=== PATIENT | male | born 1995 | race Caucasian/White ===

== ENCOUNTER 2020-09-20 16:57 | Emergency (ER) | payer OTHER, SELFPAY ==
--- NOTE | ~2020-09-20 | CT_ITS ---
EXAMINATION: CT ABDOMEN AND PELVIS WITH CONTRAST CLINICAL INFORMATION: 25-year-old male with right lower quadrant pain. COMPARISON: Renal ultrasound 03/15/[address] abdomen pelvis 07/07/2018 TECHNIQUE: Multidetector volumetric images were obtained from the superior aspect of the liver through the pubic symphysis following administration 85 mL of Omnipaque 350 intravenous contrast. Sagittal and coronal reformatted images were obtained on the technologist's workstation. This CT examination was performed using dose optimization techniques as appropriate, variously including the following: *Automated exposure control *Adjustment of mA and/or kV according to patient size (this includes techniques or standardized protocols for targeted exams where dose is matched to indication/reason for exam; i.e. extremities or head) *Use of iterative reconstruction technique DLP: 594 mGy-cm FINDINGS: Visualized lung bases are well aerated The liver demonstrates normal size, contour and attenuation. The gallbladder is normal in appearance. The pancreas, spleen and adrenal glands are unremarkable. Symmetrically enhancing kidneys. No hydronephrosis bilaterally. Normal caliber loops of small and large bowel. Normal appendix. The bladder is relatively decompressed but unremarkable. Prostate gland is normal in size. No inguinal lymphadenopathy. No acute osseous abnormality. CT/CT abdomen pelvis w con IMPRESSION: Unremarkable CT imaging of the abdomen and pelvis. Specifically, the appendix is normal in appearance.
[2020-09-20 19:19] VITALS: BP 128/76; PULSE 91; RESP 16; TEMP 36.9; O2SAT 96; BMI 30.4
--- NOTE | 2020-09-20 20:09 | ED.ABDPAIN ---
HPI - Abdominal Pain General Chief Complaint: Abdominal Pain Stated Complaint: RLQ abd pain Time Seen by Provider: 09/20/20 19:58 Source: patient Mode of arrival: ambulatory Limitations: no limitations History of Present Illness HPI narrative: 25-year-old male with a past medical history of diabetes, autism, anxiety, OCD, hypertension, intermittent explosive disorder, seizures, ADHD, depression, bipolar disease here with complaints of abdominal pain since yesterday. The patient tells me that he has pain in the right side of his abdomen which occasionally radiates to the right back. He denies any radiation to the testicles. No urinary symptoms. He does have some nausea with no vomiting. No diarrhea. MD elicited complaint: abdominal pain Related Data Allergies Allergy/AdvReac Type Severity Reaction Status Date / Time amlodipine [AMLODIPINE] Allergy Intermediate SEIZURE Verified 09/20/20 19:18 escitalopram [From LEXAPRO] Allergy Intermediate SEIZURE Unverified 04/13/20 16:35 fluoxetine [Prozac] Allergy Unknown Hives Verified 09/20/20 19:18 olanzapine [From ZYPREXA] Allergy Unknown AGITATION Verified 09/20/20 19:18 sertraline [Zoloft] Allergy Unknown Hives Verified 09/20/20 19:18 Review of Systems Review of Systems Yes all other systems are reviewed and are negative Constitutional: Reports no additional constitutional complaints, Denies body ache(s), Denies chills, Denies fever(s), Denies headache(s) and Denies weakness Eyes: Reports no additional eye complaints and Denies change in vision Reports system reviewed and no additional complaints, except as documented, Denies dizziness, Denies headache(s), Denies nasal congestion, Denies nasal discharge and Denies neck pain Cardiovascular: Reports no additional cardiovascular complaints, Denies chest pain, Denies leg edema and Denies dyspnea Respiratory: Reports no additional respiratory complaints, Denies cough and Denies dyspnea Gastrointestinal: Reports no additional gastrointestinal complaints, Reports abdominal pain, Denies diarrhea, Denies nausea and Denies vomiting Genitourinary: Denies urinary incontinence Musculoskeletal: Reports no additional musculoskeletal complaints, Denies back pain, Denies arthralgias, Denies joint swelling, Denies neck pain, Denies numbness and Denies tingling Skin/Breast: Reports system reviewed and no additional complaints, except as docu and Denies rash Reports system reviewed and no additional complaints, except as documented, Denies Abnormal speech present, Denies dizziness, Denies headache(s), Denies numbness, Denies tingling and Denies weakness Physical Exam Vital Signs: Vital Signs: Last Vital Signs Temp 98.5 F 09/20/20 19:19 Pulse 91 09/20/20 19:19 Resp 16 09/20/20 19:19 BP 128/76 09/20/20 19:19 Pulse Ox 96 09/20/20 19:19 Body Mass Index 30.4 Const: General: cooperative, healthy appearing, comfortable and no acute distress Orientation/consciousness: patient oriented x3 Limitations: no limitations HENMT: Head: Yes normal to inspection Ears: hearing grossly normal bilaterally General nose exam: Normal external nose present Face and sinus: Yes normal facial exam Mouth: Normal oral and palatal mucosa present Throat: Yes posterior oropharynx normal Eyes: General: appearance normal, both eyes and all related structures Pupils: Equal, round and reactive pupils present Neck: Neck: Yes normal visual inspection Chest: Chest palpation & inspection: normal inspection of the chest Resp: Effort & Inspection: normal respiratory effort Auscultation: clear to auscultation bilaterally Cardio: Rate: regular rate Rhythm: regular rhythm Peripheral pulses: Peripheral pulses 2+ throughout GI: Inspection: Yes normal to inspection Palpation (GI): Soft to palpation and Tenderness to palpation present (GI) (mild RUQ/RLQ no rebound or guarding ) Auscultation: normal bowel sounds : General: Yes no CVA tenderness Back/Spine/Pelvis: Back: no CVA tenderness Thoracic/Lumbar Spine: thoracic and lumbar spine normal to inspection Skin: General skin exam: no rashes or lesions noted Neuro: General: patient oriented x3, no focal motor deficits and normal sensation to monofilament Cranial nerves: Yes Equal, round and reactive pupils present Cognition (Neuro): normal cognition Speech: No Abnormal speech present Gait exam (Neuro): Normal gait present Motor exam (neuro): 5/5 motor strength present throughout Extrem: General: Yes normal to inspection Course Course Course Narrative: 25 yo male here with right-sided abdominal pain times 24-48 hours. No other associated symptoms. Exam he has some mild tenderness in the right upper and right lower quadrant with no rebound or guarding. Vital signs are stable. Benign exam. 2200-labs are unremarkable. UA is negative for blood or infection. Imaging unremarkable. Patient's pain is improved on discharge. Reviewed worrisome signs and symptoms and when to return to the emergency department. Comfortable discharge home. MDM - Abdominal Pain MDM Narrative Medical decision making narrative: renal colic, pyelo, uti, acute appy Medical Records Attestation: I reviewed the patient's medical records. Lab Data Attestation: I reviewed the patient's lab results. Result diagrams: 09/20/20 20:22 09/20/20 20: Labs: Lab Results 09/20/20 09/20/20 09/20/20 Range/Units 20:22 20:22 20:22 WBC 11.4 H (4.8-10.8) X10*3/uL RBC 4.06 L (4.60-5.80) X10*6/uL Hgb 12.4 L (14.0-18.0) g/dl Hct 35.1 L (42-52) % MCV 86.5 (80-98) fL MCH 30.5 (27.0-33.0) pg MCHC 35.3 (31.0-36.0) g/dl RDW 12.6 (11.0-16.0) % Plt Count 244 (160-400) X10*3/uL MPV 10.5 (9.4-12.4) fL Immature Gran % (Auto) 0.4 (0.0-0.4) % Neut % (Auto) 59.4 (45-73) % Lymph % (Auto) 31.3 (20-40) % [place] % (Auto) 7.3 (2-11) % Eos % (Auto) 1.2 (0-4) % Baso % (Auto) 0.4 (0-2) % Lymph # (Auto) 3.6 (1.2-4.9) X10*3/uL [place] # (Auto) 0.8 (0.1-1.2) X10*3/uL Eos # (Auto) 0.1 (0.0-0.4) X10*3/uL Baso # (Auto) 0.1 (0.0-0.2) X10*3/uL Abs Immat Gran (auto) 0.04 H (0.00-0.03) X10*3/uL Absolute Neuts (auto) 6.7 (2.0-8.3) X10*3/uL Absolute Nucleated RBC 0.000 (0.0-0.012) X10*3/uL Nucleated RBC % (auto) 0.0 (0.0-0.2) /100WBC Sodium 135 (135-145) mmol/L Potassium 3.5 (3.3-5.1) mmol/L Chloride 103 (96-108) mmol/L Carbon Dioxide 21 L (22-29) mmol/L Anion Gap 15 (12-20) BUN 21 H (9-16) mg/dL Creatinine 0.82 (0.5-1.4) mg/dL Estim Creat Clear Calc 138.9 Estimated GFR > 60 Random Glucose 100 (60-115) mg/dL Calcium 9.0 (8.4-10.2) mg/dL Total Bilirubin 0.4 (0.0-1.0) mg/dL Direct Bilirubin < 0.2 (0.0-0.5) mg/dL AST 15 (5-37) U/L ALT 13 (0-40) U/L Alkaline Phosphatase 57 (39-117) U/L Total Protein 7.3 (6.5-8.0) g/dL Albumin 4.5 (3.5-5.0) g/dL Urine Color YELLOW Urine Appearance CLEAR Urine pH 7.0 (5.0-8.0) Ur Specific [place] 1.010 (1.005-1.025) Urine Protein NEG (NEG-TRACE) MG/DL Urine Glucose (UA) NEG (NEG) MG/DL Urine Ketones NEG (NEG) MG/DL Urine Blood NEG (NEG) Urine Nitrite NEG (NEG) Ur Leukocyte Esterase TRACE H (NEG) Urine RBC 0 (0) /HPF Urine WBC 0 (0-4) /HPF Ur Squamous Epith Cells 1+ /LPF Urine Bacteria TRACE /LPF Imaging Data CT scan - abdomen: Attestation: I personally reviewed and interpreted this imaging study as follows: Radiologist's impression: EXAMINATION: CT ABDOMEN AND PELVIS WITH CONTRAST CLINICAL INFORMATION: 25-year-old male with right lower quadrant pain. COMPARISON: Renal ultrasound 03/15/[address] abdomen pelvis 07/07/2018 TECHNIQUE: Multidetector volumetric images were obtained from the superior aspect of the liver through the pubic symphysis following administration 85 mL of Omnipaque 350 intravenous contrast. Sagittal and coronal reformatted images were obtained on the technologist's workstation. This CT examination was performed using dose optimization techniques as appropriate, variously including the following: *Automated exposure control *Adjustment of mA and/or kV according to patient size (this includes techniques or standardized protocols for targeted exams where dose is matched to indication/reason for exam; i.e. extremities or head) *Use of iterative reconstruction technique DLP: 594 mGy-cm FINDINGS: Visualized lung bases are well aerated The liver demonstrates normal size, contour and attenuation. The gallbladder is normal in appearance. The pancreas, spleen and adrenal glands are unremarkable. Symmetrically enhancing kidneys. No hydronephrosis bilaterally. Normal caliber loops of small and large bowel. Normal appendix. The bladder is relatively decompressed but unremarkable. Prostate gland is normal in size. No inguinal lymphadenopathy. No acute osseous abnormality. CT/CT abdomen pelvis w con IMPRESSION: Unremarkable CT imaging of the abdomen and pelvis. Specifically, the appendix is normal in appearance. Discharge Plan Discharge Clinical Impression: Abdominal pain Qualifiers: Abdominal location: generalized Qualified Code(s): R10.84 - Generalized abdominal pain Patient Disposition: Home, Self-Care Instructions: Abdominal Pain (ED) Additional Instructions: Your labs, urine testing and scans of your abdomen all look unremarkable Follow-up with your PCP in a few days for persistent symptoms. Referrals: Gigi Acuña MD [Primary Care Provider] - 2 days Interventions: ED Discharge Assessment Last Done: 09/20/20 22:18 Discharge Date/Time: 09/20/20 22:18 [facility] Past Medical History Attestation statement: The following information was validated with the patient. Source: old records reviewed and nursing notes reviewed Medical History (Updated 09/20/20 @ 22:00 by Mariella Lang NP) ADHD Anxiety Autism Bipolar 1 disorder Depression Diabetes mellitus OCD (obsessive compulsive disorder) Seizure Social History Social History Smoked in Last 30 Days: No Use of substances other than those prescribed or required for medical reasons: No Advance Directives: No Advance Directives Information Provided: Yes
[2020-09-20 20:28] LABS: MANUAL DIFF FLAG NO
[2020-09-20 20:31] LABS: Appearance Urine CLEAR; Basophils Absolute Auto 0.1 X10*3/uL (0.0-0.2); Basophils Percent Auto 0.4 % (0-2); Color Urine YELLOW; Eosinophils Absolute Auto 0.1 X10*3/uL (0.0-0.4); Eosinophils Percent Auto 1.2 % (0-4); Glucose Urine UA NEG (NEG); Hematocrit 35.1 % (42-52); Hemoglobin 12.4 g/dl (14.0-18.0); Imm Gran Abs Auto 0.04 X10*3/uL (0.00-0.03); Imm Gran Pct Auto 0.4 % (0.0-0.4); Leukocyte Esterase Urine TRACE (NEG); Lymphocytes Absolute Auto 3.6 X10*3/uL (1.2-4.9); Lymphocytes Percent Auto 31.3 % (20-40); Mean Corpuscular HGB Conc 35.3 g/dl (31.0-36.0); Mean Corpuscular Hemoglobin 30.5 pg (27.0-33.0); Mean Corpuscular Volume 86.5 fL (80-98); Mean Platelet Volume 10.5 fL (9.4-12.4); Monocytes Absolute Auto 0.8 X10*3/uL (0.1-1.2); Monocytes Percent Auto 7.3 % (2-11); Neutrophils Absolute Auto 6.7 X10*3/uL (2.0-8.3); Neutrophils Percent Auto 59.4 % (45-73); Nitrite Urine NEG (NEG); Platelet Count 244 X10*3/uL (160-400); Red Blood Count 4.06 X10*6/uL (4.60-5.80); Red Cell Distribution Width 12.6 % (11.0-16.0); UACC Culture Trigger YES; Urine Blood NEG (NEG); Urine Ketones NEG (NEG); Urine Protein NEG (NEG-TRACE); White Blood Count 11.4 X10*3/uL (4.8-10.8)
[2020-09-20 20:42] LABS: Bacteria Urine TRACE /LPF; RBC Urine 0 /HPF (0); Squamous Epithelial Cell Urine 1+ /LPF; WBC Urine 0 /HPF (0-4)
[2020-09-20 21:12] LABS: Alanine Aminotransferase 13 U/L (0-40); Albumin Level 4.5 g/dL (3.5-5.0); Alkaline Phosphatase 57 U/L (39-117); Anion Gap 15 (12-20); Aspartate Amino Transferase 15 U/L (5-37); Bilirubin Direct < 0.2 mg/dL (0.0-0.5); Bilirubin Total 0.4 mg/dL (0.0-1.0); Blood Urea Nitrogen 21 mg/dL (9-16); Carbon Dioxide 21 mmol/L (22-29); Chloride 103 mmol/L (96-108); Creatinine Clr Calc Pharmacy 138.9; Estimated Glomerular Filt Rate > 60; Glucose Random 100 mg/dL (60-115); Potassium 3.5 mmol/L (3.3-5.1); Sodium 135 mmol/L (135-145); Total Protein 7.3 g/dL (6.5-8.0)
[2020-09-20] MEDS: iohexoL 350 MG/ML 100 ML INFUS..BTL IV (21:41)
== END 2020-09-20 22:18 | disposition home or self-care (01) ==
PROVIDERS: Nurse Practitioner Family; Emergency Provider Emergency Medicine; PCP Pediatrics
DX: R10.31 Right lower quadrant pain (principal); F84.0 Autistic disorder; F41.1 Generalized anxiety disorder; F43.0 Acute stress reaction; F63.81 Intermittent explosive disorder; F33.1 Major depressive disorder, recurrent, moderate; Z79.899 Other long term (current) drug therapy
CPT/HCPCS: 36415; 74177; 80048; 80076; 81001; 81003; 85025; 87086; 99284; Q9967

== ENCOUNTER → 2020-10-19 09:05 | Outpatient (REF) | payer OTHER, SELFPAY ==
--- NOTE | 2020-10-19 09:30 | CA_ITS ---
Transthoracic Echocardiogram Patient (Last, First, Middle): Andry Liang E Gender: Male Date of : 1995 Age: 25 Procedure Date: 10/19/2020 Procedure Type: Transthoracic Echocardiogram Location: OP Height: 165.1 cm Weight: 84.37 kg BSA: 1.92 m2 Heart Rate: bpm BP: 103 / 50 mmHg Survey Questionnaire Designer: GIOVANNA Referring MD: Jono Painter MD Symptoms: I34.0 NON RHEUMATIC MITRAL REGURG, HTN Study Quality: Good ECG Rhythm: Sinus Conclusions: - The left ventricular systolic function is low normal. The visually estimated ejection fraction is between 50-55%. - No obvious valvular pathology seen on this study. Findings Left Ventricle Normal left ventricular cavity size. There is normal left ventricular wall thickness. The left ventricular systolic function is low normal. The visually estimated ejection fraction is between 50-55%. There is no evidence of regional wall motion abnormalities. Diastolic function is normal for age. Right Ventricle Normal right ventricular cavity size and systolic function. Atria Both atria are normal in size. Aortic Valve There is a normal trileaflet aortic valve. There is no aortic valve stenosis. There is no aortic valve regurgitation. Mitral Valve The mitral valve appears normal. There is trace mitral valve regurgitation. There is no mitral valve stenosis. Pulmonic Valve The pulmonic valve was not well visualized. Tricuspid Valve Normal tricuspid valve structure. There is trace tricuspid valve regurgitation. The pulmonary artery systolic pressure is normal. Great Vessels The aortic annulus, sinuses of valsalva, and asc aorta are normal in size. Venous The inferior vena cava is normal in size and collapses greater than 50% with inspiration. Pericardium/Pleural There is no evidence of pericardial effusion. Prior Study Comparison No significant change compared to prior study dated: 02/10/2018. Recommendations, Care & Conclusions No obvious valvular pathology seen on this study. Measurements 2D Linear Measurements IVSd: 0.83 0.6-0.9/0.6-1.0 cm LVIDd: 4.29 3.9-5.3/4.2-5.9 cm LVIDd Index: 2.23 2.4-3.2/2.2-3.1 cm/m2 LVIDs: 2.94 2.0-3.6 cm LVPWd: 0.94 0.7-1.1 cm Ao Root: 2.90 2.1-3.5 cm LA Diam: 3.50 2.7-3.8/3.0-4.0 cm LAIDs Index: 1.82 1.5-2.3 cm/m2 LV Mass: 150.02 67-162/88-224 g LV Mass Index: 78.14 43-95/49-115 g/m2 LVOT Diam: 2.20 3.0+(-)1.3 cm 2D Systolic Function EF 4C: 53.80 >55% EF 2C: 64.40 >55% EF BiP: 58.30 >55% Mitral Valve MV Pk E: 0.85 MV PK A: 0.46 MV Decel Time: 278.00 E/A: 1.80 E'Lateral: 16.20 E'Medial: 13.30 E/E' Med: 6.40 E/E' Lat: 5.20 PHT: 81.00 MVA PHT: 2.72 Decel [place]ike: 3.04 Aortic Valve AoV Pk Andrea: 1.31 AoV Mn Andrea: 0.84 AoV VTI: 0.25 AoV Pk Grad: 7.00 Aov Mn Grad: 3.00 LAURA Cont.VTI: 2.40 LVOT LVOT Pk Andrea: 0.82 LVOT Mn Andrea: 0.53 LVOT VTI: 0.16 LVOT Pk Grad: 3.00 LVOT Mn Grad: 1.00 LVOT Diam: 2.20 LVOT Area: 3.80 Diastolic Function MV Pk E: 0.85 MV Pk A: 0.46 E/A: 1.80 E'Medial: 13.30 E/E' Med: 6.40 E' Laterial: 16.20 E/E' Lat: 5.20 Tricuspid Valve TR Pk Andrea: 2.04 TR Pk Grad: 17.00 RA Press: 3.00 RVSP: 20.00 Great Vessels Aorta Ao Root-2D: 2.90 2.0-3.7 cm Ao Asc: 2.70 2.1-3.4 cm Ao Arch: 1.80 Updated in Other Vendor System with Status of Final Jono Painter MD electronically signed on 10/20/2020 2:46:13 PM with status of Final
== END ==
LOC: HO.CARD 09:05
PROVIDERS: PCP Pediatrics; Visit Provider Internal Medicine
DX: I34.0 Nonrheumatic mitral (valve) insufficiency (principal); I10 Essential (primary) hypertension
CPT/HCPCS: 93306

== ENCOUNTER → 2020-10-24 10:58 | Outpatient (BNVA) | payer OTHER, SELFPAY | PROVIDERS: PCP Pediatrics; Visit Provider Internal Medicine | DX: I34.0 Nonrheumatic mitral (valve) insufficiency (principal); I10 Essential (primary) hypertension | CPT/HCPCS: 93005; 99212 ==

== ENCOUNTER 2021-02-01 12:51 | Outpatient (REF) | payer OTHER, SELFPAY ==
[2021-02-01 13:02] LABS: Glucose Urine UA NEG (NEG); Leukocyte Esterase Urine NEG (NEG); Nitrite Urine NEG (NEG); Urine Blood NEG (NEG); Urine Ketones NEG (NEG); Urine Protein NEG (NEG-TRACE)
[2021-02-01 13:09] LABS: Appearance Urine CLEAR; Color Urine YELLOW
[2021-02-01 13:14] LABS: RBC Urine 0 /HPF (0); Squamous Epithelial Cell Urine TRACE /LPF; WBC Urine 0 /HPF (0-4)
== END 2021-02-01 12:52 | disposition home or self-care (01) ==
LOC: HO.LNP 12:51
PROVIDERS: Visit Provider Pediatrics
DX: N39.44 Nocturnal enuresis (principal); N39.0 Urinary tract infection, site not specified
CPT/HCPCS: 81001; 87086

== ENCOUNTER 2021-06-30 17:53 | Emergency (ER) | payer OTHER, SELFPAY ==
--- NOTE | ~2021-06-30 | US_ITS ---
EXAMINATION: US SCROTUM US DOPPLER SCROTUM CLINICAL INFORMATION: Right-sided testicular pain.. COMPARISON: None available. TECHNIQUE: A sonogram of the scrotum was performed assessing alcantara-scale appearance and color Doppler flow. Spectral Doppler analysis of the arterial and venous flow were performed in the testes bilaterally. FINDINGS: RIGHT: Right testicle measures 5.6 x 2.6 x 4.2 cm, volume 31.4 mL. No focal testicular parenchymal lesions are visualized. Spectral Doppler analysis of the arterial and venous flow is normal in the right testis. Right epididymal head is normal in size. No right hydrocele or varicocele is demonstrated. Right epididymal Doppler flow is normal. LEFT: Left testicle measures 4.5 x 2.2 x 3.4 cm, volume 17.4 mL. No focal testicular parenchymal lesions are visualized. Spectral Doppler analysis of the arterial and venous flow is normal in the left testis. Left epididymal head is normal in size. There is an anechoic epididymal cysts, measuring 1.4 x 1 x 0.8 cm. No left hydrocele or varicocele is demonstrated. Left epididymal Doppler flow is normal. US/US scrotum IMPRESSION: 1. Normal ultrasound appearance of the testicles. No hydrocele/varicocele. 2. There is a 1.4 cm left-sided epididymal cyst without evidence of complication.
--- NOTE | ~2021-06-30 | US_ITS ---
EXAMINATION: US SCROTUM US DOPPLER SCROTUM CLINICAL INFORMATION: Right-sided testicular pain.. COMPARISON: None available. TECHNIQUE: A sonogram of the scrotum was performed assessing alcantara-scale appearance and color Doppler flow. Spectral Doppler analysis of the arterial and venous flow were performed in the testes bilaterally. FINDINGS: RIGHT: Right testicle measures 5.6 x 2.6 x 4.2 cm, volume 31.4 mL. No focal testicular parenchymal lesions are visualized. Spectral Doppler analysis of the arterial and venous flow is normal in the right testis. Right epididymal head is normal in size. No right hydrocele or varicocele is demonstrated. Right epididymal Doppler flow is normal. LEFT: Left testicle measures 4.5 x 2.2 x 3.4 cm, volume 17.4 mL. No focal testicular parenchymal lesions are visualized. Spectral Doppler analysis of the arterial and venous flow is normal in the left testis. Left epididymal head is normal in size. There is an anechoic epididymal cysts, measuring 1.4 x 1 x 0.8 cm. No left hydrocele or varicocele is demonstrated. Left epididymal Doppler flow is normal. US/US scrotum doppler IMPRESSION: 1. Normal ultrasound appearance of the testicles. No hydrocele/varicocele. 2. There is a 1.4 cm left-sided epididymal cyst without evidence of complication.
--- NOTE | ~2021-06-30 | CT_ITS ---
EXAMINATION: CT ABDOMEN AND PELVIS WITH CONTRAST CLINICAL INFORMATION: Right lower quadrant abdominal pain. COMPARISON: CT abdomen and pelvis from 09/20/2020. Scrotal ultrasound from 07/20/2021. TECHNIQUE: Multidetector volumetric imaging was performed through the abdomen and pelvis after the administration of 85 mL of Omnipaque 350 intravenous contrast. Sagittal and coronal reformatted images were obtained on the technologist's workstation. This CT examination was performed using dose optimization techniques as appropriate, variously including the following: *Automated exposure control. *Adjustment of mA and/or kV according to patient size (this includes techniques or standardized protocols for targeted exams where dose is matched to indication/reason for exam; i.e. extremities or head). *Use of iterative reconstruction technique. DLP: 692 mGy-cm. FINDINGS: Lower Chest: Number of diffuse or focal parenchymal abnormalities in the visualized lung bases. No demonstrated abnormalities of the visualized cardiac structures. Liver, Biliary Ducts, and Gallbladder: The liver is normal in size and attenuation without focal hepatic lesions or biliary ductal dilatation. The gallbladder is physiologically distended without radiopaque gallstones, pericholecystic fluid, or significant gallbladder wall thickening. Pancreas: The pancreas is normal in appearance. Adrenal Glands: The adrenal glands are normal in appearance. Spleen: The spleen is normal in appearance. Kidneys, Ureters, and Urinary Bladder: The kidneys demonstrate symmetric nephrograms without evidence of nephrolithiasis or overt hydronephrosis. There is a 0.3 cm stone at the right ureterovesicular junction. No additional ureterolithiasis or hydroureter. The urinary bladder is partially distended without focal wall thickening. Gastrointestinal System: The stomach is decompressed and therefore not well evaluated on this exam. The small bowel is of normal caliber without regions of abnormal wall enhancement. The colon is normal in appearance without focal wall thickening or pericolonic inflammatory change. Normal appendix. Genitourinary: No overt abnormalities of the prostate gland or seminal vesicles. Intra-abdominal and Retroperitoneal Spaces: No intra-abdominal free fluid collections or gas. No mesenteric, retroperitoneal, or inguinal lymphadenopathy. Vasculature: The abdominal aorta is of normal contour and caliber. The left gastric artery Musculoskeletal: Small fat-containing left-sided inguinal hernia. Mild multilevel degenerative changes of the spine. Mild degenerative retrolisthesis of L5 on S1. No lytic or sclerotic osseous lesions demonstrated. No soft tissue masses demonstrated. CT/CT abdomen pelvis w con IMPRESSION: 1. There is a 0.3 cm stone at the right ureterovesicular junction. No overt hydronephrosis/hydroureter. 2. No additional acute abnormalities of the abdomen/pelvis.
[2021-06-30 18:55] VITALS: BP 129/76; PULSE 80; RESP 16; TEMP 36.2; O2SAT 97; BMI 30.9
[2021-06-30 19:45] LABS: MANUAL DIFF FLAG NO
[2021-06-30 19:54] LABS: Basophils Absolute Auto 0.1 X10*3/uL (0.0-0.2); Basophils Percent Auto 0.5 % (0-2); Eosinophils Absolute Auto 0.2 X10*3/uL (0.0-0.4); Eosinophils Percent Auto 1.5 % (0-4); Hematocrit 40.6 % (42.0-52.0); Hemoglobin 14.3 g/dl (14.0-18.0); Imm Gran Abs Auto 0.06 X10*3/uL (0.00-0.03); Imm Gran Pct Auto 0.5 % (0.0-0.4); Lymphocytes Absolute Auto 3.4 X10*3/uL (1.2-4.9); Lymphocytes Percent Auto 31.2 % (20-40); Mean Corpuscular HGB Conc 35.2 g/dl (31.0-36.0); Mean Corpuscular Hemoglobin 30.5 pg (27.0-33.0); Mean Corpuscular Volume 86.6 fL (80.0-98.0); Mean Platelet Volume 10.8 fL (9.4-12.4); Monocytes Absolute Auto 0.9 X10*3/uL (0.1-1.2); Monocytes Percent Auto 8.4 % (2-11); Neutrophils Absolute Auto 6.4 x10*3/uL (2.0-8.3); Neutrophils Percent Auto 57.9 % (45-73); Platelet Count 231 X10*3/uL (160-400); Red Blood Count 4.69 X10*6/uL (4.60-5.80); Red Cell Distribution Width 13.2 % (11.0-16.0)
[2021-06-30 20:07] LABS: Alanine Aminotransferase 27 U/L (0-40); Albumin Level 4.4 g/dL (3.5-5.0); Alkaline Phosphatase 48 U/L (39-117); Anion Gap 14 (12-20); Aspartate Amino Transferase 23 U/L (5-37); Bilirubin Total 0.4 mg/dL (0.0-1.0); Blood Urea Nitrogen 16 mg/dL (9-16); Calcium 9.5 mg/dL (8.4-10.2); Carbon Dioxide 20 mmol/L (22-29); Chloride 111 mmol/L (96-108); Creatinine Clr Calc Pharmacy 141.8; Estimated Glomerular Filt Rate > 60; Glucose Random 105 mg/dL (60-115); Potassium 3.8 mmol/L (3.3-5.1); Sodium 141 mmol/L (135-145); Total Protein 7.4 g/dL (6.5-8.0)
--- NOTE | 2021-06-30 20:07 | ED_ITS ---
HPI - Male Genitourinary General Chief complaint: Urogenital-Male Stated complaint: Abdominal pain/Testicle pain Time Seen by Provider: 06/30/21 19:40 Source: patient Mode of arrival: ambulatory Limitations: no limitations History of Present Illness HPI Narrative: This is a 25-year-old male past medical history significant for hypertension, anxiety,depression, bipolar d/o, OCD, diabetes presents to the emergency department with complaints of right lower quadrant abdominal pain, difficulties urinating and right-sided testicular pain. Patient tells me that this all started this morning, and it has been constant pain/discomfort ever since then. He says he feels like the abdominal pain radiated to his testicle. He took Motrin prior to his arrival but he tells me did not help. He reports associated nausea but no vomiting. He tells me that the testicular pain came on suddenly and was a sharp pain, it has decreased in severity since it started, however it is still present. He tells me he also feels like he has had a decreased urinary stream, and burning with urination. Patient has no history of kidney stones, patient is not concerned for an STD or STI. He denies fevers, chills, nausea, vomiting, chest pain, shortness of breath, abdominal pain. MD Complaint: testicle pain and dysuria Onset (ago): day(s) (1) Duration: constant Location: abdomen (RLQ ) Radiation: right testicle Severity: moderate Quality: dull Relieving factors: none Exacerbating factors: none Associated symptoms: Reports dysuria Related Data Home Medications Medication Instructions Recorded Confirmed cholecalciferol (vitamin D3) 50 50 mcg PO QAM 10/24/20 10/24/20 mcg (2,000 unit) tablet clonidine HCl 0.2 mg tablet 0.2 mg PO DAILY PRN 10/24/20 10/24/20 lisinopril 20 1 tab PO QAM 10/24/20 10/24/20 mg-hydrochlorothiazide 25 mg tablet melatonin 5 mg tablet 5 mg PO BEDTIME 10/24/20 10/24/20 metformin 500 mg tablet 500 mg PO BID 10/24/20 10/24/20 quetiapine 200 mg tablet 200 mg PO BEDTIME 10/24/20 10/24/20 quetiapine 50 mg tablet 50 mg PO TID 10/24/20 10/24/20 sertraline 100 mg tablet 100 mg PO QAM 10/24/20 10/24/20 simvastatin 10 mg tablet 10 mg PO QAM 10/24/20 10/24/20 topiramate 100 mg tablet 200 mg PO BID 10/24/20 10/24/20 Previous Rx's Medication Instructions Recorded ondansetron 4 mg disintegrating 4 mg PO ONCE PRN #10 tab 06/30/21 tablet Allergies Allergy/AdvReac Type Severity Reaction Status Date / Time amlodipine [AMLODIPINE] Allergy Intermediate SEIZURE Verified 10/24/20 11:10 escitalopram [From LEXAPRO] Allergy Intermediate SEIZURE Verified 10/24/20 11:10 fluoxetine [Prozac] Allergy Unknown Hives Verified 10/24/20 11:10 olanzapine [From ZYPREXA] Allergy Unknown AGITATION Verified 10/24/20 11:10 sertraline [Zoloft] Allergy Unknown Hives Verified 10/24/20 11:10 Review of Systems Review of Systems: Constitutional : No Weight loss, No Fever, No Chills, No Fatigue, No Malaise ENT/Mouth : No sore throat, No Rhinorrhea Eyes: No Eye Pain, No Swelling, No Redness Cardiovascular : No Chest Pain, No SOB, No Dyspnea on Exertion, No Orthopnea, No Edema, No Palpitations Respiratory : No Cough, No Sputum, No Wheezing Gastrointestinal : + Nausea, No Vomiting, No Diarrhea, No Constipation, + abdominal Pain, No Hematochezia, No Melena Genitourinary : + Dysuria, + Urinary Frequency, No Hematuria,+ testicular pain Musculoskeletal : No joint pain, No Myalgias, No Joint Swelling Skin : No Skin Lesions, No rash Neuro : No Weakness, No Numbness, No Dizziness, No Headache All other systems reviewed and are negative Yes all other systems are reviewed and are negative [facility] Past Medical History Attestation statement: The following information was validated with the patient. Source: old records reviewed and nursing notes reviewed Medical History (Updated 06/30/21 @ 21:08 by NINFA Rosas) ADHD Anxiety Autism Bipolar 1 disorder Depression Diabetes mellitus Essential hypertension Non-rheumatic mitral regurgitation OCD (obsessive compulsive disorder) Seizure Surgical History (Updated 10/24/20 @ 11:11 by JOSUÉ Pandya) No pertinent past surgical history Family History Family History (Updated 10/24/20 @ 11:11 by JOSUÉ Pandya) Father Diabetes HTN (hypertension) Mother Diabetes HTN (hypertension) Social History Social History (Updated 10/24/20 @ 11:12 by JOSUÉ Pandya) Advance Directives: No Advance Directives Information Provided: Yes Physical Exam Vital Signs: Vital Signs: Last Vital Signs Temp 97.2 F 06/30/21 18:55 Pulse 80 06/30/21 18:55 Resp 16 06/30/21 18:55 BP 129/76 06/30/21 18:55 Pulse Ox 97 06/30/21 18:55 BMI result Body Mass Index 30.9 VSS Appearance: Alert.? Oriented X3.? No acute distress.? Head: Normocephalic, atraumatic, no step-offs or deformities Eyes: Pupils equal, round and reactive to light.? ENT: Pharynx normal.? Neck: Normal inspection.? Neck supple.? CVS: Normal heart rate and rhythm.? Pulses normal.? Respiratory: No respiratory distress.? Breath sounds normal.? Abdomen: Soft and + tenderness to RLQ.? Sensative exam: Patient reports tenderness to palpation to the right testicle, no overlying skin changes, no pain to palpation of left testicle. No abnormal lumps or masses noted upon palpation. Normal uncircumcised male penis. No genital lesions, or sores noted. (chaperoned by Mayo MAK) Skin: Skin warm and dry.? Normal skin color.? Normal skin turgor.? Extremities: No lower extremity edema.? No calf ttp. 5/5 strength to bilateral upper and lower extremities Back: No midline tenderness, no C-spine tenderness, full range of motion, no CVA tenderness bilaterally Neuro: Oriented X 3.? No motor deficit.? No sensory deficit. Course Reevaluation(s) Reevaluation #1: Labs show slight leukocytosis, no electrolyte abnormalities. Urine is clean with blood. CT of the abdomen and pelvis pending ultrasound of the scrotum pending. Sign out will be given to Time: 21:06 MDM - Male Genitourinary MDM Narrative Medical decision making narrative: 1997 This is a 25 yo M pmhx HTN, anxiety,depression, bipolar d/o, OCD, DM presents to the Ed with complaints of right lower quadrant pain, radiating to his right testicle, dysuria, decreased urinary stream. No previous abdominal surgeries. Upon physical examination patient appears well. Vital signs are stable. He has tenderness to palpation to the right lower quadrant. S1-S2 appreciated free of murmurs. Lungs are clear. No focal neuro deficits. Will perform a sensitive exam when I have a printed circuit board panels plater. Plan at this time is to obtain basic labs, urine, chlamydia, gonorrhea by urine, ultrasound of the scrotum to rule out torsion. A CT of the abdomen pelvis to rule out appendicitis/kidney stones. Medical Records Attestation: I reviewed the patient's medical records. Lab Data Attestation: I reviewed the patient's lab results. Result diagrams: 06/30/21 19:41 06/30/21 19:41 Labs: Lab Results 06/30/21 06/30/21 06/30/21 Range/Units 19:41 19:41 19:59 WBC 11.0 H (4.8-10.8) X10*3/uL RBC 4.69 (4.60-5.80) X10*6/uL Hgb 14.3 (14.0-18.0) g/dl Hct 40.6 L (42.0-52.0) % MCV 86.6 (80.0-98.0) fL MCH 30.5 (27.0-33.0) pg MCHC 35.2 (31.0-36.0) g/dl RDW 13.2 (11.0-16.0) % Plt Count 231 (160-400) X10*3/uL MPV 10.8 (9.4-12.4) fL Immature Gran % (Auto) 0.5 H (0.0-0.4) % Neut % (Auto) 57.9 (45-73) % Lymph % (Auto) 31.2 (20-40) % Gilchrist % (Auto) 8.4 (2-11) % Eos % (Auto) 1.5 (0-4) % Baso % (Auto) 0.5 (0-2) % Lymph # (Auto) 3.4 (1.2-4.9) X10*3/uL Gilchrist # (Auto) 0.9 (0.1-1.2) X10*3/uL Eos # (Auto) 0.2 (0.0-0.4) X10*3/uL Baso # (Auto) 0.1 (0.0-0.2) X10*3/uL Abs Immat Gran (auto) 0.06 H (0.00-0.03) X10*3/uL Absolute Neuts (auto) 6.4 (2.0-8.3) x10*3/uL Absolute Nucleated RBC 0.000 (0.0-0.012) X10*3/uL Nucleated RBC % (auto) 0.0 (0.0-0.2) /100WBC Sodium 141 (135-145) mmol/L Potassium 3.8 (3.3-5.1) mmol/L Chloride 111 H (96-108) mmol/L Carbon Dioxide 20 L (22-29) mmol/L Anion Gap 14 (12-20) BUN 16 (9-16) mg/dL Creatinine 0.81 (0.5-1.4) mg/dL Estim Creat Clear Calc 141.8 Estimated GFR > 60 Random Glucose 105 (60-115) mg/dL Calcium 9.5 (8.4-10.2) mg/dL Total Bilirubin 0.4 (0.0-1.0) mg/dL AST 23 D (5-37) U/L ALT 27 (0-40) U/L Alkaline Phosphatase 48 (39-117) U/L Total Protein 7.4 (6.5-8.0) g/dL Albumin 4.4 (3.5-5.0) g/dL Urine Color YELLOW Urine Appearance CLOUDY Urine pH 7.0 (5.0-8.0) Ur Specific [place] 1.020 (1.005-1.025) Urine Protein NEG (NEG-TRACE) MG/DL Urine Glucose (UA) NEG (NEG) MG/DL Urine Ketones NEG (NEG) MG/DL Urine Blood 1+ H (NEG) Urine Nitrite NEG (NEG) Ur Leukocyte Esterase NEG (NEG) Urine RBC 1-4 (0) /HPF Urine WBC 0-2 (0-4) /HPF Ur Squamous Epith Cells TRACE /LPF Amorphous Sediment 2+ /LPF Urine Bacteria NONE /LPF Critical Care Time Critical Care Time Critical Care Time: No Discharge Plan Discharge Clinical Impression: Abdominal pain, Dysuria, Nausea Patient Disposition: Home, Self-Care Instructions: Dysuria (ED), Abdominal Pain (ED) Additional Instructions: Take your medications as prescribed. If you were prescribed antibiotics today, it is important that you take your medication to their entirety, do not skip any doses, do not finish them early. Follow-up with your primary care provider this week. Return to the emergency department with new or worsening symptoms. In case of emergency call 911 Prescriptions: New ondansetron 4 mg tablet,disintegrating 4 mg PO ONCE PRN (Reason: nausea and vomiting) Qty: 10 RF: 0 No Action cholecalciferol (vitamin D3) 50 mcg (2,000 unit) tablet 50 mcg PO QAM RF: 0 topiramate 100 mg tablet 200 mg PO BID RF: 0 lisinopril-hydrochlorothiazide 20-25 mg tablet 1 tab PO QAM RF: 0 melatonin 5 mg tablet 5 mg PO BEDTIME RF: 0 quetiapine 50 mg tablet 50 mg PO TID RF: 0 quetiapine 200 mg tablet 200 mg PO BEDTIME RF: 0 simvastatin 10 mg tablet 10 mg PO QAM RF: 0 sertraline 100 mg tablet 100 mg PO QAM RF: 0 metformin 500 mg tablet 500 mg PO BID RF: 0 clonidine HCl 0.2 mg tablet 0.2 mg PO DAILY PRN (Reason: anxiety) RF: 0 Referrals: Gigi Acuña MD [Primary Care Provider] - 2 days
[2021-06-30 20:47] LABS: Appearance Urine CLOUDY; Color Urine YELLOW; Glucose Urine UA NEG (NEG); Leukocyte Esterase Urine NEG (NEG); Nitrite Urine NEG (NEG); UACC Culture Trigger NO; Urine Blood 1+ (NEG); Urine Ketones NEG (NEG); Urine Protein NEG (NEG-TRACE)
[2021-06-30 20:57] LABS: Squamous Epithelial Cell Urine TRACE /LPF; WBC Urine 0-2 /HPF (0-4)
[2021-06-30 20:58] LABS: Amorphous Sediment Urine 2+ /LPF
[2021-06-30] MEDS: iohexoL 350 MG/ML 100 ML INFUS..BTL 85 ML IV (21:19)
[2021-06-30 21:41] VITALS: BP 137/81; PULSE 84; RESP 16; TEMP 36.9; O2SAT 98
[2021-06-30] MEDS: Ketorolac Tromethamine 30 MG/ML VIAL IVPUSH (22:28)
[2021-06-30] MEDS: oxyCODONE HCl Immed Release 5 MG TABLET PO (23:53)
[2021-06-30] MEDS: Tamsulosin HCL 0.4 MG CAPSULE PO (23:54)
[2021-07-01 00:07] VITALS: BP 133/81; PULSE 78; RESP 16; TEMP 36.9; O2SAT 98
[2021-07-02 05:10] LABS: CT PCR NOT DETECTED (Not Detect.); NG PCR NOT DETECTED (Not Detect.)
== END 2021-07-01 00:09 | disposition home or self-care (01) ==
PROVIDERS: Emergency Medicine Emergency Medical Services; Emergency Provider Internal Medicine; PCP Pediatrics
DX: R30.0 Dysuria (principal); R10.31 Right lower quadrant pain; R11.0 Nausea; N50.811 Right testicular pain
CPT/HCPCS: 36415; 74177; 76870; 80053; 81001; 85025; 87491; 87591; 93975; 96374; 99284; J1885; Q9967

== ENCOUNTER 2021-07-06 16:53 | Emergency (ER) | payer OTHER, SELFPAY ==
[2021-07-06 20:25] LABS: Influenza A PCR NEGATIVE (Negative); Influenza B PCR NEGATIVE (Negative); Resp Syncy Virus RNA Qual PCR NEGATIVE (Negative); SARS COV2 PCR INHOUSE NEGATIVE (Negative)
[2021-07-06 20:56] VITALS: BP 143/89; PULSE 85; RESP 18; TEMP 37.1; O2SAT 98; BMI 30.9
[2021-07-06 21:25] LABS: IDNOW Serial# 55D5AD1C; Strep A Nucleic Acid Negative (Negative)
[2021-07-06] MEDS: Acetaminophen 325 MG TABLET 650 MG PO (22:17)
[2021-07-06] MEDS: Ondansetron ODT 4 MG TAB.RAPDIS TRANSLINGU (22:18)
--- NOTE | 2021-07-06 22:40 | ED.URI ---
HPI - URI/Sore Throat General Chief Complaint: Upper Respiratory Symptoms Stated Complaint: Flu like symptoms Time Seen by Provider: 07/06/21 22:37 Source: patient Mode of arrival: ambulatory Limitations: no limitations History of Present Illness HPI Narrative: Patient complaining of sore throat nasal congestion cough low-grade fever for last 3 days not getting better, patient already been vaccinated against COVID Related Data Home Medications Medication Instructions Recorded Confirmed cholecalciferol (vitamin D3) 50 50 mcg PO QAM 10/24/20 10/24/20 mcg (2,000 unit) tablet clonidine HCl 0.2 mg tablet 0.2 mg PO DAILY PRN 10/24/20 10/24/20 lisinopril 20 1 tab PO QAM 10/24/20 10/24/20 mg-hydrochlorothiazide 25 mg tablet melatonin 5 mg tablet 5 mg PO BEDTIME 10/24/20 10/24/20 metformin 500 mg tablet 500 mg PO BID 10/24/20 10/24/20 quetiapine 200 mg tablet 200 mg PO BEDTIME 10/24/20 10/24/20 quetiapine 50 mg tablet 50 mg PO TID 10/24/20 10/24/20 sertraline 100 mg tablet 100 mg PO QAM 10/24/20 10/24/20 simvastatin 10 mg tablet 10 mg PO QAM 10/24/20 10/24/20 topiramate 100 mg tablet 200 mg PO BID 10/24/20 10/24/20 Previous Rx's Medication Instructions Recorded ondansetron 4 mg disintegrating 4 mg PO ONCE PRN #10 tab 06/30/21 tablet oxycodone-acetaminophen 5 mg-325 1 tab PO Q6H PRN #20 tab 06/30/21 mg tablet (Percocet) tamsulosin 0.4 mg capsule (Flomax) 0.4 mg PO BEDTIME #14 cap 06/30/21 prednisone 20 mg tablet 20 mg PO DAILY 5 Days #5 tab 07/02/21 amoxicillin 875 mg-potassium 1 tab PO BID #20 tab 07/06/21 clavulanate 125 mg tablet (Augmentin) Allergies Allergy/AdvReac Type Severity Reaction Status Date / Time amlodipine [AMLODIPINE] Allergy Intermediate SEIZURE Verified 10/24/20 11:10 escitalopram [From LEXAPRO] Allergy Intermediate SEIZURE Verified 10/24/20 11:10 fluoxetine [Prozac] Allergy Unknown Hives Verified 10/24/20 11:10 olanzapine [From ZYPREXA] Allergy Unknown AGITATION Verified 10/24/20 11:10 sertraline [Zoloft] Allergy Unknown Hives Verified 10/24/20 11:10 Review of Systems Review of Systems: Yes all other systems are reviewed and are negative [facility] Past Medical History Medical History ADHD Anxiety Autism Bipolar 1 disorder Depression Diabetes mellitus Essential hypertension Non-rheumatic mitral regurgitation OCD (obsessive compulsive disorder) Seizure Surgical History No pertinent past surgical history Family History Family History Father Diabetes HTN (hypertension) Mother Diabetes HTN (hypertension) Social History Social History Advance Directives: No Advance Directives Information Provided: No Physical Exam Vital Signs: Vital Signs: Last Vital Signs Temp 98.7 F 07/06/21 20:56 Pulse 85 07/06/21 20:56 Resp 18 07/06/21 20:56 BP 143/89 H 07/06/21 20:56 Pulse Ox 98 07/06/21 20:56 BMI result Body Mass Index 30.9 Appearance: Alert. Oriented X3. No acute distress. Eyes: PERRLA, No Nystagmus HEENT: Posterior pharynx erythematous no exudate, nasal turbinates inflamed with purulent discharge. Oral Mucosa moist Neck: Normal inspection. Neck supple. CVS: Normal heart rate and rhythm. Pulses normal. Respiratory: No respiratory distress. Equal air entry bilateral, no wheezing/rales/rhonchi Abdomen: Soft and nontender. Skin: Skin warm and dry. Normal skin color. Normal skin turgor. Extremities: No lower extremity edema. No calf tenderness Neuro: Oriented X 3. MDM - URI/Sore Throat Lab Data Attestation: I reviewed the patient's lab results. Labs: Lab Results 07/06/21 07/06/21 Range/Units 19:37 20:59 Influenza Type A (PCR) NEGATIVE (Negative) Influenza Type B (PCR) NEGATIVE (Negative) RSV RNA Qual (PCR) NEGATIVE (Negative) SARS-CoV-2 RNA (RT-PCR) NEGATIVE (Negative) S. pyogenes GrpA ANURAG Negative (Negative) Discharge Plan Discharge Clinical Impression: Upper respiratory infection Patient Disposition: Home, Self-Care Instructions: Pharyngitis (ED) Additional Instructions: Drink plenty of fluids Tylenol/Motrin for fever or pain Take antibiotics as prescribed Follow-up with PCP if not better Prescriptions: New amoxicillin-pot clavulanate [Augmentin] 875-125 mg tablet 1 tab PO BID Qty: 20 RF: 0 No Action prednisone 20 mg tablet 20 mg PO DAILY 5 Days Qty: 5 RF: 0 ondansetron 4 mg tablet,disintegrating 4 mg PO ONCE PRN (Reason: nausea and vomiting) Qty: 10 RF: 0 oxycodone-acetaminophen [Percocet] 5-325 mg tablet 1 tab PO Q6H PRN (Reason: pain) Qty: 20 RF: 0 tamsulosin [Flomax] 0.4 mg capsule 0.4 mg PO BEDTIME Qty: 14 RF: 0 cholecalciferol (vitamin D3) 50 mcg (2,000 unit) tablet 50 mcg PO QAM RF: 0 topiramate 100 mg tablet 200 mg PO BID RF: 0 lisinopril-hydrochlorothiazide 20-25 mg tablet 1 tab PO QAM RF: 0 melatonin 5 mg tablet 5 mg PO BEDTIME RF: 0 quetiapine 50 mg tablet 50 mg PO TID RF: 0 quetiapine 200 mg tablet 200 mg PO BEDTIME RF: 0 simvastatin 10 mg tablet 10 mg PO QAM RF: 0 sertraline 100 mg tablet 100 mg PO QAM RF: 0 metformin 500 mg tablet 500 mg PO BID RF: 0 clonidine HCl 0.2 mg tablet 0.2 mg PO DAILY PRN (Reason: anxiety) RF: 0 Interventions: ED Discharge Assessment Last Done: 07/06/21 22:59 Discharge Date/Time: 07/06/21 23:00
[2021-07-06] MEDS: Amoxicillin/Potassium Clav 875 MG TABLET PO (22:55)
== END 2021-07-06 23:00 | disposition home or self-care (01) ==
PROVIDERS: Emergency Provider Internal Medicine; PCP Pediatrics
DX: J06.9 Acute upper respiratory infection, unspecified (principal); R05.9 Cough, unspecified; R50.9 Fever, unspecified; Z79.899 Other long term (current) drug therapy; Z20.822 Contact with and (suspected) exposure to COVID-19
CPT/HCPCS: 0241U; 36415; 87651; 99283; 99284

== ENCOUNTER → 2021-07-19 14:15 | Outpatient (BNVA) | payer OTHER, SELFPAY | PROVIDERS: PCP Pediatrics | DX: N48.1 Balanitis (principal); N20.0 Calculus of kidney | CPT/HCPCS: 99202 ==

== ENCOUNTER → 2021-08-09 13:22 | Outpatient (BNVA) | payer OTHER, SELFPAY | PROVIDERS: PCP Pediatrics; Visit Provider Nurse Practitioner Family ==

== ENCOUNTER → 2021-10-09 11:17 | Outpatient (BNVA) | payer MEDICAID, SELFPAY | PROVIDERS: PCP Internal Medicine; Visit Provider Nurse Practitioner Family | DX: G47.9 Sleep disorder, unspecified (principal); G47.19 Other hypersomnia; G40.909 Epilepsy, unspecified, not intractable, without status epilepticus; R06.83 Snoring; F84.0 Autistic disorder; Z86.69 Personal history of other diseases of the nervous system and sense organs | CPT/HCPCS: 99212 ==

== ENCOUNTER → 2021-12-17 13:27 | Outpatient (REF) | payer MEDICAID, SELFPAY | LOC: HO.SL 13:27 | PROVIDERS: PCP Internal Medicine; Visit Provider Nurse Practitioner Family | DX: G47.19 Other hypersomnia (principal); G47.9 Sleep disorder, unspecified; R06.83 Snoring | CPT/HCPCS: 95806 ==

== ENCOUNTER → 2022-01-15 12:45 | Outpatient (BNVA) | payer MEDICAID, SELFPAY | PROVIDERS: PCP Internal Medicine; Visit Provider Nurse Practitioner Family | DX: R33.9 Retention of urine, unspecified (principal); G47.9 Sleep disorder, unspecified; G47.19 Other hypersomnia; R06.83 Snoring; I10 Essential (primary) hypertension; G40.909 Epilepsy, unspecified, not intractable, without status epilepticus | CPT/HCPCS: 99212 ==

== ENCOUNTER → 2022-02-24 20:40 | Outpatient (REF) | payer MEDICAID, SELFPAY | LOC: HO.SL 20:40 | PROVIDERS: PCP Internal Medicine; Visit Provider Nurse Practitioner Family | DX: R06.83 Snoring (principal) | CPT/HCPCS: 95810 ==

== ENCOUNTER 2022-04-29 10:35 | Outpatient (REF) | payer MEDICAID, SELFPAY ==
[2022-04-29 12:06] LABS: Creatinine, mg/dL 67.03; Phosphorus mg/dL 39.6 mg/dL
[2022-04-29 12:10] LABS: Creatinine, mg/dL 67.32; Uric Acid, mg/dL 28.6 mg/dL
[2022-04-29 12:52] LABS: Creatinine, 24Hr Urine 1.9 G/Day (1.0-2.0); Phosphorus, 24 Hr Urine 1.1 G/Day (0.4-1.3); Sodium 24 Hr Urine 257.1 mmol/Day (40-220); Total Volume 24 Hour Urine 2825 mL
[2022-04-29 12:53] LABS: Creatinine, 24Hr Urine 1.9 G/Day (1.0-2.0); Total Volume 24 Hour Urine 2825 mL
[2022-05-02 14:42] LABS: 24hr Urine Total Volume 2825 mL; Citric Acid, 24hr Urine 59 mg/24 h (100-1300); Citric Acid/Creat Ratio 24U 32 mg/g creat (60-660); Creatinine, 24U 1.88 g/24 h (0.50-2.15)
[2022-05-05 14:32] LABS: Cystine 24Hr Urine - Total Vol 2825 mL
[2022-05-05 15:46] LABS: Oxalic Acid 24 Urine 45.2 mg/24 h (3.6-38.0)
== END 2022-04-29 10:36 | disposition home or self-care (01) ==
LOC: HO.LNP 10:35
PROVIDERS: Visit Provider Internal Medicine Nephrology
DX: I12.9 Hypertensive chronic kidney disease with stage 1 through stage 4 chronic kidney disease, or unspecified chronic kidney disease (principal); E11.22 Type 2 diabetes mellitus with diabetic chronic kidney disease; N20.0 Calculus of kidney; N18.9 Chronic kidney disease, unspecified
CPT/HCPCS: 82131; 82507; 83945; 84105; 84300; 84560

== ENCOUNTER → 2022-05-07 11:02 | Outpatient (BNVA) | payer MEDICAID, SELFPAY | PROVIDERS: PCP Internal Medicine; Visit Provider Nurse Practitioner Family | DX: G40.909 Epilepsy, unspecified, not intractable, without status epilepticus (principal); N20.0 Calculus of kidney; G47.9 Sleep disorder, unspecified | CPT/HCPCS: 99212 ==

== ENCOUNTER 2022-05-08 14:06 | Outpatient (REF) | payer MEDICAID, SELFPAY ==
--- NOTE | ~2022-05-08 | US_ITS ---
EXAMINATION: US PELVIS LIMITED (BLADDER) CLINICAL INFORMATION: Poor urinary stream. COMPARISON: Renal ultrasound 12/31/2021. CT abdomen and pelvis with contrast 06/30/2021. Ultrasound abdomen complete 06/26/2017. TECHNIQUE: Real-time imaging of the bladder. FINDINGS: BLADDER: Well distended and normal. Bilateral ureteral jets are demonstrated. Prevoid bladder volume is 273 mL. Postvoid bladder volume is 31.9 mL. The prostate volume is 27.8 US/US bladder IMPRESSION: Small postvoid residual bladder volume.
== END 2022-05-08 14:07 | disposition home or self-care (01) ==
LOC: HO.US 14:06
PROVIDERS: Visit Provider Urology
DX: R39.12 Poor urinary stream (principal); R33.9 Retention of urine, unspecified
CPT/HCPCS: 76857

== ENCOUNTER 2022-07-28 14:52 | Emergency (ER) | payer MEDICAID, SELFPAY ==
--- NOTE | ~2022-07-28 | CT_ITS ---
EXAMINATION: CT abdomen pelvis wo IV con CLINICAL INFORMATION: Reason for Exam kidney stone, left flank pain COMPARISON: No prior CT available for comparison. TECHNIQUE: Multidetector volumetric imaging was performed from the superior aspect of the liver through the pubic symphysis noncontrasted study. Sagittal and coronal reformatted images were obtained on the technologist's workstation. This CT examination was performed using dose optimization techniques as appropriate, variously including the following: *Automated exposure control *Adjustment of mA and/or kV according to patient size (this includes techniques or standardized protocols for targeted exams where dose is matched to indication/reason for exam; i.e. extremities or head) *Use of iterative reconstruction technique DLP: 698 mGy-cm FINDINGS: LOWER THORAX: Included lung bases are clear. HEPATOBILIARY: No focal hepatic lesions. No biliary ductal dilatation. GALLBLADDER: Gallbladder unremarkable. SPLEEN: Spleen is normal in size. PANCREAS: No focal mass or ductal dilatation. STOMACH AND GASTROINTESTINAL TRACT: Stomach is grossly unremarkable. There is no bowel distention or thickening. No CT evidence of appendicitis. ADRENALS: No adrenal nodules. KIDNEYS/URETERS: Left renal hydronephrosis and hydroureter due to a 2 mm stone at the distal left ureter ureterovesicular junction. Right kidney is normal. URINARY BLADDER: Partially decompressed. PELVIC VISCERA: Unremarkable PERITONEUM: No free air or fluid. LYMPH NODES: No lymphadenopathy. VASCULAR:Abdominal aorta normal in size, no aneurysm found. BONES, ABDOMINAL WALL AND SOFT TISSUES: Age-appropriate changes of the spine and skeletal system, no destructive osteolytic or osteosclerotic bone lesion found CT/CT abdomen pelvis wo IV con IMPRESSION: Left renal hydronephrosis and hydroureter due to a 2 mm stone at the distal left ureter ureterovesicular junction.
[2022-07-28 15:25] VITALS: BP 123/68; PULSE 91; RESP 16; TEMP 36.3; O2SAT 97; BMI 31.4
--- NOTE | 2022-07-28 15:26 | ED_ITS ---
HPI - General Adult General Chief complaint: Abdominal Pain Stated complaint: left sided pain Time Seen by Provider: 07/28/22 18:21 Source: patient Mode of arrival: ambulatory Limitations: no limitations History of Present Illness HPI narrative: Patient is a 27 year old assigned male at with a history of kidney stones presenting to the emergency department today with left flank pain. Patient sta minnie that he began having left sided flank pain yesterday and had some blood in his urine. Patient denies any dizziness, lightheadedness, nausea, vomiting, fever, chills, blurry vision, double vision, loss of vision, chest pain, difficulty breathing, shortness of breath, back pain, night sweats, pain with urination, increased urinary frequency, increased urinary urgency, blood in his stool, syncope or a near syncopal episode, recent trauma or falls, bowel incontinence, bladder incontinence, bowel retention, bladder retention, or any other complaints at this time. Onset (ago): day(s) (1) Location: left (flank) Radiation: non-radiation Severity: mild Severity scale (1-10): 3 Quality: aching and dull Pain Consistency: constant Relieving factors: none Exacerbating factors: none Associated symptoms: denies other symptoms Treatments prior to arrival: none Related Data Home Medications Medication Instructions Recorded Confirmed cholecalciferol (vitamin D3) 50 50 mcg PO QAM 10/24/20 06/05/22 mcg (2,000 unit) tablet clonidine HCl 0.2 mg tablet 0.2 mg PO DAILY PRN anxiety 10/24/20 06/05/22 lisinopril 20 1 tab PO QAM 10/24/20 06/05/22 mg-hydrochlorothiazide 25 mg tablet melatonin 5 mg tablet 5 mg PO BEDTIME 10/24/20 06/05/22 quetiapine 200 mg tablet 200 mg PO BEDTIME 10/24/20 06/05/22 quetiapine 50 mg tablet 50 mg PO TID 10/24/20 06/05/22 sertraline 100 mg tablet 100 mg PO QAM 10/24/20 06/05/22 simvastatin 10 mg tablet 10 mg PO QAM 10/24/20 06/05/22 omeprazole 20 mg capsule,delayed 20 mg PO DAILY 07/19/21 06/05/22 release metformin 500 mg tablet,extended 500 mg PO DAILY 01/15/22 06/05/22 release 24 hr oxybutynin chloride 5 mg 5 mg PO DAILY 05/07/22 06/05/22 tablet,extended release 24 hr polyethylene glycol 3350 17 17 g PO BID PRN constipation 05/07/22 06/05/22 gram/dose oral powder Previous Rx's Medication Instructions Recorded ondansetron 4 mg disintegrating 4 mg PO ONCE PRN nausea and 06/30/21 tablet vomiting #10 tabs clotrimazole-betamethasone 1 1 appl topical BID #15 grams 07/19/21 %-0.05 % topical cream topiramate 100 mg tablet 200 mg PO BID 30 days #120 tabs 08/09/21 tamsulosin 0.4 mg capsule 0.4 mg PO BEDTIME 30 days #30 caps 01/15/22 pyridoxine (vitamin B6) 100 mg 100 mg PO BID 30 days #60 tabs 04/29/22 tablet naproxen 500 mg tablet 500 mg PO BID 7 days #14 tabs 07/28/22 prednisone 20 mg tablet 20 mg PO DAILY 7 days #7 tabs 07/28/22 tamsulosin 0.4 mg capsule 0.4 mg PO DAILY #14 caps 07/28/22 Allergies Allergy/AdvReac Type Severity Reaction Status Date / Time amlodipine [AMLODIPINE] Allergy Intermediate SEIZURE Verified 06/05/22 13:32 escitalopram [From LEXAPRO] Allergy Intermediate SEIZURE Verified 06/05/22 13:32 fluoxetine [Prozac] Allergy Unknown Hives Verified 06/05/22 13:32 olanzapine [From ZYPREXA] Allergy Unknown AGITATION Verified 06/05/22 13:32 Review of Systems Constitutional: Constitutional: Reports no additional constitutional complaints, Denies chills, Denies fever(s) and Denies night sweats Eyes: Eyes: Reports no additional eye complaints, Denies blurry vision, Denies change in vision, Denies diplopia, Denies eye discharge, Denies loss of vision and Denies eye pain ENT: Denies dizziness Cardiovascular: Cardiovascular: Reports no additional cardiovascular complaints, Denies chest pain, Denies lightheadedness, Denies Loss of Consciousness and Denies dyspnea Respiratory: Respiratory: Reports no additional respiratory complaints and Denies dyspnea Gastrointestinal: Gastrointestinal: Reports no additional gastrointestinal complaints, Denies abdominal pain, Denies melena, Denies hematochezia, Denies change in bowel habits and Denies change in stool character Genitourinary: Genitourinary: Reports no additional male genitourinary complaints, Reports hematuria, Denies oliguria, Denies difficulty urinating, Denies dysuria, Reports flank pain (left), Denies urinary frequency, Denies urinary hesitancy, Denies urinary incontinence and Denies urinary urgency Musculoskeletal: Musculoskeletal: Reports no additional musculoskeletal complaints, Denies numbness and Denies tingling Neurologic: Denies dizziness, Denies loss of vision, Denies numbness and Denies tingling Psychiatric: Psychiatric: Reports no additional psychiatric complaints Endocrine: Endocrine: Reports no additional endocrine complaints Hematologic/Lymphatic: Hematologic/Lymphatic: Reports no additional hematologic/lymphatic complaints Allergic/Immunologic: Allergic/Immunologic: Reports no additional allergic/immunologic complaints PMFSH Past Medical History Attestation statement: The following information was validated with the patient. Source: old records reviewed and nursing notes reviewed Medical History ADHD Anxiety Autism Balanitis Bipolar 1 disorder Depression Diabetes mellitus Essential hypertension Non-rheumatic mitral regurgitation OCD (obsessive compulsive disorder) Renal calculi Seizure Surgical History No pertinent past surgical history Family History Family History Father Diabetes HTN (hypertension) Mother Diabetes HTN (hypertension) Social History Social History Household Members: Family Alcohol intake: never Patient Tobacco Use Status: Never used Tobacco Advance Directives: No Advance Directives Information Provided: No Current occupational status: disabled Physical Exam ED Vital Signs: Vital Signs - 24 hr 07/28/22 15:25 Temperature 97.3 F Pulse Rate 91 Respiratory Rate 16 Blood Pressure 123/68 Pulse Oximetry 97 Oxygen Delivery Method Room Air BMI result Body Mass Index 31.4 Const General: cooperative, no acute distress, alert and awake Nutritional Appearance: well nourished Orientation/consciousness: patient oriented x3 Limitations: no limitations HENMT Head: Yes normal to inspection and Yes atraumatic Ears: hearing grossly normal bilaterally and external ears normal General nose exam: Normal external nose present, no nasal discharge noted and no epistaxis Face and sinus: Yes normal facial exam, No abrasion and No laceration Mouth: Normal oral and palatal mucosa present, no drooling and no muffled voice Eyes General: appearance normal, both eyes and all related structures Periorbital: periorbital findings normal Eyelids: Yes eyelids normal Conjunctivae: conjunctivae normal Pupils: Equal, round and reactive pupils present EOM: EOMs intact bilaterally Neck Neck: Yes normal visual inspection, Yes full ROM and Yes no lymphadenopathy Chest Chest palpation & inspection: normal inspection of the chest Resp Effort & Inspection: normal respiratory effort and able to speak in complete sentences Auscultation: clear to auscultation bilaterally Cardio Rate: regular rate Rhythm: regular rhythm GI Inspection: Yes normal to inspection Palpation (GI): Soft to palpation, not firm, nontender, no guarding and not rigid Neuro General: patient oriented x3 and moves all extremities Cranial nerves: Yes Equal, round and reactive pupils present Cognition (Neuro): normal cognition Motor exam (neuro): 5/5 motor strength present throughout Sensory Exam: Normal double simultaneous stimulation for sensation Coordination: [id number] test normal Extrem General: Yes normal to inspection, Yes full ROM and Yes capillary refill normal Psych Appearance: grossly normal Mental Status: mental status grossly normal Affect: normal affect Attitude: cooperative Thought process: Normal thought process present Thought content: Normal thought content present Insight: Good insight present (Psych) Course Course Course Narrative: RME performed by Sharon Castillo PA-C. Patient is a 27 year old male presenting to the emergency department with left sided flank pain. Patient states that he has a history of stones and this feels similar. Labs and imaging ordered. Patient placed in waiting room pending results and room availability. Medical Decision Making Medical Decision Making MDM Narrative: Patient is a 27 year old assigned male at with a history of kidney stones presenting to the emergency department today with left sided flank pain. Patient's physical exam was unremarkable. Patient's blood work showed a mildly elevated WBC count of 12.3 with a slightly decreased sodium of 134. Patient's urine showed blood but was otherwise unremarkable. Patient's abdominal CT showed left hydronephrosis and hydroureter due to a 2mm stone at the distal left ureter ureterovesicular junction. I explained my physical exam findings as well as all test results to the patient. I answered all questions asked by the patient. I stressed the importance of the patient taking his medication as prescribed. I stressed the importance of the patient following up with his primary care provider and a urologist. I stressed the importance of the patient returning to the emergency department immediately if his symptoms were to worsen or if he w ere to develop any dizziness, shortness of breath, difficulty breathing, chest pain, blurry vision, loss of vision, nausea, vomiting, abdominal pain, fever, chills, back pain, or any other complaints. Patient verbalized agreement and understanding with this treatment plan and discharge. Differential Diagnosis Differential Diagnoses: The differential diagnosis associated with the presentation includes renal calculi, abdominal pain Lab Data MDM Lab Attestation statement: I reviewed the patient's lab results. Result Diagrams: 07/28/22 15:59 07/28/22 15:59 Labs: Lab Results 07/28/22 07/28/22 07/28/22 Range/Units 15:59 15:59 16:02 WBC 12.3 H (4.8-10.8) X10*3/uL RBC 4.98 (4.60-5.80) X10*6/uL Hgb 15.0 (14.0-18.0) g/dl Hct 42.2 (42.0-52.0) % MCV 84.7 (80.0-98.0) fL MCH 30.1 (27.0-33.0) pg MCHC 35.5 (31.0-36.0) g/dl RDW 12.6 (11.0-16.0) % Plt Count 212 (160-400) X10*3/uL MPV 10.3 (9.4-12.4) fL Immature Gran % (Auto) 0.5 H (0.0-0.4) % Neut % (Auto) 65.1 (45-73) % Lymph % (Auto) 23.1 (20-40) % [place] % (Auto) 10.2 (2-11) % Eos % (Auto) 0.7 (0-4) % Baso % (Auto) 0.4 (0-2) % Lymph # (Auto) 2.8 (1.2-4.9) X10*3/uL [place] # (Auto) 1.3 H (0.1-1.2) X10*3/uL Eos # (Auto) 0.1 (0.0-0.4) X10*3/uL Baso # (Auto) 0.1 (0.0-0.2) X10*3/uL Abs Immat Gran (auto) 0.06 H (0.00-0.03) X10*3/uL Absolute Neuts (auto) 8.0 (2.0-8.3) x10*3/uL Absolute Nucleated RBC 0.000 (0.0-0.012) X10*3/uL Nucleated RBC % (auto) 0.0 (0.0-0.2) /100WBC Sodium 134 L (135-145) mmol/L Potassium 3.8 (3.3-5.1) mmol/L Chloride 102 (96-108) mmol/L Carbon Dioxide 24 (22-29) mmol/L Anion Gap 12 (12-20) BUN 21 H (9-16) mg/dL Creatinine 1.32 (0.5-1.4) mg/dL Estim Creat Clear Calc 86.1 Estimated GFR > 60 Random Glucose 104 (60-115) mg/dL Calcium 10.1 D (8.4-10.2) mg/dL Total Bilirubin 0.6 (0.0-1.0) mg/dL AST 20 (5-37) U/L ALT 27 (0-40) U/L Alkaline Phosphatase 52 (39-117) U/L Total Protein 7.3 (6.5-8.0) g/dL Albumin 4.7 (3.5-5.0) g/dL Urine Color Yellow Urine Appearance Cloudy Urine pH 6.0 (5.0-9.0) Ur Specific [place] 1.015 (1.005-1.025) Urine Protein Trace (Neg-Trace) mg/dL Urine Glucose (UA) Negative (Negative) mg/dL Urine Ketones Negative (Negative) mg/dL Urine Blood Large (3+) H (Negative) Urine Nitrite Negative (Negative) Ur Leukocyte Esterase Trace H (Negative) Urine RBC 6-10 H (0-2) /HPF Urine WBC 0-5 (0-5) /HPF Ur Squamous Epith Cells 3-5 (0-2) /HPF Calcium Oxalate Crystal Present Urine Bacteria 1+ (None Seen) Hyaline Casts 0-2 (0-2) /LPF Radiology Impression Discussion of test interpretation with radiology: I have reviewed the radiologist's reading. Radiologist Impression: My interpretation is in agreement with the radiologist's impression of this imaging study. --- EXAMINATION: CT abdomen pelvis wo IV con CLINICAL INFORMATION: Reason for Exam kidney stone, left flank pain COMPARISON: No prior CT available for comparison. TECHNIQUE: Multidetector volumetric imaging was performed from the superior aspect of the liver through the pubic symphysis noncontrasted study.? Sagittal and coronal reformatted images were obtained on the technologist's workstation. ? This CT examination was performed using dose optimization techniques as appropriate, variously including the following: *Automated exposure control *Adjustment of mA and/or kV according to patient size (this includes techniques or standardized protocols for targeted exams where dose is matched to indication/reason for exam; i.e. extremities or head) *Use of iterative reconstruction technique DLP: 698 mGy-cm FINDINGS: LOWER THORAX: Included lung bases are clear. HEPATOBILIARY: No focal hepatic lesions. No biliary ductal dilatation. GALLBLADDER: Gallbladder unremarkable. SPLEEN: Spleen is normal in size. PANCREAS: No focal mass or ductal dilatation. STOMACH AND GASTROINTESTINAL TRACT: Stomach is grossly unremarkable. There is no bowel distention or thickening. No CT evidence of appendicitis. ADRENALS: No adrenal nodules. KIDNEYS/URETERS: Left renal hydronephrosis and hydroureter due to a 2 mm stone at the distal left ureter ureterovesicular junction. Right kidney is normal. URINARY BLADDER: Partially decompressed. PELVIC VISCERA: Unremarkable PERITONEUM: No free air or fluid. LYMPH NODES: No lymphadenopathy. VASCULAR:Abdominal aorta normal in size, no aneurysm found. BONES, ABDOMINAL WALL AND SOFT TISSUES: Age-appropriate changes of the spine and skeletal system, no destructive osteolytic or osteosclerotic bone lesion found CT/CT abdomen pelvis wo IV con IMPRESSION: ? Left renal hydronephrosis and hydroureter due to a 2 mm stone at the distal left ureter ureterovesicular junction. Dictated By: Shant Ahuja MD Signed By: Electronically signed by Shant Ahuja MD 07/28/22 1169 Discharge Plan Discharge Clinical Impression: Kidney stone Patient Disposition: Home, Self-Care Instructions: Kidney Stones (ED) Additional Instructions: Follow up with your primary care provider and a urologist. Return to the emergency department immediately if your symptoms worsen or if you develop any dizziness, shortness of breath, difficulty breathing, chest pain, blurry vision, loss of vision, nausea, vomiting, abdominal pain, fever, chills, back pain, or any other complaints. Prescriptions: New prednisone 20 mg tablet 20 mg PO DAILY 7 Days Qty: 7 0RF naproxen 500 mg tablet 500 mg PO BID 7 Days Qty: 14 0RF tamsulosin 0.4 mg capsule 0.4 mg PO DAILY Qty: 14 0RF No Action pyridoxine (vitamin B6) 100 mg tablet 100 mg PO BID 30 Days Qty: 60 3RF ondansetron 4 mg tablet,disintegrating 4 mg PO ONCE PRN (Reason: nausea and vomiting) Qty: 10 0RF cholecalciferol (vitamin D3) 50 mcg (2,000 unit) tablet 50 mcg PO QAM lisinopril-hydrochlorothiazide 20-25 mg tablet 1 tab PO QAM melatonin 5 mg tablet 5 mg PO BEDTIME quetiapine 50 mg tablet 50 mg PO TID quetiapine 200 mg tablet 200 mg PO BEDTIME simvastatin 10 mg tablet 10 mg PO QAM sertraline 100 mg tablet 100 mg PO QAM clonidine HCl 0.2 mg tablet 0.2 mg PO DAILY PRN (Reason: anxiety) topiramate 100 mg tablet 200 mg PO BID 30 Days Qty: 120 6RF metformin 500 mg tablet extended release 24 hr 500 mg PO DAILY tamsulosin 0.4 mg capsule 0.4 mg PO BEDTIME 30 Days Qty: 30 1RF omeprazole 20 mg capsule,delayed release(DR/EC) 20 mg PO DAILY clotrimazole-betamethasone 1-0.05 % cream 1 appl topical BID Qty: 15 0RF Rx Instructions: apply BID top irritated area oxybutynin chloride 5 mg tablet extended release 24hr 5 mg PO DAILY polyethylene glycol 3350 17 gram/dose powder 17 g PO BID PRN (Reason: constipation) Referrals: [facility] [place] [facility] [Provider Group] Jens Grigsby MD [Primary Care Provider] - Stand Alone Forms: Work/School Release Interventions: ED Discharge Assessment Last Done: 07/28/22 18:26 Discharge Date/Time: 07/28/22 18:29 Print Language: Romanian
[2022-07-28 16:08] LABS: MANUAL DIFF FLAG NO
[2022-07-28 16:11] LABS: Appearance Urine Cloudy; Color Urine Yellow; Glucose Urine UA Negative (Negative); Leukocyte Esterase Urine Trace (Negative); Nitrite Urine Negative (Negative); Specific Gravity - Urine 1.015 (1.005-1.025); UMIC TRIGGER UACC YES; Urine Blood Large (3+) (Negative); Urine Ketones Negative (Negative); Urine Protein Trace mg/dL (Neg-Trace)
[2022-07-28 16:13] LABS: Basophils Absolute Auto 0.1 X10*3/uL (0.0-0.2); Basophils Percent Auto 0.4 % (0-2); Eosinophils Absolute Auto 0.1 X10*3/uL (0.0-0.4); Eosinophils Percent Auto 0.7 % (0-4); Hematocrit 42.2 % (42.0-52.0); Imm Gran Abs Auto 0.06 X10*3/uL (0.00-0.03); Imm Gran Pct Auto 0.5 % (0.0-0.4); Lymphocytes Absolute Auto 2.8 X10*3/uL (1.2-4.9); Lymphocytes Percent Auto 23.1 % (20-40); Mean Corpuscular HGB Conc 35.5 g/dl (31.0-36.0); Mean Corpuscular Hemoglobin 30.1 pg (27.0-33.0); Mean Corpuscular Volume 84.7 fL (80.0-98.0); Mean Platelet Volume 10.3 fL (9.4-12.4); Monocytes Absolute Auto 1.3 X10*3/uL (0.1-1.2); Monocytes Percent Auto 10.2 % (2-11); Neutrophils Percent Auto 65.1 % (45-73); Platelet Count 212 X10*3/uL (160-400); Red Blood Count 4.98 X10*6/uL (4.60-5.80); Red Cell Distribution Width 12.6 % (11.0-16.0); White Blood Count 12.3 X10*3/uL (4.8-10.8)
[2022-07-28 16:24] LABS: Alanine Aminotransferase 27 U/L (0-40); Albumin Level 4.7 g/dL (3.5-5.0); Alkaline Phosphatase 52 U/L (39-117); Anion Gap 12 (12-20); Aspartate Amino Transferase 20 U/L (5-37); Bilirubin Total 0.6 mg/dL (0.0-1.0); Blood Urea Nitrogen 21 mg/dL (9-16); Calcium 10.1 mg/dL (8.4-10.2); Carbon Dioxide 24 mmol/L (22-29); Chloride 102 mmol/L (96-108); Creatinine Clr Calc Pharmacy 86.1; Estimated Glomerular Filt Rate > 60; Glucose Random 104 mg/dL (60-115); Potassium 3.8 mmol/L (3.3-5.1); Sodium 134 mmol/L (135-145); Total Protein 7.3 g/dL (6.5-8.0)
[2022-07-28 16:32] LABS: Bacteria Urine 1+ (None Seen); Calcium Oxalate Crystals Urine Present; Hyaline Casts Urine 0-2 /LPF (0-2); WBC Urine 0-5 /HPF (0-5)
== END 2022-07-28 18:29 | disposition home or self-care (01) ==
LOC: HO.ED 18:28
PROVIDERS: Physician Assistant Medical; Emergency Provider Internal Medicine; PCP Internal Medicine
DX: N20.0 Calculus of kidney (principal); Z79.899 Other long term (current) drug therapy
CPT/HCPCS: 36415; 74176; 80053; 81001; 85025; 99282; 99284

== ENCOUNTER 2022-08-03 21:00 | Inpatient (IN) | payer OTHER, MEDICAID, SELFPAY ==
--- NOTE | ~2022-08-03 | XR_ITS ---
EXAMINATION: XR FOOT, RIGHT XR FOOT, LEFT CLINICAL INFORMATION: Pain. Rule out glass. COMPARISON: None TECHNIQUE: AP, lateral, and oblique views of each foot. FINDINGS: RIGHT FOOT: The bones and soft tissues are normal. No fracture. Alignment is anatomic. Joint spaces are maintained. No radiodense foreign bodies are identified. No appreciable subcutaneous gas. LEFT FOOT: The bones and soft tissues are normal. No fracture. Alignment is anatomic. Joint spaces are maintained. No radiodense foreign bodies are identified. No appreciable subcutaneous gas. XR/XR foot RT 2V IMPRESSION: No radiodense foreign bodies or acute soft tissue findings are identified. Importantly, glass can be radiolucent and not detectable radiographically. No acute osseous findings.
--- NOTE | ~2022-08-03 | XR_ITS ---
EXAMINATION: XR FOOT, RIGHT XR FOOT, LEFT CLINICAL INFORMATION: Pain. Rule out glass. COMPARISON: None TECHNIQUE: AP, lateral, and oblique views of each foot. FINDINGS: RIGHT FOOT: The bones and soft tissues are normal. No fracture. Alignment is anatomic. Joint spaces are maintained. No radiodense foreign bodies are identified. No appreciable subcutaneous gas. LEFT FOOT: The bones and soft tissues are normal. No fracture. Alignment is anatomic. Joint spaces are maintained. No radiodense foreign bodies are identified. No appreciable subcutaneous gas. XR/XR foot LT 2V IMPRESSION: No radiodense foreign bodies or acute soft tissue findings are identified. Importantly, glass can be radiolucent and not detectable radiographically. No acute osseous findings.
[2022-08-03 21:10] VITALS: BMI 25.8
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
[2022-08-03 21:44] VITALS: BP 131/78; PULSE 100; RESP 18; TEMP 36.6; O2SAT 96
[2022-08-03 21:45] LABS: Glucose, Whole Blood 92 mg/dL (60-115)
[2022-08-03 22:04] LABS: Fentanyl, urine Not Detected (Not Detect)
[2022-08-03 22:07] LABS: COVID-19 Test Negative (Negative); IDNOW Serial# 6674DD1D
[2022-08-03 22:08] LABS: Amphetamine Screen Urine Not Detected (Not Detect); Barbiturates, Urine Not Detected (Not Detect); Benzodiazepines Screen Urine Not Detected (Not Detect); Cannabinoid Screen Urine Not Detected (Not Detect); Opiate Screen Urine Not Detected (Not Detect); Phencyclidine Screen Urine Not Detected (Not Detect)
[2022-08-03] MEDS: Diphth,Pertus(ACell),Tet Adult 0.5 ML SYRINGE IM (22:09)
[2022-08-03 22:25] LABS: MANUAL DIFF FLAG NO
[2022-08-03 22:26] LABS: Basophils Absolute Auto 0.1 X10*3/uL (0.0-0.2); Basophils Percent Auto 0.6 % (0-2); Eosinophils Absolute Auto 0.1 X10*3/uL (0.0-0.4); Hemoglobin 15.4 g/dl (14.0-18.0); Imm Gran Abs Auto 0.06 X10*3/uL (0.00-0.03); Imm Gran Pct Auto 0.6 % (0.0-0.4); Lymphocytes Absolute Auto 2.8 X10*3/uL (1.2-4.9); Lymphocytes Percent Auto 26.1 % (20-40); Mean Corpuscular Hemoglobin 30.4 pg (27.0-33.0); Mean Platelet Volume 10.4 fL (9.4-12.4); Monocytes Absolute Auto 0.8 X10*3/uL (0.1-1.2); Monocytes Percent Auto 7.1 % (2-11); Neutrophils Percent Auto 64.6 % (45-73); Platelet Count 254 X10*3/uL (160-400); Red Blood Count 5.06 X10*6/uL (4.60-5.80); Red Cell Distribution Width 12.7 % (11.0-16.0); White Blood Count 10.9 X10*3/uL (4.8-10.8)
[2022-08-03 22:38] LABS: Ethanol < 10 mg/dL
[2022-08-03 22:44] LABS: Cocaine Screen Urine Not Detected (Not Detect)
[2022-08-03 22:46] LABS: Alanine Aminotransferase 27 U/L (0-40); Albumin Level 4.8 g/dL (3.5-5.0); Alkaline Phosphatase 48 U/L (39-117); Anion Gap 13 (12-20); Aspartate Amino Transferase 24 U/L (5-37); Bilirubin Total 0.3 mg/dL (0.0-1.0); Blood Urea Nitrogen 18 mg/dL (9-16); Calcium 9.7 mg/dL (8.4-10.2); Carbon Dioxide 23 mmol/L (22-29); Chloride 106 mmol/L (96-108); Creatinine Clr Calc Pharmacy 127.2; Estimated Glomerular Filt Rate > 60; Glucose Random 103 mg/dL (60-115); Potassium 3.4 mmol/L (3.3-5.1); Salicylate < 5.0 mg/dL (15-30); Sodium 139 mmol/L (135-145)
[2022-08-03 23:06] LABS: Acetaminophen LAB < 17 mcg/mL (<30)
[2022-08-04] MEDS: QUEtiapine Fumarate 50 MG TABLET PO ×4 (00:02→20:55)
[2022-08-04] MEDS: Cholecalciferol (Vitamin D3) 25 MCG TABLET 50 MCG PO ×2 (00:02→08:39)
[2022-08-04] MEDS: QUEtiapine Fumarate 200 MG TABLET PO ×2 (00:02→20:55)
[2022-08-04] MEDS: Topiramate 100 MG TABLET 200 MG PO ×3 (00:07→20:55)
[2022-08-04] MEDS: cloNIDine HCL 0.2 MG TABLET PO ×2 (00:08→15:03)
[2022-08-04 00:13] VITALS: BP 116/64; PULSE 86; RESP 18; O2SAT 98
--- NOTE | 2022-08-04 05:41 | PC.NURSE ---
Patient slept through the night, no distress observed/reported, behavior non concerning, medication compliant, Tdap administered/patient compliant, VSS, patient is awaiting care team evaluation, will continue to monitor.
[2022-08-04] MEDS: metFORMIN HCl ER 500 MG TAB.ER.24H PO (08:39)
[2022-08-04] MEDS: hydroCHLOROthiazide 25 MG TABLET PO (08:39)
[2022-08-04] MEDS: Omeprazole 20 MG CAPSULE.DR PO (08:39)
[2022-08-04] MEDS: lisinopriL 20 MG TABLET PO (08:40)
[2022-08-04] MEDS: Atorvastatin Calcium 10 MG TABLET PO (08:40)
[2022-08-04] MEDS: Sertraline HCL 100 MG TABLET PO (08:40)
[2022-08-04 08:46] VITALS: BP 119/81; PULSE 81; RESP 16; TEMP 36.4; O2SAT 99
--- NOTE | 2022-08-04 10:20 | PC.NURSE ---
CARE team at bedside for crisis eval. Pt calm and cooperative at thsi time, pleasant with staff.
[2022-08-04] MEDS: Acetaminophen 325 MG TABLET 975 MG PO (11:52)
--- NOTE | 2022-08-04 13:01 | MHC.CARE ---
Patient was evaluated by CARE Team, patient and mother are both advocating for inpatient psychiatric care. Patient will remain in the ED until appropriate placement is secured or other arrangements can be made for a lower level of care. Provider aware of plan of care.
--- NOTE | 2022-08-04 13:21 | PC.NURSE ---
pt appears to be sleeping at this time, resp reg and even, NAD
[2022-08-04] MEDS: Tamsulosin HCL 0.4 MG CAPSULE PO (14:48)
[2022-08-04 15:02] VITALS: BP 133/74; PULSE 78; RESP 16
--- NOTE | 2022-08-04 15:09 | PC.NURSE ---
Pt noted to be self harming, scratching at his arms with a fork. When asked about it, pt reports I feel bad pt disclosed he felt bad about the events from last night, accepting of prn clonidine, no self harm behavior currently.
[2022-08-04] MEDS: Melatonin 3 MG TABLET 4.5 MG PO (20:56)
[2022-08-04] MEDS: HaloperidoL 1 MG TABLET 2 MG PO (20:59)
[2022-08-04] MEDS: Pyridoxine HCl (Vitamin B6) 50 MG TABLET 100 MG PO (21:54)
[2022-08-05 03:21] VITALS: BP 117/62; PULSE 89; RESP 17; TEMP 36.6; O2SAT 98
--- NOTE | 2022-08-05 06:36 | PC.NURSE ---
Patient slept through the night, no distress observed/reported except when patient reported hearing voices, non commanding in nature, provider notified/ordered Haldol 2 mg PO/administered as ordered with + effect, medication compliant, behavior non concerning however patient engages in self harm behavior to cope with voices, most part behavior is non concerning, VSS, appetite good, patient will be reevaluated by care team in the morning, will continue to monitor.
[2022-08-05] MEDS: metFORMIN HCl ER 500 MG TAB.ER.24H PO (10:11)
[2022-08-05] MEDS: Sertraline HCL 100 MG TABLET PO (10:11)
[2022-08-05] MEDS: hydroCHLOROthiazide 25 MG TABLET PO (10:11)
[2022-08-05] MEDS: Omeprazole 20 MG CAPSULE.DR PO (10:11)
[2022-08-05] MEDS: QUEtiapine Fumarate 50 MG TABLET PO ×3 (10:11→21:34)
[2022-08-05] MEDS: Topiramate 100 MG TABLET 200 MG PO ×2 (10:11→21:33)
[2022-08-05] MEDS: Atorvastatin Calcium 10 MG TABLET PO (10:12)
[2022-08-05] MEDS: Cholecalciferol (Vitamin D3) 25 MCG TABLET 50 MCG PO (10:12)
[2022-08-05] MEDS: lisinopriL 20 MG TABLET PO (10:13)
[2022-08-05 11:27] VITALS: BP 116/58; PULSE 73; RESP 16; TEMP 36.4; O2SAT 97
--- NOTE | 2022-08-05 13:26 | PC.NURSE ---
Nurse to Nurse given to Jonathan RN on M3
[2022-08-05] MEDS: Tamsulosin HCL 0.4 MG CAPSULE PO (14:21)
[2022-08-05] MEDS: Ibuprofen 200 MG TABLET PO (14:21)
[2022-08-05 19:07] VITALS: BP 117/56; PULSE 81; RESP 16; TEMP 36.6; O2SAT 99
[2022-08-05] MEDS: QUEtiapine Fumarate 200 MG TABLET PO (21:32)
[2022-08-05] MEDS: Melatonin 3 MG TABLET 4.5 MG PO (21:32)
[2022-08-05] MEDS: Pyridoxine HCl (Vitamin B6) 50 MG TABLET 100 MG PO (21:33)
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
[2022-08-06 06:00] VITALS: BP 136/67; PULSE 94; RESP 18; TEMP 36.8; O2SAT 95
[2022-08-06] MEDS: Atorvastatin Calcium 10 MG TABLET PO (09:32)
[2022-08-06] MEDS: Pyridoxine HCl (Vitamin B6) 50 MG TABLET 100 MG PO ×2 (09:32→22:13)
[2022-08-06] MEDS: metFORMIN HCl ER 500 MG TAB.ER.24H PO (09:32)
[2022-08-06] MEDS: Topiramate 100 MG TABLET 200 MG PO ×2 (09:32→22:13)
[2022-08-06] MEDS: Sertraline HCL 100 MG TABLET PO (09:32)
[2022-08-06] MEDS: Omeprazole 20 MG CAPSULE.DR PO (09:32)
[2022-08-06] MEDS: lisinopriL 20 MG TABLET PO (09:32)
[2022-08-06] MEDS: hydroCHLOROthiazide 25 MG TABLET PO (09:32)
[2022-08-06] MEDS: QUEtiapine Fumarate 50 MG TABLET PO ×3 (09:32→22:13)
[2022-08-06] MEDS: Cholecalciferol (Vitamin D3) 25 MCG TABLET 50 MCG PO (09:32)
[2022-08-06 09:34] LABS: Estimated Average Glucose 105 mg/dL; Hemoglobin A1c % 5.3 %
[2022-08-06 10:00] LABS: Alanine Aminotransferase 24 U/L (0-40); Albumin Level 4.7 g/dL (3.5-5.0); Alkaline Phosphatase 51 U/L (39-117); Anion Gap 14 (12-20); Aspartate Amino Transferase 22 U/L (5-37); Bilirubin Direct 0.3 mg/dL (0.0-0.5); Bilirubin Total 0.8 mg/dL (0.0-1.0); Blood Urea Nitrogen 19 mg/dL (9-16); Calcium 9.8 mg/dL (8.4-10.2); Carbon Dioxide 22 mmol/L (22-29); Chloride 106 mmol/L (96-108); Cholesterol 153 mg/dL; Creatinine Clr Calc Pharmacy 114.7; Estimated Glomerular Filt Rate > 60; Glucose Fasting 95 mg/dL (60-99); HDL Cholesterol 38 mg/dL; LDL Cholesterol Calculated 90 mg/dl; Potassium 3.7 mmol/L (3.3-5.1); Sodium 138 mmol/L (135-145); Total Protein 7.6 g/dL (6.5-8.0); Triglycerides 128 mg/dL
[2022-08-06 10:24] LABS: Thyroid Stimulating Hormone 0.69 uIU/mL (0.32-4.0)
[2022-08-06 10:56] LABS: Vitamin B12 617 pg/mL (200-900)
[2022-08-06] MEDS: cloNIDine HCL 0.2 MG TABLET PO (12:23)
[2022-08-06 14:22] LABS: Folate 5.3 ng/mL (> or = 4.0)
[2022-08-06] MEDS: Tamsulosin HCL 0.4 MG CAPSULE PO (15:03)
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
[2022-08-06 19:45] VITALS: BP 133/66; PULSE 88; RESP 16; TEMP 36.6; O2SAT 987
[2022-08-06] MEDS: Melatonin 3 MG TABLET 4.5 MG PO (22:14)
[2022-08-06] MEDS: QUEtiapine Fumarate 200 MG TABLET PO (22:14)
[2022-08-07 08:49] VITALS: BP 134/76; PULSE 91; RESP 20; TEMP 36.2; O2SAT 99
[2022-08-07] MEDS: Pyridoxine HCl (Vitamin B6) 50 MG TABLET 100 MG PO ×2 (08:50→20:32)
[2022-08-07] MEDS: metFORMIN HCl ER 500 MG TAB.ER.24H PO (08:50)
[2022-08-07] MEDS: Cholecalciferol (Vitamin D3) 25 MCG TABLET 50 MCG PO (08:50)
[2022-08-07] MEDS: Omeprazole 20 MG CAPSULE.DR PO (08:50)
[2022-08-07] MEDS: Sertraline HCL 100 MG TABLET PO (08:50)
[2022-08-07] MEDS: hydroCHLOROthiazide 25 MG TABLET PO (08:51)
[2022-08-07] MEDS: Atorvastatin Calcium 10 MG TABLET PO (08:51)
[2022-08-07] MEDS: lisinopriL 20 MG TABLET PO (08:51)
[2022-08-07] MEDS: Topiramate 100 MG TABLET 200 MG PO ×2 (08:51→20:30)
[2022-08-07] MEDS: QUEtiapine Fumarate 50 MG TABLET PO ×3 (08:51→20:32)
[2022-08-07] MEDS: hydrOXYzine HCL 25 MG TABLET PO (13:02)
[2022-08-07] MEDS: Tamsulosin HCL 0.4 MG CAPSULE PO (14:44)
--- NOTE | 2022-08-07 16:30 | HO.PSYCHPN ---
Subjective Subjective Date of Service: 08/07/22 Reason For Visit: Aggression Interim History: calm, cooperative. making farting noises and laughing uproariously. otherwise cooperative. states he has had a couple bouts of anxiety since admission but is feeling good today. has not spoken with his mother regarding her opinion on whether or not his behavioral has deteriorated so much that a medication change is indicated. per staff, poor sleep, tinnitus. friendly, isolative. peeling paint from the wall. anx 8. no AVH. safe. up at 0400. c/o hemorrhoids. Mental Status Exam Mental Status Exam Narrative: adequately dressed and groomed. cooperative. no PMA/PMR. speech nml rate, amount, loudness, tone. incr latency. thoughts linear and logical. affect full range, normo-intense, somewhat giddy. mood good today. no SI/HI/AVH expressed. Diagnostics Vital Signs (24Hr): Vital Signs - 24 hr 08/06/22 19:45 08/07/22 08:49 Temperature 97.9 F 97.2 F Pulse Rate 88 91 Respiratory Rate 16 20 Blood Pressure 133/66 134/76 Pulse Oximetry 987 H 99 Oxygen Delivery Method Room Air BMI result Body Mass Index 25.8 Labs 08/03/22 22:21 08/06/22 08:40 Labs: Laboratory Results - last 48 hr 08/06/22 08/06/22 08/06/22 08:40 08:40 08:40 Sodium 138 Potassium 3.7 Chloride 106 Carbon Dioxide 22 Anion Gap 14 BUN 19 H Creatinine 0.92 Estim Creat Clear Calc 114.7 Estimated GFR > 60 Fasting Glucose 95 Estimat Average Glucose 105 Hemoglobin A1c % 5.3 Calcium 9.8 Total Bilirubin 0.8 Direct Bilirubin 0.3 AST 22 ALT 24 Alkaline Phosphatase 51 Total Protein 7.6 Albumin 4.7 Triglycerides 128 Cholesterol 153 LDL Cholesterol, Calc 90 HDL Cholesterol 38 Vitamin B12 617 Folate 5.3 TSH 0.69 Imaging Radiology Impressions: ITS Impressions Foot X-Ray 08/03/22 22:01 IMPRESSION: No radiodense foreign bodies or acute soft tissue findings are identified. Importantly, glass can be radiolucent and not detectable radiographically. No acute osseous findings. Foot X-Ray 08/03/22 22:01 IMPRESSION: No radiodense foreign bodies or acute soft tissue findings are identified. Importantly, glass can be radiolucent and not detectable radiographically. No acute osseous findings. Medications Medications Current Medications Acetaminophen (Acetaminophen 325 Mg Tablet) 650 mg PO Q6H PRN PRN Reason: Headache/Pain Mild Scale (1-3) Al Hydroxide/Mg Hydroxide (Magnesium Hydrox/Alum Hydrox 30 Ml Oral.Susp) 30 ml PO Q6H PRN PRN Reason: Heartburn/Nausea Atorvastatin Calcium (Atorvastatin Calcium 10 Mg Tablet) 10 mg PO DAILY [facility] Last Admin: 08/07/22 08:51 Dose: 10 mg Clonidine HCl (Clonidine Hcl 0.2 Mg Tablet) 0.2 mg PO DAILY PRN; Protocol PRN Reason: anxiety Last Admin: 08/06/22 12:23 Dose: 0.2 mg Docusate Sodium (Docusate Sodium 100 Mg Capsule) 100 mg PO BID PRN PRN Reason: constipation Hydrochlorothiazide (Hydrochlorothiazide 25 Mg Tablet) 25 mg PO DAILY [facility] Last Admin: 08/07/22 08:51 Dose: 25 mg Hydroxyzine HCl (Hydroxyzine Hcl 25 Mg Tablet) 25 mg PO Q6H PRN PRN Reason: Anxiety Last Admin: 08/07/22 13:02 Dose: 25 mg Lisinopril (Lisinopril 20 Mg Tablet) 20 mg PO DAILY [facility] Last Admin: 08/07/22 08:51 Dose: 20 mg Magnesium Hydroxide (Milk Of Magnesia 30 Ml Oral.Susp) 30 ml PO DAILY PRN PRN Reason: Constipation Melatonin (Melatonin 3 Mg Tablet) 4.5 mg PO BEDTIME [facility] Last Admin: 08/06/22 22:14 Dose: 4.5 mg Metformin HCl (Metformin Hcl Er 500 Mg Tab.Er.24h) 500 mg PO DAILY [facility] Last Admin: 08/07/22 08:50 Dose: 500 mg Nicotine Polacrilex (Nicotine Polacrilex 2 Mg Gum) 2 mg BUCCAL Q2H PRN PRN Reason: Nicotine Cravings Omeprazole (Omeprazole 20 Mg Capsule.Dr) 20 mg PO DAILY [facility] Last Admin: 08/07/22 08:50 Dose: 20 mg Polyethylene Glycol (Polyethylene Glycol 3350 17 Gm Powd.Pack) 17 gm PO BID PRN PRN Reason: constipation Potassium Chloride (Potassium Chloride Er 10 Meq Capsule.Er) 10 meq PO QID [facility] Last Admin: 08/07/22 13:01 Dose: 10 meq Pyridoxine HCl (Pyridoxine Hcl (Vitamin B6) 50 Mg Tablet) 100 mg PO BID [facility] Last Admin: 08/07/22 08:50 Dose: 100 mg Quetiapine Fumarate (Quetiapine Fumarate 50 Mg Tablet) 50 mg PO TID [facility] Last Admin: 08/07/22 14:43 Dose: 50 mg Quetiapine Fumarate (Quetiapine Fumarate 200 Mg Tablet) 200 mg PO BEDTIME [facility] Last Admin: 08/06/22 22:14 Dose: 200 mg Sertraline HCl (Sertraline Hcl 100 Mg Tablet) 100 mg PO DAILY [facility] Last Admin: 08/07/22 08:50 Dose: 100 mg Tamsulosin HCl (Tamsulosin Hcl 0.4 Mg Capsule) 0.4 mg PO DAILY@1500 [facility] Last Admin: 08/07/22 14:44 Dose: 0.4 mg Topiramate (Topiramate 100 Mg Tablet) 200 mg PO BID [facility] Last Admin: 08/07/22 08:51 Dose: 200 mg Trazodone HCl (Trazodone Hcl 50 Mg Tablet) 50 mg PO BEDTIME PRN PRN Reason: Insomnia Vitamin D (Cholecalciferol (Vitamin D3) 25 Mcg Tablet) 50 mcg PO DAILY [facility] Last Admin: 08/07/22 08:50 Dose: 50 mcg Allergies Allergies Allergy/AdvReac Type Severity Reaction Status Date / Time amlodipine [AMLODIPINE] Allergy Intermediate SEIZURE Verified 06/05/22 13:32 escitalopram [From LEXAPRO] Allergy Intermediate SEIZURE Verified 06/05/22 13:32 fluoxetine [Prozac] Allergy Unknown Hives Verified 06/05/22 13:32 olanzapine [From ZYPREXA] Allergy Unknown AGITATION Verified 06/05/22 13:32 Assessment & Plan Assessment & Plan (1) Bipolar disorder: Status: Acute Code(s): F31.9 - Bipolar disorder, unspecified (2) Autistic disorder of childhood onset: Status: Acute Code(s): F84.0 - Autistic disorder (3) Epilepsy: Status: Acute Code(s): G40.909 - Epilepsy, unspecified, not intractable, without status epilepticus Plan 08/06: continue home meds for now. consider with mother need for change in meds. T/C addition of tegretol for mood stabilization; discuss with neurology STONE OPERATOR Nidia Xiong. 08/07: tiger text sent to [facility] re tegretol, awaiting response. stable, no concerning behaviors today. pt did attempt to elope and got past first set of [place] doors yesterday. he reported that was due to severe anxiety. Reason for contiued inpatient stay Substantial Risk for: harm to self, harm to others, inability to function and rapid decompensation Time Spent With Patient Time: Total time managing care of this patient today _20___ minutes.
[2022-08-07] MEDS: cloNIDine HCL 0.2 MG TABLET PO (16:55)
--- NOTE | 2022-08-07 17:10 | PC.NURSE ---
Patient observed in common area laughing loudly, making farting noises, rocking in chair. Patient got into [place] as visitor was leaving. Responded to staff redirection by using strategies discussed yesterday. Offered to call it audit manager, spoke in calm voice, offered tactile sensory. Patient returned to unit, proceeded to gently dump trash over in common area, followed by tipping table on it's side. Redirected by staff, walking unit with staff person, using headphones. Accepted PRN medication, later apologized to staff. Brother visiting currently.
[2022-08-07 20:29] VITALS: BP 99/54; PULSE 103; RESP 18; TEMP 36.4; O2SAT 96
[2022-08-07] MEDS: QUEtiapine Fumarate 200 MG TABLET PO (20:30)
[2022-08-07] MEDS: Melatonin 3 MG TABLET 4.5 MG PO (20:31)
[2022-08-08] MEDS: Topiramate 100 MG TABLET 200 MG PO ×2 (08:53→22:17)
[2022-08-08] MEDS: Pyridoxine HCl (Vitamin B6) 50 MG TABLET 100 MG PO ×2 (08:53→22:17)
[2022-08-08] MEDS: metFORMIN HCl ER 500 MG TAB.ER.24H PO (08:53)
[2022-08-08] MEDS: Omeprazole 20 MG CAPSULE.DR PO (08:54)
[2022-08-08] MEDS: Cholecalciferol (Vitamin D3) 25 MCG TABLET 50 MCG PO (08:54)
[2022-08-08] MEDS: lisinopriL 20 MG TABLET PO (08:54)
[2022-08-08] MEDS: Atorvastatin Calcium 10 MG TABLET PO (08:54)
[2022-08-08] MEDS: QUEtiapine Fumarate 50 MG TABLET PO (08:54)
[2022-08-08] MEDS: Sertraline HCL 100 MG TABLET PO (08:55)
[2022-08-08] MEDS: hydroCHLOROthiazide 25 MG TABLET PO (08:55)
[2022-08-08 09:38] VITALS: BP 126/64; PULSE 84; RESP 16; TEMP 36.6; O2SAT 98
[2022-08-08 10:47] VITALS: BMI 28.5
--- NOTE | 2022-08-08 15:36 | P.PNPSI_ITS ---
Subjective Subjective Date of Service: 08/08/22 Reason For Visit: Aggression Interim History: visible in the milieu, calm, cooperative. per staff, got into the [place] 4 times yesterday. appears overstimulated in the milieu, rocking in his chair and laughing a lot. slept about 6-7 hours. per collateral from brother stefany, pt has appeared more tired and labile recently, as well as has been having more frequent episodes of agitation. Mental Status Exam Mental Status Exam Narrative: adequately dressed and groomed. cooperative. no PMA/PMR. speech nml rate, amount, loudness, tone. incr latency. thoughts linear and logical. affect full range, normo-intense, somewhat giddy. no SI/HI/AVH expressed. Diagnostics Vital Signs (24Hr): Vital Signs - 24 hr 08/07/22 20:29 08/08/22 09:38 Temperature 97.5 F 97.8 F Pulse Rate 103 H 84 Respiratory Rate 18 16 Blood Pressure 99/54 L 126/64 Pulse Oximetry 96 98 Oxygen Delivery Method Room Air Room Air BMI result Body Mass Index 28.5 Labs 08/03/22 22:21 08/06/22 08:40 Imaging Radiology Impressions: ITS Impressions Foot X-Ray 08/03/22 22:01 IMPRESSION: No radiodense foreign bodies or acute soft tissue findings are identified. Importantly, glass can be radiolucent and not detectable radiographically. No acute osseous findings. Foot X-Ray 08/03/22 22:01 IMPRESSION: No radiodense foreign bodies or acute soft tissue findings are identified. Importantly, glass can be radiolucent and not detectable radiographically. No acute osseous findings. Medications Medications Current Medications Acetaminophen (Acetaminophen 325 Mg Tablet) 650 mg PO Q6H PRN PRN Reason: Headache/Pain Mild Scale (1-3) Al Hydroxide/Mg Hydroxide (Magnesium Hydrox/Alum Hydrox 30 Ml Oral.Susp) 30 ml PO Q6H PRN PRN Reason: Heartburn/Nausea Atorvastatin Calcium (Atorvastatin Calcium 10 Mg Tablet) 10 mg PO DAILY [facility] Last Admin: 08/08/22 08:54 Dose: 10 mg Clonidine HCl (Clonidine Hcl 0.2 Mg Tablet) 0.2 mg PO DAILY PRN; Protocol PRN Reason: anxiety Last Admin: 08/07/22 16:55 Dose: 0.2 mg Docusate Sodium (Docusate Sodium 100 Mg Capsule) 100 mg PO BID PRN PRN Reason: constipation Hydrochlorothiazide (Hydrochlorothiazide 25 Mg Tablet) [address] [facility] Last Admin: 08/08/22 08:55 Dose: 25 mg Hydroxyzine HCl (Hydroxyzine Hcl 25 Mg Tablet) 25 mg PO Q6H PRN PRN Reason: Anxiety Last Admin: 08/07/22 13:02 Dose: 25 mg Lisinopril (Lisinopril 20 Mg Tablet) [address] [facility] Last Admin: 08/08/22 08:54 Dose: 20 mg Magnesium Hydroxide (Milk Of Magnesia 30 Ml Oral.Susp) 30 ml PO DAILY PRN PRN Reason: Constipation Melatonin (Melatonin 3 Mg Tablet) 4.[address] [facility] Last Admin: 08/07/22 20:31 Dose: 4.5 mg Metformin HCl (Metformin Hcl Er 500 Mg Tab.Er.24h) [address] [facility] Last Admin: 08/08/22 08:53 Dose: 500 mg Nicotine Polacrilex (Nicotine Polacrilex 2 Mg Gum) 2 mg BUCCAL Q2H PRN PRN Reason: Nicotine Cravings Omeprazole (Omeprazole 20 Mg Capsule.Dr) [address] [facility] Last Admin: 08/08/22 08:54 Dose: 20 mg Polyethylene Glycol (Polyethylene Glycol 3350 17 Gm Powd.Pack) 17 gm PO BID PRN PRN Reason: constipation Potassium Chloride (Potassium Chloride Er 10 Meq Capsule.Er) [address] [facility] Last Admin: 08/08/22 13:08 Dose: 10 meq Pyridoxine HCl (Pyridoxine Hcl (Vitamin B6) 50 Mg Tablet) [address] [facility] Last Admin: 08/08/22 08:53 Dose: 100 mg Quetiapine Fumarate (Quetiapine Fumarate 50 Mg Tablet) [address] [facility] Last Admin: 08/08/22 08:54 Dose: 50 mg Quetiapine Fumarate (Quetiapine Fumarate 200 Mg Tablet) [address] [facility] Last Admin: 08/07/22 20:30 Dose: 200 mg Sertraline HCl (Sertraline Hcl 100 Mg Tablet) [address] [facility] Last Admin: 08/08/22 08:55 Dose: 100 mg Tamsulosin HCl (Tamsulosin Hcl 0.4 Mg Capsule) 0.4 mg PO DAILY@1500 [facility] Last Admin: 08/07/22 14:44 Dose: 0.4 mg Topiramate (Topiramate 100 Mg Tablet) [address] [facility] Last Admin: 08/08/22 08:53 Dose: 200 mg Trazodone HCl (Trazodone Hcl 50 Mg Tablet) 50 mg PO BEDTIME PRN PRN Reason: Insomnia Vitamin D (Cholecalciferol (Vitamin D3) 25 Mcg Tablet) [address] [facility] Last Admin: 08/08/22 08:54 Dose: 50 mcg Allergies Allergies Allergy/AdvReac Type Severity Reaction Status Date / Time amlodipine [AMLODIPINE] Allergy Intermediate SEIZURE Verified 06/05/22 13:32 escitalopram [From LEXAPRO] Allergy Intermediate SEIZURE Verified 06/05/22 13:32 fluoxetine [Prozac] Allergy Unknown Hives Verified 06/05/22 13:32 olanzapine [From ZYPREXA] Allergy Unknown AGITATION Verified 06/05/22 13:32 Assessment & Plan Assessment & Plan (1) Bipolar disorder: Status: Acute Code(s): F31.9 - Bipolar disorder, unspecified (2) Autistic disorder of childhood onset: Status: Acute Code(s): F84.0 - Autistic disorder (3) Epilepsy: Status: Acute Code(s): G40.909 - Epilepsy, unspecified, not intractable, without status epilepticus Plan 08/06: continue home meds for now. consider with mother need for change in meds. T/C addition of tegretol for mood stabilization; discuss with neurology COURSEWARE DEVELOPER Nidia Xiong. 08/07: tiger text sent to [facility] re tegretol, awaiting response. stable, no concerning behaviors today. pt did attempt to elope and got past first set of [place] doors yesterday. he reported that was due to severe anxiety. 08/08: [facility] of neuro prefers trileptal to tegretol as mood stabilizer due to less drug-drug effect. per collateral from brother, pt has appeared more tired and labile recently, with more frequent tantrums. will increase seroquel throughout the day in attempt to make such outbursts less likely. Reason for contiued inpatient stay Substantial Risk for: harm to self, harm to others, inability to function and rapid decompensation Time Spent With Patient Time: Total time managing care of this patient today __35__ minutes.
[2022-08-08] MEDS: Tamsulosin HCL 0.4 MG CAPSULE PO (16:21)
[2022-08-08] MEDS: Loperamide HCl 2 MG CAPSULE 4 MG PO (17:49)
[2022-08-08 22:17] VITALS: BP 138/74; PULSE 92; RESP 18; TEMP 36.2; O2SAT 98
[2022-08-08] MEDS: QUEtiapine Fumarate 200 MG TABLET PO (22:17)
[2022-08-08] MEDS: Melatonin 3 MG TABLET 4.5 MG PO (22:18)
[2022-08-08] MEDS: QUEtiapine Fumarate 25 MG TABLET 75 MG PO (22:19)
[2022-08-09] MEDS: lisinopriL 20 MG TABLET PO (08:28)
[2022-08-09] MEDS: Topiramate 100 MG TABLET 200 MG PO ×2 (08:28→22:11)
[2022-08-09] MEDS: Pyridoxine HCl (Vitamin B6) 50 MG TABLET 100 MG PO ×2 (08:28→22:10)
[2022-08-09] MEDS: Omeprazole 20 MG CAPSULE.DR PO (08:28)
[2022-08-09] MEDS: hydroCHLOROthiazide 25 MG TABLET PO (08:28)
[2022-08-09] MEDS: Atorvastatin Calcium 10 MG TABLET PO (08:28)
[2022-08-09] MEDS: Cholecalciferol (Vitamin D3) 25 MCG TABLET 50 MCG PO (08:28)
[2022-08-09] MEDS: metFORMIN HCl ER 500 MG TAB.ER.24H PO (08:28)
[2022-08-09] MEDS: QUEtiapine Fumarate 25 MG TABLET 75 MG PO ×3 (08:28→22:10)
[2022-08-09] MEDS: Sertraline HCL 100 MG TABLET PO (08:28)
[2022-08-09 09:00] VITALS: BP 124/76; PULSE 92; RESP 16; TEMP 36.6; O2SAT 97
--- NOTE | 2022-08-09 14:01 | HO.PSYCHPN ---
Subjective Subjective Date of Service: 08/09/22 Reason For Visit: Aggression Interim History: calm, cooperative. states he has been feeling anxious this morning and tried to elope from the unit. he was encouraged to use other coping skills to manage with anxiety, examples and suggestions were provided. states he does not feel ready yet to see his mother. he agreed to a visit from her this weekend to test the miller. informed of medication change of slight increase in seroquel dosing. per staff, anxious, pre-occupied, tinnitus. whispering, giggling. sleeping, eating well. no SI/HI. no AVH. safe, slept well/ planning for friday discharge. Mental Status Exam Mental Status Exam Narrative: adequately dressed and groomed. cooperative. no PMA/PMR. speech nml rate, amount, loudness, tone. incr latency. thoughts linear and logical. affect full range, normo-intense, somewhat giddy. no SI/HI/AVH expressed. Diagnostics Vital Signs (24Hr): Vital Signs - 24 hr 08/08/22 22:17 08/09/22 09:00 Temperature 97.2 F 97.9 F Pulse Rate 92 92 Respiratory Rate 18 16 Blood Pressure 138/74 124/76 Pulse Oximetry 98 97 Oxygen Delivery Method Room Air Room Air BMI result Body Mass Index 28.5 Labs 08/03/22 22:21 08/06/22 08:40 Imaging Radiology Impressions: ITS Impressions Foot X-Ray 08/03/22 22:01 IMPRESSION: No radiodense foreign bodies or acute soft tissue findings are identified. Importantly, glass can be radiolucent and not detectable radiographically. No acute osseous findings. Foot X-Ray 08/03/22 22:01 IMPRESSION: No radiodense foreign bodies or acute soft tissue findings are identified. Importantly, glass can be radiolucent and not detectable radiographically. No acute osseous findings. Medications Medications Current Medications Acetaminophen (Acetaminophen 325 Mg Tablet) 650 mg PO Q6H PRN PRN Reason: Headache/Pain Mild Scale (1-3) Al Hydroxide/Mg Hydroxide (Magnesium Hydrox/Alum Hydrox 30 Ml Oral.Susp) 30 ml PO Q6H PRN PRN Reason: Heartburn/Nausea Atorvastatin Calcium (Atorvastatin Calcium 10 Mg Tablet) 10 mg PO DAILY [facility] Last Admin: 08/09/22 08:28 Dose: 10 mg Clonidine HCl (Clonidine Hcl 0.2 Mg Tablet) 0.2 mg PO DAILY PRN; Protocol PRN Reason: anxiety Last Admin: 08/07/22 16:55 Dose: 0.2 mg Docusate Sodium (Docusate Sodium 100 Mg Capsule) 100 mg PO BID PRN PRN Reason: constipation Hydrochlorothiazide (Hydrochlorothiazide 25 Mg Tablet) 25 mg PO DAILY [facility] Last Admin: 08/09/22 08:28 Dose: 25 mg Hydroxyzine HCl (Hydroxyzine Hcl 25 Mg Tablet) 25 mg PO Q6H PRN PRN Reason: Anxiety Last Admin: 08/07/22 13:02 Dose: 25 mg Lisinopril (Lisinopril 20 Mg Tablet) 20 mg PO DAILY [facility] Last Admin: 08/09/22 08:28 Dose: 20 mg Loperamide HCl (Loperamide Hcl 2 Mg Capsule) 4 mg PO Q6H PRN PRN Reason: Diarrhea Last Admin: 08/08/22 17:49 Dose: 4 mg Magnesium Hydroxide (Milk Of Magnesia 30 Ml Oral.Susp) 30 ml PO DAILY PRN PRN Reason: Constipation Melatonin (Melatonin 3 Mg Tablet) 4.5 mg PO BEDTIME [facility] Last Admin: 08/08/22 22:18 Dose: 4.5 mg Metformin HCl (Metformin Hcl Er 500 Mg Tab.Er.24h) 500 mg PO DAILY [facility] Last Admin: 08/09/22 08:28 Dose: 500 mg Nicotine Polacrilex (Nicotine Polacrilex 2 Mg Gum) 2 mg BUCCAL Q2H PRN PRN Reason: Nicotine Cravings Omeprazole (Omeprazole 20 Mg Capsule.Dr) 20 mg PO DAILY [facility] Last Admin: 08/09/22 08:28 Dose: 20 mg Polyethylene Glycol (Polyethylene Glycol 3350 17 Gm Powd.Pack) 17 gm PO BID PRN PRN Reason: constipation Potassium Chloride (Potassium Chloride Er 10 Meq Capsule.Er) 10 meq PO QID [facility] Last Admin: 08/09/22 08:28 Dose: 10 meq Pyridoxine HCl (Pyridoxine Hcl (Vitamin B6) 50 Mg Tablet) 100 mg PO BID [facility] Last Admin: 08/09/22 08:28 Dose: 100 mg Quetiapine Fumarate (Quetiapine Fumarate 200 Mg Tablet) 200 mg PO BEDTIME [facility] Last Admin: 08/08/22 22:17 Dose: 200 mg Quetiapine Fumarate (Quetiapine Fumarate 25 Mg Tablet) 75 mg PO TID [facility] Last Admin: 08/09/22 08:28 Dose: 75 mg Sertraline HCl (Sertraline Hcl 100 Mg Tablet) 100 mg PO DAILY [facility] Last Admin: 08/09/22 08:28 Dose: 100 mg Tamsulosin HCl (Tamsulosin Hcl 0.4 Mg Capsule) 0.4 mg PO DAILY@1500 [facility] Last Admin: 08/08/22 16:21 Dose: 0.4 mg Topiramate (Topiramate 100 Mg Tablet) 200 mg PO BID [facility] Last Admin: 08/09/22 08:28 Dose: 200 mg Trazodone HCl (Trazodone Hcl 50 Mg Tablet) 50 mg PO BEDTIME PRN PRN Reason: Insomnia Vitamin D (Cholecalciferol (Vitamin D3) 25 Mcg Tablet) 50 mcg PO DAILY [facility] Last Admin: 08/09/22 08:28 Dose: 50 mcg Allergies Allergies Allergy/AdvReac Type Severity Reaction Status Date / Time amlodipine [AMLODIPINE] Allergy Intermediate SEIZURE Verified 06/05/22 13:32 escitalopram [From LEXAPRO] Allergy Intermediate SEIZURE Verified 06/05/22 13:32 fluoxetine [Prozac] Allergy Unknown Hives Verified 06/05/22 13:32 olanzapine [From ZYPREXA] Allergy Unknown AGITATION Verified 06/05/22 13:32 Assessment & Plan Assessment & Plan (1) Bipolar disorder: Status: Acute Code(s): F31.9 - Bipolar disorder, unspecified (2) Autistic disorder of childhood onset: Status: Acute Code(s): F84.0 - Autistic disorder (3) Epilepsy: Status: Acute Code(s): G40.909 - Epilepsy, unspecified, not intractable, without status epilepticus Plan 08/06: continue home meds for now. consider with mother need for change in meds. T/C addition of tegretol for mood stabilization; discuss with neurology WEB SITE SPECIALIST Nidia Xiong. 08/07: tiger text sent to [facility] re tegretol, awaiting response. stable, no concerning behaviors today. pt did attempt to elope and got past first set of [place] doors yesterday. he reported that was due to severe anxiety. 08/08: [facility] prefers trileptal to tegretol as mood stabilizer due to less drug-drug effect. per collateral from brother, pt has appeared more tired and labile recently, with more frequent tantrums. will increase seroquel throughout the day in attempt to make such outbursts less likely. 08/09: no apparent change in behaviors. still periodically attempting elopement. no aggression, however. planning for friday discharge. mother visited pt today. continue current mgmt. Patient educated on: medication risk/benefits and therapeutic strategies Reason for contiued inpatient stay Substantial Risk for: harm to self, harm to others, inability to function and rapid decompensation Time Spent With Patient Time: Total time managing care of this patient today _25___ minutes.
[2022-08-09] MEDS: Tamsulosin HCL 0.4 MG CAPSULE PO (15:57)
[2022-08-09 21:04] VITALS: BP 130/72; PULSE 103; RESP 16; TEMP 36.1; O2SAT 98
[2022-08-09] MEDS: cloNIDine HCL 0.2 MG TABLET PO (22:09)
[2022-08-09] MEDS: Melatonin 3 MG TABLET 4.5 MG PO (22:09)
[2022-08-09] MEDS: QUEtiapine Fumarate 200 MG TABLET PO (22:10)
[2022-08-10 08:36] VITALS: BP 107/55; PULSE 81; RESP 18; TEMP 36.7; O2SAT 95
[2022-08-10] MEDS: Atorvastatin Calcium 10 MG TABLET PO (08:39)
[2022-08-10] MEDS: Topiramate 100 MG TABLET 200 MG PO ×2 (08:39→22:02)
[2022-08-10] MEDS: lisinopriL 20 MG TABLET PO (08:39)
[2022-08-10] MEDS: QUEtiapine Fumarate 25 MG TABLET 75 MG PO ×3 (08:39→22:01)
[2022-08-10] MEDS: Omeprazole 20 MG CAPSULE.DR PO (08:39)
[2022-08-10] MEDS: Pyridoxine HCl (Vitamin B6) 50 MG TABLET 100 MG PO ×2 (08:39→22:01)
[2022-08-10] MEDS: Cholecalciferol (Vitamin D3) 25 MCG TABLET 50 MCG PO (08:39)
[2022-08-10] MEDS: metFORMIN HCl ER 500 MG TAB.ER.24H PO (08:39)
[2022-08-10] MEDS: hydroCHLOROthiazide 25 MG TABLET PO (08:40)
[2022-08-10] MEDS: Sertraline HCL 100 MG TABLET PO (08:40)
[2022-08-10] MEDS: Tamsulosin HCL 0.4 MG CAPSULE PO (15:38)
--- NOTE | 2022-08-10 17:31 | PC.NURSE ---
Patient visited by mother and brother today. Patient reports visit went well.
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
[2022-08-10 20:30] VITALS: BP 115/64; PULSE 77; RESP 16; TEMP 36.6
[2022-08-10] MEDS: Cocoa Butter/Zinc Oxide SUPP.RECT 1 SUPP PR (20:40)
[2022-08-10] MEDS: Melatonin 3 MG TABLET 4.5 MG PO (22:01)
[2022-08-10] MEDS: QUEtiapine Fumarate 200 MG TABLET PO (22:02)
[2022-08-11 06:00] VITALS: BP 123/58; PULSE 97; RESP 18; TEMP 36.8; O2SAT 100
[2022-08-11] MEDS: Atorvastatin Calcium 10 MG TABLET PO (09:54)
[2022-08-11] MEDS: metFORMIN HCl ER 500 MG TAB.ER.24H PO (09:54)
[2022-08-11] MEDS: Topiramate 100 MG TABLET 200 MG PO ×2 (09:54→22:59)
[2022-08-11] MEDS: QUEtiapine Fumarate 25 MG TABLET 75 MG PO ×3 (09:54→22:59)
[2022-08-11] MEDS: Pyridoxine HCl (Vitamin B6) 50 MG TABLET 100 MG PO ×2 (09:55→22:59)
[2022-08-11] MEDS: hydroCHLOROthiazide 25 MG TABLET PO (09:55)
[2022-08-11] MEDS: Cholecalciferol (Vitamin D3) 25 MCG TABLET 50 MCG PO (09:55)
[2022-08-11] MEDS: Sertraline HCL 100 MG TABLET PO (09:55)
[2022-08-11] MEDS: Omeprazole 20 MG CAPSULE.DR PO (09:57)
[2022-08-11] MEDS: lisinopriL 20 MG TABLET PO (10:00)
--- NOTE | 2022-08-11 12:16 | HO.PSYCHPN ---
Subjective Subjective Date of Service: 08/11/22 Reason For Visit: Aggression Interim History: Met with patient. Chart reviewed. Discussed with Nursing. Still pushing on the doors at times but does not appear to be a clear elopement effort verses ritualistic in nature in the context of autism. Internally preoccupied. Is attending groups. Patient is concrete during interaction- showed automobile and property underwriter picture chat to help communicate needs. Still hears noises at times that are upsetting. Headphones remain helpful. Reports feeling well cared for. No medication concerns. Sleep okay. Medication Compliance: Yes Side effects from medications: No Attending Groups: Yes Review of Systems Acute medical concerns: No Review of Systems Review of Systems Unremarkable Mental Status Exam Mental Status Exam Narrative: Hospital clothing. Headphones. Fair hygiene. [place] with some loosening of association at times. Euthymic. No SI. No HI. Does endorse hearing noises at times. No delusions. No paranoia. Insight and judgment okay Diagnostics Vital Signs (24Hr): Vital Signs - 24 hr 08/10/22 20:30 08/11/22 06:00 Temperature 97.8 F 98.2 F Pulse Rate 77 97 Respiratory Rate 16 18 Blood Pressure 115/64 123/58 L Pulse Oximetry 100 Oxygen Delivery Method Room Air Room Air BMI result Body Mass Index 28.5 Labs 08/03/22 22:21 08/06/22 08:40 Imaging Radiology Impressions: ITS Impressions Foot X-Ray 08/03/22 22:01 IMPRESSION: No radiodense foreign bodies or acute soft tissue findings are identified. Importantly, glass can be radiolucent and not detectable radiographically. No acute osseous findings. Foot X-Ray 08/03/22 22:01 IMPRESSION: No radiodense foreign bodies or acute soft tissue findings are identified. Importantly, glass can be radiolucent and not detectable radiographically. No acute osseous findings. Medications Medications Current Medications Acetaminophen (Acetaminophen 325 Mg Tablet) 650 mg PO Q6H PRN PRN Reason: Headache/Pain Mild Scale (1-3) Al Hydroxide/Mg Hydroxide (Magnesium Hydrox/Alum Hydrox 30 Ml Oral.Susp) 30 ml PO Q6H PRN PRN Reason: Heartburn/Nausea Atorvastatin Calcium (Atorvastatin Calcium 10 Mg Tablet) 10 mg PO DAILY [facility] Last Admin: 08/11/22 09:54 Dose: 10 mg Clonidine HCl (Clonidine Hcl 0.2 Mg Tablet) 0.2 mg PO DAILY PRN; Protocol PRN Reason: anxiety Last Admin: 08/09/22 22:09 Dose: 0.2 mg [place] Butter/Zinc Oxide ([place] Butter/Zinc Oxide Supp.Rect) 1 supp [place] DAILY PRN PRN Reason: Hemorrhoids Last Admin: 08/10/22 20:40 Dose: 1 supp Docusate Sodium (Docusate Sodium 100 Mg Capsule) 100 mg PO BID PRN PRN Reason: constipation Hydrochlorothiazide (Hydrochlorothiazide 25 Mg Tablet) 25 mg PO DAILY [facility] Last Admin: 08/11/22 09:55 Dose: 25 mg Hydroxyzine HCl (Hydroxyzine Hcl 25 Mg Tablet) 25 mg PO Q6H PRN PRN Reason: Anxiety Last Admin: 08/07/22 13:02 Dose: 25 mg Lisinopril (Lisinopril 20 Mg Tablet) 20 mg PO DAILY [facility] Last Admin: 08/11/22 10:00 Dose: 20 mg Loperamide HCl (Loperamide Hcl 2 Mg Capsule) 4 mg PO Q6H PRN PRN Reason: Diarrhea Last Admin: 08/08/22 17:49 Dose: 4 mg Magnesium Hydroxide (Milk Of Magnesia 30 Ml Oral.Susp) 30 ml PO DAILY PRN PRN Reason: Constipation Melatonin (Melatonin 3 Mg Tablet) 4.5 mg PO BEDTIME [facility] Last Admin: 08/10/22 22:01 Dose: 4.5 mg Metformin HCl (Metformin Hcl Er 500 Mg Tab.Er.24h) 500 mg PO DAILY [facility] Last Admin: 08/11/22 09:54 Dose: 500 mg Nicotine Polacrilex (Nicotine Polacrilex 2 Mg Gum) 2 mg BUCCAL Q2H PRN PRN Reason: Nicotine Cravings Omeprazole (Omeprazole 20 Mg Capsule.Dr) 20 mg PO DAILY [facility] Last Admin: 08/11/22 09:57 Dose: 20 mg Polyethylene Glycol (Polyethylene Glycol 3350 17 Gm Powd.Pack) 17 gm PO BID PRN PRN Reason: constipation Potassium Chloride (Potassium Chloride Er 10 Meq Capsule.Er) 10 meq PO QID [facility] Last Admin: 08/11/22 09:55 Dose: 10 meq Pyridoxine HCl (Pyridoxine Hcl (Vitamin B6) 50 Mg Tablet) 100 mg PO BID [facility] Last Admin: 08/11/22 09:55 Dose: 100 mg Quetiapine Fumarate (Quetiapine Fumarate 200 Mg Tablet) 200 mg PO BEDTIME [facility] Last Admin: 08/10/22 22:02 Dose: 200 mg Quetiapine Fumarate (Quetiapine Fumarate 25 Mg Tablet) 75 mg PO TID [facility] Last Admin: 08/11/22 09:54 Dose: 75 mg Sertraline HCl (Sertraline Hcl 100 Mg Tablet) 100 mg PO DAILY [facility] Last Admin: 08/11/22 09:55 Dose: 100 mg Tamsulosin HCl (Tamsulosin Hcl 0.4 Mg Capsule) 0.4 mg PO DAILY@1500 [facility] Last Admin: 08/10/22 15:38 Dose: 0.4 mg Topiramate (Topiramate 100 Mg Tablet) 200 mg PO BID [facility] Last Admin: 08/11/22 09:54 Dose: 200 mg Trazodone HCl (Trazodone Hcl 50 Mg Tablet) 50 mg PO BEDTIME PRN PRN Reason: Insomnia Vitamin D (Cholecalciferol (Vitamin D3) 25 Mcg Tablet) 50 mcg PO DAILY [facility] Last Admin: 08/11/22 09:55 Dose: 50 mcg Allergies Allergies Allergy/AdvReac Type Severity Reaction Status Date / Time amlodipine [AMLODIPINE] Allergy Intermediate SEIZURE Verified 06/05/22 13:32 escitalopram [From LEXAPRO] Allergy Intermediate SEIZURE Verified 06/05/22 13:32 fluoxetine [Prozac] Allergy Unknown Hives Verified 06/05/22 13:32 olanzapine [From ZYPREXA] Allergy Unknown AGITATION Verified 06/05/22 13:32 Assessment & Plan Assessment & Plan (1) Bipolar disorder: Status: Acute Code(s): F31.9 - Bipolar disorder, unspecified (2) Autistic disorder of childhood onset: Status: Acute Code(s): F84.0 - Autistic disorder (3) Epilepsy: Status: Acute Code(s): G40.909 - Epilepsy, unspecified, not intractable, without status epilepticus Plan 08/06: continue home meds for now. consider with mother need for change in meds. T/C addition of tegretol for mood stabilization; discuss with neurology RADIO FREQUENCY DESIGN ENGINEER Nidia Xiong. 08/07: tiger text sent to [facility] re tegretol, awaiting response. stable, no concerning behaviors today. pt did attempt to elope and got past first set of [place] doors yesterday. he reported that was due to severe anxiety. 08/08: [facility] prefers trileptal to tegretol as mood stabilizer due to less drug-drug effect. per collateral from brother, pt has appeared more tired and labile recently, with more frequent tantrums. will increase seroquel throughout the day in attempt to make such outbursts less likely. 08/09: no apparent change in behaviors. still periodically attempting elopement. no aggression, however. planning for friday discharge. mother visited pt today. continue current mgmt. 08/11/2022: No changes to current treatment plan Reason for contiued inpatient stay Substantial Risk for: inability to function Time Spent With Patient Time: Total time managing care of this patient today ____ minutes.
[2022-08-11] MEDS: Tamsulosin HCL 0.4 MG CAPSULE PO (16:08)
--- NOTE | 2022-08-11 19:22 | PC.NURSE ---
Patient reports good visit with mother and general partner this afternoon. Brief period of feeling overwhelmed, triggered by male peer. Entered sensory room, slammed door however able to identify feelings anger, frustration, overwhelmed with communication card. Able to calm self with deep breathing and music. No further episodes.
[2022-08-11 22:50] VITALS: BP 124/70; PULSE 87; RESP 18; TEMP 36.4; O2SAT 96
[2022-08-11] MEDS: Melatonin 3 MG TABLET 4.5 MG PO (22:59)
[2022-08-11] MEDS: QUEtiapine Fumarate 200 MG TABLET PO (22:59)
[2022-08-11] MEDS: Cocoa Butter/Zinc Oxide SUPP.RECT 1 SUPP PR (23:12)
[2022-08-12 08:50] VITALS: BP 135/80; PULSE 78; RESP 18; TEMP 36.5; O2SAT 98
[2022-08-12] MEDS: Pyridoxine HCl (Vitamin B6) 50 MG TABLET 100 MG PO (08:55)
[2022-08-12] MEDS: Topiramate 100 MG TABLET 200 MG PO (08:55)
[2022-08-12] MEDS: Cholecalciferol (Vitamin D3) 25 MCG TABLET 50 MCG PO (08:55)
[2022-08-12] MEDS: hydroCHLOROthiazide 25 MG TABLET PO (08:56)
[2022-08-12] MEDS: metFORMIN HCl ER 500 MG TAB.ER.24H PO (08:56)
[2022-08-12] MEDS: Atorvastatin Calcium 10 MG TABLET PO (08:57)
[2022-08-12] MEDS: QUEtiapine Fumarate 25 MG TABLET 75 MG PO ×2 (08:58→13:50)
[2022-08-12] MEDS: lisinopriL 20 MG TABLET PO (08:58)
[2022-08-12] MEDS: Omeprazole 20 MG CAPSULE.DR PO (08:59)
[2022-08-12] MEDS: Sertraline HCL 100 MG TABLET PO (08:59)
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
--- NOTE | 2022-08-12 12:14 | PC.NURSE ---
Patient visible in the milieu, attending groups, compliant with medications. Affect bright, patient reports he is ready and happy to go home, denies SI, denies HI, denies any concerns at this time. Patient's brother will pick patient up.
[2022-08-12] MEDS: Tamsulosin HCL 0.4 MG CAPSULE PO (13:50)
--- NOTE | 2022-08-12 13:53 | PC.NURSE ---
Family in early- notified Dr. Elkins, may give 1500 medications now.
== END 2022-08-12 13:55 | disposition home or self-care (01) | DRG 753 ==
LOC: HO.ED 08-04 06:19 → HO.PADLT16 08-05 16:20
PROVIDERS: Nurse Practitioner Family; Admitting Provider Psychiatry & Neurology Psychiatry; Emergency Provider Emergency Medicine Emergency Medical Services; PCP Internal Medicine; Visit Provider Psychiatry & Neurology Psychiatry
DX: F31.9 Bipolar disorder, unspecified (principal); E11.9 Type 2 diabetes mellitus without complications; F84.0 Autistic disorder; G40.909 Epilepsy, unspecified, not intractable, without status epilepticus; Z20.822 Contact with and (suspected) exposure to COVID-19; Z79.84 Long term (current) use of oral hypoglycemic drugs; Z88.8 Allergy status to other drugs, medicaments and biological substances; Z79.899 Other long term (current) drug therapy
CPT/HCPCS: 36415; 73620; 80053; 80061; 80076; 80143; 80179; 80307; 82077; 82607; 82746; 82947; 83036; 84443; 85025; 87635; 90471; 90715; 99285; S9485

== ENCOUNTER → 2022-08-16 11:39 | Outpatient (BNVA) | payer MEDICAID, SELFPAY | PROVIDERS: PCP Internal Medicine; Visit Provider Nurse Practitioner Family | DX: N20.0 Calculus of kidney (principal) | CPT/HCPCS: 99212 ==

== ENCOUNTER 2022-09-26 10:14 | Outpatient (REF) | payer MEDICAID, SELFPAY ==
--- NOTE | ~2022-09-26 | US_ITS ---
EXAMINATION: US RETROPERITONEAL LIMITED (RENAL ONLY) CLINICAL INFORMATION: Calculus of kidney. COMPARISON: CT abdomen and pelvis 07/28/2022. Renal ultrasound 12/31/2021 and 03/15/2019. TECHNIQUE: Real-time imaging of the kidneys. FINDINGS: RIGHT KIDNEY: 10.7 x 5.3 x 5.9 cm (SAG x AP x TRV). The kidney is normal in size, contour, and echogenicity. Renal cortical thickness is normal. No calculi or focal parenchymal lesions. No hydronephrosis. LEFT KIDNEY: 11.7 x 7.4 x 5.0 cm (SAG x AP x TRV). The kidney is normal in size, contour, and echogenicity. Renal cortical thickness is normal. No calculi or focal parenchymal lesions. No hydronephrosis. US/US renal BI IMPRESSION: Normal-appearing kidneys
== END 2022-09-26 10:15 | disposition home or self-care (01) ==
LOC: HO.US 10:14
PROVIDERS: PCP Internal Medicine; Visit Provider Nurse Practitioner Family
DX: N20.0 Calculus of kidney (principal)
CPT/HCPCS: 76775

== ENCOUNTER → 2022-10-04 13:33 | Outpatient (REF) | payer MEDICAID, SELFPAY ==
--- NOTE | 2022-10-04 13:35 | CA_ITS ---
Transthoracic Echocardiogram Patient (Last, First, Middle): Andry Liang E Gender: Male Date of : 1995 Age: 27 Procedure Date: 10/04/2022 Procedure Type: Transthoracic Echocardiogram Location: OP Height: 165.1 cm Weight: 81.65 kg BSA: 1.89 m2 Heart Rate: 70 bpm BP: 110 / 70 mmHg Automation And Controls Manager: FLORINDA Referring MD: Jono Painter MD Symptoms: I34.0 - Nonrheumatic mitral (valve) insufficiency Study Quality: Fair ECG Rhythm: Sinus Conclusions: - The left ventricular systolic function is low normal. The calculated ejection fraction is 53% by biplane method. - No obvious valvular pathology seen on this study. Findings Left Ventricle Normal left ventricular cavity size. There is normal left ventricular wall thickness. The left ventricular systolic function is low normal. The calculated ejection fraction is 53% by biplane method. There is no evidence of regional wall motion abnormalities. Diastolic function is normal for age. Right Ventricle Normal right ventricular cavity size and systolic function. Atria Both atria are normal in size. Aortic Valve There is a normal trileaflet aortic valve. There is no aortic valve stenosis. There is no aortic valve regurgitation. Mitral Valve The mitral valve appears normal. There is trace mitral valve regurgitation. There is no mitral valve stenosis. Pulmonic Valve The pulmonic valve is likely normal. Tricuspid Valve Normal tricuspid valve structure. There is trace tricuspid valve regurgitation. There is no evidence of pulmonary hypertension. Great Vessels The asc aorta is normal in size. Venous The inferior vena cava is normal in size and collapses greater than 50% with inspiration. Pericardium/Pleural There is no evidence of pericardial effusion. Prior Study Comparison No significant change compared to prior study dated: 10/19/2020. Recommendations, Care & Conclusions No obvious valvular pathology seen on this study. Measurements 2D Linear Measurements IVSd: 0.93 0.6-0.9/0.6-1.0 cm LVIDd: 4.35 3.9-5.3/4.2-5.9 cm LVIDd Index: 2.30 2.4-3.2/2.2-3.1 cm/m2 LVIDs: 2.92 2.0-3.6 cm LVPWd: 0.95 0.7-1.1 cm LA Diam: 3.40 2.7-3.8/3.0-4.0 cm LAIDs Index: 1.80 1.5-2.3 cm/m2 LV Mass: 164.78 67-162/88-224 g LV Mass Index: 87.19 43-95/49-115 g/m2 LVOT Diam: 2.30 3.0+(-)1.3 cm 2D Systolic Function EF 4C: 50.40 >55% EF 2C: 56.50 >55% EF BiP: 52.60 >55% Mitral Valve MV Pk E: 0.81 MV PK A: 0.62 MV Decel Time: 107.00 E/A: 1.30 E'Lateral: 12.70 E'Medial: 10.80 E/E' Med: 7.50 E/E' Lat: 6.40 PHT: 31.00 MVA PHT: 7.10 Decel Falls: 7.60 Aortic Valve AoV Pk Andrea: 1.16 AoV Mn Andrea: 0.82 AoV VTI: 0.22 AoV Pk Grad: 5.00 Aov Mn Grad: 3.00 LAURA Cont.VTI: 3.71 LVOT LVOT Pk Andrea: 1.03 LVOT Mn Andrea: 0.66 LVOT VTI: 0.19 LVOT Pk Grad: 4.00 LVOT Mn Grad: 2.00 LVOT Diam: 2.30 LVOT Area: 4.15 Diastolic Function MV Pk E: 0.81 MV Pk A: 0.62 E/A: 1.30 E'Medial: 10.80 E/E' Med: 7.50 E' Laterial: 12.70 E/E' Lat: 6.40 Right Ventricle TAPSE (mm): 17.10 TVS' Andrea: 10.40 Tricuspid Valve TR Pk Andrea: 1.71 TR Pk Grad: 12.00 RA Press: 3.00 RVSP: 15.00 Great Vessels Aorta Sinus of Valsalva: 3.10 2.0-3.5 cm Ao Asc: 2.80 2.1-3.4 cm Pulmonary Valve PV Pk Andrea: 0.79 Peak PV Grad: 2.00 Updated in Other Vendor System with Status of Final Jono Painter MD electronically signed on 10/05/2022 1:39:58 PM with status of Final
== END ==
LOC: HO.CARD 13:33
PROVIDERS: PCP Internal Medicine; Visit Provider Internal Medicine
DX: I34.0 Nonrheumatic mitral (valve) insufficiency (principal)
CPT/HCPCS: 93306

== ENCOUNTER 2022-10-07 08:50 | Outpatient (REF) | payer MEDICAID, SELFPAY ==
[2022-10-07 10:03] LABS: Appearance Urine Clear; Color Urine Yellow; Glucose Urine UA Negative (Negative); Leukocyte Esterase Urine Negative (Negative); Nitrite Urine Negative (Negative); PH 6.5 (5.0-9.0); Specific Gravity - Urine 1.015 (1.005-1.025); Urine Blood Negative (Negative); Urine Ketones Negative (Negative); Urine Protein Negative (Neg-Trace)
[2022-10-07 10:07] LABS: Bacteria Urine None Seen (None Seen); Hyaline Casts Urine 0-2 /LPF (0-2); RBC Urine 0-2 /HPF (0-2); Squamous Epithelial Cell Urine 0-2 /HPF (0-2); WBC Urine 0-5 /HPF (0-5)
[2022-10-07 10:37] LABS: Creatinine Urine 93.18 mg/dL; Microalbumin Urine < 5.0 mg/L; Total Protein Urine Random < 7 mg/dL (<12)
[2022-10-07 11:26] LABS: Anion Gap 10 (12-20); Blood Urea Nitrogen 18 mg/dL (9-16); Calcium 9.4 mg/dL (8.4-10.2); Carbon Dioxide 25 mmol/L (22-29); Chloride 105 mmol/L (96-108); Estimated Glomerular Filt Rate > 60; Potassium 3.4 mmol/L (3.3-5.1); Sodium 137 mmol/L (135-145)
== END 2022-10-07 08:51 | disposition home or self-care (01) ==
LOC: HO.LAB 08:50
PROVIDERS: PCP Internal Medicine; Visit Provider Internal Medicine Nephrology
DX: N20.0 Calculus of kidney (principal)
CPT/HCPCS: 36415; 80051; 81001; 82043; 82310; 82565; 84156; 84520; 93005; 99212

== ENCOUNTER → 2022-10-14 11:24 | Outpatient (BNVA) | payer MEDICAID, SELFPAY | PROVIDERS: PCP Internal Medicine; Visit Provider Nurse Practitioner Family | DX: N20.0 Calculus of kidney (principal) | CPT/HCPCS: 99212 ==

== ENCOUNTER → 2023-01-17 14:55 | Outpatient (BNVA) | payer OTHER, MEDICAID, SELFPAY | PROVIDERS: PCP Internal Medicine; Visit Provider Nurse Practitioner Family ==

== ENCOUNTER 2023-09-17 19:00 | Emergency (ER) | payer OTHER, SELFPAY ==
[2023-09-17 19:05] VITALS: BP 123/74; PULSE 83; RESP 16; TEMP 36.4; O2SAT 99; BMI 31.4
--- NOTE | 2023-09-17 19:08 | ED_ITS ---
HPI - Male Genitourinary General Chief complaint: Urogenital-Male Stated complaint: diarrhea and urinary symptoms, referred by PCP Time Seen by Provider: 09/17/23 23:29 Source: patient and family Mode of arrival: ambulatory Limitations: no limitations History of Present Illness HPI Narrative: Patient comes to the emergency room accompanied by his mother. Patient complaining of dysuria for 1 day it patient denies flank pain, mild suprapubic discomfort, denies hematuria. Also, patient complaining of chronic diarrhea for several months, patient states he takes Imodium almost every day without any relief. Patient denies vomiting or abdominal pain, no fever or chills. No recent traveling. Related Data Home Medications Medication Instructions Recorded Confirmed cholecalciferol (vitamin D3) 50 50 mcg PO QAM 10/24/20 01/17/23 mcg (2,000 unit) tablet clonidine HCl 0.2 mg tablet 0.2 mg PO DAILY PRN anxiety 10/24/20 01/17/23 lisinopril 20 1 tab PO QAM 10/24/20 01/17/23 mg-hydrochlorothiazide 25 mg tablet melatonin 5 mg tablet 5 mg PO BEDTIME 10/24/20 01/17/23 quetiapine 200 mg tablet 200 mg PO BEDTIME 10/24/20 01/17/23 simvastatin 10 mg tablet 10 mg PO QAM 10/24/20 01/17/23 omeprazole 20 mg capsule,delayed 20 mg PO DAILY 07/19/21 01/17/23 release metformin 500 mg tablet,extended 500 mg PO DAILY 01/15/22 01/17/23 release 24 hr polyethylene glycol 3350 17 17 g PO BID PRN constipation 05/07/22 01/17/23 gram/dose oral powder potassium citrate 10 mEq (1,080 1 tab PO QID 08/03/22 01/17/23 mg) tablet,extended release chlorhexidine gluconate 0.12 % 20 ml PO BID 10/07/22 01/17/23 mouthwash quetiapine 50 mg tablet 50 mg PO TID 10/07/22 01/17/23 Previous Rx's Medication Instructions Recorded quetiapine 25 mg tablet 75 mg (3 x 25 mg) PO TID 30 days 08/12/22 #270 tabs clonazepam 2 mg disintegrating 2 mg PO ONCE PRN seizure lasting > 01/17/23 tablet 2 minutes #5 tabs topiramate 100 mg tablet 200 mg (2 x 100 mg) PO BID 30 days 01/17/23 #120 tabs pyridoxine (vitamin B6) 100 mg 50 mg (1/2 x 100 mg) PO BID 30 04/10/23 tablet days #30 tabs phenazopyridine 100 mg tablet 100 mg PO TID #6 tabs 09/17/23 Allergies Allergy/AdvReac Type Severity Reaction Status Date / Time amlodipine [AMLODIPINE] Allergy Intermediate SEIZURE Verified 09/17/23 19:05 escitalopram [From LEXAPRO] Allergy Intermediate SEIZURE Verified 09/17/23 19:05 fluoxetine [Prozac] Allergy Unknown Hives Verified 09/17/23 19:05 olanzapine [From ZYPREXA] Allergy Unknown AGITATION Verified 09/17/23 19:05 Review of Systems 2 Review of Systems: Constitutional : No Weight loss, No Fever, No Chills, No Night Sweats, No Fatigue, No Malaise ENT/Mouth : No Hearing loss, No Ear Pain, No Nasal Congestion, No Sinus Pain, No Hoarseness, No sore throat, No Rhinorrhea, No Swallowing Difficulty Eyes: No Eye Pain, No Swelling, No Redness, No Foreign Body, No Discharge, No Vision Changes Cardiovascular : No Chest Pain, No SOB, No Dyspnea on Exertion, No Orthopnea, No Edema, No Palpitations Respiratory : No Cough, No Sputum, No Wheezing, No Smoke Exposure, No Dyspnea Gastrointestinal : No Nausea, No Vomiting, complaining of chronic Diarrhea, No Constipation, No abdominal Pain, No Hematochezia, No Melena Genitourinary : Complaining of Dysuria, No Urinary Frequency, No Hematuria, No Urinary Incontinence, No Urgency, No Flank Pain, No Urinary Flow Changes, No Hesitancy Musculoskeletal : No joint pain, No Myalgias, No Joint Swelling Skin : No Skin Lesions, No rash Neuro : No Weakness, No Numbness, No Paresthesias, No Loss of Consciousness, No Dizziness, No Headache Psych : No Anxiety/Panic, No Depression, No SI/HI/AH/VH, No Social Issues, Heme/Lymph: No Bruising, No Bleeding,No Lymphadenopathy Endocrine : No Polyuria, No Polydipsia, No Temperature Intolerance PMFSH Past Medical History Medical History Renal calculi Balanitis Essential hypertension Non-rheumatic mitral regurgitation Bipolar 1 disorder ADHD Seizure OCD (obsessive compulsive disorder) Anxiety Depression Autism Diabetes mellitus Surgical History No pertinent past surgical history Family History Family History Father Diabetes HTN (hypertension) Mother Diabetes HTN (hypertension) Social History Social History (System 05/29/23 @ 13:03 by Yeni Junior) Household Members: Family Housing: House Do you presently have visiting nurse or other home services: No Alcohol intake: never Patient Tobacco Use Status: Never used Tobacco Smoked in Last 30 Days: No Second Hand Smoke Exposure: No Use of substances other than those prescribed or required for medical reasons: No Advance Directives: No Advance Directives Information Provided: No service: No Current occupational status: disabled Sexual orientation: Don't Know Physical Exam 2 Vital Signs: Vital Signs: Last Vital Signs Temp 97.8 F 09/17/23 21:38 Pulse 70 09/17/23 21:38 Resp 17 09/17/23 21:38 BP 132/81 09/17/23 21:38 Pulse Ox 98 09/17/23 21:38 O2 Del Method Room Air 09/17/23 21:38 BMI result Body Mass Index 31.4 Const: Other: Appearance: Alert. Oriented X3. No acute distress. Eyes: Pupils equal, round and reactive to light. ENT: Pharynx normal. Neck: Normal inspection. Neck supple. No lymph nodes noted. No crepitus CVS: Normal heart rate and rhythm. Pulses normal. Normal S1 and S2 Respiratory: No respiratory distress. Breath sounds normal. No Wheezing. No rales Abdomen: Soft and nontender. No rigidity. No distention. No flank pain Skin: Skin warm and dry. Normal skin color. Normal skin turgor. Extremities: No lower extremity edema. No Lacerations. No Rash Neuro: Oriented X 3. No motor deficit. No sensory deficit. Moving all extremities. No slurred speech. CN 2 through 12 grossly intact Psych: calm, cooperative, normal affect Course Course Course Narrative: RME: 28 year-old M w/ PMHx HTN, OLIMPIA, Bipolar, renal stones presenting to the ED c/o dysuria, decreased urination, suprapubic pain since yesterday. Admits symptoms are similar to prior kidney stones. Also reports diarrhea x months Labs, UA ordered Full HPI, ROS and PE to be performed by primary ED provider. Medical Decision Making Medical Decision Making [facility] Narrative: My interpretation of labs: Normal hematology, normal white blood cell count. Normal chemistry, no electrolyte abnormality, normal LFTs, normal lipase. Urinalysis negative for UTI or blood -patient well-appearing, physical exam unremarkable, unlikely that patient is passing a kidney stone. Urinalysis negative for microscopic hematuria. -for the diarrhea, patient has no electrolyte abnormalities despite having diarrhea for several months. Patient will follow-up with Gastroenterology. Differential Diagnosis Differential Diagnoses: The differential diagnosis associated with the presentation includes (Kidney stone, UTI, cystitis.) Lab Data [facility] Lab Attestation statement: I reviewed the patient's lab results. 09/17/23 20:43 09/17/23 20:43 Labs: Lab Results 09/17/23 Range/Units 20:43 WBC 8.1 (4.8-10.8) X10*3/uL RBC 5.12 (4.60-5.80) X10*6/uL Hgb 15.1 (14.0-18.0) g/dl Hct 42.6 (42.0-52.0) % MCV 83.2 (80.0-98.0) fL MCH 29.5 (27.0-33.0) pg MCHC 35.4 (31.0-36.0) g/dl RDW 13.1 (11.0-16.0) % Plt Count 238 (160-400) X10*3/uL MPV 10.2 (9.4-12.4) fL Immature Gran % (Auto) 0.5 H (0.0-0.4) % Neut % (Auto) 54.7 (45-73) % Lymph % (Auto) 36.8 (20-40) % [place] % (Auto) 6.1 (2-11) % Eos % (Auto) 1.5 (0-4) % Baso % (Auto) 0.4 (0-2) % Lymph # (Auto) 3.0 (1.2-4.9) X10*3/uL [place] # (Auto) 0.5 (0.1-1.2) X10*3/uL Eos # (Auto) 0.1 (0.0-0.4) X10*3/uL Baso # (Auto) 0.0 (0.0-0.2) X10*3/uL Abs Immat Gran (auto) 0.04 H (0.00-0.03) X10*3/uL Absolute Neuts (auto) 4.4 (2.0-8.3) x10*3/uL Absolute Nucleated RBC 0.000 (0.0-0.012) X10*3/uL Nucleated RBC % (auto) 0.0 (0.0-0.2) /100WBC Sodium 137 (135-145) mmol/L Potassium 3.5 (3.3-5.1) mmol/L Chloride 104 (96-108) mmol/L Carbon Dioxide 23 (22-29) mmol/L Anion Gap 14 (12-20) BUN 15 (9-16) mg/dL Creatinine 0.86 (0.5-1.4) mg/dL Estim Creat Clear Calc 131.0 Estimated GFR > 60 Random Glucose 129 H (60-115) mg/dL Calcium 10.0 D (8.4-10.2) mg/dL Magnesium 2.0 (1.6-2.6) mg/dL Total Bilirubin 0.5 (0.0-1.0) mg/dL Direct Bilirubin 0.2 (0.0-0.5) mg/dL AST 17 (5-37) U/L ALT 23 (0-40) U/L Alkaline Phosphatase 50 (39-117) U/L Total Protein 7.9 (6.5-8.0) g/dL Albumin 4.8 (3.5-5.0) g/dL Lipase 32 (8-78) U/L Urine Color Yellow Urine Appearance Turbid Urine pH 7.5 (5.0-9.0) Ur Specific [place] 1.020 (1.005-1.025) Urine Protein Negative (Neg-Trace) mg/dL Urine Glucose (UA) Negative (Negative) mg/dL Urine Ketones Negative (Negative) mg/dL Urine Blood Negative (Negative) Urine Nitrite Negative (Negative) Ur Leukocyte Esterase Negative (Negative) Independent Historian Clinical information obtained from an independent historian. History obtained from or confirmed by: Parent Discharge Plan Discharge Clinical Impression: Dysuria, Chronic diarrhea Patient Disposition: Home, Self-Care Instructions: Chronic Diarrhea (ED), Dysuria (ED) Additional Instructions: Please follow-up with your primary care physician tomorrow. If you have any worsening or new symptoms, please return to the emergency room or call 911 Prescriptions: New phenazopyridine 100 mg tablet 100 mg PO TID Qty: 6 0RF No Action pyridoxine (vitamin B6) 100 mg tablet 50 mg PO BID 30 Days Qty: 30 6RF potassium citrate 10 mEq (1,080 mg) tablet extended release 1 tab PO QID quetiapine 25 mg Tablet 75 mg PO TID 30 Days Qty: 270 0RF cholecalciferol (vitamin D3) 50 mcg (2,000 unit) tablet 50 mcg PO QAM lisinopril-hydrochlorothiazide 20-25 mg tablet 1 tab PO QAM melatonin 5 mg tablet 5 mg PO BEDTIME quetiapine 200 mg tablet 200 mg PO BEDTIME simvastatin 10 mg tablet 10 mg PO QAM clonidine HCl 0.2 mg tablet 0.2 mg PO DAILY PRN (Reason: anxiety) metformin 500 mg tablet extended release 24 hr 500 mg PO DAILY omeprazole 20 mg capsule,delayed release(DR/EC) 20 mg PO DAILY polyethylene glycol 3350 17 gram/dose powder 17 g PO BID PRN (Reason: constipation) quetiapine 50 mg tablet 50 mg PO TID chlorhexidine gluconate 0.12 % mouthwash 20 ml PO BID topiramate 100 mg tablet 200 mg PO BID 30 Days Qty: 120 6RF clonazepam 2 mg tablet,disintegrating 2 mg PO ONCE PRN (Reason: seizure lasting > 2 minutes) Qty: 5 2RF Referrals: Matias Resendiz MD [Physician] - 09/22/23 (Chronic diarrhea)
--- NOTE | 2023-09-17 20:45 | MHC.EDTECH ---
PATIENT BLOOD DRAWN AND URINE SAMPLE COLLECTED AND SENT TO LAB .
[2023-09-17 20:50] LABS: MANUAL DIFF FLAG NO
[2023-09-17 20:51] LABS: Basophils Percent Auto 0.4 % (0-2); Eosinophils Absolute Auto 0.1 X10*3/uL (0.0-0.4); Eosinophils Percent Auto 1.5 % (0-4); Hematocrit 42.6 % (42.0-52.0); Hemoglobin 15.1 g/dl (14.0-18.0); Imm Gran Abs Auto 0.04 X10*3/uL (0.00-0.03); Imm Gran Pct Auto 0.5 % (0.0-0.4); Lymphocytes Percent Auto 36.8 % (20-40); Mean Corpuscular HGB Conc 35.4 g/dl (31.0-36.0); Mean Corpuscular Hemoglobin 29.5 pg (27.0-33.0); Mean Corpuscular Volume 83.2 fL (80.0-98.0); Mean Platelet Volume 10.2 fL (9.4-12.4); Monocytes Absolute Auto 0.5 X10*3/uL (0.1-1.2); Monocytes Percent Auto 6.1 % (2-11); Neutrophils Absolute Auto 4.4 x10*3/uL (2.0-8.3); Neutrophils Percent Auto 54.7 % (45-73); Platelet Count 238 X10*3/uL (160-400); Red Blood Count 5.12 X10*6/uL (4.60-5.80); Red Cell Distribution Width 13.1 % (11.0-16.0); White Blood Count 8.1 X10*3/uL (4.8-10.8)
[2023-09-17 20:52] LABS: Appearance Urine Turbid; Color Urine Yellow; Glucose Urine UA Negative (Negative); Leukocyte Esterase Urine Negative (Negative); Nitrite Urine Negative (Negative); PH 7.5 (5.0-9.0); Urine Blood Negative (Negative); Urine Ketones Negative (Negative); Urine Protein Negative (Neg-Trace)
[2023-09-17 21:07] LABS: Alanine Aminotransferase 23 U/L (0-40); Albumin Level 4.8 g/dL (3.5-5.0); Alkaline Phosphatase 50 U/L (39-117); Anion Gap 14 (12-20); Aspartate Amino Transferase 17 U/L (5-37); Bilirubin Direct 0.2 mg/dL (0.0-0.5); Bilirubin Total 0.5 mg/dL (0.0-1.0); Blood Urea Nitrogen 15 mg/dL (9-16); Carbon Dioxide 23 mmol/L (22-29); Chloride 104 mmol/L (96-108); Estimated Glomerular Filt Rate > 60; Glucose Random 129 mg/dL (60-115); Lipase 32 U/L (8-78); Potassium 3.5 mmol/L (3.3-5.1); Sodium 137 mmol/L (135-145); Total Protein 7.9 g/dL (6.5-8.0)
[2023-09-17 21:38] VITALS: BP 132/81; PULSE 70; RESP 17; TEMP 36.6; O2SAT 98
--- NOTE | 2023-09-17 23:08 | PC.NURSE ---
pt from home reporting onset of 3 days of urinary burning and lower abdominal pain. pt reporting one episode of diarrhea one day ago. pt denies blood in urine at this time. pt denies diarrhea at this time.
[2023-09-17 23:52] VITALS: BP 141/82; PULSE 72; RESP 18; TEMP 36.8; O2SAT 100
== END 2023-09-17 23:53 | disposition home or self-care (01) ==
PROVIDERS: Physician Assistant; Emergency Provider Emergency Medicine; PCP Internal Medicine
DX: R30.0 Dysuria (principal); R19.7 Diarrhea, unspecified; I10 Essential (primary) hypertension
CPT/HCPCS: 36415; 80048; 80076; 81003; 83690; 83735; 85025; 99283; 99284

== ENCOUNTER 2023-10-12 15:44 | Emergency (ER) | payer OTHER, SELFPAY ==
--- NOTE | ~2023-10-12 | CT_ITS ---
EXAMINATION: CT ABDOMEN AND PELVIS WITHOUT CONTRAST CLINICAL INFORMATION: Left flank pain with history of stones COMPARISON: 07/28/2022 TECHNIQUE: Multidetector volumetric imaging was performed from the superior aspect of the liver through the pubic symphysis. Sagittal and coronal reformatted images were obtained on the technologist's workstation. This CT examination was performed using dose optimization techniques as appropriate, variously including the following: *Automated exposure control *Adjustment of mA and/or kV according to patient size (this includes techniques or standardized protocols for targeted exams where dose is matched to indication/reason for exam; i.e. extremities or head) *Use of iterative reconstruction technique DLP: 604 mGy-cm FINDINGS: LUNG BASES: The visualized lung bases are unremarkable. LIVER, GALLBLADDER, AND BILIARY TREE: The liver is normal in size, shape, and attenuation. No focal hepatic lesion or biliary ductal dilatation is identified on this noncontrast exam. Gallbladder appears partially contracted, otherwise unremarkable. PANCREAS: Unremarkable. SPLEEN: Unremarkable. ADRENAL GLANDS: Unremarkable. KIDNEYS AND URETERS: There is a 5 mm calculus at the left ureterovesicular junction with mild hydroureteronephrosis and slight perinephric stranding. No right hydronephrosis or obstructing calculus. BLADDER: Mild diffuse mural prominence, which may be due to underdistention. GASTROINTESTINAL TRACT: No evidence of bowel obstruction or significant wall thickening. The appendix is unremarkable. No free fluid or free air is seen. ABDOMINAL WALL: No significant hernia is appreciated. LYMPH NODES: Scattered mesenteric and retroperitoneal subcentimeter lymph nodes are present, without significant enlargement by size criteria. VASCULAR: Unremarkable. PELVIC VISCERA: Unremarkable. OSSEOUS STRUCTURES: Unremarkable. CT/CT abdomen pelvis wo IV con IMPRESSION: Left ureterovesicular junction calculus measuring 5 mm with mild hydroureteronephrosis.
[2023-10-12 16:00] VITALS: BP 142/98; PULSE 84; O2SAT 98
[2023-10-12 16:24] VITALS: BP 128/77; PULSE 85; RESP 16; TEMP 37.2; O2SAT 97; BMI 30.8
--- NOTE | 2023-10-12 16:25 | ED_ITS ---
HPI - General Adult General Chief complaint: Abdominal Pain Stated complaint: hx of kidney stones, lower back pain, abd pain Time Seen by Provider: 10/12/23 19:34 Source: patient Mode of arrival: ambulatory Limitations: no limitations History of Present Illness HPI narrative: Patient with history of kidney stone noticed sharp pain started earlier radiating to the flank with slight nausea no vomiting no blood in the urine no fever no chills Related Data Home Medications Medication Instructions Recorded Confirmed cholecalciferol (vitamin D3) 50 50 mcg PO QAM 10/24/20 01/17/23 mcg (2,000 unit) tablet clonidine HCl 0.2 mg tablet 0.2 mg PO DAILY PRN anxiety 10/24/20 01/17/23 lisinopril 20 1 tab PO QAM 10/24/20 01/17/23 mg-hydrochlorothiazide 25 mg tablet melatonin 5 mg tablet 5 mg PO BEDTIME 10/24/20 01/17/23 quetiapine 200 mg tablet 200 mg PO BEDTIME 10/24/20 01/17/23 simvastatin 10 mg tablet 10 mg PO QAM 10/24/20 01/17/23 omeprazole 20 mg capsule,delayed 20 mg PO DAILY 07/19/21 01/17/23 release metformin 500 mg tablet,extended 500 mg PO DAILY 01/15/22 01/17/23 release 24 hr polyethylene glycol 3350 17 17 g PO BID PRN constipation 05/07/22 01/17/23 gram/dose oral powder potassium citrate 10 mEq (1,080 1 tab PO QID 08/03/22 01/17/23 mg) tablet,extended release chlorhexidine gluconate 0.12 % 20 ml PO BID 10/07/22 01/17/23 mouthwash quetiapine 50 mg tablet 50 mg PO TID 10/07/22 01/17/23 Previous Rx's Medication Instructions Recorded quetiapine 25 mg tablet 75 mg (3 x 25 mg) PO TID 30 days 08/12/22 #270 tabs clonazepam 2 mg disintegrating 2 mg PO ONCE PRN seizure lasting > 01/17/23 tablet 2 minutes #5 tabs topiramate 100 mg tablet 200 mg (2 x 100 mg) PO BID 30 days 01/17/23 #120 tabs pyridoxine (vitamin B6) 100 mg 50 mg (1/2 x 100 mg) PO BID 30 04/10/23 tablet days #30 tabs phenazopyridine 100 mg tablet 100 mg PO TID #6 tabs 09/17/23 oxycodone-acetaminophen 5 mg-325 1 tab PO Q6H PRN pain #20 tabs 10/12/23 mg tablet (Percocet) tamsulosin 0.4 mg capsule (Flomax) 0.4 mg PO BEDTIME #10 caps 10/12/23 Allergies Allergy/AdvReac Type Severity Reaction Status Date / Time amlodipine [AMLODIPINE] Allergy Intermediate SEIZURE Verified 09/17/23 19:05 escitalopram [From LEXAPRO] Allergy Intermediate SEIZURE Verified 09/17/23 19:05 fluoxetine [Prozac] Allergy Unknown Hives Verified 09/17/23 19:05 olanzapine [From ZYPREXA] Allergy Unknown AGITATION Verified 09/17/23 19:05 Review of Systems 2 Review of Systems: Yes all other systems are reviewed and are negative PMFSH Past Medical History Medical History Renal calculi Balanitis Essential hypertension Non-rheumatic mitral regurgitation Bipolar 1 disorder ADHD Seizure OCD (obsessive compulsive disorder) Anxiety Depression Autism Diabetes mellitus Surgical History No pertinent past surgical history Family History Family History Father Diabetes HTN (hypertension) Mother Diabetes HTN (hypertension) Social History Social History Household Members: Family Housing: House Do you presently have visiting nurse or other home services: No Alcohol intake: never Patient Tobacco Use Status: Never used Tobacco Smoked in Last 30 Days: No Second Hand Smoke Exposure: No Use of substances other than those prescribed or required for medical reasons: No Advance Directives: No Advance Directives Information Provided: No service: No Current occupational status: disabled Sexual orientation: Don't Know Physical Exam ED Vital Signs: Vital Signs - 24 hr 10/12/23 16:24 10/12/23 19:35 Temperature 98.9 F 98.6 F Pulse Rate 85 83 Respiratory Rate 16 18 Blood Pressure 128/77 121/68 Pulse Oximetry 97 96 Oxygen Delivery Method Room Air Room Air BMI result Body Mass Index 30.8 Appearance: Alert. Oriented X3. No acute distress. Neck: Normal inspection. Neck supple. CVS: Normal heart rate and rhythm. Pulses normal. Respiratory: No respiratory distress. Equal air entry bilateral, Abdomen: Soft and nontender. Bowel sounds are present, no mass palpable, mild left CVA tenderness Skin: Skin warm and dry. Normal skin color. Normal skin turgor. Course Course Course Narrative: This is a rapid medical exam: Additional HPI, ROS, PE not included below will be deferred to primary provider. Patient is a 28-year-old male with history of autism, Bipolar, HTN, urinary retention, renal calculi, sleep apnea, epilepsy, mitral regurgitation presenting to the emergency department with periumbiliucal abdominal pain since this morning. He denies n/v/d. Also complains of feeling anxiety from being around large groups of people, he marched in parade today. Plan: UA, labs Medications Administered Discontinued Medications Generic Name Dose Route Start Last Admin Trade Name Freq PRN Reason Stop Dose Admin Acetaminophen 650 mg 10/12/23 16:28 10/12/23 16:33 Acetaminophen 325 Mg Tablet PO 10/12/23 16:29 650 mg ONCE ONE Administration Sodium Chloride 1,000 mls @ 999 mls/hr 10/12/23 20:40 10/12/23 20:58 Ns IV 10/12/23 21:40 999 mls/hr .Q1H1M ONE Administration Ketorolac Tromethamine 30 mg 10/12/23 20:40 10/12/23 20:58 Ketorolac Tromethamine 30 Mg/Ml Vial IVPUSH 10/12/23 20:41 30 mg ONCE ONE Administration Morphine Sulfate 4 mg 10/12/23 20:42 10/12/23 20:59 Morphine Sulfate 4 Mg/Ml Cartridge IVPUSH 10/12/23 20:43 4 mg ONCE ONE Administration Protocol Ondansetron HCl 4 mg 10/12/23 20:42 10/12/23 20:58 Ondansetron Hcl 4 Mg/2 Ml Vial IVPUSH 10/12/23 20:43 4 mg ONCE ONE Administration Tamsulosin HCl 0.4 mg 10/12/23 20:40 10/12/23 20:58 Tamsulosin Hcl 0.4 Mg Capsule PO 10/12/23 20:41 0.4 mg ONCE ONE Administration Medical Decision Making Medical Decision Making [facility] Narrative: Patient with wrapped renal colic with 5 mm UVJ stone with mild hydronephrosis patient feeling much better after pain medication hydration will discharge patient home on pain medication Flomax advised follow urology Differential Diagnosis Differential Diagnoses: The differential diagnosis associated with the presentation includes Kidney stone/UTI Lab Data [facility] Lab Attestation statement: I reviewed the patient's lab results. 10/12/23 16:45 10/12/23 16:45 Labs: Lab Results 10/12/23 10/12/23 Range/Units 16:45 18:18 WBC 12.0 H (4.8-10.8) X10*3/uL RBC 4.85 (4.60-5.80) X10*6/uL Hgb 14.5 (14.0-18.0) g/dl Hct 41.5 L (42.0-52.0) % MCV 85.6 (80.0-98.0) fL MCH 29.9 (27.0-33.0) pg MCHC 34.9 (31.0-36.0) g/dl RDW 13.5 (11.0-16.0) % Plt Count 220 (160-400) X10*3/uL MPV 10.4 (9.4-12.4) fL Immature Gran % (Auto) 0.3 (0.0-0.4) % Neut % (Auto) 70.6 (45-73) % Lymph % (Auto) 20.9 (20-40) % Payne % (Auto) 7.1 (2-11) % Eos % (Auto) 0.8 (0-4) % Baso % (Auto) 0.3 (0-2) % Lymph # (Auto) 2.5 (1.2-4.9) X10*3/uL Payne # (Auto) 0.9 (0.1-1.2) X10*3/uL Eos # (Auto) 0.1 (0.0-0.4) X10*3/uL Baso # (Auto) 0.0 (0.0-0.2) X10*3/uL Abs Immat Gran (auto) 0.04 H (0.00-0.03) X10*3/uL Absolute Neuts (auto) 8.5 H (2.0-8.3) x10*3/uL Absolute Nucleated RBC 0.000 (0.0-0.012) X10*3/uL Nucleated RBC % (auto) 0.0 (0.0-0.2) /100WBC Sodium 141 (135-145) mmol/L Potassium 3.4 (3.3-5.1) mmol/L Chloride 105 (96-108) mmol/L Carbon Dioxide 24 (22-29) mmol/L Anion Gap 15 (12-20) BUN 16 (9-16) mg/dL Creatinine 1.12 (0.5-1.4) mg/dL Estim Creat Clear Calc 99.6 Estimated GFR > 60 Random Glucose 111 (60-115) mg/dL Calcium 9.7 (8.4-10.2) mg/dL Total Bilirubin 0.5 (0.0-1.0) mg/dL AST 21 (5-37) U/L ALT 29 (0-40) U/L Alkaline Phosphatase 54 (39-117) U/L Total Protein 7.8 (6.5-8.0) g/dL Albumin 4.7 (3.5-5.0) g/dL Urine Color Yellow Urine Appearance Cloudy Urine pH 6.5 (5.0-9.0) Ur Specific Edmond 1.025 (1.005-1.025) Urine Protein 30 (1+) H (Neg-Trace) mg/dL Urine Glucose (UA) Negative (Negative) mg/dL Urine Ketones Negative (Negative) mg/dL Urine Blood Large (3+) H (Negative) Urine Nitrite Negative (Negative) Ur Leukocyte Esterase Negative (Negative) Urine RBC >20 H (0-2) /HPF Urine WBC 0-5 (0-5) /HPF Ur Squamous Epith Cells 3-5 (0-2) /HPF Urine Bacteria None Seen (None Seen) Hyaline Casts 0-2 (0-2) /LPF Influenza Type A (PCR) NEGATIVE (Negative) Influenza Type B (PCR) NEGATIVE (Negative) RSV RNA Qual (PCR) NEGATIVE (Negative) SARS-CoV-2 RNA (RT-PCR) NEGATIVE (Negative) Independent Interpretation I performed an independent interpretation of an: CT Scan Radiology Impression Discussion of test interpretation with radiology: I have reviewed the radiologist's reading. Discharge Plan Discharge Clinical Impression: Calculus of distal left ureter Patient Disposition: Home, Self-Care Instructions: Ureteral Stones (ED) Additional Instructions: Drink plenty of fluid Pain medication and Flomax as prescribed Follow-up with urologist Report to the ER if pain gets worse Prescriptions: New tamsulosin [Flomax] 0.4 mg capsule 0.4 mg PO BEDTIME Qty: 10 0RF oxycodone-acetaminophen [Percocet] 5-325 mg tablet 1 tab PO Q6H PRN (Reason: pain) Qty: 20 0RF Rx Instructions: Partial Fill upon patient request. No Action pyridoxine (vitamin B6) 100 mg tablet 50 mg PO BID 30 Days Qty: 30 6RF potassium citrate 10 mEq (1,080 mg) tablet extended release 1 tab PO QID quetiapine 25 mg Tablet 75 mg PO TID 30 Days Qty: 270 0RF phenazopyridine 100 mg tablet 100 mg PO TID Qty: 6 0RF cholecalciferol (vitamin D3) 50 mcg (2,000 unit) tablet 50 mcg PO QAM lisinopril-hydrochlorothiazide 20-25 mg tablet 1 tab PO QAM melatonin 5 mg tablet 5 mg PO BEDTIME quetiapine 200 mg tablet 200 mg PO BEDTIME simvastatin 10 mg tablet 10 mg PO QAM clonidine HCl 0.2 mg tablet 0.2 mg PO DAILY PRN (Reason: anxiety) metformin 500 mg tablet extended release 24 hr 500 mg PO DAILY omeprazole 20 mg capsule,delayed release(DR/EC) 20 mg PO DAILY polyethylene glycol 3350 17 gram/dose powder 17 g PO BID PRN (Reason: constipation) quetiapine 50 mg tablet 50 mg PO TID chlorhexidine gluconate 0.12 % mouthwash 20 ml PO BID topiramate 100 mg tablet 200 mg PO BID 30 Days Qty: 120 6RF clonazepam 2 mg tablet,disintegrating 2 mg PO ONCE PRN (Reason: seizure lasting > 2 minutes) Qty: 5 2RF Referrals: Ruben Gandhi MD [Physician] - 3 days Interventions: ED Discharge Assessment Last Done: 10/12/23 22:30 Discharge Date/Time: 10/12/23 22:31
[2023-10-12] MEDS: Acetaminophen 325 MG TABLET 650 MG PO (16:33)
[2023-10-12 16:51] LABS: MANUAL DIFF FLAG NO
[2023-10-12 16:55] LABS: Basophils Percent Auto 0.3 % (0-2); Eosinophils Absolute Auto 0.1 X10*3/uL (0.0-0.4); Eosinophils Percent Auto 0.8 % (0-4); Hematocrit 41.5 % (42.0-52.0); Hemoglobin 14.5 g/dl (14.0-18.0); Imm Gran Abs Auto 0.04 X10*3/uL (0.00-0.03); Imm Gran Pct Auto 0.3 % (0.0-0.4); Lymphocytes Absolute Auto 2.5 X10*3/uL (1.2-4.9); Lymphocytes Percent Auto 20.9 % (20-40); Mean Corpuscular HGB Conc 34.9 g/dl (31.0-36.0); Mean Corpuscular Hemoglobin 29.9 pg (27.0-33.0); Mean Corpuscular Volume 85.6 fL (80.0-98.0); Mean Platelet Volume 10.4 fL (9.4-12.4); Monocytes Absolute Auto 0.9 X10*3/uL (0.1-1.2); Monocytes Percent Auto 7.1 % (2-11); Neutrophils Absolute Auto 8.5 x10*3/uL (2.0-8.3); Neutrophils Percent Auto 70.6 % (45-73); Platelet Count 220 X10*3/uL (160-400); Red Blood Count 4.85 X10*6/uL (4.60-5.80); Red Cell Distribution Width 13.5 % (11.0-16.0)
[2023-10-12 17:05] LABS: Alanine Aminotransferase 29 U/L (0-40); Albumin Level 4.7 g/dL (3.5-5.0); Alkaline Phosphatase 54 U/L (39-117); Anion Gap 15 (12-20); Aspartate Amino Transferase 21 U/L (5-37); Bilirubin Total 0.5 mg/dL (0.0-1.0); Blood Urea Nitrogen 16 mg/dL (9-16); Calcium 9.7 mg/dL (8.4-10.2); Carbon Dioxide 24 mmol/L (22-29); Chloride 105 mmol/L (96-108); Creatinine Clr Calc Pharmacy 99.6; Estimated Glomerular Filt Rate > 60; Glucose Random 111 mg/dL (60-115); Potassium 3.4 mmol/L (3.3-5.1); Sodium 141 mmol/L (135-145); Total Protein 7.8 g/dL (6.5-8.0)
[2023-10-12 17:27] LABS: Influenza A PCR NEGATIVE (Negative); Influenza B PCR NEGATIVE (Negative); Resp Syncy Virus RNA Qual PCR NEGATIVE (Negative); SARS COV2 PCR INHOUSE NEGATIVE (Negative)
[2023-10-12 18:28] LABS: Appearance Urine Cloudy; Color Urine Yellow; Glucose Urine UA Negative (Negative); Leukocyte Esterase Urine Negative (Negative); Nitrite Urine Negative (Negative); PH 6.5 (5.0-9.0); Specific Gravity - Urine 1.025 (1.005-1.025); UMIC TRIGGER UACC YES; Urine Blood Large (3+) (Negative); Urine Ketones Negative (Negative); Urine Protein 30 (1+) mg/dL (Neg-Trace)
[2023-10-12 18:34] LABS: Bacteria Urine None Seen (None Seen); Hyaline Casts Urine 0-2 /LPF (0-2); RBC Urine >20 /HPF (0-2); WBC Urine 0-5 /HPF (0-5)
[2023-10-12 19:35] VITALS: BP 121/68; PULSE 83; RESP 18; TEMP 37; O2SAT 96
--- NOTE | 2023-10-12 20:29 | PC.NURSE ---
pt reports to this rn 03/06 pain. this rn made dr rodrigues aware. no new orders at this time
[2023-10-12] MEDS: Ketorolac Tromethamine 30 MG/ML VIAL IVPUSH (20:58)
[2023-10-12] MEDS: 0.9 % Sodium Chloride 1,000 ML 999 ML IV (20:58)
[2023-10-12] MEDS: ondansetron HCL 4 MG/2 ML VIAL IVPUSH (20:58)
[2023-10-12] MEDS: Tamsulosin HCL 0.4 MG CAPSULE PO (20:58)
[2023-10-12] MEDS: Morphine Sulfate 4 MG/ML CARTRIDGE IVPUSH (20:59)
[2023-10-12 22:21] VITALS: BP 120/77; PULSE 84; RESP 14; TEMP 37.1; O2SAT 96
[2023-10-12 22:30] VITALS: BP 120/77; PULSE 84; RESP 14; TEMP 37.1; O2SAT 96
== END 2023-10-12 22:31 | disposition home or self-care (01) ==
PROVIDERS: Registered Nurse Emergency; Emergency Provider Internal Medicine
DX: N20.1 Calculus of ureter (principal); I10 Essential (primary) hypertension; E11.9 Type 2 diabetes mellitus without complications; Z87.442 Personal history of urinary calculi; Z11.52 Encounter for screening for COVID-19; Z20.828 Contact with and (suspected) exposure to other viral communicable diseases
CPT/HCPCS: 0241U; 74176; 80053; 81001; 85025; 96374; 96375; 99284; J1885; J2270; J2405

== ENCOUNTER 2023-11-04 11:13 | Outpatient (REF) | payer OTHER, SELFPAY ==
[2023-11-16 23:35] LABS: Stone Source KIDNEY STONE
== END 2023-11-04 11:14 | disposition home or self-care (01) ==
LOC: HO.LAB 11:13
PROVIDERS: Visit Provider Urology
DX: N20.0 Calculus of kidney (principal); R39.15 Urgency of urination; N48.1 Balanitis; R33.9 Retention of urine, unspecified; Z79.899 Other long term (current) drug therapy
CPT/HCPCS: 51798; 82365; 88300; 99212

== ENCOUNTER 2023-11-04 11:13 | Outpatient (AMB) | payer OTHER, SELFPAY ==
--- NOTE | 2023-11-04 11:34 | A.OFFVIS_ITS ---
Intake Intake Visit Reasons: 1Y PVR ureteral stone(vm to confirm) Intake Note: Patient is Present for Follow Up Urology Medication: Vitamin b6,Tamsulosin Antibiotic Allergies:None Blood Thinners:None PVR: 13 Allergies amlodipine [AMLODIPINE] Allergy (Intermediate, Verified 09/17/23 19:05) SEIZURE escitalopram [From LEXAPRO] Allergy (Intermediate, Verified 09/17/23 19:05) SEIZURE fluoxetine [Prozac] Allergy (Unknown, Verified 09/17/23 19:05) Hives olanzapine [From ZYPREXA] Allergy (Unknown, Verified 09/17/23 19:05) AGITATION Medication List - Last Reconciled 11/04/23 by Ruben Gandhi MD allopurinol 100 mg PO DAILY 90 days chlorhexidine gluconate 0.12% 20 mL PO BID cholecalciferol (vitamin D3) 50 mcg PO QAM clonazepam 2 mg PO ONCE PRN clonidine HCl 0.2 mg PO DAILY PRN lisinopril-hydrochlorothiazide 20-25 mg 1 tab PO QAM melatonin 5 mg PO BEDTIME metformin ER 500 mg PO DAILY omeprazole 20 mg PO DAILY oxycodone-acetaminophen 5-325 mg (Percocet) 1 tab PO Q6H PRN phenazopyridine 100 mg PO TID polyethylene glycol 3350 17 grams PO BID PRN potassium citrate ER 1 tab PO QID pyridoxine (vitamin B6) 50 mg PO ONCE 90 days quetiapine 75 mg (3 x 25 mg) PO TID 30 days quetiapine 200 mg PO BEDTIME quetiapine 50 mg PO TID simvastatin 10 mg PO QAM tamsulosin (Flomax) 0.4 mg PO BEDTIME topiramate 200 mg (2 x 100 mg) PO BID 30 days HPI HPI Comments History of Present Illness Details Andry is a pleasant male. Background autism. Accompanied by mother. He is a patient of Dr. Grigsby. He is seen for the following urologic conditions - nephrolithiasis - balanitis - background of diabetes on metformin Stone follow-up CT 10/12/23 There is a 5 mm calculus at the left ureterovesicular junction with mild hydroureteronephrosis and slight perinephric stranding. No right hydronephrosis or obstructing calculus Brought 5 mm stone with him Has recurrent stones whilst on topiramate for seizure control. Would add allopurinol Nephrolithiasis Longstanding Most recent stone passage 2021 Imaging - 08/18 CT scan with distal right ureteri c stone - 01/16 renal ultrasound with no evidence of stones On topiramate for seizure control Continue with vitamin B6 Continue with fluid intake Balanitis Prior responsiveness topical therapy Lower urinary tract symptoms Feelings of incomplete emptying and question of accidents Has been on longstanding mood stabilizers Current medications trial oxybutynin Prior medications tamsulosin PFSH Medical History Renal calculi Balanitis Essential hypertension Non-rheumatic mitral regurgitation Bipolar 1 disorder ADHD Seizure OCD (obsessive compulsive disorder) Anxiety Depression Autism Diabetes mellitus Surgical History No pertinent past surgical history Family History Father Diabetes HTN (hypertension) Mother Diabetes HTN (hypertension) Social History Household Members: Family Housing: House Do you presently have visiting nurse or other home services: No Alcohol intake: never Patient Tobacco Use Status: Never used Tobacco Second Hand Smoke Exposure: No service: No Current occupational status: disabled Sexual orientation: Don't Know Review of Systems Const Denies chills and Denies fever(s) Card Reports no additional complaints and Denies syncope Resp Denies cough GI Denies abdominal pain and Denies heartburn Reports as per HPI and Denies change in libido Neuro Denies syncope Psych Denies change in libido Endo Denies change in libido Physical Exam Const General: cooperative, healthy appearing, comfortable and no acute distress Orientation/consciousness: patient oriented x3 HEENT Face and sinus: Yes normal facial exam Mouth: moist mucous membranes Neck Neck: Yes normal visual inspection, Yes full ROM and Yes trachea midline Chest Chest palpation & inspection: normal inspection of the chest Resp Effort & Inspection: normal respiratory effort, able to speak in complete sentences and no respiratory distress GI Inspection: Yes normal to inspection Back/Spine/Pelvis Cervical Spine: normal cervical lordosis Thoracic/Lumbar Spine: thoracic and lumbar spine normal to inspection Skin General skin exam: no rashes or lesions noted Neuro General: patient oriented x3, gait normal, tone normal and moves all extremities Extrem General: Yes normal to inspection and Yes capillary refill normal Office Procedures Post Void Residual Post Residual Void Post Void Residual (PVR): 13 [id number] Void Residual by ultrasound Assessment & Plan Assessment & Plan (1) Urinary urgency: Code(s): R39.15 - Urgency of urination (2) Renal calculi: Code(s): N20.0 - Calculus of kidney Plan Six-month follow-up imaging Orders: Orders AMB Post Void Residual by ultrasound Today R33.9 - Retention of urine, unspecified Surgical Today N20.0 - Calculus of kidney US renal BI 6 Months N20.0 - Calculus of kidney Medications: New allopurinol 100 mg PO DAILY 90 days 90 tabs 1RF N20.0 - Calculus of kidney Patient Instructions: Imaging studies, laboratory and physical exam results were discussed and reviewed in detail. No major barriers to patient understanding were identified. An opportunity to ask questions regarding the treatment plan was provided. All questions were answered. The patient expressed understanding and agreement with the above treatment plan. The patient is aware they should contact our office by phone for worsening of their current condition or the appearance of new urologic symptoms. Compliance is encouraged with any medications and followup testing that is ordered. It is a privilege to participate in the urologic care of your patient. If you have any questions or concerns regarding treatment for the above conditions, or other urologic issues, please do not hesitate to contact me. The office telephone contact is [phone]. This note is constructed using voice recognition software. While every effort has been made to ensure accuracy prosthodontist errors may have been included. Yours sincerely, Dr Ruben Gandhi MD, [facility] - Urology Providers of Expert, Compassionate Care for the Genitourinary System Coding Level of Care Code Est Pt Level 4 (56162) Diagnoses Urinary urgency R39.15 Renal calculi N20.0 CPT Codes Post Residual Void - PVR CPT Code: 90776-Jazq Void Residual by ultrasound ([id number])
== END 2023-11-04 12:05 | disposition home or self-care (01) ==
LOC: HO.HUSH 11:14
PROVIDERS: Visit Provider Urology
DX: R39.15 Urgency of urination (principal); N20.0 Calculus of kidney
CPT/HCPCS: 99214

== ENCOUNTER 2023-12-25 09:01 | Outpatient (REF) | payer OTHER, SELFPAY ==
[2023-12-25 11:00] LABS: Appearance Urine Clear; Color Urine Yellow; Glucose Urine UA Negative (Negative); Leukocyte Esterase Urine Trace (Negative); Nitrite Urine Negative (Negative); UMIC TRIGGER UA YES; Urine Blood Negative (Negative); Urine Ketones Negative (Negative); Urine Protein Negative (Neg-Trace)
[2023-12-25 11:10] LABS: Bacteria Urine None Seen (None Seen); Hyaline Casts Urine 0-2 /LPF (0-2); RBC Urine 0-2 /HPF (0-2); Squamous Epithelial Cell Urine 0-2 /HPF (0-2); WBC Urine 0-5 /HPF (0-5)
== END 2023-12-25 09:02 | disposition home or self-care (01) ==
LOC: HO.LAB 09:01
PROVIDERS: Visit Provider Urology
DX: R39.15 Urgency of urination (principal); R33.9 Retention of urine, unspecified; N20.0 Calculus of kidney
CPT/HCPCS: 81001; 87086

== ENCOUNTER 2024-03-20 14:18 | Emergency (ER) | payer OTHER, SELFPAY ==
[2024-03-20 14:48] VITALS: BP 105/64; PULSE 93; RESP 18; TEMP 37; O2SAT 97; BMI 30.9
--- NOTE | 2024-03-20 14:50 | ED.MALEGU ---
HPI - Male Genitourinary General Chief complaint: Urogenital-Male Stated complaint: blood in urine Time Seen by Provider: 03/20/24 15:52 Source: patient Mode of arrival: ambulatory Limitations: no limitations History of Present Illness ED Provider: Hillary Gibbs PA-C HPI Narrative: 28-year-old male with history of autism, OLIMPIA, HTN, balanitis, bipolar disorder, history of kidney stones, history of urinary retention who follows with Dr. Gandhi, presenting to the ER for evaluation of painless hematuria for the last 4 days. He states every time he urinates there is dark red blood. It 1st started he had 1 episode of pain with urination but that has since resolved. He denies any associated abdominal pain, back pain, nausea, vomiting, diarrhea, urethral discharge, scrotal pain or swelling. He follows with Dr. Gandhi. Complaint: other (Hematuria) Onset (ago): day(s) (4) Exacerbating factors: urination Associated symptoms: Reports denies other symptoms Related Data Home Medications ?Medication ?Instructions ?Recorded ?Confirmed cholecalciferol (vitamin D3) 50 50 mcg PO QAM 10/24/20 11/04/23 mcg (2,000 unit) tablet clonidine HCl 0.2 mg tablet 0.2 mg PO DAILY PRN anxiety 10/24/20 11/04/23 lisinopril 20 1 tab PO QAM 10/24/20 11/04/23 mg-hydrochlorothiazide 25 mg tablet melatonin 5 mg tablet 5 mg PO BEDTIME 10/24/20 11/04/23 quetiapine 200 mg tablet 200 mg PO BEDTIME 10/24/20 11/04/23 simvastatin 10 mg tablet 10 mg PO QAM 10/24/20 11/04/23 omeprazole 20 mg capsule,delayed 20 mg PO DAILY 07/19/21 11/04/23 release metformin 500 mg tablet,extended 500 mg PO DAILY 01/15/22 11/04/23 release 24 hr polyethylene glycol 3350 17 17 g PO BID PRN constipation 05/07/22 11/04/23 gram/dose oral powder potassium citrate 10 mEq (1,080 1 tab PO QID 08/03/22 11/04/23 mg) tablet,extended release chlorhexidine gluconate 0.12 % 20 ml PO BID 10/07/22 11/04/23 mouthwash quetiapine 50 mg tablet 50 mg PO TID 10/07/22 11/04/23 Previous Rx's ?Medication ?Instructions ?Recorded quetiapine 25 mg tablet 75 mg (3 x 25 mg) PO TID 30 days 08/12/22 #270 tabs clonazepam 2 mg disintegrating 2 mg PO ONCE PRN seizure lasting > 01/17/23 tablet 2 minutes #5 tabs phenazopyridine 100 mg tablet 100 mg PO TID #6 tabs 09/17/23 oxycodone-acetaminophen 5 mg-325 1 tab PO Q6H PRN pain #20 tabs 10/12/23 mg tablet (Percocet) tamsulosin 0.4 mg capsule (Flomax) 0.4 mg PO BEDTIME #10 caps 10/12/23 topiramate 100 mg tablet 200 mg (2 x 100 mg) PO BID 30 days 10/29/23 #120 tabs allopurinol 100 mg tablet 100 mg PO DAILY 90 days #90 tabs 11/04/23 pyridoxine (vitamin B6) 50 mg 50 mg PO ONCE 90 days #90 tabs 11/04/23 tablet naproxen 375 mg tablet 375 mg PO BID pain 15 days #30 tabs 12/26/23 prednisone 20 mg tablet 20 mg PO DAILY 3 days #3 tabs 12/26/23 tamsulosin 0.4 mg capsule 0.4 mg PO BEDTIME 14 days #14 caps 12/26/23 Allergies Allergy/AdvReac Type Severity Reaction Status Date / Time amlodipine [AMLODIPINE] Allergy Intermediate SEIZURE Verified 03/20/24 14:52 escitalopram [From LEXAPRO] Allergy Intermediate SEIZURE Verified 03/20/24 14:52 fluoxetine [Prozac] Allergy Unknown Hives Verified 03/20/24 14:52 olanzapine [From ZYPREXA] Allergy Unknown AGITATION Verified 03/20/24 14:52 Review of Systems Review of Systems: Yes all other systems are reviewed and are negative [facility] Past Medical History Medical History Renal calculi Balanitis Essential hypertension Non-rheumatic mitral regurgitation Bipolar 1 disorder ADHD Seizure OCD (obsessive compulsive disorder) Anxiety Depression Autism Diabetes mellitus Surgical History No pertinent past surgical history Family History Family History Father Diabetes HTN (hypertension) Mother Diabetes HTN (hypertension) Social History Social History Household Members: Family Housing: House Do you presently have visiting nurse or other home services: No Alcohol intake: never Patient Tobacco Use Status: Never used Tobacco Second Hand Smoke Exposure: No Advance Directives: No Advance Directives Information Provided: No Do you have a plan to hurt others: No Plan service: No Current occupational status: disabled Sexual orientation: Don't Know Physical Exam Vital Signs: Vital Signs: Last Vital Signs Temp 98.6 F 03/20/24 17:32 Pulse 93 03/20/24 17:32 Resp 18 03/20/24 17:32 BP 105/64 03/20/24 17:32 Pulse Ox 97 03/20/24 17:32 O2 Del Method Room Air 03/20/24 17:32 BMI result Body Mass Index 30.9 Appearance: Alert. Oriented X3. No acute distress. Head: normocephalic, atraumatic. Eyes: Pupils equal, round and reactive to light. ENT: Pharynx normal. Neck: Normal inspection. CVS: Normal heart rate and rhythm. Pulses normal. Respiratory: No respiratory distress. Breath sounds normal. Abdomen: Soft and nontender. +BS x4 no CVA tenderness bilaterally Skin: Skin warm and dry. Normal skin color. Normal skin turgor. No rashes. Extremities: No lower extremity edema. No joint swelling. Neuro/psych: Oriented X 3. Grossly normal, nonfocal Course Course Course Narrative: This is a rapid medical exam. Deferred additional HPI, ROS, PE to primary provider. 28 yo male with history of renal colic, MVR, autisim, bipolar disorder, OCD, HTN here with hematuria, dysuria since Friday. No flank pain, abdominal pain, fever, vomiting, testicle pain. No concern for STI. Has never been sexually active. will obtain labs, [facility] ROBELS -Hillary Cordova APRN Medical Decision Making Medical Decision Making MDM Narrative: 28-year-old male presents to the ER for evaluation of painless hematuria that started 4 days ago. He had 1 episode of dysuria that has since resolved. Not sexually active. Lab workup shows no leukocytosis, normal renal function. Urinalysis done today is normal without hematuria, gross or microscopic. There is no evidence of infection. He has no pain. At this time is stable for discharge home with plan to follow up with his urologist as needed. He was given return precaution is stable for discharge. Differential Diagnosis Differential Diagnoses: The differential diagnosis associated with the presentation includes Kidney stone, UTI, pyelonephritis, bladder cancer Lab Data MDM Lab Attestation statement: I reviewed the patient's lab results. No leukocytosis, no anemia, normal renal function 03/20/24 15:04 03/20/24 15:04 Labs: Lab Results 03/20/24 03/20/24 Range/Units 15:04 16:58 WBC 9.2 (4.8-10.8) X10*3/uL RBC 5.03 (4.60-5.80) X10*6/uL Hgb 15.0 (14.0-18.0) g/dl Hct 43.0 (42.0-52.0) % MCV 85.5 (80.0-98.0) fL MCH 29.8 (27.0-33.0) pg MCHC 34.9 (31.0-36.0) g/dl RDW 13.2 (11.0-16.0) % Plt Count 213 (160-400) X10*3/uL MPV 10.9 (9.4-12.4) fL Immature Gran % (Auto) 0.3 (0.0-0.4) % Neut % (Auto) 65.8 (45-73) % Lymph % (Auto) 21.3 (20-40) % Baldwin % (Auto) 11.2 H (2-11) % Eos % (Auto) 0.9 (0-4) % Baso % (Auto) 0.5 (0-2) % Lymph # (Auto) 2.0 (1.2-4.9) X10*3/uL Baldwin # (Auto) 1.0 (0.1-1.2) X10*3/uL Eos # (Auto) 0.1 (0.0-0.4) X10*3/uL Baso # (Auto) 0.1 (0.0-0.2) X10*3/uL Abs Immat Gran (auto) 0.03 (0.00-0.03) X10*3/uL Absolute Neuts (auto) 6.1 (2.0-8.3) x10*3/uL Absolute Nucleated RBC 0.000 (0.0-0.012) X10*3/uL Nucleated RBC % (auto) 0.0 (0.0-0.2) /100WBC Sodium 141 (135-145) mmol/L Potassium 3.5 (3.3-5.1) mmol/L Chloride 111 H (96-108) mmol/L Carbon Dioxide 22 (22-29) mmol/L Anion Gap 12 (12-20) BUN 17 H (9-16) mg/dL Creatinine 0.87 (0.5-1.4) mg/dL Estim Creat Clear Calc 128.5 Estimated GFR > 60 Random Glucose 112 (60-115) mg/dL Calcium 9.5 (8.4-10.2) mg/dL Urine Color Yellow Urine Appearance Clear Urine pH 6.5 (5.0-9.0) Ur Specific Mellott 1.015 (1.005-1.025) Urine Protein Negative (Neg-Trace) mg/dL Urine Glucose (UA) Negative (Negative) mg/dL Urine Ketones Negative (Negative) mg/dL Urine Blood Negative (Negative) Urine Nitrite Negative (Negative) Ur Leukocyte Esterase Negative (Negative) External Record Review External record reviewed: Outpatient record, Prior outpatient labs and Prior outpatient radiology Tests considered The following testing was considered but not selected: CT scan of the abdomen or renal ultrasound was considered however no pain. Prescription Management I considered prescription management with: Antibiotic Chronic Conditions Patient?s care impacted by: Other (Kidney stones) Critical Care Time Critical Care Time Critical Care Time: No Discharge Plan Discharge Clinical Impression: Painless hematuria Patient Disposition: Home, Self-Care Instructions: Hematuria (ED) Additional Instructions: Your urine test today showed no blood and no evidence of infection. Your lab work was normal. Recommend following back up with Dr. Gandhi. If you develop new or worsening symptoms call 911 or come back to the ER for further evaluation. Prescriptions: No Action topiramate 100 mg tablet 200 mg PO BID 30 Days Qty: 120 6RF pyridoxine (vitamin B6) 50 mg tablet 50 mg PO ONCE 90 Days Qty: 90 1RF tamsulosin 0.4 mg capsule 0.4 mg PO BEDTIME 14 Days Qty: 14 0RF prednisone 20 mg tablet 20 mg PO DAILY 3 Days Qty: 3 0RF naproxen 375 mg tablet 375 mg PO BID 15 Days Qty: 30 0RF potassium citrate 10 mEq (1,080 mg) tablet extended release 1 tab PO QID quetiapine 25 mg Tablet 75 mg PO TID 30 Days Qty: 270 0RF phenazopyridine 100 mg tablet 100 mg PO TID Qty: 6 0RF tamsulosin [Flomax] 0.4 mg capsule 0.4 mg PO BEDTIME Qty: 10 0RF oxycodone-acetaminophen [Percocet] 5-325 mg tablet 1 tab PO Q6H PRN (Reason: pain) Qty: 20 0RF Rx Instructions: Partial Fill upon patient request. cholecalciferol (vitamin D3) 50 mcg (2,000 unit) tablet 50 mcg PO QAM lisinopril-hydrochlorothiazide 20-25 mg tablet 1 tab PO QAM melatonin 5 mg tablet 5 mg PO BEDTIME quetiapine 200 mg tablet 200 mg PO BEDTIME simvastatin 10 mg tablet 10 mg PO QAM clonidine HCl 0.2 mg tablet 0.2 mg PO DAILY PRN (Reason: anxiety) metformin 500 mg tablet extended release 24 hr 500 mg PO DAILY omeprazole 20 mg capsule,delayed release(DR/EC) 20 mg PO DAILY polyethylene glycol 3350 17 gram/dose powder 17 g PO BID PRN (Reason: constipation) allopurinol 100 mg tablet 100 mg PO DAILY 90 Days Qty: 90 1RF quetiapine 50 mg tablet 50 mg PO TID chlorhexidine gluconate 0.12 % mouthwash 20 ml PO BID clonazepam 2 mg tablet,disintegrating 2 mg PO ONCE PRN (Reason: seizure lasting > 2 minutes) Qty: 5 2RF Interventions: ED Discharge Assessment Last Done: 03/20/24 17:32 Discharge Date/Time: 03/20/24 17:32 Print Language: Luxembourgish
[2024-03-20 15:08] LABS: MANUAL DIFF FLAG NO
[2024-03-20 15:13] LABS: Basophils Absolute Auto 0.1 X10*3/uL (0.0-0.2); Basophils Percent Auto 0.5 % (0-2); Eosinophils Absolute Auto 0.1 X10*3/uL (0.0-0.4); Eosinophils Percent Auto 0.9 % (0-4); Imm Gran Abs Auto 0.03 X10*3/uL (0.00-0.03); Imm Gran Pct Auto 0.3 % (0.0-0.4); Lymphocytes Percent Auto 21.3 % (20-40); Mean Corpuscular HGB Conc 34.9 g/dl (31.0-36.0); Mean Corpuscular Hemoglobin 29.8 pg (27.0-33.0); Mean Corpuscular Volume 85.5 fL (80.0-98.0); Mean Platelet Volume 10.9 fL (9.4-12.4); Monocytes Percent Auto 11.2 % (2-11); Neutrophils Absolute Auto 6.1 x10*3/uL (2.0-8.3); Neutrophils Percent Auto 65.8 % (45-73); Platelet Count 213 X10*3/uL (160-400); Red Blood Count 5.03 X10*6/uL (4.60-5.80); Red Cell Distribution Width 13.2 % (11.0-16.0); White Blood Count 9.2 X10*3/uL (4.8-10.8)
[2024-03-20 15:31] LABS: Anion Gap 12 (12-20); Blood Urea Nitrogen 17 mg/dL (9-16); Calcium 9.5 mg/dL (8.4-10.2); Carbon Dioxide 22 mmol/L (22-29); Chloride 111 mmol/L (96-108); Creatinine Clr Calc Pharmacy 128.5; Estimated Glomerular Filt Rate > 60; Glucose Random 112 mg/dL (60-115); Potassium 3.5 mmol/L (3.3-5.1); Sodium 141 mmol/L (135-145)
[2024-03-20 17:13] LABS: Appearance Urine Clear; Color Urine Yellow; Glucose Urine UA Negative (Negative); Leukocyte Esterase Urine Negative (Negative); Nitrite Urine Negative (Negative); PH 6.5 (5.0-9.0); Specific Gravity - Urine 1.015 (1.005-1.025); Urine Blood Negative (Negative); Urine Ketones Negative (Negative); Urine Protein Negative (Neg-Trace)
[2024-03-20 17:32] VITALS: BP 105/64; PULSE 93; RESP 18; TEMP 37; O2SAT 97
== END 2024-03-20 17:32 | disposition home or self-care (01) ==
PROVIDERS: Nurse Practitioner Family; Emergency Provider Emergency Medicine; PCP Internal Medicine
DX: R31.9 Hematuria, unspecified (principal); R33.9 Retention of urine, unspecified; I10 Essential (primary) hypertension; Z87.442 Personal history of urinary calculi
CPT/HCPCS: 36415; 51798; 80048; 81003; 85025; 99283; 99284

== ENCOUNTER 2024-04-02 15:59 | Emergency (ER) | payer OTHER, SELFPAY ==
--- NOTE | ~2024-04-02 | CT_ITS ---
EXAMINATION: CT ABDOMEN AND PELVIS WITHOUT CONTRAST CLINICAL INFORMATION: Flank pain. COMPARISON: CT abdomen pelvis dated October 12, 2023. TECHNIQUE: Multidetector volumetric imaging was performed from the superior aspect of the liver through the pubic symphysis. Sagittal and coronal reformatted images were obtained on the technologist's workstation. This CT examination was performed using dose optimization techniques as appropriate, variously including the following: *Automated exposure control *Adjustment of mA and/or kV according to patient size (this includes techniques or standardized protocols for targeted exams where dose is matched to indication/reason for exam; i.e. extremities or head) *Use of iterative reconstruction technique DLP: 599 mGy-cm FINDINGS: LUNG BASES: The visualized lung bases are unremarkable. LIVER, GALLBLADDER, AND BILIARY TREE: The liver is normal in size, shape, and attenuation. No focal hepatic lesion or biliary ductal dilatation is present. The gallbladder is unremarkable with no evidence of radiopaque gallstones, gallbladder wall thickening, or obvious pericholecystic inflammatory changes. PANCREAS: Unremarkable. SPLEEN: Unremarkable. ADRENAL GLANDS: Unremarkable. KIDNEYS AND URETERS: Right side: The right kidney is normal in size, shape, and attenuation. No hydronephrosis, hydroureter, or calculi seen. No perinephric stranding. Left side: There is a 4 mm calculus within the proximal left ureter resulting in mild left-sided hydroureter and left-sided caliectasis. The calculus is at the level of the mid aspect of the L4 vertebral body. There is a 7 mm calculus or conglomeration of small calculi within the lower pole of the left kidney. No appreciable perinephric stranding. BLADDER: The urinary bladder is partially distended with urine. It demonstrates significant mural thickening. Correlation with urinalysis is recommended. GASTROINTESTINAL TRACT: The small and large bowel are unremarkable. The appendix is unremarkable. ABDOMINAL WALL: No significant hernia is appreciated. LYMPH NODES: There are multiple subcentimeter retroperitoneal lymph nodes, particularly on the left. VASCULAR: No abdominal aortic aneurysm. PELVIC VISCERA: Unremarkable. OSSEOUS STRUCTURES: Unremarkable. CT/CT abdomen pelvis wo IV con IMPRESSION: There is a 4 mm calculus within the proximal left ureter resulting in mild left-sided hydroureter and left-sided caliectasis. The calculus is at the level of the mid aspect of the L4 vertebral body. There is a 7 mm calculus or conglomeration of small calculi within the lower pole of the left kidney. No appreciable perinephric stranding. The urinary bladder is partially distended. It demonstrates significant mural thickening. Correlation with urinalysis is recommended. Fleischner guidelines were followed. Electronically signed by: Willie Adan DO 04/02/2024 05:03 PM EDT RP
[2024-04-02 16:05] VITALS: BP 116/63; BP 116/68; PULSE 70; PULSE 72; RESP 18; TEMP 36.6; O2SAT 98; O2SAT 99; BMI 31.8
--- NOTE | 2024-04-02 16:07 | ED_ITS ---
HPI - General Adult General Chief complaint: Abdominal Pain Stated complaint: flank pain, hx kidney stones Time Seen by Provider: 04/02/24 17:04 Source: patient Mode of arrival: ambulatory Limitations: no limitations History of Present Illness ED Provider: lilia DAVIS narrative: Patient is 28-year-old with history of kidney stone complaining of pain in the left flank area for last 4 days getting worse with nausea no vomiting no hematuria no abdominal pain no testicle pain no fever or chills no urinary complaints Related Data Home Medications ?Medication ?Instructions ?Recorded ?Confirmed cholecalciferol (vitamin D3) 50 50 mcg PO QAM 10/24/20 11/04/23 mcg (2,000 unit) tablet clonidine HCl 0.2 mg tablet 0.2 mg PO DAILY PRN anxiety 10/24/20 11/04/23 lisinopril 20 1 tab PO QAM 10/24/20 11/04/23 mg-hydrochlorothiazide 25 mg tablet melatonin 5 mg tablet 5 mg PO BEDTIME 10/24/20 11/04/23 quetiapine 200 mg tablet 200 mg PO BEDTIME 10/24/20 11/04/23 simvastatin 10 mg tablet 10 mg PO QAM 10/24/20 11/04/23 omeprazole 20 mg capsule,delayed 20 mg PO DAILY 07/19/21 11/04/23 release metformin 500 mg tablet,extended 500 mg PO DAILY 01/15/22 11/04/23 release 24 hr polyethylene glycol 3350 17 17 g PO BID PRN constipation 05/07/22 11/04/23 gram/dose oral powder potassium citrate 10 mEq (1,080 1 tab PO QID 08/03/22 11/04/23 mg) tablet,extended release chlorhexidine gluconate 0.12 % 20 ml PO BID 10/07/22 11/04/23 mouthwash quetiapine 50 mg tablet 50 mg PO TID 10/07/22 11/04/23 Previous Rx's ?Medication ?Instructions ?Recorded quetiapine 25 mg tablet 75 mg (3 x 25 mg) PO TID 30 days 08/12/22 #270 tabs clonazepam 2 mg disintegrating 2 mg PO ONCE PRN seizure lasting > 01/17/23 tablet 2 minutes #5 tabs phenazopyridine 100 mg tablet 100 mg PO TID #6 tabs 09/17/23 oxycodone-acetaminophen 5 mg-325 1 tab PO Q6H PRN pain #20 tabs 10/12/23 mg tablet (Percocet) tamsulosin 0.4 mg capsule (Flomax) 0.4 mg PO BEDTIME #10 caps 10/12/23 topiramate 100 mg tablet 200 mg (2 x 100 mg) PO BID 30 days 10/29/23 #120 tabs allopurinol 100 mg tablet 100 mg PO DAILY 90 days #90 tabs 11/04/23 pyridoxine (vitamin B6) 50 mg 50 mg PO ONCE 90 days #90 tabs 11/04/23 tablet naproxen 375 mg tablet 375 mg PO BID pain 15 days #30 tabs 12/26/23 prednisone 20 mg tablet 20 mg PO DAILY 3 days #3 tabs 12/26/23 tamsulosin 0.4 mg capsule 0.4 mg PO BEDTIME 14 days #14 caps 12/26/23 ondansetron 4 mg disintegrating 4 mg PO Q6-8H PRN nausea and 04/02/24 tablet vomiting #7 tabs oxycodone 5 mg tablet 5 mg PO Q6H PRN pain #20 tabs 04/02/24 tamsulosin 0.4 mg capsule (Flomax) 0.4 mg PO BEDTIME #7 caps 04/02/24 Allergies Allergy/AdvReac Type Severity Reaction Status Date / Time amlodipine [AMLODIPINE] Allergy Intermediate SEIZURE Verified 04/02/24 16:09 escitalopram [From LEXAPRO] Allergy Intermediate SEIZURE Verified 04/02/24 16:09 fluoxetine [Prozac] Allergy Unknown Hives Verified 04/02/24 16:09 olanzapine [From ZYPREXA] Allergy Unknown AGITATION Verified 04/02/24 16:09 Review of Systems 2 Review of Systems: Yes all other systems are reviewed and are negative [facility] Past Medical History Medical History Renal calculi Balanitis Essential hypertension Non-rheumatic mitral regurgitation Bipolar 1 disorder ADHD Seizure OCD (obsessive compulsive disorder) Anxiety Depression Autism Diabetes mellitus Surgical History No pertinent past surgical history Family History Family History Father Diabetes HTN (hypertension) Mother Diabetes HTN (hypertension) Social History Social History Household Members: Family Housing: House Do you presently have visiting nurse or other home services: No Alcohol intake: never Patient Tobacco Use Status: Never used Tobacco Smoked in Last 30 Days: No Second Hand Smoke Exposure: No Use of substances other than those prescribed or required for medical reasons: No Advance Directives: No Advance Directives Information Provided: No Do you have a plan to hurt others: No Plan service: No Current occupational status: disabled Sexual orientation: Don't Know Physical Exam ED Vital Signs: Vital Signs - 24 hr 04/02/24 16:05 04/02/24 17:15 04/02/24 19:44 Temperature 97.8 F 97.8 F 99.4 F Pulse Rate 70 69 66 Respiratory Rate 18 20 17 Blood Pressure 116/63 113/65 105/59 L Pulse Oximetry 98 99 99 Oxygen Delivery Method Room Air Room Air Room Air 04/02/24 20:10 Temperature 99.4 F Pulse Rate 66 Respiratory Rate 17 Blood Pressure 105/59 L Pulse Oximetry 99 Oxygen Delivery Method Room Air BMI result Body Mass Index 31.8 Appearance: Alert. Oriented X3. In moderate distress Eyes: PERRLA, No Nystagmus ENT: Pharynx normal. Oral Mucosa moist Neck: Normal inspection. Neck supple. CVS: Normal heart rate and rhythm. Pulses normal. Respiratory: No respiratory distress. Equal air entry bilateral, no wheezing/rales/rhonchi Abdomen: Soft and nontender. Bowel sounds are present, no mass palpable, L CVA tenderness + Skin: Skin warm and dry. Normal skin color. Normal skin turgor. Extremities: No lower extremity edema. No calf tenderness Neuro: Oriented X 3. No motor deficit. Course Course Course Narrative: RME performed by Sharon Castillo PA-C. Patient is a 28 year old assigned male at presenting to the emergency department with bilateral flank pain. Patient states over the last few days he has had bilateral low back pain and decreased urine. Patient states that he has a history of kidney stones. Detailed physical exam and review of systems are deferred to the shuttle preparation supervisor. Labs, imaging, and swabs ordered. Patient placed back in the waiting room pending room availability and results. Medications Administered Discontinued Medications Generic Name Dose Route Start Last Admin Trade Name Freq PRN Reason Stop Dose Admin Sodium Chloride 1,000 mls @ 999 mls/hr 04/02/24 17:13 04/02/24 19:17 Ns IV 04/02/24 18:13 Infused .Q1H1M ONE Infusion Ketorolac Tromethamine 30 mg 04/02/24 17:14 04/02/24 17:38 Ketorolac Tromethamine 30 Mg/Ml Vial IVPUSH 04/02/24 17:15 30 mg ONCE ONE Administration Morphine Sulfate 4 mg 04/02/24 17:13 04/02/24 17:38 Morphine Sulfate 4 Mg/Ml Cartridge IVPUSH 04/02/24 17:14 4 mg ONCE ONE Administration Protocol Ondansetron HCl 4 mg 04/02/24 17:13 04/02/24 17:38 Ondansetron Hcl 4 Mg/2 Ml Vial IVPUSH 04/02/24 17:14 4 mg ONCE ONE Administration Tamsulosin HCl 0.4 mg 04/02/24 17:32 04/02/24 17:44 Tamsulosin Hcl 0.4 Mg Capsule PO 04/02/24 17:33 0.4 mg ONCE ONE Administration Medical Decision Making Medical Decision Making [facility] Narrative: Patient with left ureteric stone with mild hydronephrosis improved after IV hydration and pain medication will discharge patient home advised to follow with urologist report to ER if pain continues or gets worse Differential Diagnosis Differential Diagnoses: The differential diagnosis associated with the presentation includes Lab Data [facility] Lab Attestation statement: I reviewed the patient's lab results. 04/02/24 16:32 04/02/24 16:32 Labs: Lab Results 04/02/24 04/02/24 Range/Units 16:27 16:32 WBC 9.4 (4.8-10.8) X10*3/uL RBC 4.46 L (4.60-5.80) X10*6/uL Hgb 13.6 L (14.0-18.0) g/dl Hct 38.7 L (42.0-52.0) % MCV 86.8 (80.0-98.0) fL MCH 30.5 (27.0-33.0) pg MCHC 35.1 (31.0-36.0) g/dl RDW 13.2 (11.0-16.0) % Plt Count 198 (160-400) X10*3/uL MPV 10.7 (9.4-12.4) fL Immature Gran % (Auto) 0.3 (0.0-0.4) % Neut % (Auto) 56.6 (45-73) % Lymph % (Auto) 30.1 (20-40) % [place] % (Auto) 11.1 H (2-11) % Eos % (Auto) 1.5 (0-4) % Baso % (Auto) 0.4 (0-2) % Lymph # (Auto) 2.8 (1.2-4.9) X10*3/uL [place] # (Auto) 1.0 (0.1-1.2) X10*3/uL Eos # (Auto) 0.1 (0.0-0.4) X10*3/uL Baso # (Auto) 0.0 (0.0-0.2) X10*3/uL Abs Immat Gran (auto) 0.03 (0.00-0.03) X10*3/uL Absolute Neuts (auto) 5.3 (2.0-8.3) x10*3/uL Absolute Nucleated RBC 0.000 (0.0-0.012) X10*3/uL Nucleated RBC % (auto) 0.0 (0.0-0.2) /100WBC Sodium 139 (135-145) mmol/L Potassium 3.5 (3.3-5.1) mmol/L Chloride 111 H (96-108) mmol/L Carbon Dioxide 23 (22-29) mmol/L Anion Gap 9 L (12-20) BUN 18 H (9-16) mg/dL Creatinine 1.52 H (0.5-1.4) mg/dL Estim Creat Clear Calc 74.6 Estimated GFR 56 Random Glucose 78 (60-115) mg/dL Calcium 9.4 (8.4-10.2) mg/dL Magnesium 2.2 (1.6-2.6) mg/dL Total Bilirubin 0.4 (0.0-1.0) mg/dL AST 14 (5-37) U/L ALT 19 (0-40) U/L Alkaline Phosphatase 59 (39-117) U/L Total Protein 7.0 (6.5-8.0) g/dL Albumin 4.3 (3.5-5.0) g/dL Urine Color Yellow Urine Appearance Turbid Urine pH 7.0 (5.0-9.0) Ur Specific [place] 1.015 (1.005-1.025) Urine Protein Negative (Neg-Trace) mg/dL Urine Glucose (UA) Negative (Negative) mg/dL Urine Ketones Negative (Negative) mg/dL Urine Blood Negative (Negative) Urine Nitrite Negative (Negative) Ur Leukocyte Esterase Moderate (2+) H (Negative) Urine RBC 3-5 H (0-2) /HPF Urine WBC 0-5 (0-5) /HPF Ur Squamous Epith Cells 3-5 (0-2) /HPF Other Crystals Present Urine Bacteria None Seen (None Seen) Hyaline Casts 0-2 (0-2) /LPF Influenza Type A (PCR) NEGATIVE (Negative) Influenza Type B (PCR) NEGATIVE (Negative) RSV RNA Qual (PCR) NEGATIVE (Negative) SARS-CoV-2 RNA (RT-PCR) NEGATIVE (Negative) Independent Interpretation I performed an independent interpretation of an: CT Scan Radiology Impression Discussion of test interpretation with radiology: I have reviewed the radiologist's reading. Radiologist Impression: [place] [id number] [address] Scan Report Signed Patient: Andry Liang MR#: [id number] : 1995 Acct:[id number] Age/Sex: 28 / M ADM Date: 04/02/24 Loc: .ED Attending Dr: Ordering Physician: Sharon Castillo Date of Service: 04/02/24 Procedure(s): CT abdomen pelvis wo IV con Accession Number(s): [id number] cc: Sharon Castillo~ EXAMINATION: CT ABDOMEN AND PELVIS WITHOUT CONTRAST CLINICAL INFORMATION: Flank pain. COMPARISON: CT abdomen pelvis dated October 12, 2023. TECHNIQUE: Multidetector volumetric imaging was performed from the superior aspect of the liver through the pubic symphysis. Sagittal and coronal reformatted images were obtained on the technologist's workstation. This CT examination was performed using dose optimization techniques as appropriate, variously including the following: *Automated exposure control *Adjustment of mA and/or kV according to patient size (this includes techniques or standardized protocols for targeted exams where dose is matched to indication/reason for exam; i.e. extremities or head) *Use of iterative reconstruction technique DLP: 599 mGy-cm FINDINGS: LUNG BASES: The visualized lung bases are unremarkable. LIVER, GALLBLADDER, AND BILIARY TREE: The liver is normal in size, shape, and attenuation. No focal hepatic lesion or biliary ductal dilatation is present. The gallbladder is unremarkable with no evidence of radiopaque gallstones, gallbladder wall thickening, or obvious pericholecystic inflammatory changes. PANCREAS: Unremarkable. SPLEEN: Unremarkable. ADRENAL GLANDS: Unremarkable. KIDNEYS AND URETERS: Right side: The right kidney is normal in size, shape, and attenuation. No hydronephrosis, hydroureter, or calculi seen. No perinephric stranding. Left side: There is a 4 mm calculus within the proximal left ureter resulting in mild left-sided hydroureter and left-sided caliectasis. The calculus is at the level of the mid aspect of the L4 vertebral body. There is a 7 mm calculus or conglomeration of small calculi within the lower pole of the left kidney. No appreciable perinephric stranding. BLADDER: The urinary bladder is partially distended with urine. It demonstrates significant mural thickening. Correlation with urinalysis is recommended. GASTROINTESTINAL TRACT: The small and large bowel are unremarkable. The appendix is unremarkable. ABDOMINAL WALL: No significant hernia is appreciated. LYMPH NODES: There are multiple subcentimeter retroperitoneal lymph nodes, particularly on the left. VASCULAR: No abdominal aortic aneurysm. PELVIC VISCERA: Unremarkable. OSSEOUS STRUCTURES: Unremarkable. CT/CT abdomen pelvis wo IV con IMPRESSION: There is a 4 mm calculus within the proximal left ureter resulting in mild left-sided hydroureter and left-sided caliectasis. The calculus is at the level of the mid aspect of the L4 vertebral body. There is a 7 mm calculus or conglomeration of small calculi within the lower pole of the left kidney. No appreciable perinephric stranding. The urinary bladder is partially distended. It demonstrates significant mural thickening. Correlation with urinalysis is recommended. Fleischner guidelines were followed. Electronically signed by: Willie Adan DO 04/02/2024 05:03 PM EDT Discharge Plan Discharge Clinical Impression: Calculus of left ureter Patient Disposition: Home, Self-Care Instructions: Low Oxalate Diet (ED), Ureteral Stones (ED) Additional Instructions: Drink plenty of fluids Pain medicine as advised Take Flomax daily till you pass the stone Follow up urologist if pain continues for lithotripsy Prescriptions: New ondansetron 4 mg tablet,disintegrating 4 mg PO Q6-8H PRN (Reason: nausea and vomiting) Qty: 7 0RF oxycodone 5 mg tablet 5 mg PO Q6H PRN (Reason: pain) Qty: 20 0RF Rx Instructions: Partial Fill upon patient request. tamsulosin [Flomax] 0.4 mg capsule 0.4 mg PO BEDTIME Qty: 7 0RF No Action topiramate 100 mg tablet 200 mg PO BID 30 Days Qty: 120 6RF pyridoxine (vitamin B6) 50 mg tablet 50 mg PO ONCE 90 Days Qty: 90 1RF tamsulosin 0.4 mg capsule 0.4 mg PO BEDTIME 14 Days Qty: 14 0RF prednisone 20 mg tablet 20 mg PO DAILY 3 Days Qty: 3 0RF naproxen 375 mg tablet 375 mg PO BID 15 Days Qty: 30 0RF potassium citrate 10 mEq (1,080 mg) tablet extended release 1 tab PO QID quetiapine 25 mg Tablet 75 mg PO TID 30 Days Qty: 270 0RF phenazopyridine 100 mg tablet 100 mg PO TID Qty: 6 0RF tamsulosin [Flomax] 0.4 mg capsule 0.4 mg PO BEDTIME Qty: 10 0RF oxycodone-acetaminophen [Percocet] 5-325 mg tablet 1 tab PO Q6H PRN (Reason: pain) Qty: 20 0RF Rx Instructions: Partial Fill upon patient request. cholecalciferol (vitamin D3) 50 mcg (2,000 unit) tablet 50 mcg PO QAM lisinopril-hydrochlorothiazide 20-25 mg tablet 1 tab PO QAM melatonin 5 mg tablet 5 mg PO BEDTIME quetiapine 200 mg tablet 200 mg PO BEDTIME simvastatin 10 mg tablet 10 mg PO QAM clonidine HCl 0.2 mg tablet 0.2 mg PO DAILY PRN (Reason: anxiety) metformin 500 mg tablet extended release 24 hr 500 mg PO DAILY omeprazole 20 mg capsule,delayed release(DR/EC) 20 mg PO DAILY polyethylene glycol 3350 17 gram/dose powder 17 g PO BID PRN (Reason: constipation) allopurinol 100 mg tablet 100 mg PO DAILY 90 Days Qty: 90 1RF quetiapine 50 mg tablet 50 mg PO TID chlorhexidine gluconate 0.12 % mouthwash 20 ml PO BID clonazepam 2 mg tablet,disintegrating 2 mg PO ONCE PRN (Reason: seizure lasting > 2 minutes) Qty: 5 2RF Referrals: Ruben Gandhi MD [Physician] - 1 week Interventions: ED Discharge Assessment Last Done: 04/02/24 20:10 Discharge Date/Time: 04/02/24 20:11 Print Language: Spanish
[2024-04-02 16:36] LABS: MANUAL DIFF FLAG NO
[2024-04-02 16:38] LABS: Basophils Percent Auto 0.4 % (0-2); Eosinophils Absolute Auto 0.1 X10*3/uL (0.0-0.4); Eosinophils Percent Auto 1.5 % (0-4); Hematocrit 38.7 % (42.0-52.0); Hemoglobin 13.6 g/dl (14.0-18.0); Imm Gran Abs Auto 0.03 X10*3/uL (0.00-0.03); Imm Gran Pct Auto 0.3 % (0.0-0.4); Lymphocytes Absolute Auto 2.8 X10*3/uL (1.2-4.9); Lymphocytes Percent Auto 30.1 % (20-40); Mean Corpuscular HGB Conc 35.1 g/dl (31.0-36.0); Mean Corpuscular Hemoglobin 30.5 pg (27.0-33.0); Mean Corpuscular Volume 86.8 fL (80.0-98.0); Mean Platelet Volume 10.7 fL (9.4-12.4); Monocytes Percent Auto 11.1 % (2-11); Neutrophils Absolute Auto 5.3 x10*3/uL (2.0-8.3); Neutrophils Percent Auto 56.6 % (45-73); Platelet Count 198 X10*3/uL (160-400); Red Blood Count 4.46 X10*6/uL (4.60-5.80); Red Cell Distribution Width 13.2 % (11.0-16.0); White Blood Count 9.4 X10*3/uL (4.8-10.8)
[2024-04-02 16:39] LABS: Appearance Urine Turbid; Color Urine Yellow; Glucose Urine UA Negative (Negative); Leukocyte Esterase Urine Moderate (2+) (Negative); Nitrite Urine Negative (Negative); Specific Gravity - Urine 1.015 (1.005-1.025); UMIC TRIGGER UACC YES; Urine Blood Negative (Negative); Urine Ketones Negative (Negative); Urine Protein Negative (Neg-Trace)
[2024-04-02 16:55] LABS: Alanine Aminotransferase 19 U/L (0-40); Albumin Level 4.3 g/dL (3.5-5.0); Alkaline Phosphatase 59 U/L (39-117); Anion Gap 9 (12-20); Aspartate Amino Transferase 14 U/L (5-37); Bilirubin Total 0.4 mg/dL (0.0-1.0); Blood Urea Nitrogen 18 mg/dL (9-16); Calcium 9.4 mg/dL (8.4-10.2); Carbon Dioxide 23 mmol/L (22-29); Chloride 111 mmol/L (96-108); Creatinine Clr Calc Pharmacy 74.6; Estimated Glomerular Filt Rate 56; Glucose Random 78 mg/dL (60-115); Magnesium 2.2 mg/dL (1.6-2.6); Potassium 3.5 mmol/L (3.3-5.1); Sodium 139 mmol/L (135-145)
[2024-04-02 17:02] LABS: Bacteria Urine None Seen (None Seen); Hyaline Casts Urine 0-2 /LPF (0-2); Other Crystals Urine Present; WBC Urine 0-5 /HPF (0-5)
[2024-04-02 17:15] VITALS: BP 113/65; PULSE 69; RESP 20; TEMP 36.6; O2SAT 99
[2024-04-02 17:24] LABS: Influenza A PCR NEGATIVE (Negative); Influenza B PCR NEGATIVE (Negative); Resp Syncy Virus RNA Qual PCR NEGATIVE (Negative); SARS COV2 PCR INHOUSE NEGATIVE (Negative)
[2024-04-02] MEDS: ondansetron HCL 4 MG/2 ML VIAL IVPUSH (17:38)
[2024-04-02] MEDS: Ketorolac Tromethamine 30 MG/ML VIAL IVPUSH (17:38)
[2024-04-02] MEDS: Morphine Sulfate 4 MG/ML CARTRIDGE IVPUSH (17:38)
[2024-04-02] MEDS: 0.9 % Sodium Chloride 1,000 ML 999 ML IV (17:42)
[2024-04-02] MEDS: Tamsulosin HCL 0.4 MG CAPSULE PO (17:44)
[2024-04-02 19:44] VITALS: BP 105/59; PULSE 66; RESP 17; TEMP 37.4; O2SAT 99
[2024-04-02 20:10] VITALS: BP 105/59; PULSE 66; RESP 17; TEMP 37.4; O2SAT 99
== END 2024-04-02 20:11 | disposition home or self-care (01) ==
PROVIDERS: Physician Assistant Medical; Emergency Provider Internal Medicine; PCP Internal Medicine
DX: N13.2 Hydronephrosis with renal and ureteral calculous obstruction (principal); R10.9 Unspecified abdominal pain; Z03.818 Encounter for observation for suspected exposure to other biological agents ruled out; E11.9 Type 2 diabetes mellitus without complications; I10 Essential (primary) hypertension; Z79.899 Other long term (current) drug therapy
CPT/HCPCS: 0241U; 74176; 80053; 81001; 83735; 85025; 96361; 96374; 96375; 99284; J1885; J2270; J2405

== ENCOUNTER 2024-04-04 19:33 | Inpatient (IN) | payer OTHER, SELFPAY ==
--- NOTE | ~2024-04-04 | FL_ITS ---
EXAMINATION: FLUOROSCOPY GUIDANCE FOR NEEDLE PLACEMENT CLINICAL INFORMATION: Retrograde pyelography. COMPARISON: None available. TECHNIQUE: Uroscopy and spot films provided during retrograde pyelography. FINDINGS: 4 saved images demonstrate guidewires and catheters as well as some contrast in the left-sided collecting system. FLUOROSCOPY TIME: 15.3 DOSE AREA PRODUCT: 5.59 uGy-m2 (microgray-meter squared) FL/FL guidance in OR IMPRESSION: Fluoroscopy and spot films provided during retrograde pyelography as above. Electronically signed by: Wilfrid Avila MD 04/06/2024 10:52 AM EDT
[2024-04-04 19:44] VITALS: BP 128/70; BP 132/65; PULSE 80; PULSE 84; RESP 18; TEMP 36.7; O2SAT 98; BMI 32.8
[2024-04-04 19:58] LABS: MANUAL DIFF FLAG NO
[2024-04-04 20:00] LABS: Basophils Percent Auto 0.3 % (0-2); Eosinophils Absolute Auto 0.1 X10*3/uL (0.0-0.4); Eosinophils Percent Auto 0.6 % (0-4); Hematocrit 37.1 % (42.0-52.0); Hemoglobin 13.2 g/dl (14.0-18.0); Imm Gran Abs Auto 0.04 X10*3/uL (0.00-0.03); Imm Gran Pct Auto 0.4 % (0.0-0.4); Lymphocytes Absolute Auto 2.1 X10*3/uL (1.2-4.9); Lymphocytes Percent Auto 18.7 % (20-40); Mean Corpuscular HGB Conc 35.6 g/dl (31.0-36.0); Mean Corpuscular Hemoglobin 30.1 pg (27.0-33.0); Mean Corpuscular Volume 84.5 fL (80.0-98.0); Mean Platelet Volume 10.3 fL (9.4-12.4); Monocytes Percent Auto 9.3 % (2-11); Neutrophils Absolute Auto 7.9 x10*3/uL (2.0-8.3); Neutrophils Percent Auto 70.7 % (45-73); Platelet Count 222 X10*3/uL (160-400); Red Blood Count 4.39 X10*6/uL (4.60-5.80); Red Cell Distribution Width 12.7 % (11.0-16.0); White Blood Count 11.2 X10*3/uL (4.8-10.8)
[2024-04-04 20:15] LABS: Alanine Aminotransferase 19 U/L (0-40); Albumin Level 4.6 g/dL (3.5-5.0); Alkaline Phosphatase 69 U/L (39-117); Anion Gap 12 (12-20); Aspartate Amino Transferase 15 U/L (5-37); Bilirubin Total 0.8 mg/dL (0.0-1.0); Blood Urea Nitrogen 13 mg/dL (9-16); Calcium 9.8 mg/dL (8.4-10.2); Carbon Dioxide 21 mmol/L (22-29); Chloride 109 mmol/L (96-108); Creatinine Clr Calc Pharmacy 75.6; Estimated Glomerular Filt Rate 56; Glucose Random 120 mg/dL (60-115); Magnesium 1.8 mg/dL (1.6-2.6); Potassium 3.1 mmol/L (3.3-5.1); Sodium 139 mmol/L (135-145); Total Protein 7.8 g/dL (6.5-8.0)
[2024-04-04 20:16] LABS: Appearance Urine Clear; Color Urine Dark Yellow; Glucose Urine UA Negative (Negative); Leukocyte Esterase Urine Negative (Negative); Nitrite Urine Positive (Negative); PH 6.5 (5.0-9.0); Specific Gravity - Urine <= 1.005 (1.005-1.025); UMIC TRIGGER UACC YES; Urine Blood Trace (Negative); Urine Ketones Trace mg/dL (Negative); Urine Protein Negative (Neg-Trace)
[2024-04-04 20:31] LABS: Bacteria Urine None Seen (None Seen); Hyaline Casts Urine 0-2 /LPF (0-2); RBC Urine 0-2 /HPF (0-2); Squamous Epithelial Cell Urine 0-2 /HPF (0-2); UACC Culture Trigger YES; WBC Urine 0-5 /HPF (0-5)
--- NOTE | 2024-04-04 20:47 | ED_ITS ---
HPI - General Adult General Chief complaint: Abdominal Pain Stated complaint: possible gallstones, discharged yesterday Time Seen by Provider: 04/04/24 20:47 Source: patient, RN notes reviewed and old records reviewed Mode of arrival: EMS Limitations: no limitations History of Present Illness ED Provider: Miranda HPI narrative: 28-year-old male past medical history significant for autism spectrum disorder, bipolar disorder, hypertension presents for evaluation of left flank pain that radiates to his left groin. The patient was seen here 2 days ago and diagnosed with a 4 mm obstructive proximal ureter stone. There was sent home with oxycodone, Flomax and Zofran. He reports continued nausea and pain despite the oral medications. His pain is 10/ Denies any fevers, chills Related Data Home Medications ?Medication ?Instructions ?Recorded ?Confirmed cholecalciferol (vitamin D3) 50 50 mcg PO QAM 10/24/20 11/04/23 mcg (2,000 unit) tablet clonidine HCl 0.2 mg tablet 0.2 mg PO DAILY PRN anxiety 10/24/20 11/04/23 lisinopril 20 1 tab PO QAM 10/24/20 11/04/23 mg-hydrochlorothiazide 25 mg tablet melatonin 5 mg tablet 5 mg PO BEDTIME 10/24/20 11/04/23 quetiapine 200 mg tablet 200 mg PO BEDTIME 10/24/20 11/04/23 simvastatin 10 mg tablet 10 mg PO QAM 10/24/20 11/04/23 omeprazole 20 mg capsule,delayed 20 mg PO DAILY 07/19/21 11/04/23 release metformin 500 mg tablet,extended 500 mg PO DAILY 01/15/22 11/04/23 release 24 hr polyethylene glycol 3350 17 17 g PO BID PRN constipation 05/07/22 11/04/23 gram/dose oral powder potassium citrate 10 mEq (1,080 1 tab PO QID 08/03/22 11/04/23 mg) tablet,extended release chlorhexidine gluconate 0.12 % 20 ml PO BID 10/07/22 11/04/23 mouthwash quetiapine 50 mg tablet 50 mg PO TID 10/07/22 11/04/23 Previous Rx's ?Medication ?Instructions ?Recorded quetiapine 25 mg tablet 75 mg (3 x 25 mg) PO TID 30 days 08/12/22 #270 tabs clonazepam 2 mg disintegrating 2 mg PO ONCE PRN seizure lasting > 01/17/23 tablet 2 minutes #5 tabs phenazopyridine 100 mg tablet 100 mg PO TID #6 tabs 09/17/23 oxycodone-acetaminophen 5 mg-325 1 tab PO Q6H PRN pain #20 tabs 10/12/23 mg tablet (Percocet) tamsulosin 0.4 mg capsule (Flomax) 0.4 mg PO BEDTIME #10 caps 10/12/23 topiramate 100 mg tablet 200 mg (2 x 100 mg) PO BID 30 days 10/29/23 #120 tabs allopurinol 100 mg tablet 100 mg PO DAILY 90 days #90 tabs 11/04/23 pyridoxine (vitamin B6) 50 mg 50 mg PO ONCE 90 days #90 tabs 11/04/23 tablet naproxen 375 mg tablet 375 mg PO BID pain 15 days #30 tabs 12/26/23 prednisone 20 mg tablet 20 mg PO DAILY 3 days #3 tabs 12/26/23 tamsulosin 0.4 mg capsule 0.4 mg PO BEDTIME 14 days #14 caps 12/26/23 ondansetron 4 mg disintegrating 4 mg PO Q6-8H PRN nausea and 04/02/24 tablet vomiting #7 tabs oxycodone 5 mg tablet 5 mg PO Q6H PRN pain #20 tabs 04/02/24 tamsulosin 0.4 mg capsule (Flomax) 0.4 mg PO BEDTIME #7 caps 04/02/24 Allergies Allergy/AdvReac Type Severity Reaction Status Date / Time amlodipine [AMLODIPINE] Allergy Intermediate SEIZURE Verified 04/04/24 19:47 escitalopram [From LEXAPRO] Allergy Intermediate SEIZURE Verified 04/04/24 19:47 fluoxetine [Prozac] Allergy Unknown Hives Verified 04/04/24 19:47 olanzapine [From ZYPREXA] Allergy Unknown AGITATION Verified 04/04/24 19:47 Review of Systems 2 Constitutional: Constitutional: Denies body ache(s), Denies chills and Denies fever(s) Cardiovascular: Cardiovascular: Denies chest pain and Denies dyspnea Respiratory: Respiratory: Denies cough and Denies dyspnea Gastrointestinal: Gastrointestinal: Reports abdominal pain, Reports nausea and Reports vomiting Genitourinary: Genitourinary: Reports flank pain Integumentary/Breasts: Skin/Breast: Denies rash PMFSH Past Medical History Medical History Renal calculi Balanitis Essential hypertension Non-rheumatic mitral regurgitation Bipolar 1 disorder ADHD Seizure OCD (obsessive compulsive disorder) Anxiety Depression Autism Diabetes mellitus Surgical History No pertinent past surgical history Family History Family History Father Diabetes HTN (hypertension) Mother Diabetes HTN (hypertension) Social History Social History Household Members: Family Housing: House Do you presently have visiting nurse or other home services: No Alcohol intake: never Patient Tobacco Use Status: Never used Tobacco Second Hand Smoke Exposure: No Advance Directives: No Advance Directives Information Provided: No Do you have a plan to hurt others: No Plan service: No Current occupational status: disabled Sexual orientation: Don't Know Physical Exam ED Vital Signs: Vital Signs - 24 hr 04/04/24 19:44 04/04/24 22:10 Temperature 98.1 F 98.7 F Pulse Rate 80 75 Respiratory Rate 18 16 Blood Pressure 132/65 118/70 Pulse Oximetry 98 98 Oxygen Delivery Method Room Air Room Air BMI result Body Mass Index 32.8 Const General: healthy appearing, alert and awake Nutritional Appearance: well nourished Orientation/consciousness: patient oriented x3 HENMT Head: Yes normocephalic and Yes atraumatic Eyes Eyelids: Yes eyelids normal Conjunctivae: conjunctivae normal Sclerae: sclerae normal Corneas: corneas normal Pupils: Equal, round and reactive pupils present EOM: EOMs intact bilaterally Neck Neck: Yes full ROM Resp Effort & Inspection: normal respiratory effort, able to speak in complete sentences and not labored Cardio Rate: regular rate Rhythm: regular rhythm GI Other: Tenderness in the left lower quadrant. Positive CVA tenderness on left Inspection: No distended Palpation (GI): Soft to palpation, not firm, no guarding and not rigid Skin General skin exam: elasticity normal Neuro General: patient oriented x3 Cranial nerves: Yes Equal, round and reactive pupils present and Yes Bilaterally intact EOM present Cognition (Neuro): normal cognition Extrem Other: Moving all extremities well without any obvious deformities Medications Administered Discontinued Medications Generic Name Dose Route Start Last Admin Trade Name Lesly PRN Reason Stop Dose Admin Sodium Chloride 1,000 mls @ 999 mls/hr 04/04/24 21:00 04/04/24 20:59 Ns IV 04/04/24 22:00 999 mls/hr .Q1H1M MASSIEL Administration Ketorolac Tromethamine 15 mg 04/04/24 20:47 04/04/24 21:00 Ketorolac Tromethamine 15 Mg/Ml Vial IVPUSH 04/04/24 20:48 15 mg ONCE ONE Administration Ondansetron HCl 4 mg 04/04/24 20:47 04/04/24 21:00 Ondansetron Hcl 4 Mg/2 Ml Vial IVPUSH 04/04/24 20:48 4 mg ONCE ONE Administration Medical Decision Making Medical Decision Making [facility] Narrative: 28-year-old male with history obstructive uropathy. I reviewed his visit from 2 days ago as well as the imaging. Given that his CT scan was only 2 days ago and did not repeat any imaging. He has a mild leukocytosis which may be reactive to the obstructive uropathy and pain he is experiencing, he is afebrile, his urine does not show obvious sign of infection. Will hold antibiotics. The patient's creatinine is 1.52, identical to where it was 2 days ago. I treated him with IV fluids, Toradol and then morphine and Zofran when he complained of continued pain plan I discussed with Urology, Dr. Ferraro would like him admitted to the medical service and NPO after midnight for possible stenting Differential Diagnosis Differential Diagnoses: The differential diagnosis associated with the presentation includes Obstructive uropathy UTI Ureteral stone Renal colic Hydronephrosis Admission/Observation Consideration of admission/observation: Escalation of care including admission/observation considered Lab Data [facility] Lab Attestation statement: I reviewed the patient's lab results. Mild leukocytosis, mild anemia. Labs consistent with baseline from 2 days ago potassium was 3.1 which was repleted. His carbon dioxide level was 21 possibly due to hyperventilation related to his pain. Renal function with a creatinine of 1.52 consistent with where it was 2 days ago. 04/04/24 19:53 04/04/24 19:53 Labs: Lab Results 04/04/24 04/04/24 Range/Units 19:53 20:05 WBC 11.2 H (4.8-10.8) X10*3/uL RBC 4.39 L (4.60-5.80) X10*6/uL Hgb 13.2 L (14.0-18.0) g/dl Hct 37.1 L (42.0-52.0) % MCV 84.5 (80.0-98.0) fL MCH 30.1 (27.0-33.0) pg MCHC 35.6 (31.0-36.0) g/dl RDW 12.7 (11.0-16.0) % Plt Count 222 (160-400) X10*3/uL MPV 10.3 (9.4-12.4) fL Immature Gran % (Auto) 0.4 (0.0-0.4) % Neut % (Auto) 70.7 (45-73) % Lymph % (Auto) 18.7 L (20-40) % [place] % (Auto) 9.3 (2-11) % Eos % (Auto) 0.6 (0-4) % Baso % (Auto) 0.3 (0-2) % Lymph # (Auto) 2.1 (1.2-4.9) X10*3/uL [place] # (Auto) 1.0 (0.1-1.2) X10*3/uL Eos # (Auto) 0.1 (0.0-0.4) X10*3/uL Baso # (Auto) 0.0 (0.0-0.2) X10*3/uL Abs Immat Gran (auto) 0.04 H (0.00-0.03) X10*3/uL Absolute Neuts (auto) 7.9 (2.0-8.3) x10*3/uL Absolute Nucleated RBC 0.000 (0.0-0.012) X10*3/uL Nucleated RBC % (auto) 0.0 (0.0-0.2) /100WBC Sodium 139 (135-145) mmol/L Potassium 3.1 L (3.3-5.1) mmol/L Chloride 109 H (96-108) mmol/L Carbon Dioxide 21 L (22-29) mmol/L Anion Gap 12 (12-20) BUN 13 (9-16) mg/dL Creatinine 1.52 H (0.5-1.4) mg/dL Estim Creat Clear Calc 75.6 Estimated GFR 56 Random Glucose 120 H (60-115) mg/dL Calcium 9.8 (8.4-10.2) mg/dL Magnesium 1.8 (1.6-2.6) mg/dL Total Bilirubin 0.8 (0.0-1.0) mg/dL AST 15 (5-37) U/L ALT 19 (0-40) U/L Alkaline Phosphatase 69 (39-117) U/L Total Protein 7.8 (6.5-8.0) g/dL Albumin 4.6 (3.5-5.0) g/dL Urine Color Dark Yellow Urine Appearance Clear Urine pH 6.5 (5.0-9.0) Ur Specific [place] <= 1.005 (1.005-1.025) Urine Protein Negative (Neg-Trace) mg/dL Urine Glucose (UA) Negative (Negative) mg/dL Urine Ketones Trace (Negative) mg/dL Urine Blood Trace H (Negative) Urine Nitrite Positive H (Negative) Ur Leukocyte Esterase Negative (Negative) Urine RBC 0-2 (0-2) /HPF Urine WBC 0-5 (0-5) /HPF Ur Squamous Epith Cells 0-2 (0-2) /HPF Urine Bacteria None Seen (None Seen) Hyaline Casts 0-2 (0-2) /LPF Discharge Plan Discharge Print Language: Upper Sorbian
[2024-04-04] MEDS: 0.9 % Sodium Chloride 1,000 ML 999 ML IV (20:59)
[2024-04-04] MEDS: ondansetron HCL 4 MG/2 ML VIAL IVPUSH ×2 (21:00→22:39)
[2024-04-04] MEDS: Ketorolac Tromethamine 15 MG/ML VIAL IVPUSH (21:00)
--- NOTE | 2024-04-04 21:04 | PC.NURSE ---
Pt un bed crying reprting pain and nausea. T/W sopke with Hung OCASIO and orders given. IV #20 R-AC, zofran and toradol given and IV fluids running at this time. Pt verbalized comfort already prior to leaving the room.
[2024-04-04 22:10] VITALS: BP 118/70; PULSE 75; RESP 16; TEMP 37.1; O2SAT 98
[2024-04-04] MEDS: Potassium Chloride ER 20 MEQ TAB.ER.PRT 40 MEQ PO (22:39)
[2024-04-04] MEDS: Morphine Sulfate 4 MG/ML CARTRIDGE IVPUSH (22:39)
--- NOTE | 2024-04-04 22:42 | PM.IMHP ---
History of Present Illness Date of Service: 04/04/24 Chief Complaint: Abdominal Pain This is a 28-year-old male with pertinent history of bipolar disorder, hypertension, zha-hapabjz-twyakywfx diabetes mellitus, epilepsy, mixed hyperlipidemia who presents to the emergency department for evaluation of left flank pain. Patient was seen in the ER 2 days prior to presentation for left flank pain. Imaging revealed left-sided kidney stones with left-sided hydroureter and patient was sent home from the ER on p.o. Flomax and oxycodone p.r.n.. Patient states he continues to have left flank pain which was intermittent earlier but now is constant, radiating to the groin, without any relieving factors. It is associated with nausea and episodes of nonbloody emesis. No fever, chills, chest discomfort, palpitations, shortness of breath, changes in bowel habits. In the emergency department, Urology was consulted who requested admission. Review of Systems Constitutional: Constitutional: Reports no additional constitutional complaints Cardiovascular: Cardiovascular: Reports no additional cardiovascular complaints Respiratory: Respiratory: Reports no additional respiratory complaints Gastrointestinal: Gastrointestinal: Reports abdominal pain, Reports nausea and Reports vomiting Genitourinary: Genitourinary: Reports no additional male genitourinary complaints [facility] Medical History Renal calculi Balanitis Essential hypertension Non-rheumatic mitral regurgitation Bipolar 1 disorder ADHD Seizure OCD (obsessive compulsive disorder) Anxiety Depression Autism Diabetes mellitus Family History Father Diabetes HTN (hypertension) Mother Diabetes HTN (hypertension) Surgical History No pertinent past surgical history Social History Household Members: Family Housing: House Do you presently have visiting nurse or other home services: No Alcohol intake: never Patient Tobacco Use Status: Never used Tobacco Second Hand Smoke Exposure: No Advance Directives: No Advance Directives Information Provided: No Do you have a plan to hurt others: No Plan service: No Current occupational status: disabled Sexual orientation: Don't Know Meds Allergies Allergy/AdvReac Type Severity Reaction Status Date / Time amlodipine [AMLODIPINE] Allergy Intermediate SEIZURE Verified 04/04/24 19:47 escitalopram [From LEXAPRO] Allergy Intermediate SEIZURE Verified 04/04/24 19:47 fluoxetine [Prozac] Allergy Unknown Hives Verified 04/04/24 19:47 olanzapine [From ZYPREXA] Allergy Unknown AGITATION Verified 04/04/24 19:47 Home Medications ?Medication ?Instructions ?Recorded ?Confirmed ?Last Taken ?Type cholecalciferol (vitamin D3) 50 50 mcg PO QAM 10/24/20 11/04/23 Unknown History mcg (2,000 unit) tablet clonidine HCl 0.2 mg tablet 0.2 mg PO DAILY PRN anxiety 10/24/20 11/04/23 Unknown History lisinopril 20 1 tab PO QAM 10/24/20 11/04/23 Unknown History mg-hydrochlorothiazide 25 mg tablet melatonin 5 mg tablet 5 mg PO BEDTIME 10/24/20 11/04/23 Unknown History quetiapine 200 mg tablet 200 mg PO BEDTIME 10/24/20 11/04/23 Unknown History simvastatin 10 mg tablet 10 mg PO QAM 10/24/20 11/04/23 Unknown History omeprazole 20 mg capsule,delayed 20 mg PO DAILY 07/19/21 11/04/23 Unknown History release metformin 500 mg tablet,extended 500 mg PO DAILY 01/15/22 11/04/23 Unknown History release 24 hr polyethylene glycol 3350 17 17 g PO BID PRN constipation 05/07/22 11/04/23 Unknown History gram/dose oral powder potassium citrate 10 mEq (1,080 1 tab PO QID 08/03/22 11/04/23 Unknown History mg) tablet,extended release chlorhexidine gluconate 0.12 % 20 ml PO BID 10/07/22 11/04/23 Unknown History mouthwash quetiapine 50 mg tablet 50 mg PO TID 10/07/22 11/04/23 Unknown History Physical Exam Vital Signs and Narrative: Vital Signs: Last Vital Signs Temp 98.7 F 04/04/24 22:10 Pulse 75 04/04/24 22:10 Resp 16 04/04/24 22:10 BP 118/70 04/04/24 22:10 Pulse Ox 98 04/04/24 22:10 O2 Del Method Room Air 04/04/24 22:10 BMI result Body Mass Index 32.8 Middle-aged male lying in bed in no distress Neck supple, no JVD Regular rate and rhythm, S1-S2 heard Regular breath sounds bilaterally, no wheezing or crackles appreciated Abdomen with left-sided CVA tenderness, no guarding, no rigidity Patient is awake, alert and oriented to self, place, time and person ; no focal motor deficit Psych: Normal mood No pedal edema Results Labs 04/04/24 19:53 04/04/24 19:53 Labs: Laboratory Results - last 24 hr 04/04/24 04/04/24 19:53 20:05 MCV 84.5 MCH 30.1 MCHC 35.6 RDW 12.7 Plt Count 222 MPV 10.3 Immature Gran % (Auto) 0.4 Neut % (Auto) 70.7 Lymph % (Auto) 18.7 L [place] % (Auto) 9.3 Eos % (Auto) 0.6 Baso % (Auto) 0.3 Lymph # (Auto) 2.1 [place] # (Auto) 1.0 Eos # (Auto) 0.1 Baso # (Auto) 0.0 Abs Immat Gran (auto) 0.04 H Absolute Neuts (auto) 7.9 Absolute Nucleated RBC 0.000 Nucleated RBC % (auto) 0.0 Anion Gap 12 Estim Creat Clear Calc 75.6 Estimated GFR 56 Random Glucose 120 H Calcium 9.8 Magnesium 1.8 Total Bilirubin 0.8 AST 15 ALT 19 Alkaline Phosphatase 69 Total Protein 7.8 Albumin 4.6 Urine Color Dark Yellow Urine Appearance Clear Urine pH 6.5 Ur Specific [place] <= 1.005 Urine Protein Negative Urine Glucose (UA) Negative Urine Ketones Trace Urine Blood Trace H Urine Nitrite Positive H Ur Leukocyte Esterase Negative Urine RBC 0-2 Urine WBC 0-5 Ur Squamous Epith Cells 0-2 Urine Bacteria None Seen Hyaline Casts 0-2 Assessment and Plan (1) Acute unilateral obstructive uropathy: Status: Acute Plan This is a 28-year-old male with pertinent history of bipolar disorder, hypertension, kur-rklpuev-lirecmpjz diabetes mellitus, epilepsy, mixed hyperlipidemia who presents to the emergency department for evaluation of left flank pain. #. Acute obstructive uropathy with hydroureter in the setting of nephrolithiasis: Will admit patient due to intractable pain and failure of outpatient p.o. analgesics. Initiating IV p.r.n. for analgesia. Consulted Urology, appreciate assistance. Will keep patient NPO. On Flomax #. Acute kidney injury stage I: Given IV crystalloids in the ER. Monitor creatinine and urine output. Avoid NSAIDs and nephrotoxins #. Hypokalemia: Repleted #. Bipolar disorder: Continue home mood stabilizers #. Epilepsy: On topiramate and clonazepam p.r.n. #. Mixed hyperlipidemia: On statin #. Fob-aybhwzc-paeazrohw diabetes mellitus: Hold metformin. Initiating Accu-Cheks with sliding scale insulin Med rec pending DVT prophylaxis: None. Low risk and patient is ambulatory Full code Admit as inpatient and will require two night minimum hospital stay for IV analgesia, monitoring of kidney function (as above), which is not possible in a lesser acute setting. Quality Stroke Does the patient have a stroke diagnosis?: No VTE Prior VTE?: No VTE Risk Level:: Medical - low VTE Device Contraindication: Treatment Not Indicated VTE Drug Contraindication: Treatment Not Indicated
[2024-04-04] MEDS: 0.9 % Sodium Chloride Flush 3 ML SYRINGE IVFLUSH (23:42)
[2024-04-04] MEDS: Potassium Chloride/H20 10 MEQ/100 ML PIGGYBACK 100 MEQ IV (23:43)
[2024-04-04 23:54] VITALS: BP 132/69; PULSE 88; RESP 16; TEMP 37.2; O2SAT 97
[2024-04-05] VITALS (15 sets, daily range): BP systolic 107–131; BP diastolic 58–78; PULSE 60–82; RESP 12–20; TEMP 36.1–37.3; O2SAT 95–99; BMI 31.1
[2024-04-05] MEDS: Potassium Chloride/H20 10 MEQ/100 ML PIGGYBACK 100 MEQ IV ×3 (00:50→03:02)
[2024-04-05 01:08] LABS: Glucose, Whole Blood 80 mg/dL (60-115)
[2024-04-05] MEDS: Morphine Sulfate 4 MG/ML CARTRIDGE IVPUSH ×5 (02:00→21:12)
[2024-04-05] MEDS: Melatonin 3 MG TABLET 6 MG PO (02:00)
[2024-04-05] MEDS: ondansetron HCL 4 MG/2 ML VIAL IVPUSH ×2 (03:46→15:03)
[2024-04-05 04:59] LABS: MANUAL DIFF FLAG NO
[2024-04-05 05:01] LABS: Basophils Absolute Auto 0.1 X10*3/uL (0.0-0.2); Basophils Percent Auto 0.4 % (0-2); Eosinophils Absolute Auto 0.1 X10*3/uL (0.0-0.4); Eosinophils Percent Auto 0.8 % (0-4); Hematocrit 38.7 % (42.0-52.0); Hemoglobin 13.1 g/dl (14.0-18.0); Imm Gran Abs Auto 0.03 X10*3/uL (0.00-0.03); Imm Gran Pct Auto 0.3 % (0.0-0.4); Lymphocytes Absolute Auto 2.5 X10*3/uL (1.2-4.9); Lymphocytes Percent Auto 20.9 % (20-40); Mean Corpuscular HGB Conc 33.9 g/dl (31.0-36.0); Mean Corpuscular Hemoglobin 29.5 pg (27.0-33.0); Mean Corpuscular Volume 87.2 fL (80.0-98.0); Mean Platelet Volume 10.6 fL (9.4-12.4); Monocytes Absolute Auto 1.5 X10*3/uL (0.1-1.2); Monocytes Percent Auto 12.4 % (2-11); Neutrophils Absolute Auto 7.7 x10*3/uL (2.0-8.3); Neutrophils Percent Auto 65.2 % (45-73); Platelet Count 216 X10*3/uL (160-400); Red Blood Count 4.44 X10*6/uL (4.60-5.80); Red Cell Distribution Width 12.8 % (11.0-16.0); White Blood Count 11.8 X10*3/uL (4.8-10.8)
[2024-04-05 05:18] LABS: Anion Gap 14 (12-20); Blood Urea Nitrogen 12 mg/dL (9-16); Calcium 9.5 mg/dL (8.4-10.2); Carbon Dioxide 18 mmol/L (22-29); Chloride 111 mmol/L (96-108); Creatinine Clr Calc Pharmacy 86.4; Estimated Glomerular Filt Rate > 60; Glucose Random 95 mg/dL (60-115); Potassium 3.9 mmol/L (3.3-5.1); Sodium 139 mmol/L (135-145)
[2024-04-05 06:13] LABS: Glucose, Whole Blood 84 mg/dL (60-115)
--- NOTE | 2024-04-05 06:31 | PC.NURSE ---
Pt c/o 9/10 pain in L-lower back. medicated with PRN morphine. POC 84, insulin held at this time, Pt remains NPO.
--- NOTE | 2024-04-05 07:27 | MHC.EDTECH ---
Patient refuse POC . RN aware
--- NOTE | 2024-04-05 07:31 | PC.NURSE ---
pt refused for POC to be obtained by tech.
[2024-04-05] MEDS: 0.9 % Sodium Chloride Flush 3 ML SYRINGE IVFLUSH ×3 (08:09→23:38)
--- NOTE | 2024-04-05 09:35 | P.CNUR_ITS ---
History of Present Illness Consult details Consult date: 04/05/24 Narrative: 28-year-old male with pertinent history of kidney stones, has been seen by Dr. Gandhi in the past; bipolar disorder, hypertension, xaf-ufgirrk-ibczufwob diabetes mellitus, epilepsy, mixed hyperlipidemia who presents to the emergency department for evaluation of left flank pain. CTAP -4 mm left proximal ureteral stone. Review of Systems 2 Review of Systems: Yes all other systems are reviewed and are negative Constitutional: Constitutional: Reports no additional constitutional complaints Eyes: Eyes: Reports no additional eye complaints ENT: Reports system reviewed and no additional complaints, except as documented Cardiovascular: Cardiovascular: Reports no additional cardiovascular complaints Respiratory: Respiratory: Reports no additional respiratory complaints Gastrointestinal: Gastrointestinal: Reports no additional gastrointestinal complaints Genitourinary: Genitourinary: Reports as per HPI Musculoskeletal: Musculoskeletal: Reports no additional musculoskeletal complaints Integumentary/Breasts: Skin/Breast: Reports system reviewed and no additional complaints, except as docu Neurologic: Reports system reviewed and no additional complaints, except as documented Psychiatric: Psychiatric: Reports no additional psychiatric complaints Endocrine: Endocrine: Reports no additional endocrine complaints Hematologic/Lymphatic: Hematologic/Lymphatic: Reports no additional hematologic/lymphatic complaints Allergic/Immunologic: Allergic/Immunologic: Reports no additional allergic/immunologic complaints PMFSH Past Medical History Medical History Renal calculi Balanitis Essential hypertension Non-rheumatic mitral regurgitation Bipolar 1 disorder ADHD Seizure OCD (obsessive compulsive disorder) Anxiety Depression Autism Diabetes mellitus Family History Family History Father Diabetes HTN (hypertension) Mother Diabetes HTN (hypertension) Surgical History Surgical History No pertinent past surgical history Social History Social History Household Members: Family Housing: House Do you presently have visiting nurse or other home services: No Alcohol intake: never Patient Tobacco Use Status: Never used Tobacco Smoked in Last 30 Days: No Second Hand Smoke Exposure: No Use of substances other than those prescribed or required for medical reasons: No Advance Directives: No Advance Directives Information Provided: No Do you have a plan to hurt others: No Plan Nutrition Risks: No Nutritional Risk service: No Current occupational status: disabled Sexual orientation: Don't Know Meds Allergies Allergy/AdvReac Type Severity Reaction Status Date / Time amlodipine [AMLODIPINE] Allergy Intermediate SEIZURE Verified 04/04/24 19:47 escitalopram [From LEXAPRO] Allergy Intermediate SEIZURE Verified 04/04/24 19:47 fluoxetine [Prozac] Allergy Unknown Hives Verified 04/04/24 19:47 olanzapine [From ZYPREXA] Allergy Unknown AGITATION Verified 04/04/24 19:47 Active Medications: Current Medications Acetaminophen (Acetaminophen 325 Mg Tablet) 650 mg PO Q6H PRN PRN Reason: Pain, Mild (Pain Scale 1-3), fever or headache Calcium Carbonate (Calcium Carbonate 750 Mg Tab.Chew) 750 mg PO Q4H PRN PRN Reason: Heartburn Glucose (Glucose Gel 15 Gm Gel..Gram.) 15 gm PO Q15M PRN; Protocol PRN Reason: per Hypoglycemia Standing Ord. Dextrose (D10) 250 mls @ 750 mls/hr IV Q15M PRN; Protocol PRN Reason: per Hypoglycemia Standing Ord. Insulin Human Lispro (Insulin Lispro 100 Unit/Ml 3 Ml Vial) 0 unit SUBCUT Q6H MASSIEL; Protocol Last Admin: 04/05/24 06:29 Dose: Not Given Magnesium Hydroxide (Milk Of Magnesia 30 Ml Oral.Susp) 30 ml PO DAILY PRN PRN Reason: Constipation Melatonin (Melatonin 3 Mg Tablet) 6 mg PO BEDTIME PRN PRN Reason: Insomnia Last Admin: 04/05/24 02:00 Dose: 6 mg Morphine Sulfate (Morphine Sulfate 4 Mg/Ml Cartridge) 4 mg IVPUSH Q4H PRN; Protocol PRN Reason: Pain, Severe (Pain Scale 7-10) Last Admin: 04/05/24 06:02 Dose: 4 mg Ondansetron HCl (Ondansetron Hcl 4 Mg/2 Ml Vial) 4 mg IVPUSH Q8H PRN PRN Reason: Nausea and Vomiting Last Admin: 04/05/24 03:46 Dose: 4 mg Sodium Chloride (0.9 % Sodium Chloride Flush 3 Ml Syringe) 3 ml IVFLUSH [facility] Last Admin: 04/05/24 08:09 Dose: 3 ml Home Medications ?Medication ?Instructions ?Recorded ?Confirmed ?Last Taken ?Type cholecalciferol (vitamin D3) 50 50 mcg PO QAM 10/24/20 11/04/23 Unknown History mcg (2,000 unit) tablet clonidine HCl 0.2 mg tablet 0.2 mg PO DAILY PRN anxiety 10/24/20 11/04/23 Unknown History lisinopril 20 1 tab PO QAM 10/24/20 11/04/23 Unknown History mg-hydrochlorothiazide 25 mg tablet melatonin 5 mg tablet 5 mg PO BEDTIME 10/24/20 11/04/23 Unknown History simvastatin 10 mg tablet 10 mg PO QAM 10/24/20 11/04/23 Unknown History omeprazole 20 mg capsule,delayed 20 mg PO DAILY 07/19/21 11/04/23 Unknown History release metformin 500 mg tablet,extended 500 mg PO DAILY 01/15/22 11/04/23 Unknown History release 24 hr polyethylene glycol 3350 17 17 g PO BID PRN constipation 05/07/22 11/04/23 Unknown History gram/dose oral powder potassium citrate 10 mEq (1,080 1 tab PO QID 08/03/22 11/04/23 Unknown History mg) tablet,extended release chlorhexidine gluconate 0.12 % 20 ml PO BID 10/07/22 11/04/23 Unknown History mouthwash quetiapine 100 mg tablet 100 mg PO BID 04/05/24 Unknown History Physical Exam 2 Vital Signs: Vital Signs: Last Vital Signs Temp 99.0 F 04/05/24 07:25 Pulse 74 04/05/24 07:25 Resp 12 04/05/24 07:25 BP 123/65 04/05/24 07:25 Pulse Ox 98 04/05/24 07:25 O2 Del Method Room Air 04/05/24 07:25 BMI result Body Mass Index 32.8 Results Labs 04/05/24 04:28 04/05/24 04:28 Labs: Abnormal lab results 04/04/24 04/04/24 04/05/24 Range/Units 19:53 20:05 04:28 WBC 11.2 H 11.8 H (4.8-10.8) X10*3/uL RBC 4.39 L 4.44 L (4.60-5.80) X10*6/uL Hgb 13.2 L 13.1 L (14.0-18.0) g/dl Hct 37.1 L 38.7 L (42.0-52.0) % Lymph % (Auto) 18.7 L (20-40) % [place] % (Auto) 12.4 H (2-11) % [place] # (Auto) 1.5 H (0.1-1.2) X10*3/uL Abs Immat Gran (auto) 0.04 H (0.00-0.03) X10*3/uL Potassium 3.1 L (3.3-5.1) mmol/L Chloride 109 H 111 H (96-108) mmol/L Carbon Dioxide 21 L 18 L (22-29) mmol/L Creatinine 1.52 H (0.5-1.4) mg/dL Random Glucose 120 H (60-115) mg/dL Urine Blood Trace H (Negative) Urine Nitrite Positive H (Negative) Short CBC 04/04/24 04/05/24 Range/Units 19:53 04:28 WBC 11.2 H 11.8 H (4.8-10.8) X10*3/uL Hgb 13.2 L 13.1 L (14.0-18.0) g/dl Hct 37.1 L 38.7 L (42.0-52.0) % Plt Count 222 216 (160-400) X10*3/uL BMP 04/04/24 04/05/24 19:53 04:28 Sodium 139 139 Potassium 3.1 L 3.9 D Chloride 109 H 111 H Carbon Dioxide 21 L 18 L BUN 13 12 Creatinine 1.52 H 1.33 Calcium 9.8 9.5 Liver Function 04/04/24 Range/Units 19:53 Total Bilirubin 0.8 (0.0-1.0) mg/dL AST 15 (5-37) U/L ALT 19 (0-40) U/L Alkaline Phosphatase 69 (39-117) U/L Albumin 4.6 (3.5-5.0) g/dL Urine 04/04/24 Range/Units 20:05 Urine Color Dark Yellow Urine Appearance Clear Urine pH 6.5 (5.0-9.0) Ur Specific [place] <= 1.005 (1.005-1.025) Urine Protein Negative (Neg-Trace) mg/dL Urine Glucose (UA) Negative (Negative) mg/dL Imaging Additional studies: Date of Service: 04/02/24 Procedure(s): CT abdomen pelvis wo IV con Accession Number(s): [id number] cc: Sharon Castillo~ EXAMINATION: CT ABDOMEN AND PELVIS WITHOUT CONTRAST CLINICAL INFORMATION: Flank pain. COMPARISON: CT abdomen pelvis dated October 12, 2023. TECHNIQUE: Multidetector volumetric imaging was performed from the superior aspect of the liver through the pubic symphysis. Sagittal and coronal reformatted images were obtained on the technologist's workstation. This CT examination was performed using dose optimization techniques as appropriate, variously including the following: *Automated exposure control *Adjustment of mA and/or kV according to patient size (this includes techniques or standardized protocols for targeted exams where dose is matched to indication/reason for exam; i.e. extremities or head) *Use of iterative reconstruction technique DLP: 599 mGy-cm FINDINGS: LUNG BASES: The visualized lung bases are unremarkable. LIVER, GALLBLADDER, AND BILIARY TREE: The liver is normal in size, shape, and attenuation. No focal hepatic lesion or biliary ductal dilatation is present. The gallbladder is unremarkable with no evidence of radiopaque gallstones, gallbladder wall thickening, or obvious pericholecystic inflammatory changes. PANCREAS: Unremarkable. SPLEEN: Unremarkable. ADRENAL GLANDS: Unremarkable. KIDNEYS AND URETERS: Right side: The right kidney is normal in size, shape, and attenuation. No hydronephrosis, hydroureter, or calculi seen. No perinephric stranding. Left side: There is a 4 mm calculus within the proximal left ureter resulting in mild left-sided hydroureter and left-sided caliectasis. The calculus is at the level of the mid aspect of the L4 vertebral body. There is a 7 mm calculus or conglomeration of small calculi within the lower pole of the left kidney. No appreciable perinephric stranding. BLADDER: The urinary bladder is partially distended with urine. It demonstrates significant mural thickening. Correlation with urinalysis is recommended. GASTROINTESTINAL TRACT: The small and large bowel are unremarkable. The appendix is unremarkable. ABDOMINAL WALL: No significant hernia is appreciated. LYMPH NODES: There are multiple subcentimeter retroperitoneal lymph nodes, particularly on the left. VASCULAR: No abdominal aortic aneurysm. PELVIC VISCERA: Unremarkable. OSSEOUS STRUCTURES: Unremarkable. IMPRESSION: There is a 4 mm calculus within the proximal left ureter resulting in mild left-sided hydroureter and left-sided caliectasis. The calculus is at the level of the mid aspect of the L4 vertebral body. There is a 7 mm calculus or conglomeration of small calculi within the lower pole of the left kidney. No appreciable perinephric stranding. The urinary bladder is partially distended. It demonstrates significant mural thickening. Correlation with urinalysis is recommended. Assessment and Plan (1) Ureteral stone: Status: Acute (2) Left flank pain: Status: Acute (3) Hydronephrosis: Status: Acute Plan Continue NPO. For cystoscopy ureteral stent Procedures Date of Service Date of Service: 04/05/24
[2024-04-05 12:05] LABS: Glucose, Whole Blood 84 mg/dL (60-115)
--- NOTE | 2024-04-05 12:51 | PC.NURSE ---
RN to RN phone report given to SSS, all questions answered, patient to go to OR ~1600 per RN.
--- NOTE | 2024-04-05 12:58 | MHC.CM.PN ---
PT LIVES WITH HIUS FAMILY AND A 24 HR INTERMEDIATE TEACHER PROVIDED THRU [employer] PT ALSO RECEUVES SERVIES THRU DDS ,PT WILL MAKE HIS WON TRANSPORTAION ARRANGENTS WHEN DCD
[2024-04-05] MEDS: ceFAZolin Sodium/Dextrose,Iso 2 GM/50 ML PIGGYBACK IV (14:00)
--- NOTE | 2024-04-05 14:09 | PHA.MEDREC ---
Pharmacy Consult ? Medication Reconciliation Attempted to speak to patient but he stated he does not know what he is taking for medications and this morning he said his mom might be able to help, I called and left a Voice Mail @[phone] to have the patient mom call us and after a few hours of nothing, I spoke back to the patient and asked if his mom was working at all and the patient states His mom is injured and wont be able to help but he states his brother Grayson is his customer care specialist and know his medications but might not answer right now because he is currently working and will not be out till later. I called the brother and left voicemail to call back at [phone]
--- NOTE | 2024-04-05 14:24 | PHA.MEDREC ---
Addendum entered by Marissa Lucero [facility] 04/05/24 19:00: Med rec was reviewed by [facility]. Addendum entered by Kalli Berger 04/05/24 18:31: Following up from morning staff. Called patients broth Grayson again with now answer. Utilized claims to confirm some medications . If Brother or Mother call back will update med rec. Original Note: Pharmacy Consult ? Medication Reconciliation Attempted to speak to patient but he stated he does not know what he is taking for medications and this morning he said his mom might be able to help, I called and left a Voice Mail @[phone] to have the patient mom call us and after a few hours of nothing, I spoke back to the patient and asked if his mom was working at all and the patient states His mom is injured and wont be able to help but he states his brother Grayson is his caretaker grounds and know his medications but might not answer right now because he is currently working and will not be out till later. I called the brother and left voicemail to call back at [phone]. Will have changing staff follow up this afternoon.
--- NOTE | 2024-04-05 14:26 | HO.PM.IMPN ---
Subjective Subjective Date of Service: 04/05/24 Interval History: Acute obstructive uropathy with hydroureter in the setting of nephrolithiasis Review of Systems has left flank pain on/off no fevers Physical Exam Vital Signs: Vital Signs: Last Vital Signs Temp 98.6 F 04/05/24 12:48 Pulse 78 04/05/24 12:48 Resp 16 04/05/24 12:48 BP 126/68 04/05/24 12:48 Pulse Ox 98 04/05/24 12:48 O2 Del Method Room Air 04/05/24 12:48 BMI result Body Mass Index 32.8 Neck supple, no JVD cvs:Regular rate and rhythm, S1-S2 heard chest:Regular breath sounds bilaterally, no wheezing or crackles appreciated abd:Abdomen with left-sided CVA tenderness, no guarding, no rigidity neuro:Patient is awake, alert and oriented to self, place, time and person ,no focal motor deficit Psych: Normal mood. Objective Data Active Medications Acetaminophen (Acetaminophen 325 Mg Tablet) 650 mg PO Q6H PRN PRN Reason: Pain, Mild (Pain Scale 1-3), fever or headache Calcium Carbonate (Calcium Carbonate 750 Mg Tab.Chew) 750 mg PO Q4H PRN PRN Reason: Heartburn Docusate Sodium (Docusate Sodium 100 Mg Capsule) 100 mg PO BEDTIME MASSIEL Glucose (Glucose Gel 15 Gm Gel..Gram.) 15 gm PO Q15M PRN; Protocol PRN Reason: per Hypoglycemia Standing Ord. Dextrose (D10) 250 mls @ 750 mls/hr IV Q15M PRN; Protocol PRN Reason: per Hypoglycemia Standing Ord. Insulin Human Lispro (Insulin Lispro 100 Unit/Ml 3 Ml Vial) 0 unit SUBCUT Q6H MASSIEL; Protocol Last Admin: 04/05/24 12:01 Dose: Not Given Documented By: RUTHIE Non-Admin Reason: No Insulin Coverage Magnesium Hydroxide (Milk Of Magnesia 30 Ml Oral.Susp) 30 ml PO DAILY PRN PRN Reason: Constipation Melatonin (Melatonin 3 Mg Tablet) 6 mg PO BEDTIME PRN PRN Reason: Insomnia Last Admin: 04/05/24 02:00 Dose: 6 mg Documented By: ROQUE Morphine Sulfate (Morphine Sulfate 4 Mg/Ml Cartridge) 4 mg IVPUSH Q4H PRN; Protocol PRN Reason: Pain, Severe (Pain Scale 7-10) Last Admin: 04/05/24 10:44 Dose: 4 mg Documented By: NOLA Ondansetron HCl (Ondansetron Hcl 4 Mg/2 Ml Vial) 4 mg IVPUSH Q8H PRN PRN Reason: Nausea and Vomiting Last Admin: 04/05/24 03:46 Dose: 4 mg Documented By: ROQUE Oxycodone HCl (Oxycodone Hcl Immed Release 5 Mg Tablet) 5 mg PO Q4H PRN PRN Reason: Pain, Moderate(Pain Scale 4-6) Polyethylene Glycol (Polyethylene Glycol 3350 17 Gm Powd.Pack) 17 gm PO DAILY [facility] Last Admin: 04/05/24 10:05 Dose: Not Given Documented By: NOLA Non-Admin Reason: NPO Sodium Chloride (0.9 % Sodium Chloride Flush 3 Ml Syringe) 3 ml IVFLUSH QSHIFT [facility] Last Admin: 04/05/24 08:09 Dose: 3 ml Documented By: NOLA Labs 04/05/24 04:28 04/05/24 04:28 Labs: Laboratory Results - last 24 hr 04/04/24 04/04/24 04/05/24 19:53 20:05 01:03 MCV 84.5 MCH 30.1 MCHC 35.6 RDW 12.7 Plt Count 222 MPV 10.3 Immature Gran % (Auto) 0.4 Neut % (Auto) 70.7 Lymph % (Auto) 18.7 L [place] % (Auto) 9.3 Eos % (Auto) 0.6 Baso % (Auto) 0.3 Lymph # (Auto) 2.1 [place] # (Auto) 1.0 Eos # (Auto) 0.1 Baso # (Auto) 0.0 Abs Immat Gran (auto) 0.04 H Absolute Neuts (auto) 7.9 Absolute Nucleated RBC 0.000 Nucleated RBC % (auto) 0.0 Anion Gap 12 Estim Creat Clear Calc 75.6 Estimated GFR 56 POC Glucose 80 Random Glucose 120 H Calcium 9.8 Magnesium 1.8 Total Bilirubin 0.8 AST 15 ALT 19 Alkaline Phosphatase 69 Total Protein 7.8 Albumin 4.6 Urine Color Dark Yellow Urine Appearance Clear Urine pH 6.5 Ur Specific [place] <= 1.005 Urine Protein Negative Urine Glucose (UA) Negative Urine Ketones Trace Urine Blood Trace H Urine Nitrite Positive H Ur Leukocyte Esterase Negative Urine RBC 0-2 Urine WBC 0-5 Ur Squamous Epith Cells 0-2 Urine Bacteria None Seen Hyaline Casts 0-2 04/05/24 04/05/24 04/05/24 04:28 06:09 11:57 MCV 87.2 MCH 29.5 MCHC 33.9 RDW 12.8 Plt Count 216 MPV 10.6 Immature Gran % (Auto) 0.3 Neut % (Auto) 65.2 Lymph % (Auto) 20.9 [place] % (Auto) 12.4 H Eos % (Auto) 0.8 Baso % (Auto) 0.4 Lymph # (Auto) 2.5 [place] # (Auto) 1.5 H Eos # (Auto) 0.1 Baso # (Auto) 0.1 Abs Immat Gran (auto) 0.03 Absolute Neuts (auto) 7.7 Absolute Nucleated RBC 0.000 Nucleated RBC % (auto) 0.0 Anion Gap 14 Estim Creat Clear Calc 86.4 Estimated GFR > 60 POC Glucose 84 84 Random Glucose 95 Calcium 9.5 Magnesium Total Bilirubin AST ALT Alkaline Phosphatase Total Protein Albumin Urine Color Urine Appearance Urine pH Ur Specific [place] Urine Protein Urine Glucose (UA) Urine Ketones Urine Blood Urine Nitrite Ur Leukocyte Esterase Urine RBC Urine WBC Ur Squamous Epith Cells Urine Bacteria Hyaline Casts Microbiology Microbiology Results: Microbiology 04/04/24 20:05 Urine Culture - Preliminary Urine clean catch - Clean Catch Midstream No growth to date. Assessment and Plan (1) Left flank pain: Status: Acute Assessment and Plan: 28-year-old male with pertinent history of bipolar disorder, hypertension, bke-awmifro-yawryicha diabetes mellitus, epilepsy, mixed hyperlipidemia who presents to the emergency department for evaluation of left flank pain. Acute obstructive uropathy with hydroureter in the setting of nephrolithiasis: npo intractable pain and failure of outpatient p.o. analgesics. pain somewhat improving plan: continue flomax.ivf and iv morphine and oxycodone prn EVAN : s/p ivf moniter bmp, Avoid NSAIDs and nephrotoxins. Hypokalemia: Repleted Bipolar disorder: Continue home mood stabilizers Epilepsy: On topiramate and clonazepam p.r.n. Mixed hyperlipidemia: On statin Rne-xgvybez-lxchantgr diabetes mellitus: Hold metformin. Initiating Accu-Cheks with sliding scale insulin DVT prophylaxis: None. Low risk and patient is ambulatory . ongoing inpatient need - hospital stay for IV analgesia, monitoring of kidney function (as above), urology eval for stent placement . Quality Stroke Does the patient have a stroke diagnosis?: No VTE Prior VTE?: No VTE Risk Level:: Medical - low VTE Device Contraindication: Treatment Not Indicated VTE Drug Contraindication: Treatment Not Indicated
--- NOTE | 2024-04-05 15:14 | PC.NURSE ---
Patient advocate called, patient called advocate requesting something to calm him down primary RN Jackie at bedside giving patient pain RX. Explained to advocate patient is probably upset that his room was switched, patient will be going up to surgery within the hour, patient will get sedation before surgery. Jackie made aware of conversation.
--- NOTE | 2024-04-05 17:43 | MHC.SHP ---
Pre-Procedural Eval Section A - 24 Hr Update-Section A only Date of Service: 04/05/24 The patient is an INPATIENT: Yes Changes since office visit: No Cold of Flu in the past 2 weeks, No New Medical Problems, No Changes in Medication and No Patient answered all questions The patient has been examined within 24 hours of the surgical procedure. The History & Physical has been completed within 30 days and I have reviewed it.: Yes Section B - Complete if H&P > 30 days Chief Complaint: Abdominal pain Details of Present Illness: Cystoscopy, left retrograde, left stent placement Allergies: Allergies Allergy/AdvReac Type Severity Reaction Status Date / Time amlodipine [AMLODIPINE] Allergy Intermediate SEIZURE Verified 04/04/24 19:47 escitalopram [From LEXAPRO] Allergy Intermediate SEIZURE Verified 04/04/24 19:47 fluoxetine [Prozac] Allergy Unknown Hives Verified 04/04/24 19:47 olanzapine [From ZYPREXA] Allergy Unknown AGITATION Verified 04/04/24 19:47 Plan Diagnosis/Plan: Unchanged I have reviewed the history and physical and performed a pertinent physical examination on my patient. No changes have occurred unless specified. Time Spent With Patient Time: Total time managing care of this patient today ____ minutes.
[2024-04-05 17:52] LABS: Glucose, Whole Blood 71 mg/dL (60-115)
--- NOTE | 2024-04-05 18:27 | P.OP_ITS ---
Operative Note Operative Note Date of Service: 04/05/24 Narrative: PreOperative Diagnosis: Left mid ureteric stone with hydro uretero nephrosis Post Operative Diagnosis: Left mid ureteric stone with hydroureteronephrosis Procedure: Cystoscopy, left retrograde, left stent placement Surgeon: Dr Ruben Gandhi Anesthesia: Sedation Indications for procedure: Obstructing left mid ureteric stone Procedure: After informed consent was verified the patient was brought to the operating room and placed in a supine position. Anesthesia was administered per protocol. The patient was placed in modified dorsal lithotomy position and prepped and draped in a sterile fashion. A safety pause time-out was performed. Laterality of procedure and antibiotics were confirmed, appropriate imaging was available A 22 [place] cystoscope was introduced per urethra. No abnormality was noted of urethra or bladder. Both ureteric orifices were seen in a normal position. The left ureter was cannulated with an open ended catheter and a retrograde examination was performed. Filling defects seen a junction between mid and proximal ureter . A Sensor guidewire was placed under fluoroscopy and a good coil was seen within the renal pelvis. Postobstructive hydronephrotic drip seen with debris ejected from ureteric orifice around wire. A 6 [place] by 24 cm double J stent was advanced over the wire and up to the level of the renal pelvis under fluoroscopic and direct visualization. The stent was seen with appropriate coil within the renal pelvis and in the bladder after deployment. The patient tolerated the procedure well and was transferred in a stable condition to the recovery area. Pathology: Drains: Six [place] by 24 cm stent
--- NOTE | 2024-04-05 18:50 | P.CONAN_ITS ---
[facility] Active Problems Active Problems: All Active Problems Hydronephrosis (Acute) Left flank pain (Acute) Ureteral stone (Acute) Acute unilateral obstructive uropathy (Acute) Bipolar disorder (Acute) Urinary urgency (Acute) Urinary retention with incomplete bladder emptying (Acute) Sleep disorder, unspecified (Acute) Excessive daytime sleepiness (Acute) Snoring (Acute) History of obstructive sleep apnea (Acute) Autistic disorder of childhood onset (Acute) Epilepsy (Acute) Renal calculi (Acute) Balanitis (Acute) Essential hypertension (Acute) Non-rheumatic mitral regurgitation (Acute) Past Medical History Medical History Renal calculi Balanitis Essential hypertension Non-rheumatic mitral regurgitation Bipolar 1 disorder ADHD Seizure OCD (obsessive compulsive disorder) Anxiety Depression Autism Diabetes mellitus Family History Family History Father Diabetes HTN (hypertension) Mother Diabetes HTN (hypertension) Family history of problems with anesthesia: No Surgical History Surgical History No pertinent past surgical history History of Problems with Anesthesia: No Social History Social History Household Members: Family Housing: House Do you presently have visiting nurse or other home services: No Alcohol intake: never Patient Tobacco Use Status: Never used Tobacco Second Hand Smoke Exposure: No service: No Current occupational status: disabled Sexual orientation: Don't Know Meds Allergies Allergy/AdvReac Type Severity Reaction Status Date / Time amlodipine [AMLODIPINE] Allergy Intermediate SEIZURE Verified 04/04/24 19:47 escitalopram [From LEXAPRO] Allergy Intermediate SEIZURE Verified 04/04/24 19:47 fluoxetine [Prozac] Allergy Unknown Hives Verified 04/04/24 19:47 olanzapine [From ZYPREXA] Allergy Unknown AGITATION Verified 04/04/24 19:47 Active Medications: Current Medications Acetaminophen (Acetaminophen 325 Mg Tablet) 650 mg PO Q6H PRN PRN Reason: Pain, Mild (Pain Scale 1-3), fever or headache Calcium Carbonate (Calcium Carbonate 750 Mg Tab.Chew) 750 mg PO Q4H PRN PRN Reason: Heartburn Docusate Sodium (Docusate Sodium 100 Mg Capsule) 100 mg PO BEDTIME [facility] Glucose (Glucose Gel 15 Gm Gel..Gram.) 15 gm PO Q15M PRN; Protocol PRN Reason: per Hypoglycemia Standing Ord. Dextrose (D10) 250 mls @ 750 mls/hr IV Q15M PRN; Protocol PRN Reason: per Hypoglycemia Standing Ord. Insulin Human Lispro (Insulin Lispro 100 Unit/Ml 3 Ml Vial) 0 unit SUBCUT Q6H S ; Protocol Last Admin: 04/05/24 12:01 Dose: Not Given Magnesium Hydroxide (Milk Of Magnesia 30 Ml Oral.Susp) 30 ml PO DAILY PRN PRN Reason: Constipation Melatonin (Melatonin 3 Mg Tablet) 6 mg PO BEDTIME PRN PRN Reason: Insomnia Last Admin: 04/05/24 02:00 Dose: 6 mg Morphine Sulfate (Morphine Sulfate 4 Mg/Ml Cartridge) 4 mg IVPUSH Q4H PRN; Protocol PRN Reason: Pain, Severe (Pain Scale 7-10) Last Admin: 04/05/24 15:03 Dose: 4 mg Ondansetron HCl (Ondansetron Hcl 4 Mg/2 Ml Vial) 4 mg IVPUSH Q8H PRN PRN Reason: Nausea and Vomiting Last Admin: 04/05/24 15:03 Dose: 4 mg Oxycodone HCl (Oxycodone Hcl Immed Release 5 Mg Tablet) 5 mg PO Q4H PRN PRN Reason: Pain, Moderate(Pain Scale 4-6) Oxycodone HCl (Oxycodone Hcl Immed Release 5 Mg Tablet) 5 mg PO Q4H PRN PRN Reason: Pain, Mild (Pain Scale 1-3) Polyethylene Glycol (Polyethylene Glycol 3350 17 Gm Powd.Pack) 17 gm PO DAILY [facility] Last Admin: 04/05/24 10:05 Dose: Not Given Sodium Chloride (0.9 % Sodium Chloride Flush 3 Ml Syringe) 3 ml IVFLUSH [facility]SHICHI [facility] Last Admin: 04/05/24 15:04 Dose: 3 ml Home Medications ?Medication ?Instructions ?Recorded ?Confirmed ?Last Taken ?Type cholecalciferol (vitamin D3) 50 50 mcg PO QAM 10/24/20 11/04/23 Unknown History mcg (2,000 unit) tablet lisinopril 20 1 tab PO DAILY 10/24/20 04/05/24 Unknown History mg-hydrochlorothiazide 25 mg tablet melatonin 5 mg tablet 5 mg PO BEDTIME 10/24/20 11/04/23 Unknown History simvastatin 10 mg tablet 10 mg PO DAILY 10/24/20 04/05/24 Unknown History omeprazole 20 mg capsule,delayed 20 mg PO DAILY@0630 07/19/21 04/05/24 Unknown History release metformin 500 mg tablet,extended 500 mg PO DAILY 01/15/22 04/05/24 Unknown History release 24 hr polyethylene glycol 3350 17 17 g PO BID PRN constipation 05/07/22 11/04/23 Unknown History gram/dose oral powder potassium citrate 10 mEq (1,080 10 meq PO QID 08/03/22 04/05/24 Unknown History mg) tablet,extended release chlorhexidine gluconate 0.12 % 20 ml PO BID 10/07/22 11/04/23 Unknown History mouthwash clonidine HCl 0.1 mg tablet 0.1 mg PO BID@0800,1200 04/05/24 04/05/24 Unknown History clonidine HCl 0.1 mg tablet 0.1 mg PO DAILY PRN Anxiety 04/05/24 04/05/24 Unknown History quetiapine 100 mg tablet 100 mg PO BID 04/05/24 04/05/24 Unknown History Exam Height,Weight and Vital Signs: Height 5 ft 5 in Weight 89.3 kg Last Vital Signs Temp 97.2 F 04/05/24 18:46 Pulse 80 04/05/24 18:46 Resp 15 04/05/24 18:46 BP 107/64 04/05/24 18:46 Pulse Ox 97 04/05/24 18:46 O2 Del Method Nasal Cannula 04/05/24 18:46 O2 Flow Rate 2 04/05/24 18:46 Pertinent Lab Results Pertinent Lab Results: Laboratory Tests 04/04/24 04/04/24 04/05/24 19:53 20:05 01:03 WBC 11.2 H RBC 4.39 L Hgb 13.2 L Hct 37.1 L MCV 84.5 MCH 30.1 MCHC 35.6 RDW 12.7 Plt Count 222 MPV 10.3 Immature Gran % (Auto) 0.4 Neut % (Auto) 70.7 Lymph % (Auto) 18.7 L [place] % (Auto) 9.3 Eos % (Auto) 0.6 Baso % (Auto) 0.3 Lymph # (Auto) 2.1 [place] # (Auto) 1.0 Eos # (Auto) 0.1 Baso # (Auto) 0.0 Abs Immat Gran (auto) 0.04 H Absolute Neuts (auto) 7.9 Absolute Nucleated RBC 0.000 Nucleated RBC % (auto) 0.0 Sodium 139 Potassium 3.1 L Chloride 109 H Carbon Dioxide 21 L Anion Gap 12 BUN 13 Creatinine 1.52 H Estim Creat Clear Calc 75.6 Estimated GFR 56 POC Glucose 80 Random Glucose 120 H Calcium 9.8 Magnesium 1.8 Total Bilirubin 0.8 AST 15 ALT 19 Alkaline Phosphatase 69 Total Protein 7.8 Albumin 4.6 Urine Color Dark Yellow Urine Appearance Clear Urine pH 6.5 Ur Specific [place] <= 1.005 Urine Protein Negative Urine Glucose (UA) Negative Urine Ketones Trace Urine Blood Trace H Urine Nitrite Positive H Ur Leukocyte Esterase Negative Urine RBC 0-2 Urine WBC 0-5 Ur Squamous Epith Cells 0-2 Urine Bacteria None Seen Hyaline Casts 0-2 04/05/24 04/05/24 04/05/24 04:28 06:09 11:57 WBC 11.8 H RBC 4.44 L Hgb 13.1 L Hct 38.7 L MCV 87.2 MCH 29.5 MCHC 33.9 RDW 12.8 Plt Count 216 MPV 10.6 Immature Gran % (Auto) 0.3 Neut % (Auto) 65.2 Lymph % (Auto) 20.9 [place] % (Auto) 12.4 H Eos % (Auto) 0.8 Baso % (Auto) 0.4 Lymph # (Auto) 2.5 [place] # (Auto) 1.5 H Eos # (Auto) 0.1 Baso # (Auto) 0.1 Abs Immat Gran (auto) 0.03 Absolute Neuts (auto) 7.7 Absolute Nucleated RBC 0.000 Nucleated RBC % (auto) 0.0 Sodium 139 Potassium 3.9 D Chloride 111 H Carbon Dioxide 18 L Anion Gap 14 BUN 12 Creatinine 1.33 Estim Creat Clear Calc 86.4 Estimated GFR > 60 POC Glucose 84 84 Random Glucose 95 Calcium 9.5 Magnesium Total Bilirubin AST ALT Alkaline Phosphatase Total Protein Albumin Urine Color Urine Appearance Urine pH Ur Specific [place] Urine Protein Urine Glucose (UA) Urine Ketones Urine Blood Urine Nitrite Ur Leukocyte Esterase Urine RBC Urine WBC Ur Squamous Epith Cells Urine Bacteria Hyaline Casts 04/05/24 17:48 WBC RBC Hgb Hct MCV MCH MCHC RDW Plt Count MPV Immature Gran % (Auto) Neut % (Auto) Lymph % (Auto) [place] % (Auto) Eos % (Auto) Baso % (Auto) Lymph # (Auto) [place] # (Auto) Eos # (Auto) Baso # (Auto) Abs Immat Gran (auto) Absolute Neuts (auto) Absolute Nucleated RBC Nucleated RBC % (auto) Sodium Potassium Chloride Carbon Dioxide Anion Gap BUN Creatinine Estim Creat Clear Calc Estimated GFR POC Glucose 71 Random Glucose Calcium Magnesium Total Bilirubin AST ALT Alkaline Phosphatase Total Protein Albumin Urine Color Urine Appearance Urine pH Ur Specific [place] Urine Protein Urine Glucose (UA) Urine Ketones Urine Blood Urine Nitrite Ur Leukocyte Esterase Urine RBC Urine WBC Ur Squamous Epith Cells Urine Bacteria Hyaline Casts Airway Mallampati Class: II TM Dist: >3cm Neck ROM: Full Assessment and Plan Assessment Anesthesia Assessment: Anesthesia Plan Discussed and Chart Reviewed Final Anesthetic Review Family History of Problems with Anesthesia: No History of Problems with Anesthesia: No NPO: Yes ASA Class: II Final Preanesthetic Review: No Changes in Pt Med Stat, Meds/Allgs Chart Reviewed, Consent Obtained/Reviewed and Anes Risks/Benef Reviewed Patient Risk: Low Procedure Risk: Low Anesthetic Plan Anesthetic Plan: GA Disposition: Standard PACU
--- NOTE | 2024-04-05 19:44 | PM.DS ---
DS: Providers Provider Date of Service: 04/05/24 Date of admission: 04/04/24 22:41 Date of discharge: 04/05/24 Primary care physician: Jens Grigsby MD Consults: 04/04/24 22:42 Consult to Urology Routine Consulting Provider: [facility] [place] Urology Services Reason for consultation: nephrolithiasis DS: Diagnosis Discharge Diagnosis (1) Left flank pain: Status: Acute DS: Summary Hospital Course Hospital Course: Underwent procedure for stone. Stenting performed. Status at Discharge Functional status at discharge: independent ambulation Overall status at discharge: patient is back to baseline Time Attestation Total time managing care of this patient today: 15 mintues. Discharge Coordination Time (in mins): 15 Quality: Safe Use of Opioids Does Pt have an Active Cancer Diagnosis on the Problem List?: No Quality: Stroke Does the patient have a stroke diagnosis?: No Physical Exam Vital Signs: Vital Signs: Last Vital Signs Temp 97.2 F 04/05/24 18:46 Pulse 62 04/05/24 19:31 Resp 14 04/05/24 19:31 BP 114/66 04/05/24 19:31 Pulse Ox 99 04/05/24 19:31 O2 Del Method Room Air 04/05/24 19:31 O2 Flow Rate 2 04/05/24 19:01 BMI result Body Mass Index 32.8 DS: Data Data Completed and Pending Completed studies during hospitalization [Text1]: Cystoscopy, left retrograde, left stent placement Labs on day of discharge: Laboratory Results - last 24 hr 04/04/24 04/04/24 04/05/24 19:53 20:05 01:03 WBC 11.2 H RBC 4.39 L Hgb 13.2 L Hct 37.1 L MCV 84.5 MCH 30.1 MCHC 35.6 RDW 12.7 Plt Count 222 MPV 10.3 Immature Gran % (Auto) 0.4 Neut % (Auto) 70.7 Lymph % (Auto) 18.7 L [place] % (Auto) 9.3 Eos % (Auto) 0.6 Baso % (Auto) 0.3 Lymph # (Auto) 2.1 [place] # (Auto) 1.0 Eos # (Auto) 0.1 Baso # (Auto) 0.0 Abs Immat Gran (auto) 0.04 H Absolute Neuts (auto) 7.9 Absolute Nucleated RBC 0.000 Nucleated RBC % (auto) 0.0 Sodium 139 Potassium 3.1 L Chloride 109 H Carbon Dioxide 21 L Anion Gap 12 BUN 13 Creatinine 1.52 H Estim Creat Clear Calc 75.6 Estimated GFR 56 POC Glucose 80 Random Glucose 120 H Calcium 9.8 Magnesium 1.8 Total Bilirubin 0.8 AST 15 ALT 19 Alkaline Phosphatase 69 Total Protein 7.8 Albumin 4.6 Urine Color Dark Yellow Urine Appearance Clear Urine pH 6.5 Ur Specific [place] <= 1.005 Urine Protein Negative Urine Glucose (UA) Negative Urine Ketones Trace Urine Blood Trace H Urine Nitrite Positive H Ur Leukocyte Esterase Negative Urine RBC 0-2 Urine WBC 0-5 Ur Squamous Epith Cells 0-2 Urine Bacteria None Seen Hyaline Casts 0-2 04/05/24 04/05/24 04/05/24 04:28 06:09 11:57 WBC 11.8 H RBC 4.44 L Hgb 13.1 L Hct 38.7 L MCV 87.2 MCH 29.5 MCHC 33.9 RDW 12.8 Plt Count 216 MPV 10.6 Immature Gran % (Auto) 0.3 Neut % (Auto) 65.2 Lymph % (Auto) 20.9 [place] % (Auto) 12.4 H Eos % (Auto) 0.8 Baso % (Auto) 0.4 Lymph # (Auto) 2.5 [place] # (Auto) 1.5 H Eos # (Auto) 0.1 Baso # (Auto) 0.1 Abs Immat Gran (auto) 0.03 Absolute Neuts (auto) 7.7 Absolute Nucleated RBC 0.000 Nucleated RBC % (auto) 0.0 Sodium 139 Potassium 3.9 D Chloride 111 H Carbon Dioxide 18 L Anion Gap 14 BUN 12 Creatinine 1.33 Estim Creat Clear Calc 86.4 Estimated GFR > 60 POC Glucose 84 84 Random Glucose 95 Calcium 9.5 Magnesium Total Bilirubin AST ALT Alkaline Phosphatase Total Protein Albumin Urine Color Urine Appearance Urine pH Ur Specific [place] Urine Protein Urine Glucose (UA) Urine Ketones Urine Blood Urine Nitrite Ur Leukocyte Esterase Urine RBC Urine WBC Ur Squamous Epith Cells Urine Bacteria Hyaline Casts 04/05/24 17:48 WBC RBC Hgb Hct MCV MCH MCHC RDW Plt Count MPV Immature Gran % (Auto) Neut % (Auto) Lymph % (Auto) [place] % (Auto) Eos % (Auto) Baso % (Auto) Lymph # (Auto) [place] # (Auto) Eos # (Auto) Baso # (Auto) Abs Immat Gran (auto) Absolute Neuts (auto) Absolute Nucleated RBC Nucleated RBC % (auto) Sodium Potassium Chloride Carbon Dioxide Anion Gap BUN Creatinine Estim Creat Clear Calc Estimated GFR POC Glucose 71 Random Glucose Calcium Magnesium Total Bilirubin AST ALT Alkaline Phosphatase Total Protein Albumin Urine Color Urine Appearance Urine pH Ur Specific [place] Urine Protein Urine Glucose (UA) Urine Ketones Urine Blood Urine Nitrite Ur Leukocyte Esterase Urine RBC Urine WBC Ur Squamous Epith Cells Urine Bacteria Hyaline Casts Preliminary micro results at discharge 04/04/24 20:05 Urine Culture - Preliminary Urine clean catch - Clean Catch Midstream No growth to date. Imaging CT scan - abdomen: Attestation: I personally reviewed and interpreted this imaging study as follows: Discharge Plan Discharge Anticipated Discharge Date/Time: 04/05/24 18:31 Patient Disposition: Home, Self-Care Discharge Diagnosis: left ureteric stone with hydronephrosis Referrals: Jens Grigsby MD [Primary Care Provider] - None Discharge Medications: New sulfamethoxazole-trimethoprim [Bactrim DS] 800-160 mg tablet 1 tab PO BID 3 Days Qty: 6 0RF phenazopyridine [Pyridium] 100 mg tablet 100 mg PO TID PRN (Reason: Spasm) 4 Days Qty: 12 0RF naproxen 500 mg tablet 500 mg PO BID PRN (Reason: pain) 7 Days Qty: 14 0RF Continued topiramate 100 mg tablet 200 mg PO BID 30 Days Qty: 120 6RF tamsulosin 0.4 mg capsule 0.4 mg PO BEDTIME 14 Days Qty: 14 0RF naproxen 375 mg tablet 375 mg PO BID 15 Days Qty: 30 0RF potassium citrate 10 mEq (1,080 mg) tablet extended release 10 meq PO TID ondansetron 4 mg tablet,disintegrating 4 mg PO Q6-8H PRN (Reason: nausea and vomiting) Qty: 7 0RF oxycodone 5 mg tablet 5 mg PO Q6H PRN (Reason: pain) Qty: 20 0RF Rx Instructions: Partial Fill upon patient request. quetiapine 100 mg tablet 100 mg PO BID clonidine HCl 0.1 mg tablet 0.1 mg PO BID@0800,1200 PRN (Reason: Anxiety) clonidine HCl 0.1 mg tablet 0.1 mg PO DAILY PRN (Reason: Anxiety) Rx Instructions: TAKE ONE TABLET BY MOUTH TWICE A DAY IN THE MORNINGS AND AFTERNOONS NEEDED. MAY TAKE ONE EXTRA TABLET DAILY IF NEEDED FOR ANXIETY cholecalciferol (vitamin D3) 50 mcg (2,000 unit) tablet 50 mcg PO QAM melatonin 5 mg tablet 5 mg PO BEDTIME simvastatin 10 mg tablet 10 mg PO DAILY metformin 500 mg tablet extended release 24 hr 500 mg PO DAILY omeprazole 20 mg capsule,delayed release(DR/EC) 20 mg PO DAILY@0630 polyethylene glycol 3350 17 gram/dose powder 17 g PO BID PRN (Reason: constipation) allopurinol 100 mg tablet 100 mg PO DAILY 90 Days Qty: 90 1RF chlorhexidine gluconate 0.12 % mouthwash 20 ml PO BID clonazepam 2 mg tablet,disintegrating 2 mg PO ONCE PRN (Reason: seizure lasting > 2 minutes) Qty: 5 2RF No Action lisinopril 20 mg tablet 20 mg PO DAILY pyridoxine (vitamin B6) 50 mg tablet 50 mg PO DAILY Discharge Orders: Discharge Order (Routine); Ordered 04/05/24 Ordered By: Ruben Gandhi Diet: Advance to usual diet Activity on Discharge: As tolerated Stand Alone Forms: Patient Portal Discharge page Print Language: Luxembourgish Care Plan Goals: stone Health Concerns: stone Plan of Treatment: stone Assessment: stone Patient Instructions: Ureteral Stent Placement (DC)
[2024-04-05] MEDS: Docusate Sodium 100 MG CAPSULE PO (21:13)
[2024-04-05] MEDS: oxyCODONE HCl Immed Release 5 MG TABLET PO (23:36)
[2024-04-06 00:46] LABS: Glucose, Whole Blood 148 mg/dL (60-115)
[2024-04-06] MEDS: ondansetron HCL 4 MG/2 ML VIAL IVPUSH (01:55)
[2024-04-06] MEDS: Morphine Sulfate 4 MG/ML CARTRIDGE IVPUSH ×2 (02:36→07:01)
[2024-04-06 04:00] VITALS: BP 140/85; PULSE 61; RESP 18; TEMP 36.7; O2SAT 98
[2024-04-06] MEDS: Calcium Carbonate 750 MG TAB.CHEW PO (04:11)
[2024-04-06] MEDS: Omeprazole 20 MG CAPSULE.DR PO ×2 (04:57→08:23)
[2024-04-06] MEDS: Metoclopramide HCl 10 MG/2 ML VIAL 5 MG IVPUSH (06:09)
[2024-04-06 06:53] VITALS: BP 120/70; PULSE 63; RESP 16; TEMP 36.6; O2SAT 97
[2024-04-06 07:11] LABS: Glucose, Whole Blood 134 mg/dL (60-115)
[2024-04-06] MEDS: lisinopriL 20 MG TABLET PO (08:23)
[2024-04-06] MEDS: allopurinoL 100 MG TABLET PO (08:23)
[2024-04-06] MEDS: Atorvastatin Calcium 10 MG TABLET PO (08:24)
[2024-04-06] MEDS: Topiramate 100 MG TABLET 200 MG PO (08:24)
[2024-04-06] MEDS: metFORMIN HCl ER 500 MG TAB.ER.24H PO (08:24)
[2024-04-06] MEDS: QUEtiapine Fumarate 100 MG TABLET PO (08:24)
--- NOTE | 2024-04-06 09:03 | HO.POSTANES ---
Post Anesthesia Evaluation Post Anesthesia Evaluation Date of Service: 04/06/24 Vital Signs: Vital Signs Temp Pulse Resp BP Pulse Ox O2 Del Method 04/06/24 06:53 97.9 F 63 16 120/70 97 Room Air 04/06/24 04:00 98.0 F 61 18 140/85 H 98 Room Air 04/05/24 23:33 97.0 F 65 16 131/78 98 Room Air Anesthesia: General LMA Mental Status: Awake Pain Control: Satisfactory Nausea/Vomiting: None Hydration: Adequate Anesthesia-Related Issues: No Anes. Related Issues
[2024-04-06] MEDS: Cholecalciferol (Vitamin D3) 25 MCG TABLET 50 MCG PO (09:13)
[2024-04-06] MEDS: cloNIDine HCL 0.1 MG TABLET PO (09:13)
[2024-04-06] MEDS: Pyridoxine HCl (Vitamin B6) 50 MG TABLET PO (09:13)
[2024-04-06] MEDS: 0.9 % Sodium Chloride Flush 3 ML SYRINGE IVFLUSH (09:15)
--- NOTE | 2024-04-06 09:21 | MHC.CM.PN ---
Patient is discharged to home today with resumption of C.G. and family support. Patient has arranged for transportation home.
--- NOTE | 2024-04-06 09:30 | P.PNIM_ITS ---
Subjective Subjective Date of Service: 04/06/24 Interval History: he's reporting 04/06 pain but looks comfortable Physical Exam 2 Vital Signs: Vital Signs: Last Vital Signs Temp 97.9 F 04/06/24 06:53 Pulse 63 04/06/24 06:53 Resp 16 04/06/24 06:53 BP 120/70 04/06/24 06:53 Pulse Ox 97 04/06/24 06:53 O2 Del Method Room Air 04/06/24 06:53 O2 Flow Rate 2 04/05/24 19:01 BMI result Body Mass Index 31.1 Const: Other: General: AO X 3, no acute distress Resp: CTA bilateral CVS: S1,S2,RRR GI: +BS, NT, no distention Skin: No rash Neuro: motor grossly intact Psych: appropriate affect Objective Data Active Medications Acetaminophen (Acetaminophen 325 Mg Tablet) 650 mg PO Q6H PRN PRN Reason: Pain, Mild (Pain Scale 1-3), fever or headache Allopurinol (Allopurinol 100 Mg Tablet) 100 mg PO DAILY [facility] Last Admin: 04/06/24 08:23 Dose: 100 mg Documented By: BRITTANY Atorvastatin Calcium (Atorvastatin Calcium 10 Mg Tablet) 10 mg PO DAILY [facility] Last Admin: 04/06/24 08:24 Dose: 10 mg Documented By: BRITTANY Calcium Carbonate (Calcium Carbonate 750 Mg Tab.Chew) 750 mg PO Q4H PRN PRN Reason: Heartburn Last Admin: 04/06/24 04:11 Dose: 750 mg Documented By: MAI Clonidine HCl (Clonidine Hcl 0.1 Mg Tablet) 0.1 mg PO BID@0800,1200 PRN; Protocol PRN Reason: Anxiety Clonidine HCl (Clonidine Hcl 0.1 Mg Tablet) 0.1 mg PO DAILY PRN; Protocol PRN Reason: Anxiety Last Admin: 04/06/24 09:13 Dose: 0.1 mg Documented By: BRITTANY Docusate Sodium (Docusate Sodium 100 Mg Capsule) 100 mg PO BEDTIME [facility] Last Admin: 04/05/24 21:13 Dose: 100 mg Documented By: MAI Glucose (Glucose Gel 15 Gm Gel..Gram.) 15 gm PO Q15M PRN; Protocol PRN Reason: per Hypoglycemia Standing Ord. Dextrose (D10) 250 mls @ 750 mls/hr IV Q15M PRN; Protocol PRN Reason: per Hypoglycemia Standing Ord. Insulin Human Lispro (Insulin Lispro 100 Unit/Ml 3 Ml Vial) 0 unit SUBCUT Q6H [facility]; Protocol Last Admin: 04/06/24 07:04 Dose: Not Given Documented By: BRITTANY Non-Admin Reason: No Insulin Coverage Lisinopril (Lisinopril 20 Mg Tablet) 20 mg PO DAILY [facility]; Protocol Last Admin: 04/06/24 08:23 Dose: 20 mg Documented By: BRITTANY Magnesium Hydroxide (Milk Of Magnesia 30 Ml Oral.Susp) 30 ml PO DAILY PRN PRN Reason: Constipation Melatonin (Melatonin 3 Mg Tablet) 6 mg PO BEDTIME PRN PRN Reason: Insomnia Last Admin: 04/05/24 02:00 Dose: 6 mg Documented By: ROQUE Metformin HCl (Metformin Hcl Er 500 Mg Tab.Er.24h) 500 mg PO DAILY [facility] Last Admin: 04/06/24 08:24 Dose: 500 mg Documented By: BRITTANY Morphine Sulfate (Morphine Sulfate 4 Mg/Ml Cartridge) 4 mg IVPUSH Q4H PRN; Protocol PRN Reason: Pain, Severe (Pain Scale 7-10) Last Admin: 04/06/24 07:01 Dose: 4 mg Documented By: BRITTANY Naloxone HCl (Naloxone Hcl 0.4 Mg/Ml Vial) 0.04 mg IVPUSH Q5M PRN PRN Reason: Excessive sedation or RR < 8 Non-Formulary Medication (Potassium Citrate) 10 meq PO TID [facility] Omeprazole (Omeprazole 20 Mg Capsule.) 20 mg PO DAILY@0630 [facility] Last Admin: 04/06/24 08:23 Dose: 20 mg Documented By: BRITTANY Omeprazole (Omeprazole 20 Mg Capsule.) 20 mg PO DAILY@0630 [facility] Last Admin: 04/06/24 08:49 Dose: Not Given Documented By: BRITTANY Non-Admin Reason: given in am Ondansetron HCl (Ondansetron Hcl 4 Mg/2 Ml Vial) 4 mg IVPUSH Q8H PRN PRN Reason: Nausea and Vomiting Last Admin: 04/06/24 01:55 Dose: 4 mg Documented By: MAI Oxycodone HCl (Oxycodone Hcl Immed Release 5 Mg Tablet) 5 mg PO Q4H PRN PRN Reason: Pain, Moderate(Pain Scale 4-6) Last Admin: 04/05/24 23:36 Dose: 5 mg Documented By: MAI Oxycodone HCl (Oxycodone Hcl Immed Release 5 Mg Tablet) 5 mg PO Q4H PRN PRN Reason: Pain, Mild (Pain Scale 1-3) Polyethylene Glycol (Polyethylene Glycol 3350 17 Gm Powd.Pack) 17 gm PO DAILY [facility] Last Admin: 04/06/24 08:02 Dose: Not Given Documented By: BRITTANY Non-Admin Reason: Patient Refused Pyridoxine HCl (Pyridoxine Hcl (Vitamin B6) 50 Mg Tablet) 50 mg PO DAILY [facility] Last Admin: 04/06/24 09:13 Dose: 50 mg Documented By: BRITTANY Quetiapine Fumarate (Quetiapine Fumarate 100 Mg Tablet) 100 mg PO BID [facility] Last Admin: 04/06/24 08:24 Dose: 100 mg Documented By: BRITTANY Sodium Chloride (0.9 % Sodium Chloride Flush 3 Ml Syringe) 3 ml IVFLUSH QSHIFT [facility] Last Admin: 04/06/24 09:15 Dose: 3 ml Documented By: BRITTANY Tamsulosin HCl (Tamsulosin Hcl 0.4 Mg Capsule) 0.4 mg PO BEDTIME [facility] Topiramate (Topiramate 100 Mg Tablet) 200 mg PO BID [facility] Last Admin: 04/06/24 08:24 Dose: 200 mg Documented By: BRITTANY Vitamin D (Cholecalciferol (Vitamin D3) 25 Mcg Tablet) 50 mcg PO DAILY [facility] Last Admin: 04/06/24 09:13 Dose: 50 mcg Documented By: BRITTANY Labs 04/05/24 04:28 04/05/24 04:28 Labs: Laboratory Results - last 24 hr 04/05/24 04/05/24 04/06/24 11:57 17:48 00:41 POC Glucose 84 71 148 H 04/06/24 06:52 POC Glucose 134 H Microbiology Microbiology Results: Microbiology 04/04/24 20:05 Urine Culture - Preliminary Urine clean catch - Clean Catch Midstream No growth to date. Assessment and Plan (1) Left flank pain: Status: Acute Assessment and Plan: 28/m with bipolar disorder, htn, [id number] dm, epilepsy, hld with kidney stone, hydroureter and osbstrutive uropathy kidney stone, hyroureter -s/p Cystoscopy, left retrograde, left stent placement on 04/05 -fomax, pain med, outpatient uro follow up EVAN d/t obstructive uropathy -resolved Hypokalemia: Repleted Bipolar disorder -resume meds Epilepsys -topomax HLD -lipitor DC later today Quality Stroke Does the patient have a stroke diagnosis?: No VTE Prior VTE?: No VTE Risk Level:: Medical - low VTE Device Contraindication: Treatment Not Indicated VTE Drug Contraindication: Treatment Not Indicated
== END 2024-04-06 10:03 | disposition home or self-care (01) | DRG 465 ==
LOC: HO.ED 22:28 → HO.EDOVER 22:46 → HO.S3 04-05 18:31
PROVIDERS: Internal Medicine; Physician Assistant Medical; Urology; Admitting Provider Student in an Organized Health Care Education/Training Program; Emergency Provider Emergency Medicine; PCP Internal Medicine; Visit Provider Internal Medicine
PROC: 0T778DZ Dilation of Left Ureter with Intraluminal Device, Via Natural or Artificial Opening Endoscopic (ICD-10-PCS; principal; 2024-04-05 14:10)
DX: N13.2 Hydronephrosis with renal and ureteral calculous obstruction (principal); N17.9 Acute kidney failure, unspecified; E78.2 Mixed hyperlipidemia; F84.0 Autistic disorder; G40.909 Epilepsy, unspecified, not intractable, without status epilepticus; F31.9 Bipolar disorder, unspecified; E87.6 Hypokalemia; I10 Essential (primary) hypertension; Z79.84 Long term (current) use of oral hypoglycemic drugs; Z79.899 Other long term (current) drug therapy
CPT/HCPCS: 36415; 80048; 80053; 81001; 82947; 83735; 85025; 87086; 99285; C1758; C1769; C2617; J0690; J1100; J1885; J2250; J2270; J2405; J2704; J2765; J3010; J3480; Q9967

== ENCOUNTER → 2024-04-04 22:41 | Outpatient (BNV) | payer OTHER, SELFPAY | PROVIDERS: Admitting Provider Student in an Organized Health Care Education/Training Program; Emergency Provider Emergency Medicine; PCP Internal Medicine; Visit Provider Urology | DX: R10.9 Unspecified abdominal pain (principal) | CPT/HCPCS: 52332; 99222; 99499 ==

== ENCOUNTER → 2024-04-04 22:41 | Outpatient (BNV) | payer OTHER, SELFPAY | PROVIDERS: Admitting Provider Student in an Organized Health Care Education/Training Program; Emergency Provider Emergency Medicine; PCP Internal Medicine; Visit Provider Student in an Organized Health Care Education/Training Program | DX: N13.9 Obstructive and reflux uropathy, unspecified (principal); R10.9 Unspecified abdominal pain | CPT/HCPCS: 99223; 99231; 99232 ==

== ENCOUNTER 2024-04-16 15:37 | Emergency (ER) | payer OTHER, SELFPAY ==
[2024-04-16 15:56] VITALS: BP 106/62; PULSE 81; RESP 18; TEMP 36.3; O2SAT 97; BMI 30.3
--- NOTE | 2024-04-16 15:57 | ED_ITS ---
HPI - Male Genitourinary General Chief complaint: Urogenital-Male Stated complaint: nausea-unable to urinate-sob after surgery Time Seen by Provider: 04/16/24 18:47 Source: patient Mode of arrival: ambulatory Limitations: no limitations History of Present Illness ED Provider: maria m DAVIS Narrative: Patient is a 28-year-old male with history of autism, HTN, bipolar disorder, obstructive uropathy, recent ureteral stent placement on 04/05 presenting to the emergency department today with complaint of suprapubic pain and pressure and has not been able to void all day today. States last void was last night prior to going to bed. Complains of headache earlier in the day which has since resolved. Camarena catheter placed prior to my assessment and patient reports significant improvement in symptoms after placement of catheter. MD Complaint: other Onset (ago): hour(s) Duration: now resolved Location: abdomen Quality: aching Context: other Related Data Home Medications ?Medication ?Instructions ?Recorded ?Confirmed cholecalciferol (vitamin D3) 50 50 mcg PO QAM 10/24/20 04/05/24 mcg (2,000 unit) tablet melatonin 5 mg tablet 5 mg PO BEDTIME 10/24/20 11/04/23 simvastatin 10 mg tablet 10 mg PO DAILY 10/24/20 04/05/24 omeprazole 20 mg capsule,delayed 20 mg PO DAILY@0630 07/19/21 04/05/24 release metformin 500 mg tablet,extended 500 mg PO DAILY 01/15/22 04/05/24 release 24 hr polyethylene glycol 3350 17 17 g PO BID PRN constipation 05/07/22 11/04/23 gram/dose oral powder potassium citrate 10 mEq (1,080 10 meq PO TID 08/03/22 04/05/24 mg) tablet,extended release chlorhexidine gluconate 0.12 % 20 ml PO BID 10/07/22 11/04/23 mouthwash clonidine HCl 0.1 mg tablet 0.1 mg PO BID@0800,1200 PRN Anxiety 04/05/24 04/05/24 clonidine HCl 0.1 mg tablet 0.1 mg PO DAILY PRN Anxiety 04/05/24 04/05/24 lisinopril 20 mg tablet 20 mg PO DAILY 04/05/24 04/05/24 pyridoxine (vitamin B6) 50 mg 50 mg PO DAILY 04/05/24 04/05/24 tablet quetiapine 100 mg tablet 100 mg PO BID 04/05/24 04/05/24 Previous Rx's ?Medication ?Instructions ?Recorded clonazepam 2 mg disintegrating 2 mg PO ONCE PRN seizure lasting > 01/17/23 tablet 2 minutes #5 tabs topiramate 100 mg tablet 200 mg (2 x 100 mg) PO BID 30 days 10/29/23 #120 tabs allopurinol 100 mg tablet 100 mg PO DAILY 90 days #90 tabs 11/04/23 naproxen 375 mg tablet 375 mg PO BID pain 15 days #30 tabs 12/26/23 tamsulosin 0.4 mg capsule 0.4 mg PO BEDTIME 14 days #14 caps 12/26/23 ondansetron 4 mg disintegrating 4 mg PO Q6-8H PRN nausea and 04/02/24 tablet vomiting #7 tabs oxycodone 5 mg tablet 5 mg PO Q6H PRN pain #20 tabs 04/02/24 naproxen 500 mg tablet 500 mg PO BID PRN pain 7 days #14 04/05/24 tabs phenazopyridine 100 mg tablet 100 mg PO TID PRN Spasm 4 days #12 04/05/24 (Pyridium) tabs sulfamethoxazole 800 1 tab PO BID 3 days #6 tabs 04/05/24 mg-trimethoprim 160 mg tablet (Bactrim DS) cefuroxime axetil 500 mg tablet 500 mg PO BID #20 tabs 04/16/24 tamsulosin 0.4 mg capsule 0.4 mg PO BEDTIME #14 caps 04/16/24 Allergies Allergy/AdvReac Type Severity Reaction Status Date / Time amlodipine [AMLODIPINE] Allergy Intermediate SEIZURE Verified 04/16/24 15:59 escitalopram [From LEXAPRO] Allergy Intermediate SEIZURE Verified 04/16/24 15:59 fluoxetine [Prozac] Allergy Unknown Hives Verified 04/16/24 15:59 olanzapine [From ZYPREXA] Allergy Unknown AGITATION Verified 04/16/24 15:59 Review of Systems 2 Review of Systems: As per HPI. Yes all other systems are reviewed and are negative Constitutional: Constitutional: Reports as per HPI [facility] Past Medical History Medical History Renal calculi Balanitis Essential hypertension Non-rheumatic mitral regurgitation Bipolar 1 disorder ADHD Seizure OCD (obsessive compulsive disorder) Anxiety Depression Autism Diabetes mellitus Surgical History No pertinent past surgical history Family History Family History Father Diabetes HTN (hypertension) Mother Diabetes HTN (hypertension) Social History Social History Household Members: Family Housing: House Do you presently have visiting nurse or other home services: No Alcohol intake: never Patient Tobacco Use Status: Never used Tobacco Second Hand Smoke Exposure: No Advance Directives: No Advance Directives Information Provided: No Do you have a plan to hurt others: No Plan service: No Current occupational status: disabled Sexual orientation: Don't Know Physical Exam 2 Vital Signs: Vital Signs: Last Vital Signs Temp 98.1 F 04/16/24 18:00 Pulse 71 04/16/24 18:00 Resp 18 04/16/24 18:00 BP 119/75 04/16/24 18:00 Pulse Ox 99 04/16/24 18:00 O2 Del Method Room Air 04/16/24 18:00 BMI result Body Mass Index 30.3 Vital signs have been reviewed and appear to be correct. Blood pressure normal. Heart rate normal. Respiratory rate normal. Temperature normal. Oxygen saturation normal. Const: General: cooperative, healthy appearing and no acute distress O rientation/consciousness: oriented to person, oriented to place, oriented to time and patient oriented x3 Limitations: no limitations HEENT: Head: Yes normocephalic and Yes atraumatic Ears: external ears normal General nose exam: Normal external nose present Face and sinus: Yes face symmetric Mouth: oropharynx normal and moist mucous membranes Throat: Yes uvula midline Eyes: Pupils: Equal, round and reactive pupils present Neck: Neck: Yes normal visual inspection and Yes supple Resp: Effort & Inspection: normal respiratory effort and able to speak in complete sentences Auscultation: clear to auscultation bilaterally Cardio: Rate: regular rate Rhythm: regular rhythm Heart sounds: S1 normal heart sound present and S2 normal heart sound present GI: Palpation (GI): Soft to palpation and nontender Auscultation: n ormoactive bowel sounds : General: Yes no CVA tenderness Back/Spine/Pelvis: Back: no CVA tenderness Skin: General skin exam: elasticity normal and turgor normal Neuro: General: oriented to person, oriented to place, oriented to time, patient oriented x3, moves all extremities, no focal motor deficits and CN's II- XI intact bilaterally Cranial nerves: Yes Equal, round and reactive pupils present Cognition (Neuro): normal cognition Extrem: General: Yes full ROM, Yes no pedal edema and Yes no calf tenderness Psych: Mental Status: mental status grossly normal Affect: normal affect Thought process: Normal thought process present Course Course Course Narrative: This is a Rapid Medical Examination (RME) performed by Naeem Pena PA-C in triage. Full HPI, ROS, assessment and treatment plan per primary provider in the Main ED. 28 yo male hx bipolar disorder, HTN, non-insulin dependent DM, HDL, left ureteral calculi/ hydroureter/ obstructive uropathy s/p stent placement (04/06/24) here for eval of urinary retention since last night. reports hematuria since procedure. feels his bladder is full, has not urinated since last night. endorses minimal abd discomfort. called Dr. Gandhi's office, was advised to come to ED. also admits to diarrhea x3 weeks. taking imodium. Plan: labs, UA, bladder scan Medications Administered Discontinued Medications Generic Name Dose Route Start Last Admin Trade Name Freq PRN Reason Stop Dose Admin Lidocaine HCl 10 ml 04/16/24 17:25 04/16/24 18:20 Lidocaine Hcl 2 % Urojet 10 Ml Jel.Pf.Jacki TOPICAL 04/16/24 17:26 10 ml ONCE ONE Administration Medical Decision Making Medical Decision Making [facility] Narrative: Patient is a 28-year-old male with history of autism, HTN, bipolar disorder, obstructive uropathy, recent ureteral stent placement on 04/05 presenting to the emergency department today with complaint of suprapubic pain and pressure and has not been able to void all day today. On exam patient is awake, A+Ox3, VS WNL, afebrile, normal neurological exam without focal deficits, physical exam findings as above. Given reported symptoms and physical exam findings, initial differential includes urinary retention, UTI, EVAN. Labs notable for no evidence of EVAN. Urinalysis notable for 2+ leukocytes, 3+ blood. Pain resolved after placement of camarena and drainage of retained urine. Case discussed with Dr. Weeks who is in agreement with plan to discharge patient home on antibiotics and tamsulosin, leave catheter in place until patient follows up with urology outpatient. Plan discussed with patient and family, all questions answered, and return precautions discussed. Patient will call urology office [place] am. Differential Diagnosis Differential Diagnoses: The differential diagnosis associated with the presentation includes as per [facility] Admission/Observation Consideration of admission/observation: Escalation of care including admission/observation considered Patient would have been admitted to the hospital had their work up had any findings where hospital admission was appropriate and their clinical presentation warranted hospital admission. Consult Healthcare Provider Management of the patient was discussed with: Media Clerk (Dr. Weeks) Lab Data [facility] Lab Attestation statement: I reviewed the patient's lab results. as per [facility] 04/16/24 16:53 04/16/24 16:53 Labs: Lab Results 04/16/24 04/16/24 Range/Units 16:53 18:58 WBC 10.5 (4.8-10.8) X10*3/uL RBC 5.11 (4.60-5.80) X10*6/uL Hgb 15.4 (14.0-18.0) g/dl Hct 44.2 (42.0-52.0) % MCV 86.5 (80.0-98.0) fL MCH 30.1 (27.0-33.0) pg MCHC 34.8 (31.0-36.0) g/dl RDW 12.9 (11.0-16.0) % Plt Count 299 D (160-400) X10*3/uL MPV 10.4 (9.4-12.4) fL Immature Gran % (Auto) 0.5 H (0.0-0.4) % Neut % (Auto) 53.6 (45-73) % Lymph % (Auto) 34.4 (20-40) % [place] % (Auto) 8.8 (2-11) % Eos % (Auto) 1.9 (0-4) % Baso % (Auto) 0.8 (0-2) % Lymph # (Auto) 3.6 (1.2-4.9) X10*3/uL [place] # (Auto) 0.9 (0.1-1.2) X10*3/uL Eos # (Auto) 0.2 (0.0-0.4) X10*3/uL Baso # (Auto) 0.1 (0.0-0.2) X10*3/uL Abs Immat Gran (auto) 0.05 H (0.00-0.03) X10*3/uL Absolute Neuts (auto) 5.6 (2.0-8.3) x10*3/uL Absolute Nucleated RBC 0.000 (0.0-0.012) X10*3/uL Nucleated RBC % (auto) 0.0 (0.0-0.2) /100WBC Sodium 138 (135-145) mmol/L Potassium 3.6 (3.3-5.1) mmol/L Chloride 106 (96-108) mmol/L Carbon Dioxide 24 (22-29) mmol/L Anion Gap 12 (12-20) BUN 21 H (9-16) mg/dL Creatinine 1.12 (0.5-1.4) mg/dL Estim Creat Clear Calc 98.8 Estimated GFR > 60 Random Glucose 106 (60-115) mg/dL Calcium 10.0 (8.4-10.2) mg/dL Magnesium 2.0 (1.6-2.6) mg/dL Total Bilirubin 0.8 (0.0-1.0) mg/dL AST 15 (5-37) U/L ALT 23 (0-40) U/L Alkaline Phosphatase 68 (39-117) U/L Total Protein 8.2 H (6.5-8.0) g/dL Albumin 4.9 (3.5-5.0) g/dL Urine Color Yellow Urine Appearance Cloudy Urine pH 6.5 (5.0-9.0) Ur Specific Crump 1.015 (1.005-1.025) Urine Protein 100 (2+) H (Neg-Trace) mg/dL Urine Glucose (UA) Negative (Negative) mg/dL Urine Ketones Negative (Negative) mg/dL Urine Blood Large (3+) H (Negative) Urine Nitrite Negative (Negative) Ur Leukocyte Esterase Moderate (2+) H (Negative) Urine RBC >20 H (0-2) /HPF Urine WBC 21-50 H (0-5) /HPF Ur Squamous Epith Cells 0-2 (0-2) /HPF Urine Bacteria None Seen (None Seen) Hyaline Casts 0-2 (0-2) /LPF Urine Opiates Screen Not Detected (Not Detect) Ur Buprenorphine Scrn Not Detected (Not Detect) ng/mL Ur Oxycodone Screen Not Detected (Not Detect) ng/mL Urine Methadone Screen Not Detected (Not Detect) ng/mL Urine Fentanyl Screen Not Detected (Not Detect) Ur Barbiturates Screen Not Detected (Not Detect) Ur Phencyclidine Scrn Not Detected (Not Detect) Ur Amphetamines Screen Not Detected (Not Detect) U Benzodiazepines Scrn Not Detected (Not Detect) Urine Cocaine Screen Not Detected (Not Detect) U Marijuana (THC) Screen Not Detected (Not Detect) Ethyl Alcohol < 10 mg/dL External Record Review External record reviewed: Inpatient record, Office record and Outpatient record Prescription Management I considered prescription management with: Antibiotic and Other Discharge Plan Discharge Clinical Impression: Urinary tract infection, Acute urinary retention Patient Disposition: Home, Self-Care Instructions: Urinary Retention in Men (ED), Urinary Tract Infection in Men (DC), Camarena Catheter Placement and Care (ED) Additional Instructions: You have been evaluated in the emergency department today for your urinary symptoms. Your evaluation, including urinalysis, suggests that your symptoms are due in part to a urinary tract infection. Please take your prescribed antibiotics for the full course of medication as directed. You are also being prescribed tamsulosin which will help your urine to drain. Call the urology office Friday morning to schedule a follow up appointment for the catheter to be removed. Please follow-up with your primary care provider within 2 days. Return to the emergency department if you experience fevers 100.4? F or greater, worsening or uncontrolled pain, vomiting, flank pain, or for any other concerning symptoms. Prescriptions: New tamsulosin 0.4 mg capsule 0.4 mg PO BEDTIME Qty: 14 0RF cefuroxime axetil 500 mg tablet 500 mg PO BID Qty: 20 0RF No Action topiramate 100 mg tablet 200 mg PO BID 30 Days Qty: 120 6RF tamsulosin 0.4 mg capsule 0.4 mg PO BEDTIME 14 Days Qty: 14 0RF naproxen 375 mg tablet 375 mg PO BID 15 Days Qty: 30 0RF potassium citrate 10 mEq (1,080 mg) tablet extended release 10 meq PO TID ondansetron 4 mg tablet,disintegrating 4 mg PO Q6-8H PRN (Reason: nausea and vomiting) Qty: 7 0RF oxycodone 5 mg tablet 5 mg PO Q6H PRN (Reason: pain) Qty: 20 0RF Rx Instructions: Partial Fill upon patient request. quetiapine 100 mg tablet 100 mg PO BID clonidine HCl 0.1 mg tablet 0.1 mg PO BID@0800,1200 PRN (Reason: Anxiety) clonidine HCl 0.1 mg tablet 0.1 mg PO DAILY PRN (Reason: Anxiety) Rx Instructions: TAKE ONE TABLET BY MOUTH TWICE A DAY IN THE MORNINGS AND AFTERNOONS NEEDED. MAY TAKE ONE EXTRA TABLET DAILY IF NEEDED FOR ANXIETY sulfamethoxazole-trimethoprim [Bactrim DS] 800-160 mg tablet 1 tab PO BID 3 Days Qty: 6 0RF phenazopyridine [Pyridium] 100 mg tablet 100 mg PO TID PRN (Reason: Spasm) 4 Days Qty: 12 0RF naproxen 500 mg tablet 500 mg PO BID PRN (Reason: pain) 7 Days Qty: 14 0RF lisinopril 20 mg tablet 20 mg PO DAILY pyridoxine (vitamin B6) 50 mg tablet 50 mg PO DAILY cholecalciferol (vitamin D3) 50 mcg (2,000 unit) tablet 50 mcg PO QAM melatonin 5 mg tablet 5 mg PO BEDTIME simvastatin 10 mg tablet 10 mg PO DAILY metformin 500 mg tablet extended release 24 hr 500 mg PO DAILY omeprazole 20 mg capsule,delayed release(DR/EC) 20 mg PO DAILY@0630 polyethylene glycol 3350 17 gram/dose powder 17 g PO BID PRN (Reason: constipation) allopurinol 100 mg tablet 100 mg PO DAILY 90 Days Qty: 90 1RF chlorhexidine gluconate 0.12 % mouthwash 20 ml PO BID clonazepam 2 mg tablet,disintegrating 2 mg PO ONCE PRN (Reason: seizure lasting > 2 minutes) Qty: 5 2RF [place] [facility] [place] [facility] [place]] Print Language: Ethiopian
[2024-04-16 16:57] LABS: MANUAL DIFF FLAG NO
--- NOTE | 2024-04-16 17:02 | MHC.EDTECH ---
Patient blood drawn and sent to lab ,bladder scan done Pit Provider aware of result of 564 ml .
[2024-04-16 17:09] LABS: Basophils Absolute Auto 0.1 X10*3/uL (0.0-0.2); Basophils Percent Auto 0.8 % (0-2); Eosinophils Absolute Auto 0.2 X10*3/uL (0.0-0.4); Eosinophils Percent Auto 1.9 % (0-4); Hematocrit 44.2 % (42.0-52.0); Hemoglobin 15.4 g/dl (14.0-18.0); Imm Gran Abs Auto 0.05 X10*3/uL (0.00-0.03); Imm Gran Pct Auto 0.5 % (0.0-0.4); Lymphocytes Absolute Auto 3.6 X10*3/uL (1.2-4.9); Lymphocytes Percent Auto 34.4 % (20-40); Mean Corpuscular HGB Conc 34.8 g/dl (31.0-36.0); Mean Corpuscular Hemoglobin 30.1 pg (27.0-33.0); Mean Corpuscular Volume 86.5 fL (80.0-98.0); Mean Platelet Volume 10.4 fL (9.4-12.4); Monocytes Absolute Auto 0.9 X10*3/uL (0.1-1.2); Monocytes Percent Auto 8.8 % (2-11); Neutrophils Absolute Auto 5.6 x10*3/uL (2.0-8.3); Neutrophils Percent Auto 53.6 % (45-73); Platelet Count 299 X10*3/uL (160-400); Red Blood Count 5.11 X10*6/uL (4.60-5.80); Red Cell Distribution Width 12.9 % (11.0-16.0); White Blood Count 10.5 X10*3/uL (4.8-10.8)
[2024-04-16 17:16] LABS: Ethanol < 10 mg/dL
[2024-04-16 17:18] LABS: Alanine Aminotransferase 23 U/L (0-40); Albumin Level 4.9 g/dL (3.5-5.0); Alkaline Phosphatase 68 U/L (39-117); Anion Gap 12 (12-20); Aspartate Amino Transferase 15 U/L (5-37); Bilirubin Total 0.8 mg/dL (0.0-1.0); Blood Urea Nitrogen 21 mg/dL (9-16); Carbon Dioxide 24 mmol/L (22-29); Chloride 106 mmol/L (96-108); Creatinine Clr Calc Pharmacy 98.8; Estimated Glomerular Filt Rate > 60; Glucose Random 106 mg/dL (60-115); Potassium 3.6 mmol/L (3.3-5.1); Sodium 138 mmol/L (135-145); Total Protein 8.2 g/dL (6.5-8.0)
[2024-04-16 17:47] VITALS: BP 125/72; PULSE 70; RESP 18; TEMP 37.2; O2SAT 100
[2024-04-16 18:00] VITALS: BP 119/75; PULSE 71; RESP 18; TEMP 36.7; O2SAT 99
[2024-04-16] MEDS: Lidocaine HCl 2 % Urojet 10 ML JEL.PF.APP TOPICAL (18:20)
--- NOTE | 2024-04-16 18:46 | PC.NURSE ---
Catheter inserted- see MAR worklist. Pt.'s brother at bedside. Pt. verbalizes that he feels better since draining 1,000mL from bladder. Denies concerns or complaints.
[2024-04-16 19:33] LABS: Amphetamine Screen Urine Not Detected (Not Detect); Barbiturates, Urine Not Detected (Not Detect); Benzodiazepines Screen Urine Not Detected (Not Detect); Buprenorphine Scr Not Detected (Not Detect); Cannabinoid Screen Urine Not Detected (Not Detect); Cocaine Screen Urine Not Detected (Not Detect); Fentanyl, urine Not Detected (Not Detect); Methadone Screen, Urine Not Detected (Not Detect); Opiate Screen Urine Not Detected (Not Detect); Oxycodone Screen Urine Not Detected (Not Detect); Phencyclidine Screen Urine Not Detected (Not Detect)
[2024-04-16 19:37] LABS: Appearance Urine Cloudy; Color Urine Yellow; Glucose Urine UA Negative (Negative); Leukocyte Esterase Urine Moderate (2+) (Negative); Nitrite Urine Negative (Negative); PH 6.5 (5.0-9.0); Specific Gravity - Urine 1.015 (1.005-1.025); UMIC TRIGGER UACC YES; Urine Blood Large (3+) (Negative); Urine Ketones Negative (Negative); Urine Protein 100 (2+) mg/dL (Neg-Trace)
[2024-04-16 19:46] LABS: Bacteria Urine None Seen (None Seen); Hyaline Casts Urine 0-2 /LPF (0-2); RBC Urine >20 /HPF (0-2); Squamous Epithelial Cell Urine 0-2 /HPF (0-2); UACC Culture Trigger YES; WBC Urine 21-50 /HPF (0-5)
[2024-04-16 20:53] VITALS: BP 113/69; PULSE 76; RESP 16; TEMP 36.8; O2SAT 97
[2024-04-16] MEDS: Tamsulosin HCL 0.4 MG CAPSULE PO (21:12)
[2024-04-16] MEDS: cefuroxime axetiL 500 MG TABLET PO (21:12)
[2024-04-16 21:30] VITALS: BP 113/69; PULSE 76; RESP 16; TEMP 36.8; O2SAT 97
== END 2024-04-16 21:31 | disposition home or self-care (01) ==
PROVIDERS: Physician Assistant Medical; Emergency Provider Emergency Medicine
DX: N39.0 Urinary tract infection, site not specified (principal); R33.9 Retention of urine, unspecified; R11.0 Nausea; Z51.81 Encounter for therapeutic drug level monitoring; Z79.899 Other long term (current) drug therapy
CPT/HCPCS: 36415; 51702; 51798; 80053; 80307; 81001; 83735; 85025; 87086; 99284

== ENCOUNTER 2024-04-19 22:04 | Emergency (ER) | payer OTHER, SELFPAY ==
[2024-04-19 22:10] VITALS: BP 138/70; PULSE 103; O2SAT 98
[2024-04-19 22:13] VITALS: BP 109/67; PULSE 101; RESP 17; TEMP 36.8; O2SAT 99
[2024-04-19 22:16] VITALS: BP 109/67; PULSE 101; RESP 17; TEMP 36.8; O2SAT 99; BMI 31.5
--- NOTE | 2024-04-19 22:25 | PC.NURSE ---
Dr Nelson at bedside, camarena is secured on his leg with the approp length appearing on the exterior. urine in the bag. Ultra sound by dr Nelson being done at bedside. pain 08/06. no redness noted. urine yellow.
--- NOTE | 2024-04-19 22:29 | ED.MALEGU ---
HPI - Male Genitourinary General Chief complaint: Urogenital-Male Stated complaint: cath removed by accidentally stepping on line Time Seen by Provider: 04/19/24 22:16 Source: patient and EMS Mode of arrival: EMS Limitations: other (autism) History of Present Illness ED Provider: Dr. Nelson HPI Narrative: 28yo male with autism, kidney stones, recent urteral stent who was seen 5 days prior and had a camarena placed for urinary retention. Patient comes in tonight by ambulance because he stepped on his camarena tubing and pulled on his camarena. Related Data Home Medications ?Medication ?Instructions ?Recorded ?Confirmed cholecalciferol (vitamin D3) 50 50 mcg PO QAM 10/24/20 04/05/24 mcg (2,000 unit) tablet melatonin 5 mg tablet 5 mg PO BEDTIME 10/24/20 11/04/23 simvastatin 10 mg tablet 10 mg PO DAILY 10/24/20 04/05/24 omeprazole 20 mg capsule,delayed 20 mg PO DAILY@0630 07/19/21 04/05/24 release metformin 500 mg tablet,extended 500 mg PO DAILY 01/15/22 04/05/24 release 24 hr polyethylene glycol 3350 17 17 g PO BID PRN constipation 05/07/22 11/04/23 gram/dose oral powder potassium citrate 10 mEq (1,080 10 meq PO TID 08/03/22 04/05/24 mg) tablet,extended release chlorhexidine gluconate 0.12 % 20 ml PO BID 10/07/22 11/04/23 mouthwash clonidine HCl 0.1 mg tablet 0.1 mg PO BID@0800,1200 PRN Anxiety 04/05/24 04/05/24 clonidine HCl 0.1 mg tablet 0.1 mg PO DAILY PRN Anxiety 04/05/24 04/05/24 lisinopril 20 mg tablet 20 mg PO DAILY 04/05/24 04/05/24 pyridoxine (vitamin B6) 50 mg 50 mg PO DAILY 04/05/24 04/05/24 tablet quetiapine 100 mg tablet 100 mg PO BID 04/05/24 04/05/24 Previous Rx's ?Medication ?Instructions ?Recorded clonazepam 2 mg disintegrating 2 mg PO ONCE PRN seizure lasting > 01/17/23 tablet 2 minutes #5 tabs topiramate 100 mg tablet 200 mg (2 x 100 mg) PO BID 30 days 10/29/23 #120 tabs allopurinol 100 mg tablet 100 mg PO DAILY 90 days #90 tabs 11/04/23 naproxen 375 mg tablet 375 mg PO BID pain 15 days #30 tabs 12/26/23 tamsulosin 0.4 mg capsule 0.4 mg PO BEDTIME 14 days #14 caps 12/26/23 ondansetron 4 mg disintegrating 4 mg PO Q6-8H PRN nausea and 04/02/24 tablet vomiting #7 tabs oxycodone 5 mg tablet 5 mg PO Q6H PRN pain #20 tabs 04/02/24 naproxen 500 mg tablet 500 mg PO BID PRN pain 7 days #14 04/05/24 tabs phenazopyridine 100 mg tablet 100 mg PO TID PRN Spasm 4 days #12 04/05/24 (Pyridium) tabs sulfamethoxazole 800 1 tab PO BID 3 days #6 tabs 04/05/24 mg-trimethoprim 160 mg tablet (Bactrim DS) cefuroxime axetil 500 mg tablet 500 mg PO BID #20 tabs 04/16/24 tamsulosin 0.4 mg capsule 0.4 mg PO BEDTIME #14 caps 04/16/24 Allergies Allergy/AdvReac Type Severity Reaction Status Date / Time amlodipine [AMLODIPINE] Allergy Intermediate SEIZURE Verified 04/19/24 22:18 escitalopram [From LEXAPRO] Allergy Intermediate SEIZURE Verified 04/19/24 22:18 fluoxetine [Prozac] Allergy Unknown Hives Verified 04/16/24 15:59 olanzapine [From ZYPREXA] Allergy Unknown AGITATION Verified 04/19/24 22:18 levetiracetam [From Keppra] AdvReac Unknown Verified 04/19/24 22:18 Review of Systems Review of Systems: Yes all other systems are reviewed and are negative Neurologic: Denies Sensory deficit (Neuro) COUNT INCLUDES THE [facility] Past Medical History Medical History Renal calculi Balanitis Essential hypertension Non-rheumatic mitral regurgitation Bipolar 1 disorder ADHD Seizure OCD (obsessive compulsive disorder) Anxiety Depression Autism Diabetes mellitus Surgical History No pertinent past surgical history Family History Family History Father Diabetes HTN (hypertension) Mother Diabetes HTN (hypertension) Social History Social History Household Members: Family Housing: House Do you presently have visiting nurse or other home services: No Alcohol intake: never Patient Tobacco Use Status: Never used Tobacco Second Hand Smoke Exposure: No Advance Directives: No Advance Directives Information Provided: No Do you have a plan to hurt others: No Plan service: No Current occupational status: disabled Sexual orientation: Don't Know Physical Exam Vital Signs: Vital Signs: Last Vital Signs Temp 98.3 F 04/19/24 22:16 Pulse 101 H 04/19/24 22:16 Resp 17 04/19/24 22:16 BP 109/67 04/19/24 22:16 Pulse Ox 99 04/19/24 22:16 O2 Del Method Room Air 04/19/24 22:16 BMI result Body Mass Index 31.5 Const: Other: Male with flat affect, nervous Nutritional Appearance: obese Orientation/consciousness: oriented to person and patient oriented x3 Limitations: no limitations HEENT: Head: Yes normal to inspection Ears: external ears normal General nose exam: Normal external nose present Mouth: Normal oral and palatal mucosa present and oropharynx normal Throat: Yes posterior oropharynx normal Eyes: General: appearance normal, both eyes and all related structures Neck: Other: supple Neck: Yes normal visual inspection Chest: Chest palpation & inspection: normal inspection of the chest Resp: Auscultation: clear to auscultation bilaterally Cardio: Jugular venous distension: no JVD Rate: regular rate Rhythm: regular rhythm Heart sounds: S1 normal heart sound present and S2 normal heart sound present GI: Inspection: Yes normal to inspection Palpation (GI): Soft to palpation, nontender and No hepatosplenomegaly present Auscultation: normal bowel sounds : Other: uncircumsized penis with camarena in place no blood. Camarena is putting out urine Skin: General skin exam: no rashes or lesions noted Neuro: General: oriented to person and patient oriented x3 Cranial nerves: Yes CN's II-XII intact bilaterally Motor exam (neuro): 5/5 motor strength present throughout Sensory Exam: No Sensory deficit (Neuro) Extrem: General: Yes normal to inspection Psych: Appearance: grossly normal Course Reevaluation(s) Reevaluation #1: Bedside US performed by me shows empty bladder with camarena balloon in the bladder. Time: 22:36 Medical Decision Making Differential Diagnosis Differential Diagnoses: The differential diagnosis associated with the presentation includes (penis injury, prostate injury, dislodged camarena) Independent Interpretation I performed an independent interpretation of an: Ultrasound (bedside US shows empty bladder with camarena balloon in the bladder) Independent Historian Clinical information obtained from an independent historian. History obtained from or confirmed by: EMS External Record Review External record reviewed: Outpatient record Chronic Conditions Patient?s care impacted by: Other (autism) Social Determinants Patient?s care significantly limited by Social Determinants of Health including: Low income Discharge Plan Discharge Clinical Impression: Urinary retention with incomplete bladder emptying, Encounter for assessment of Camarena catheter Patient Disposition: Home, Self-Care Instructions: Camarnea Catheter Placement and Care (ED) Prescriptions: No Action topiramate 100 mg tablet 200 mg PO BID 30 Days Qty: 120 6RF tamsulosin 0.4 mg capsule 0.4 mg PO BEDTIME 14 Days Qty: 14 0RF naproxen 375 mg tablet 375 mg PO BID 15 Days Qty: 30 0RF potassium citrate 10 mEq (1,080 mg) tablet extended release 10 meq PO TID ondansetron 4 mg tablet,disintegrating 4 mg PO Q6-8H PRN (Reason: nausea and vomiting) Qty: 7 0RF oxycodone 5 mg tablet 5 mg PO Q6H PRN (Reason: pain) Qty: 20 0RF Rx Instructions: Partial Fill upon patient request. quetiapine 100 mg tablet 100 mg PO BID clonidine HCl 0.1 mg tablet 0.1 mg PO BID@0800,1200 PRN (Reason: Anxiety) clonidine HCl 0.1 mg tablet 0.1 mg PO DAILY PRN (Reason: Anxiety) Rx Instructions: TAKE ONE TABLET BY MOUTH TWICE A DAY IN THE MORNINGS AND AFTERNOONS NEEDED. MAY TAKE ONE EXTRA TABLET DAILY IF NEEDED FOR ANXIETY sulfamethoxazole-trimethoprim [Bactrim DS] 800-160 mg tablet 1 tab PO BID 3 Days Qty: 6 0RF phenazopyridine [Pyridium] 100 mg tablet 100 mg PO TID PRN (Reason: Spasm) 4 Days Qty: 12 0RF naproxen 500 mg tablet 500 mg PO BID PRN (Reason: pain) 7 Days Qty: 14 0RF lisinopril 20 mg tablet 20 mg PO DAILY pyridoxine (vitamin B6) 50 mg tablet 50 mg PO DAILY tamsulosin 0.4 mg capsule 0.4 mg PO BEDTIME Qty: 14 0RF cefuroxime axetil 500 mg tablet 500 mg PO BID Qty: 20 0RF cholecalciferol (vitamin D3) 50 mcg (2,000 unit) tablet 50 mcg PO QAM melatonin 5 mg tablet 5 mg PO BEDTIME simvastatin 10 mg tablet 10 mg PO DAILY metformin 500 mg tablet extended release 24 hr 500 mg PO DAILY omeprazole 20 mg capsule,delayed release(DR/EC) 20 mg PO DAILY@0630 polyethylene glycol 3350 17 gram/dose powder 17 g PO BID PRN (Reason: constipation) allopurinol 100 mg tablet 100 mg PO DAILY 90 Days Qty: 90 1RF chlorhexidine gluconate 0.12 % mouthwash 20 ml PO BID clonazepam 2 mg tablet,disintegrating 2 mg PO ONCE PRN (Reason: seizure lasting > 2 minutes) Qty: 5 2RF Referrals: Janae Alba MD [Physician] - 1 day Print Language: Mongolian
[2024-04-19 22:56] VITALS: BP 109/67; PULSE 101; RESP 17; TEMP 36.8; O2SAT 99
== END 2024-04-19 22:56 | disposition home or self-care (01) ==
PROVIDERS: Emergency Provider Emergency Medicine
DX: R33.9 Retention of urine, unspecified (principal); I10 Essential (primary) hypertension; E11.9 Type 2 diabetes mellitus without complications; Z43.6 Encounter for attention to other artificial openings of urinary tract
CPT/HCPCS: 99282

== ENCOUNTER → 2024-04-20 09:50 | Outpatient (BNVA) | payer OTHER, SELFPAY | PROVIDERS: Visit Provider Urology ==

== ENCOUNTER 2024-04-23 10:13 | Emergency (ER) | payer OTHER, SELFPAY ==
--- NOTE | ~2024-04-23 | US_ITS ---
EXAMINATION: US RETROPERITONEAL LIMITED, LEFT(RENAL ONLY) CLINICAL INFORMATION: Left-sided renal pain. COMPARISON: CT abdomen pelvis dated 04/02/2024. TECHNIQUE: Real-time ultrasound of the left kidney was performed. FINDINGS: LEFT KIDNEY: 10.1 x 6.6 x 6.1 cm (SAG x AP x TRV). The kidney is normal in size, contour, and echogenicity. There is a renal stent in place. There is a 0.5 x 0.3 cm lower pole calculus. There is mild fullness of the renal pelvis. No berto hydronephrosis. US/US renal LT IMPRESSION: The left kidney is normal in size. There is a ureteral stent. There is a 0.5 cm lower pole calculus. There is mild fullness of the renal pelvis without berto hydronephrosis. Electronically signed by: Willie Adan DO 04/23/2024 02:28 PM EDT
[2024-04-23 10:23] VITALS: BP 106/61; PULSE 84; O2SAT 98
[2024-04-23 10:26] VITALS: BP 107/57; PULSE 80; RESP 18; TEMP 36.6; O2SAT 99; BMI 31.6
[2024-04-23 10:58] LABS: MANUAL DIFF FLAG NO
[2024-04-23 11:00] LABS: Basophils Absolute Auto 0.1 X10*3/uL (0.0-0.2); Basophils Percent Auto 0.7 % (0-2); Eosinophils Absolute Auto 0.2 X10*3/uL (0.0-0.4); Hemoglobin 14.2 g/dl (14.0-18.0); Imm Gran Abs Auto 0.02 X10*3/uL (0.00-0.03); Imm Gran Pct Auto 0.2 % (0.0-0.4); Lymphocytes Absolute Auto 2.6 X10*3/uL (1.2-4.9); Lymphocytes Percent Auto 31.2 % (20-40); Mean Corpuscular HGB Conc 34.6 g/dl (31.0-36.0); Mean Corpuscular Hemoglobin 30.3 pg (27.0-33.0); Mean Corpuscular Volume 87.4 fL (80.0-98.0); Mean Platelet Volume 10.6 fL (9.4-12.4); Monocytes Absolute Auto 0.6 X10*3/uL (0.1-1.2); Monocytes Percent Auto 7.7 % (2-11); Neutrophils Absolute Auto 4.9 x10*3/uL (2.0-8.3); Neutrophils Percent Auto 58.2 % (45-73); Platelet Count 244 X10*3/uL (160-400); Red Blood Count 4.69 X10*6/uL (4.60-5.80); Red Cell Distribution Width 13.2 % (11.0-16.0); White Blood Count 8.3 X10*3/uL (4.8-10.8)
[2024-04-23 11:04] LABS: Appearance Urine Cloudy; Leukocyte Esterase Urine Moderate (2+) (Negative); UMIC TRIGGER UACC YES; Urine Blood Large (3+) (Negative)
[2024-04-23 11:18] LABS: Alanine Aminotransferase 24 U/L (0-40); Albumin Level 4.6 g/dL (3.5-5.0); Alkaline Phosphatase 63 U/L (39-117); Anion Gap 11 (12-20); Aspartate Amino Transferase 16 U/L (5-37); Bilirubin Direct 0.1 mg/dL (0.0-0.5); Bilirubin Total 0.4 mg/dL (0.0-1.0); Blood Urea Nitrogen 16 mg/dL (9-16); Calcium 9.6 mg/dL (8.4-10.2); Carbon Dioxide 24 mmol/L (22-29); Chloride 107 mmol/L (96-108); Creatinine Clr Calc Pharmacy 139.5; Estimated Glomerular Filt Rate > 60; Glucose Random 97 mg/dL (60-115); Lipase 46 U/L (8-78); Potassium 3.7 mmol/L (3.3-5.1); Sodium 138 mmol/L (135-145); Total Protein 7.5 g/dL (6.5-8.0)
[2024-04-23 11:20] LABS: Color Urine Red
[2024-04-23 11:21] LABS: Bacteria Urine Trace (None Seen); RBC Urine >20 /HPF (0-2); UACC Culture Trigger YES; WBC Urine >50 /HPF (0-5)
[2024-04-23 11:52] LABS: Magnesium 1.7 mg/dL (1.6-2.6)
[2024-04-23] MEDS: Acetaminophen 325 MG TABLET 975 MG PO (11:54)
--- NOTE | 2024-04-23 15:10 | ED_ITS ---
HPI - Abdominal Pain General Chief Complaint: Abdominal Pain Stated Complaint: LOWER ABD PAIN,HEMATURIA Time Seen by Provider: 04/23/24 14:58 Source: patient Mode of arrival: ambulatory Limitations: no limitations History of Present Illness HPI narrative: Patient is a 28-year-old male presents emergency department for evaluation. He states he has been experiencing left-sided abdominal pain and blood in his urine intermittent since he had the stent placed for his kidney stone a few weeks ago. He noticed an episode of a small amount of bright red blood in the urine today. He reports he has a follow-up with his urologist on Friday; and 3 days. He denies any fevers or chills. Denies nausea or vomiting. Denies constipation, hematochezia or melena. Related Data Home Medications ?Medication ?Instructions ?Recorded ?Confirmed cholecalciferol (vitamin D3) 50 50 mcg PO QAM 10/24/20 04/22/24 mcg (2,000 unit) tablet melatonin 5 mg tablet 5 mg PO BEDTIME 10/24/20 04/22/24 simvastatin 10 mg tablet 10 mg PO DAILY 10/24/20 04/22/24 omeprazole 20 mg capsule,delayed 20 mg PO DAILY@0630 07/19/21 04/22/24 release metformin 500 mg tablet,extended 500 mg PO DAILY 01/15/22 04/22/24 release 24 hr polyethylene glycol 3350 17 17 g PO BID PRN constipation 05/07/22 04/22/24 gram/dose oral powder potassium citrate 10 mEq (1,080 10 meq PO TID 08/03/22 04/22/24 mg) tablet,extended release chlorhexidine gluconate 0.12 % 20 ml PO BID 10/07/22 04/22/24 mouthwash clonidine HCl 0.1 mg tablet 0.1 mg PO BID@0800,1200 PRN Anxiety 04/05/24 04/22/24 clonidine HCl 0.1 mg tablet 0.1 mg PO DAILY PRN Anxiety 04/05/24 04/22/24 lisinopril 20 mg tablet 20 mg PO DAILY 04/05/24 04/22/24 pyridoxine (vitamin B6) 50 mg 50 mg PO DAILY 04/05/24 04/22/24 tablet quetiapine 100 mg tablet 100 mg PO BID 04/05/24 04/22/24 Previous Rx's ?Medication ?Instructions ?Recorded clonazepam 2 mg disintegrating 2 mg PO ONCE PRN seizure lasting > 01/17/23 tablet 2 minutes #5 tabs topiramate 100 mg tablet 200 mg (2 x 100 mg) PO BID 30 days 10/29/23 #120 tabs allopurinol 100 mg tablet 100 mg PO DAILY 90 days #90 tabs 11/04/23 naproxen 375 mg tablet 375 mg PO BID pain 15 days #30 tabs 12/26/23 ondansetron 4 mg disintegrating 4 mg PO Q6-8H PRN nausea and 04/02/24 tablet vomiting #7 tabs oxycodone 5 mg tablet 5 mg PO Q6H PRN pain #20 tabs 04/02/24 naproxen 500 mg tablet 500 mg PO BID PRN pain 7 days #14 04/05/24 tabs phenazopyridine 100 mg tablet 100 mg PO TID PRN Spasm 4 days #12 04/05/24 (Pyridium) tabs cefuroxime axetil 500 mg tablet 500 mg PO BID #20 tabs 04/16/24 tamsulosin 0.4 mg capsule 0.4 mg PO BEDTIME #14 caps 04/16/24 diazepam 2 mg tablet 2 mg PO BID PRN anxiety 1 day #2 04/20/24 tabs lamotrigine 25 mg tablet 25 mg PO DAILY 14 days #14 tabs 04/21/24 Allergies Allergy/AdvReac Type Severity Reaction Status Date / Time amlodipine [AMLODIPINE] Allergy Intermediate SEIZURE Verified 04/23/24 10:29 escitalopram [From LEXAPRO] Allergy Intermediate SEIZURE Verified 04/23/24 10:29 fluoxetine [Prozac] Allergy Intermediate Hives Verified 04/23/24 10:29 olanzapine [From ZYPREXA] Allergy Intermediate AGITATION Verified 04/23/24 10:29 levetiracetam [From Keppra] AdvReac Unknown Unknown Verified 04/23/24 10:29 Review of Systems Review of Systems Yes all other systems are reviewed and are negative [facility] Past Medical History Medical History (Updated 04/23/24 @ 15:50 by Lizzie Teague CNP) Renal calculi Balanitis Essential hypertension Non-rheumatic mitral regurgitation Bipolar 1 disorder ADHD Seizure OCD (obsessive compulsive disorder) Anxiety Depression Autism Diabetes mellitus Surgical History Hx of cystoscopy Family History Family History Father Diabetes HTN (hypertension) Mother Diabetes HTN (hypertension) Social History Social History Household Members: Family Housing: House Do you presently have visiting nurse or other home services: No Alcohol intake: never Patient Tobacco Use Status: Never used Tobacco Smoked in Last 30 Days: No Second Hand Smoke Exposure: No Use of substances other than those prescribed or required for medical reasons: No Advance Directives: Yes Advance Directives Information Provided: Yes Advance Directives on File: No Do you have a plan to hurt others: No Plan service: No Current occupational status: disabled Sexual orientation: Don't Know Physical Exam ED Vital Signs: Vital Signs - 24 hr 04/23/24 10:26 Temperature 97.9 F Pulse Rate 80 Respiratory Rate 18 Blood Pressure 107/57 L Pulse Oximetry 99 Oxygen Delivery Method Room Air BMI result Body Mass Index 31.6 Appearance: Alert.?Oriented to person, place and time. No acute distress.?Normal affect. Eyes: Pupils equal, round and reactive to light.? ENT: Pharynx normal.?? Neck: Normal inspection.? Neck supple.?? CVS: Heart sounds normal. Normal heart rate and rhythm.? Pulses normal.?? Respiratory: No respiratory distress.? Lung sounds clear to auscultation bilaterally?? Abdomen: Soft and non-tender. Normoactive bowel sounds. No CVAT? Skin: Skin warm and dry.? Normal skin color.? Extremities: No lower extremity edema.? Neuro: Moves all extremities spontaneously. Sensation intact bilaterally. Ambulates with normal steady gait. Medical Decision Making Medical Decision Making MDM Narrative: Patient is a 28-year-old male with past medical history of renal calculi, balanitis, hypertension, nonrheumatic mitral regurgitation, bipolar disorder, ADHD, OCD, anxiety, depression, seizures, diabetes, autism who presents emergency department for evaluation of abdominal pain and hematuria as per HPI. He underwent cystoscopy with stent placement with Dr. Gandhi. His urinalysis is consistent with prior U/A from 04/16/2024 and was without any bacterial growth. At this time he states he needs to have a bowel movement but does not want to have a bowel movement while in the emergency department, is unclear to me as to why, perhaps there is a fear component of using public restrooms for this. He will not verbalize this reason. He states that his brother who is also a patient waiting to be seen in the waiting room is his only ride home. Ultrasound is without evidence of obstructive calculi, suspect his pain is secondary to renal colic, feel that he is stable for discharge home Differential Diagnosis Differential Diagnoses: The differential diagnosis associated with the presentation includes (Renal colic, obstructive calculi, urinary tract infection, pyelonephritis, constipation) Admission/Observation Consideration of admission/observation: Escalation of care including admission/observation considered Lab Data MDM Lab Attestation statement: I reviewed the patient's lab results. CBC is without leukocytosis anemia or thrombocytopenia. No electrolyte derangement. No EVAN. LFTs and lipase within normal range. Urinalysis with 3+ blood, > 20 RBC, 2+ leukocyte esterase, >50 WBC trace urine bacteria 04/23/24 10:54 04/23/24 10:54 Labs: Lab Results 04/23/24 Range/Units 10:54 WBC 8.3 (4.8-10.8) X10*3/uL RBC 4.69 (4.60-5.80) X10*6/uL Hgb 14.2 (14.0-18.0) g/dl Hct 41.0 L (42.0-52.0) % MCV 87.4 (80.0-98.0) fL MCH 30.3 (27.0-33.0) pg MCHC 34.6 (31.0-36.0) g/dl RDW 13.2 (11.0-16.0) % Plt Count 244 (160-400) X10*3/uL MPV 10.6 (9.4-12.4) fL Immature Gran % (Auto) 0.2 (0.0-0.4) % Neut % (Auto) 58.2 (45-73) % Lymph % (Auto) 31.2 (20-40) % [place] % (Auto) 7.7 (2-11) % Eos % (Auto) 2.0 (0-4) % Baso % (Auto) 0.7 (0-2) % Lymph # (Auto) 2.6 (1.2-4.9) X10*3/uL [place] # (Auto) 0.6 (0.1-1.2) X10*3/uL Eos # (Auto) 0.2 (0.0-0.4) X10*3/uL Baso # (Auto) 0.1 (0.0-0.2) X10*3/uL Abs Immat Gran (auto) 0.02 (0.00-0.03) X10*3/uL Absolute Neuts (auto) 4.9 (2.0-8.3) x10*3/uL Absolute Nucleated RBC 0.000 (0.0-0.012) X10*3/uL Nucleated RBC % (auto) 0.0 (0.0-0.2) /100WBC Sodium 138 (135-145) mmol/L Potassium 3.7 (3.3-5.1) mmol/L Chloride 107 (96-108) mmol/L Carbon Dioxide 24 (22-29) mmol/L Anion Gap 11 L (12-20) BUN 16 (9-16) mg/dL Creatinine 0.81 (0.5-1.4) mg/dL Estim Creat Clear Calc 139.5 Estimated GFR > 60 Random Glucose 97 (60-115) mg/dL Calcium 9.6 (8.4-10.2) mg/dL Magnesium 1.7 (1.6-2.6) mg/dL Total Bilirubin 0.4 (0.0-1.0) mg/dL Direct Bilirubin 0.1 (0.0-0.5) mg/dL AST 16 (5-37) U/L ALT 24 (0-40) U/L Alkaline Phosphatase 63 (39-117) U/L Total Protein 7.5 (6.5-8.0) g/dL Albumin 4.6 (3.5-5.0) g/dL Lipase 46 (8-78) U/L Urine Color Red A Urine Appearance Cloudy Urine pH 7.0 (5.0-9.0) Ur Specific [place] 1.020 (1.005-1.025) Urine Protein See Note (Neg-Trace) mg/dL Urine Glucose (UA) See Note (Negative) mg/dL Urine Ketones See Note (Negative) mg/dL Urine Blood Large (3+) H (Negative) Urine Nitrite See Note (Negative) Ur Leukocyte Esterase Moderate (2+) H (Negative) Urine RBC >20 H (0-2) /HPF Urine WBC >50 H (0-5) /HPF Ur Squamous Epith Cells 3-5 (0-2) /HPF Urine Bacteria Trace (None Seen) Hyaline Casts 11-20 (0-2) /LPF Independent Interpretation I performed an independent interpretation of an: Ultrasound (No perinephric stranding) Radiology Impression Discussion of test interpretation with radiology: I have reviewed the radiologist's reading. Radiologist Impression: US/US renal LT IMPRESSION: The left kidney is normal in size. There is a ureteral stent. There is a 0.5 cm lower pole calculus. There is mild fullness of the renal pelvis without berto hydronephrosis. External Record Review External record reviewed: Outpatient record Prescription Management I considered prescription management with: Pain Medication (Acetaminophen/ibuprofen) and Antibiotic (Considering antibiotics, lower suspicion for acute urinary tract infection) Medications Administered Discontinued Medications Generic Name Dose Route Start Last Admin Trade Name Freq PRN Reason Stop Dose Admin Acetaminophen 975 mg 04/23/24 11:49 04/23/24 11:54 Acetaminophen 325 Mg Tablet PO 04/23/24 11:50 975 mg ONCE ONE Administration Discharge Plan Discharge Clinical Impression: Renal colic on left side Patient Disposition: Home, Self-Care Instructions: Renal Colic (ED) Prescriptions: No Action topiramate 100 mg tablet 200 mg PO BID 30 Days Qty: 120 6RF naproxen 375 mg tablet 375 mg PO BID 15 Days Qty: 30 0RF diazepam 2 mg tablet 2 mg PO BID PRN (Reason: anxiety) 1 Days Qty: 2 0RF Rx Instructions: Take medication after arrival at office lamotrigine 25 mg tablet 25 mg PO DAILY 14 Days Qty: 14 0RF Rx Instructions: bedtime potassium citrate 10 mEq (1,080 mg) tablet extended release 10 meq PO TID ondansetron 4 mg tablet,disintegrating 4 mg PO Q6-8H PRN (Reason: nausea and vomiting) Qty: 7 0RF oxycodone 5 mg tablet 5 mg PO Q6H PRN (Reason: pain) Qty: 20 0RF Rx Instructions: Partial Fill upon patient request. quetiapine 100 mg tablet 100 mg PO BID clonidine HCl 0.1 mg tablet 0.1 mg PO BID@0800,1200 PRN (Reason: Anxiety) clonidine HCl 0.1 mg tablet 0.1 mg PO DAILY PRN (Reason: Anxiety) Rx Instructions: TAKE ONE TABLET BY MOUTH TWICE A DAY IN THE MORNINGS AND AFTERNOONS NEEDED. MAY TAKE ONE EXTRA TABLET DAILY IF NEEDED FOR ANXIETY phenazopyridine [Pyridium] 100 mg tablet 100 mg PO TID PRN (Reason: Spasm) 4 Days Qty: 12 0RF naproxen 500 mg tablet 500 mg PO BID PRN (Reason: pain) 7 Days Qty: 14 0RF lisinopril 20 mg tablet 20 mg PO DAILY pyridoxine (vitamin B6) 50 mg tablet 50 mg PO DAILY tamsulosin 0.4 mg capsule 0.4 mg PO BEDTIME Qty: 14 0RF cefuroxime axetil 500 mg tablet 500 mg PO BID Qty: 20 0RF cholecalciferol (vitamin D3) 50 mcg (2,000 unit) tablet 50 mcg PO QAM melatonin 5 mg tablet 5 mg PO BEDTIME simvastatin 10 mg tablet 10 mg PO DAILY metformin 500 mg tablet extended release 24 hr 500 mg PO DAILY omeprazole 20 mg capsule,delayed release(DR/EC) 20 mg PO DAILY@0630 polyethylene glycol 3350 17 gram/dose powder 17 g PO BID PRN (Reason: constipation) allopurinol 100 mg tablet 100 mg PO DAILY 90 Days Qty: 90 1RF chlorhexidine gluconate 0.12 % mouthwash 20 ml PO BID clonazepam 2 mg tablet,disintegrating 2 mg PO ONCE PRN (Reason: seizure lasting > 2 minutes) Qty: 5 2RF Print Language: Malawian
[2024-04-23 16:23] VITALS: BP 107/57; PULSE 80; RESP 18; TEMP 36.6; O2SAT 99
== END 2024-04-23 16:24 | disposition home or self-care (01) ==
PROVIDERS: Physician Assistant; Emergency Provider Student in an Organized Health Care Education/Training Program; PCP Internal Medicine
DX: N23 Unspecified renal colic (principal); I10 Essential (primary) hypertension; Z79.899 Other long term (current) drug therapy
CPT/HCPCS: 36415; 76775; 80048; 80076; 81001; 81003; 83690; 83735; 85025; 87086; 99284

== ENCOUNTER → 2024-04-26 07:54 | Outpatient (BNV) | payer OTHER, SELFPAY | PROVIDERS: PCP Internal Medicine; Visit Provider Urology | DX: N20.1 Calculus of ureter (principal) | CPT/HCPCS: 52352; 74420; 99238 ==

== ENCOUNTER 2024-04-26 16:07 | Inpatient (IN) | payer OTHER, SELFPAY ==
[2024-04-26] VITALS (39 sets, daily range): BP systolic 99–136; BP diastolic 40–84; PULSE 48–86; RESP 12–18; TEMP 36.1–36.8; O2SAT 88–100; BMI 31.4
[2024-04-26] MEDS: levoFLOXacin 500 MG TABLET PO (08:49)
[2024-04-26 08:50] LABS: Glucose, Whole Blood 95 mg/dL (60-115)
--- NOTE | 2024-04-26 08:50 | MHC.SHP ---
Pre-Procedural Eval Section A - 24 Hr Update-Section A only Date of Service: 04/26/24 The patient is an INPATIENT: No Changes since office visit: No Cold of Flu in the past 2 weeks, No New Medical Problems, No Changes in Medication and No Patient answered all questions The patient has been examined within 24 hours of the surgical procedure. The History & Physical has been completed within 30 days and I have reviewed it.: Yes Section B - Complete if H&P > 30 days Chief Complaint: Calculus of ureter Details of Present Illness: Left UPJ stone with indwelling stent Allergies: Allergies Allergy/AdvReac Type Severity Reaction Status Date / Time amlodipine [AMLODIPINE] Allergy Intermediate SEIZURE Verified 04/26/24 08:25 escitalopram [From LEXAPRO] Allergy Intermediate SEIZURE Verified 04/26/24 08:25 fluoxetine [Prozac] Allergy Intermediate Hives Verified 04/26/24 08:25 olanzapine [From ZYPREXA] Allergy Intermediate AGITATION Verified 04/26/24 08:25 levetiracetam [From Keppra] AdvReac Severe SI Verified 04/26/24 08:25 Plan Diagnosis/Plan: Unchanged (Cystoscopy, left stent removal, left retrograde, left ureteroscopy with laser lithotripsy stone basketing) I have reviewed the history and physical and performed a pertinent physical examination on my patient. No changes have occurred unless specified. Time Spent With Patient Time: Total time managing care of this patient today ____ minutes.
[2024-04-26] MEDS: Lactated Ringers 1,000 ML 100 ML IVCONT (08:57)
--- NOTE | 2024-04-26 09:05 | HO.ANESPROP2 ---
Documented by User: Joelle Villalpando NP 04/23/24 12:20 HPI - Anesthesia Eval Consult details Narrative: 28yo M for Left Cystoscopy, Ureteroroscopy, Retro, Laser,with stent removal PMFSH Active Problems Active Problems: All Active Problems Ureteral stone (Acute) Bipolar disorder (Acute) Urinary urgency (Acute) Urinary retention with incomplete bladder emptying (Acute) Sleep disorder, unspecified (Acute) Excessive daytime sleepiness (Acute) Snoring (Acute) History of obstructive sleep apnea (Acute) Autistic disorder of childhood onset (Acute) Epilepsy (Acute) Renal calculi (Acute) Balanitis (Acute) Essential hypertension (Acute) Non-rheumatic mitral regurgitation (Acute) Past Medical History Medical History (Updated 04/26/24 @ 08:25 by Joann Luna RN) Renal calculi Balanitis Essential hypertension Non-rheumatic mitral regurgitation Bipolar 1 disorder ADHD Seizure OCD (obsessive compulsive disorder) Anxiety Depression Autism Diabetes mellitus Family History Family History Father Diabetes HTN (hypertension) Mother Diabetes HTN (hypertension) Family history of problems with anesthesia: No Surgical History Surgical History Hx of cystoscopy History of Problems with Anesthesia: No Social History Social History Household Members: Family Housing: House Are you a primary long term acute care registered nurse to a significant other at home: No Do you presently have visiting nurse or other home services: No Alcohol intake: never Patient Tobacco Use Status: Never used Tobacco Second Hand Smoke Exposure: No Use of substances other than those prescribed or required for medical reasons: No Have you been hit, kicked, punched, or otherwise hurt by someone within the past year? If so, by whom?: No Are you DNR?: No Advance Directives: No Advance Directives Information Provided: Yes Recently lost weight without trying: No How much weight loss: Not applicable Eating poorly because of decreased appetite: No Nutrition screen score: 0 Nutrition Risks: No Nutritional Risk Poor oral hygiene: No service: No Current occupational status: disabled Sexual orientation: Don't Know Meds Allergies Allergy/AdvReac Type Severity Reaction Status Date / Time amlodipine [AMLODIPINE] Allergy Intermediate SEIZURE Verified 04/26/24 08:25 escitalopram [From LEXAPRO] Allergy Intermediate SEIZURE Verified 04/26/24 08:25 fluoxetine [Prozac] Allergy Intermediate Hives Verified 04/26/24 08:25 olanzapine [From ZYPREXA] Allergy Intermediate AGITATION Verified 04/26/24 08:25 levetiracetam [From Keppra] AdvReac Severe SI Verified 04/26/24 08:25 Home Medications ?Medication ?Instructions ?Recorded ?Confirmed ?Last Taken ?Type cholecalciferol (vitamin D3) 50 50 mcg PO QAM 10/24/20 04/26/24 Unknown History mcg (2,000 unit) tablet melatonin 5 mg tablet 5 mg PO BEDTIME 10/24/20 04/26/24 Unknown History simvastatin 10 mg tablet 10 mg PO DAILY 10/24/20 04/26/24 Unknown History omeprazole 20 mg capsule,delayed 20 mg PO DAILY@0630 07/19/21 04/26/24 Unknown History release metformin 500 mg tablet,extended 500 mg PO DAILY 01/15/22 04/26/24 Unknown History release 24 hr polyethylene glycol 3350 17 17 g PO BID PRN constipation 05/07/22 04/26/24 Unknown History gram/dose oral powder potassium citrate 10 mEq (1,080 10 meq PO TID 08/03/22 04/26/24 Unknown History mg) tablet,extended release clonidine HCl 0.1 mg tablet 0.1 mg PO BID@0800,1200 PRN Anxiety 04/05/24 04/26/24 Unknown History clonidine HCl 0.1 mg tablet 0.1 mg PO DAILY PRN Anxiety 04/05/24 04/26/24 Unknown History lisinopril 20 mg tablet 20 mg PO DAILY 04/05/24 04/26/24 Unknown History quetiapine 100 mg tablet 100 mg PO BID 04/05/24 04/26/24 Unknown History Exam Height,Weight and Vital Signs: Height 5 ft 5 in Pertinent Lab Results Pertinent Lab Results: Laboratory Tests 04/23/24 10:54 WBC 8.3 Hgb 14.2 Hct 41.0 L Plt Count 244 Sodium 138 Potassium 3.7 Chloride 107 Carbon Dioxide 24 BUN 16 Creatinine 0.81 Narrative Narrative: ECHO 2022 Conclusions: - The left ventricular systolic function is low normal. The calculated ejection fraction is 53% by biplane method. - No obvious valvular pathology seen on this study. Assessment and Plan Assessment Anesthesia Assessment: Chart Reviewed Final Anesthetic Review Family History of Problems with Anesthesia: No History of Problems with Anesthesia: No Documented by User: Carmina Gilbert DO 04/26/24 09:08 HPI - Anesthesia Eval Consult details Narrative: 28yo M for Left Cystoscopy, Ureteroroscopy, Retro, Laser,with stent removal. Last seizure in 2022. [facility] Past Medical History Medical History (Updated 04/26/24 @ 08:25 by Joann Luna RN) Renal calculi Balanitis Essential hypertension Non-rheumatic mitral regurgitation Bipolar 1 disorder ADHD Seizure OCD (obsessive compulsive disorder) Anxiety Depression Autism Diabetes mellitus Family History Family History Father Diabetes HTN (hypertension) Mother Diabetes HTN (hypertension) Family history of problems with anesthesia: No Surgical History Surgical History Hx of cystoscopy History of Problems with Anesthesia: No Social History Social History Household Members: Family Housing: House Are you a primary long term acute care registered nurse to a significant other at home: No Do you presently have visiting nurse or other home services: No Alcohol intake: never Patient Tobacco Use Status: Never used Tobacco Second Hand Smoke Exposure: No Use of substances other than those prescribed or required for medical reasons: No Have you been hit, kicked, punched, or otherwise hurt by someone within the past year? If so, by whom?: No Are you DNR?: No Advance Directives: No Advance Directives Information Provided: Yes Recently lost weight without trying: No How much weight loss: Not applicable Eating poorly because of decreased appetite: No Nutrition screen score: 0 Nutrition Risks: No Nutritional Risk Poor oral hygiene: No service: No Current occupational status: disabled Sexual orientation: Don't Know Meds Allergies Allergy/AdvReac Type Severity Reaction Status Date / Time amlodipine [AMLODIPINE] Allergy Intermediate SEIZURE Verified 04/26/24 08:25 escitalopram [From LEXAPRO] Allergy Intermediate SEIZURE Verified 04/26/24 08:25 fluoxetine [Prozac] Allergy Intermediate Hives Verified 04/26/24 08:25 olanzapine [From ZYPREXA] Allergy Intermediate AGITATION Verified 04/26/24 08:25 levetiracetam [From Keppra] AdvReac Severe SI Verified 04/26/24 08:25 Home Medications ?Medication ?Instructions ?Recorded ?Confirmed ?Last Taken ?Type cholecalciferol (vitamin D3) 50 50 mcg PO QAM 10/24/20 04/26/24 Unknown History mcg (2,000 unit) tablet melatonin 5 mg tablet 5 mg PO BEDTIME 10/24/20 04/26/24 Unknown History simvastatin 10 mg tablet 10 mg PO DAILY 10/24/20 04/26/24 Unknown History omeprazole 20 mg capsule,delayed 20 mg PO DAILY@0630 07/19/21 04/26/24 Unknown History release metformin 500 mg tablet,extended 500 mg PO DAILY 01/15/22 04/26/24 Unknown History release 24 hr polyethylene glycol 3350 17 17 g PO BID PRN constipation 05/07/22 04/26/24 Unknown History gram/dose oral powder potassium citrate 10 mEq (1,080 10 meq PO TID 08/03/22 04/26/24 Unknown History mg) tablet,extended release clonidine HCl 0.1 mg tablet 0.1 mg PO BID@0800,1200 PRN Anxiety 04/05/24 04/26/24 Unknown History clonidine HCl 0.1 mg tablet 0.1 mg PO DAILY PRN Anxiety 04/05/24 04/26/24 Unknown History lisinopril 20 mg tablet 20 mg PO DAILY 04/05/24 04/26/24 Unknown History quetiapine 100 mg tablet 100 mg PO BID 04/05/24 04/26/24 Unknown History Exam Exam Date and Time: 04/26/24 0905 Height,Weight and Vital Signs: Height 5 ft 5 in Height 5 ft 5 in Weight 85.729 kg Vital Signs Temperature 97.1 F 04/26/24 08:37 Pulse Rate 62 04/26/24 08:37 Respiratory Rate 16 04/26/24 08:37 Blood Pressure 99/53 L 04/26/24 08:37 Pulse Oximetry 100 04/26/24 08:37 Oxygen Delivery Method Room Air 04/26/24 08:37 Temperature 97.1 F 04/26/24 08:37 Pulse Rate 62 04/26/24 08:37 Respiratory Rate 16 04/26/24 08:37 Blood Pressure 99/53 L 04/26/24 08:37 Pulse Oximetry 100 04/26/24 08:37 Oxygen Delivery Method Room Air 04/26/24 08:37 Airway Mallampati Class: I TM Dist: >3cm Neck ROM: Full Loose/Missing/Broken Teeth: No (patient denies any loose or broken teeth) Heart: S1S2 Lungs: CTAB Assessment and Plan Assessment Anesthesia Assessment: Anesthesia Plan Discussed and Chart Reviewed Final Anesthetic Review Family History of Problems with Anesthesia: No History of Problems with Anesthesia: No NPO: Yes ASA Class: II Final Preanesthetic Review: No Changes in Pt Med Stat, Meds/Allgs Chart Reviewed, Consent Obtained/Reviewed and Anes Risks/Benef Reviewed Patient Risk: Low Procedure Risk: Low Anesthetic Plan Anesthetic Plan: GA and Agree w/ Assess. and Plan Disposition: Standard PACU
--- NOTE | 2024-04-26 09:44 | P.OP_ITS ---
Operative Note Operative Note Date of Service: 04/26/24 Narrative: PreOperative Diagnosis: Left indwelling stent with left renal stone Post Operative Diagnosis: Left indwelling stent with left renal stone Procedure: - cystoscopy, left stent removal - left retrograde - left ureteroscopy stone basketing Surgeon: Dr Ruben Gandhi Anesthesia: General Indications for procedure: Had been seen in emergency. Had left UPJ stone. Stent had been placed. Had been experiencing hematuria with question of infection. Here for removal of stent and completion procedure. Procedure: After informed consent was verified patient was brought to the operating placed in supine position. Anesthesia was administered per protocol. Patient was placed in modified dorsal lithotomy position and prepped and draped in a sterile fashion. Safety pause time-out and side of surgery confirmed. Antibiotics confirmed. 22 [place] cystoscope was inserted per urethra. Bladder was normal in its entirety. Both ureteric orifices were in normal position. Stent seen emerging from left ureteric orifice. Sensor guidewire placed alongside the stent up to the renal pelvis and verified with fluoroscopy. Stent grasped and removed. Retrograde examination was performed which showed no filling defects. The rigid cystoscope was removed and the inner cannula of ureteric access sheath was used under fluoroscopy to dilate the ureteric orifice. The ureteric access sheath was placed and the inner cannula with access wire removed. The digital flexible ureteral scope was placed. The scope was advanced into the renal pelvis. There was definitely inflammation of the upper ureter. The kidney itself was partially inflamed. There were f ragments of stone with biofilm. The renal pelvis was fully examined. There were stone clusters. Using a ZeroTip 1.9 [place] basket attempt was made to grab these classes. They disintegrated in the basket. No other definitive stone was seen. The digital scope was removed. The renal pelvis was irrigated with the open- ended catheter. A decision was made to complete the procedure and not to leave a stent. The bladder was emptied. The patient tolerated the procedure well and was extubated in the operating room, and transferred in stable condition to the recovery area. Pathology: No stone Drains: No drains
[2024-04-26] MEDS: Phenazopyridine HCL 100 MG TABLET PO (10:04)
[2024-04-26] MEDS: fentaNYL citrate/PF 100 MCG/2 ML VIAL 50 MCG IVPUSH ×6 (10:08→12:20)
[2024-04-26] MEDS: oxyBUTYnin chloride ER 5 MG TAB.ER.24 PO (11:51)
[2024-04-26] MEDS: HYDROmorphone HCl 1 MG/ML SYRINGE IVPUSH ×2 (12:32→13:00)
[2024-04-26] MEDS: ondansetron HCL 4 MG/2 ML VIAL IVPUSH (13:12)
[2024-04-26] MEDS: Haloperidol Lactate 5 MG/ML VIAL 1 MG IVPUSH (13:58)
[2024-04-26] MEDS: LORazepam 2 MG/ML VIAL 1 MG IVPUSH (14:20)
[2024-04-26 16:30] LABS: Glucose, Whole Blood 103 mg/dL (60-115)
[2024-04-26] MEDS: 0.9 % Sodium Chloride 1,000 ML 125 ML IVCONT (17:54)
[2024-04-26] MEDS: oxyCODONE HCl Immed Release 5 MG TABLET PO (17:54)
[2024-04-26] MEDS: Ketorolac Tromethamine 15 MG/ML VIAL IVPUSH (18:27)
--- NOTE | 2024-04-26 18:41 | PHA.MEDREC ---
Addendum entered by Azul Lux RPh 04/26/24 18:47: reviewed by [facility]. Original Note: Pharmacy Consult ? Medication Reconciliation Pharmacy has reviewed the medication reconciliation done by nursing. Spoke to patient to confirm med list. Patent states he has one more day left of Cefuroxime 500 mg and will be starting Levofloxacin 500 mg post surgery.
[2024-04-26] MEDS: Phenazopyridine HCL 200 MG TABLET PO (19:51)
[2024-04-26] MEDS: cloNIDine HCL 0.1 MG TABLET PO (19:51)
[2024-04-26] MEDS: QUEtiapine Fumarate 100 MG TABLET PO (19:52)
[2024-04-26] MEDS: Acetaminophen 325 MG TABLET 975 MG PO (19:52)
[2024-04-26] MEDS: Tamsulosin HCL 0.4 MG CAPSULE PO (21:08)
[2024-04-26] MEDS: Topiramate 100 MG TABLET 200 MG PO (21:08)
[2024-04-27] MEDS: 0.9 % Sodium Chloride 1,000 ML 125 ML IVCONT ×2 (01:15→10:17)
[2024-04-27 03:18] VITALS: BP 107/66; PULSE 56; RESP 16; TEMP 36.1; O2SAT 99
[2024-04-27] MEDS: Omeprazole 20 MG CAPSULE.DR PO (05:30)
[2024-04-27] MEDS: Ketorolac Tromethamine 15 MG/ML VIAL IVPUSH (05:40)
[2024-04-27] MEDS: Acetaminophen 325 MG TABLET 975 MG PO ×2 (07:37→14:18)
[2024-04-27] MEDS: Topiramate 100 MG TABLET 200 MG PO (07:38)
[2024-04-27] MEDS: QUEtiapine Fumarate 100 MG TABLET PO (07:39)
[2024-04-27] MEDS: metFORMIN HCl ER 500 MG TAB.ER.24H PO (07:39)
[2024-04-27] MEDS: lisinopriL 20 MG TABLET PO (07:39)
[2024-04-27] MEDS: lamoTRIgine 25 MG TABLET PO (07:39)
[2024-04-27 07:44] VITALS: BP 104/61; PULSE 70; RESP 18; TEMP 36.9; O2SAT 98
[2024-04-27] MEDS: oxyCODONE HCl Immed Release 5 MG TABLET PO (08:46)
[2024-04-27] MEDS: Phenazopyridine HCL 200 MG TABLET PO (08:46)
[2024-04-27 09:09] VITALS: O2SAT 97
[2024-04-27 09:50] LABS: Creatinine Clr Calc Pharmacy 126.6; Estimated Glomerular Filt Rate > 60
[2024-04-27 11:11] VITALS: BP 97/53; PULSE 82; RESP 18; TEMP 36.8; O2SAT 97
--- NOTE | 2024-04-27 11:29 | HO.POSTANES ---
Post Anesthesia Evaluation Post Anesthesia Evaluation Date of Service: 04/26/24 Vital Signs: Vital Signs Temp Pulse Resp BP Pulse Ox O2 Del Method 04/27/24 11:11 98.2 F 82 18 97/53 L 97 Room Air 04/27/24 09:09 97 Room Air 04/27/24 07:44 98.5 F 70 18 104/61 98 Room Air 04/27/24 03:18 96.9 F 56 16 107/66 99 Room Air Anesthesia: General Mental Status: Awake Pain Control: Satisfactory Nausea/Vomiting: None Hydration: Adequate Anesthesia-Related Issues: No Anes. Related Issues
--- NOTE | 2024-04-27 12:31 | MHC.CM.PN ---
Addendum entered by Kamila Curtis 04/27/24 14:35: Patient is planned for discharge today per Dr Gandhi. Patient has arranged for his mother to pick him up @ 3pm today. Original Note: Male s/p renal stone procedure. He lives with family. He has Caregiver services thru [employer]. DP home resume the mentor program. Patient will arrange for a ride home at discharge. No discharge planned today. CM will follow for discharge.
--- NOTE | 2024-04-27 14:30 | P.PNUR_ITS ---
Subjective Subjective Date of Service: 04/27/24 Interval history: Significant improvement in pain management DC home today Physical Exam 2 Vital Signs: Vital Signs: Last Vital Signs Temp 98.2 F 04/27/24 11:11 Pulse 82 04/27/24 11:11 Resp 18 04/27/24 11:11 BP 97/53 L 04/27/24 11:11 Pulse Ox 97 04/27/24 11:11 O2 Del Method Room Air 04/27/24 11:11 O2 Flow Rate 2 04/26/24 13:15 BMI result Body Mass Index 31.4 Const: General: cooperative, healthy appearing, comfortable and no acute distress Orientation/consciousness: patient oriented x3 HEENT: Face and sinus: Yes normal facial exam Mouth: moist mucous membranes Neck: Neck: Yes normal visual inspection, Yes full ROM and Yes trachea midline Chest: Chest palpation & inspection: normal inspection of the chest Resp: Effort & Inspection: normal respiratory effort, able to speak in complete sentences and no respiratory distress GI: Inspection: Yes normal to inspection Back/Spine/Pelvis: Cervical Spine: normal cervical lordosis Thoracic/Lumbar Spine: thoracic and lumbar spine normal to inspection Skin: General skin exam: no rashes or lesions noted Neuro: General: patient oriented x3, tone normal and moves all extremities Extrem: General: Yes normal to inspection and Yes capillary refill normal Urology Results Labs 04/27/24 09:27 Labs: Laboratory Results - last 24 hr 04/26/24 04/27/24 16:25 09:27 Creatinine 0.89 Estim Creat Clear Calc 126.6 Estimated GFR > 60 POC Glucose 103 Progress Note: A&P Assessment and plan (1) Ureteral stone: Status: Acute Plan Discharged home Time Spent With Patient Time: Total time managing care of this patient today ____ minutes.
--- NOTE | 2024-04-27 14:31 | P.DS_ITS ---
DS: Providers Provider Date of Service: 04/27/24 Date of admission: 04/26/24 16:07 Primary care physician: Jens Grigsby MD DS: Diagnosis Discharge Diagnosis (1) Ureteral stone: Status: Acute DS: Summary Hospital Course Hospital Course: Admitted following procedure Secondary to pain management needs Resolved within 24 hours Time spent discussing smoking cessation with patient: 3 to 10 minutes Status at Discharge Functional status at discharge: independent ambulation Overall status at discharge: patient is back to baseline Time Attestation Discharge Coordination Time (in mins): 10 Quality: Safe Use of Opioids Does Pt have an Active Cancer Diagnosis on the Problem List?: No Quality: Stroke Does the patient have a stroke diagnosis?: No Physical Exam Vital Signs: Vital Signs: Last Vital Signs Temp 98.2 F 04/27/24 11:11 Pulse 82 04/27/24 11:11 Resp 18 04/27/24 11:11 BP 97/53 L 04/27/24 11:11 Pulse Ox 97 04/27/24 11:11 O2 Del Method Room Air 04/27/24 11:11 O2 Flow Rate 2 04/26/24 13:15 BMI result Body Mass Index 31.4 DS: Data Data Completed and Pending Completed studies during hospitalization [Text1]: Procedures Dilation of Left Ureter with Intraluminal Device, Via Natural or Artificial Opening Endoscopic (04/04/24) Fluoroscopy of Left Kidney, Ureter and Bladder (04/04/24) Labs on day of discharge: Laboratory Results - last 24 hr 04/26/24 04/27/24 16:25 09:27 Creatinine 0.89 Estim Creat Clear Calc 126.6 Estimated GFR > 60 POC Glucose 103 Discharge Plan Discharge Anticipated Discharge Date/Time: 04/27/24 14:28 Patient Disposition: Home, Self-Care Discharge Diagnosis: Pain following renal stone Procedure Referrals: Ruben Gandhi MD [Physician] - 6 Weeks Jens Grigsby MD [Primary Care Provider] - None Discharge Medications: New levofloxacin 500 mg tablet 500 mg PO DAILY Qty: 7 0RF Continued topiramate 100 mg tablet 200 mg PO BID 30 Days Qty: 120 6RF lamotrigine 25 mg tablet 25 mg PO DAILY 14 Days Qty: 14 0RF Rx Instructions: bedtime allopurinol 100 mg tablet 100 mg PO DAILY 90 Days Qty: 90 1RF pyridoxine (vitamin B6) 50 mg tablet 50 mg PO DAILY 90 Days Qty: 90 1RF potassium citrate 10 mEq (1,080 mg) tablet extended release 10 meq PO TID oxycodone 5 mg tablet 5 mg PO Q6H PRN (Reason: pain) Qty: 20 0RF Rx Instructions: Partial Fill upon patient request. ondansetron 4 mg tablet,disintegrating 4 mg PO Q6H PRN (Reason: nausea and vomiting) ibuprofen 600 mg tablet 600 mg PO Q8H PRN (Reason: fever or pain) Qty: 20 0RF quetiapine 100 mg tablet 100 mg PO BID clonidine HCl 0.1 mg tablet 0.1 mg PO BID@0800,1200 PRN (Reason: Anxiety) clonidine HCl 0.1 mg tablet 0.1 mg PO DAILY PRN (Reason: Anxiety) Rx Instructions: TAKE ONE TABLET BY MOUTH TWICE A DAY IN THE MORNINGS AND AFTERNOONS NEEDED. MAY TAKE ONE EXTRA TABLET DAILY IF NEEDED FOR ANXIETY phenazopyridine [Pyridium] 100 mg tablet 100 mg PO TID PRN (Reason: Spasm) 4 Days Qty: 12 0RF naproxen 500 mg tablet 500 mg PO BID PRN (Reason: pain) 7 Days Qty: 14 0RF lisinopril 20 mg tablet 20 mg PO DAILY tamsulosin 0.4 mg capsule 0.4 mg PO BEDTIME Qty: 14 0RF cholecalciferol (vitamin D3) 50 mcg (2,000 unit) tablet 50 mcg PO DAILY melatonin 5 mg tablet 5 mg PO BEDTIME simvastatin 10 mg tablet 10 mg PO DAILY metformin 500 mg tablet extended release 24 hr 500 mg PO DAILY omeprazole 20 mg capsule,delayed release(DR/EC) 20 mg PO DAILY@0630 polyethylene glycol 3350 17 gram/dose powder 17 g PO BID PRN (Reason: constipation) clonazepam 2 mg tablet,disintegrating 2 mg PO ONCE PRN (Reason: seizure lasting > 2 minutes) Qty: 5 2RF Discontinued cefuroxime axetil 500 mg tablet 500 mg PO BID Qty: 20 0RF Rx Instructions: end date: 04/27/24 Discharge Orders: Discharge Order (Routine); Ordered 04/26/24 Ordered By: Ruben Gandhi Diet: Advance to usual diet Activity on Discharge: As tolerated Print Language: [place] Care Plan Goals: Stones Health Concerns: Stones Plan of Treatment: Stones Assessment: Stones
== END 2024-04-27 15:36 | disposition home or self-care (01) | DRG 446 ==
LOC: HO.EDOVER 16:12 → HO.S3 17:12
PROVIDERS: Admitting Provider Urology; PCP Internal Medicine; Visit Provider Urology
PROC: 0TC78ZZ Extirpation of Matter from Left Ureter, Via Natural or Artificial Opening Endoscopic (ICD-10-PCS; principal; 2024-04-26 09:40)
DX: N20.1 Calculus of ureter (principal); E11.9 Type 2 diabetes mellitus without complications; Z79.84 Long term (current) use of oral hypoglycemic drugs; Z79.899 Other long term (current) drug therapy
CPT/HCPCS: 36415; 82565; 82947; C1758; C1769; C1894; J0131; J1170; J1630; J1885; J2060; J2405; J2704; J3010; Q9967

== ENCOUNTER 2024-06-18 10:06 | Outpatient (REF) | payer OTHER, SELFPAY | END 2024-06-18 10:07 | disposition home or self-care (01) | LOC: HO.US 10:06 | PROVIDERS: PCP Internal Medicine; Visit Provider Urology | DX: N20.0 Calculus of kidney (principal) | CPT/HCPCS: 76775 ==

== ENCOUNTER 2024-09-30 10:58 | Outpatient (AMB) | payer OTHER, SELFPAY ==
--- NOTE | 2024-09-30 11:21 | MHC.OFFVIS ---
Vital Signs 09/30/24 11:22 Weight 190 lb BP 110/60 Blood Pressure Location Rt brachial Position Sitting Pulse 78 Pulse Source Pulse Oximeter Pulse Oximetry (%) 96 Oxygen Delivery Method Room Air Intake Visit Reasons: Follow Up Intake Note: Patients presents follow up Epilepsy/Sleep medication Education Supervisor Required: No Accompanied by: Self / Same As Patient Allergies amlodipine [AMLODIPINE] Allergy (Intermediate, Verified 09/30/24 11:28) SEIZURE escitalopram [From LEXAPRO] Allergy (Intermediate, Verified 09/30/24 11:28) SEIZURE fluoxetine [Prozac] Allergy (Intermediate, Verified 09/30/24 11:28) Hives olanzapine [From ZYPREXA] Allergy (Intermediate, Verified 09/30/24 11:28) AGITATION levetiracetam [From Keppra] Adverse Reaction (Severe, Verified 09/30/24 11:28) SI Medication List - Last Reconciled 09/30/24 by SARINA Huffman allopurinol 100 mg PO DAILY 90 days cholecalciferol (vitamin D3) 50 mcg PO DAILY clonazepam 2 mg PO ONCE PRN clonidine HCl 0.1 mg PO BID@0800,1200 PRN clonidine HCl 0.1 mg PO DAILY PRN ibuprofen 600 mg PO Q8H PRN lamotrigine 25 mg PO BID 30 days levofloxacin 500 mg PO DAILY lisinopril 20 mg PO DAILY melatonin 5 mg PO BEDTIME metformin ER 500 mg PO DAILY naproxen 500 mg PO BID PRN 7 days omeprazole 20 mg PO DAILY@0630 ondansetron 4 mg PO Q6H PRN oxycodone 5 mg PO Q6H PRN phenazopyridine (Pyridium) 100 mg PO TID PRN 4 days polyethylene glycol 3350 17 grams PO BID PRN potassium citrate ER 10 mEq PO TID pyridoxine (vitamin B6) 50 mg PO DAILY 90 days quetiapine 100 mg PO BID simvastatin 10 mg PO DAILY tamsulosin 0.4 mg PO BEDTIME topiramate 200 mg (2 x 100 mg) PO BID 30 days HPI Comments Details: The patient is a 29-year-old male presenting with follow-up for seizure management. He is accompanied by his mother. He has a history of a seizure disorder and was recently started on lamotrigine with plans for eventual cessation of topiramate due to episodes of recurrent kidney stones.. His current dose of lamotrigine is 50 mg, which he is tolerating well. Previous Depakote caused liver issues and suicidal thoughts, hence discontinued. denies interval seizure activity. Occasional brief unspecified visual disturbances, not associated with light sensitivity or headaches. The patient reports chronic history of obsessive-compulsive disorder and bipolar disorder, and wonders if he could have a pandas syndrome. Chronic sinusitis and allergies are noted, with no intensive care medicine specialist consultation. [facility] Medical History (Updated 10/03/24 @ 16:54 by SARINA Huffman) Renal calculi Balanitis Essential hypertension Non-rheumatic mitral regurgitation Bipolar 1 disorder ADHD Seizure OCD (obsessive compulsive disorder) Anxiety Depression Autism Diabetes mellitus Surgical History Hx of cystoscopy Family History Father Diabetes HTN (hypertension) Mother Diabetes HTN (hypertension) Social History Household Members: Family Housing: Apartment Are you a primary day care center director to a significant other at home: No Do you presently have visiting nurse or other home services: Yes (caregiver, vna) Alcohol intake: never Patient Tobacco Use Status: Never used Tobacco Second Hand Smoke Exposure: No service: No Current occupational status: disabled Sexual orientation: Don't Know Physical Exam Vital Signs: Last Vital Signs Pulse 78 09/30/24 11:22 BP 110/60 09/30/24 11:22 Pulse Ox 96 09/30/24 11:22 Oxygen Delivery Method Room Air 09/30/24 11:22 Const General: cooperative and no acute distress Orientation/consciousness: patient oriented x3 Resp Effort & Inspection: normal respiratory effort and able to speak in complete sentences Neuro General: patient oriented x3 Cognition (Neuro): normal cognition Psych Appearance: grossly normal Mental Status: mental status grossly normal Affect: normal affect Attitude: cooperative Thought process: Normal thought process present Assessment & Plan Assessment & Plan (1) Epilepsy: Code(s): G40.909 - Epilepsy, unspecified, not intractable, without status epilepticus Category: Medical (2) Renal calculi: Code(s): N20.0 - Calculus of kidney Category: Medical (3) Sleep disorder, unspecified: Comment: snoring, gasping, unrefreshing sleep, nocturia, am dry mouth Code(s): G47.9 - Sleep disorder, unspecified Category: Medical Plan Discussion Notes I discussed the transition from topiramate to lamotrigine with the patient, emphasizing a gradual titration of lamotrigine up to 400 mg daily while observing for side effects like rash. We agreed to reduce the topiramate dosage as lamotrigine is increased. Our discussions included acknowledgment of the patient's OCD and bipolar disorder without immediate changes to his current treatment, however he will continue to follow with his psychiatrist and therapist.. The patient is referred to an intensive care medicine specialist for evaluation of recurrent sinusitis and potential allergies. We discussed the potential relation of kidney stones to treatment and lifestyle factors, considering it during future prescription adjustments. The necessity for close monitoring of both seizure activity and potential medication side effects was clearly communicated, with agreement to report new symptoms promptly. Patient was informed and verbally consented to the use of an ambient scribe for clinic note documentation during this visit. Patient Instructions- Continue increasing lamotrigine as discussed, monitoring for side effects. - Slowly wean off topiramate - follow written medication plan as below- copy provided to patient. - continue vitamin B6 supplement per urology. - continue Clonazepam 2mg ODT prn seizure lasting > 2 min - check CBC and CMP. - Follow up with an intensive care medicine specialist for sinusitis and allergy evaluation. - Report any new or worsening symptoms, particularly rashes, to me immediately. - Schedule close follow-ups as needed for seizure and side effect monitoring. - Stay hydrated as a preventive measure for kidney stones. - Continue prescribed mental health medications and therapy. Week 1 and 2 Lamotrigine 50mg 2 x's per day Topiramate 200mg 2 x's per day Week 3 and 4 Lamotrigine 100mg 2 x's per day Topiramate 150mg 2 x's per day Week 5 and 6 Lamotrigine 150mg 2 x's per day Topiramate 100mg 2 x's per day Week 7 Lamotrigine 200mg 2 xs per day Topiramate 50mg 2 x's per day Week 8 Lamotrigine 200mg 2 xs per day Topiramate 25mg 2 x's per day Week 9 Lamotrigine 200mg 2 xs per day Topiramate 25mg at bedtime Week 10 Lamotrigine 200mg 2 x's per day Stop Topiramate Will follow-up upon review of above and patient to follow-up in clinic in 6 months or sooner prn. Orders: Orders Complete Blood Count Auto Diff 09/30/24 G40.909 - Epilepsy, unspecified, not intractable, without status epilepticus, N20.0 - Calculus of kidney Comprehensive Met. Panel 09/30/24 G40.909 - Epilepsy, unspecified, not intractable, without status epilepticus, N20.0 - Calculus of kidney Coding Level of Care Code Est Pt Level 4 (83606) Diagnoses Epilepsy G40.909 Renal calculi N20.0 Sleep disorder, unspecified G47.9
[2024-09-30 11:22] VITALS: BP 110/60; PULSE 78; O2SAT 96
--- OUTSIDE RECORDS SUMMARY | 2024-09-30 13:24 | XMS_ITS | Data Portability ---
Author Organization [facility] Address [address] [place] [address] Assessment No assessment recorded. Plan of Treatment Reminders Order Date Submit Date Provider Last Modified By Organization Details Last Modified Time Details Appointments None recorded. Lab None recorded. Referral None recorded. Procedures None recorded. Surgeries None recorded. Imaging None recorded. Medication Orders amoxicillin 875 mg-potassiu m clavulanate 125 mg tablet 2022 023 [facility], [address] [place] [address], [id number], 3 12:18:31 benzonatate 100 mg capsule 2022 023 [facility], [address] [place], [address], 3 12:18:31 fexofenadin e 180 mg tablet 2022 023 [facility], [address] [place] [address], [id number], 3 12:18:32 Patient TargetsNo targets recorded. Patient Instructions Encounter Date Encounter Id Patient Instructions Last Modified By Organization Details Last Modified Time 12/10/2022 [id number] Acute Sinusitis: Care Instructions [email or web address] Not available 12/10/2022 12:18:29 Reason for Referral None Reported. Problems Name Problem SNOMED Code Status Onset Date Resolution Date Notes Provider Name and Address Organization Details Recorded Time Obsessive- compulsive disorder 571964928 Active 023 [facility] 3 11:42:11 Bipolar disorder 57279393 Active 023 ROMÁN jain, [place] - [facility] 3 11:42:16 Anxiety 62027938 Active 023 ROMÁN BUSTILLOSVERTMARSHA null, [place] - [facility] 3 11:42:21 Problem Notes None recorded. Medical Equipment None Reported. Allergies Allergen ID Allergen Name Allergen Category Reaction Reaction Severity Criticality Documentation Date Start Date Code Code System Note Provider Name and Address Organization Details Recorded Time 421659 amlodipin e medicatio n Not available Not available Not available 12/10/2022 03220 [facility] IRIS COUVERTIE R null, [place] - [facility] 3 11:40:31 [id number] Prozac medicatio n Not available Not available Not available 12/10/2022 17966 RxNorm IRIS COUVERTIE R null, [place] - [facility] 3 11:40:39 245781 Zyprexa medicatio n Not available Not available Not available 12/10/2022 33239 3 RxNorm IRIS COUVERTIE R null, [place] - [facility] 3 11:40:46 513132 Lexapro medicatio n Not available Not available Not available 12/10/2022 57319 1 Rx[facility] IRIS COUVERTIE R null, [place] - [facility] 3 11:40:58 Medications Name Sig Start Date Stop Date Status Note LastModified by Organization Details LastModified Time quetiapine 25 mg tablet TAKE ONE TABLET BY MOUTH THREE TIMES A DAY active Not Available Not Available Not Available prednisone 20 mg tablet TAKE TWO TABLETS BY MOUTH EVERY DAY IN THE MORNING FOR 5 DAYS active Not Available Not Available No t Available sertraline 100 mg tablet TAKE ONE TABLET BY MOUTH EVERY DAY active Not Available Not Available No t Available simvastatin 10 mg tablet TAKE ONE TABLET BY MOUTH AT BEDTIME active Not Available Not Available No t Available quetiapine 200 mg tablet TAKE ONE TABLET BY MOUTH EVERY DAY AT NIGHT active Not Available Not Available No t Available fexofenadine 180 mg tablet TAKE ONE TABLET BY MOUTH EVERY DAY active Not Available Not Available No t Available clonidine HCl 0.2 mg tablet TAKE ONE TABLET BY MOUTH EVERY DAY ONLY IF NEEDED FOR ANXIETY, AGITATION OR ANGER. active Not Available Not Available No t Available tamsulosin 0.4 mg capsule TAKE ONE CAPSULE BY MOUTH EVERY DAY active Not Available Not Available No t Available potassium citrate ER 10 mEq (1,080 mg) tablet,exten ded release TAKE ONE TABLET BY MOUTH EVERY DAY IN THE MORNING, 1 TABLET AT NOON AND 1 TABLET IN THE EVENING. TAKE WITH MEALS. DO NOT CRUSH, CHEW OR SP active Not Available Not Available N ot Available benzonatate 100 mg capsule TAKE ONE CAPSULE BY MOUTH THREE TIMES A DAY active Not Available Not Available Not Available docusate sodium 100 mg capsule TAKE ONE CAPSULE BY MOUTH TWICE A DAY WITH PLENTY OF WATER NEEDED FOR CONSTIPATIO N active Not Available Not Available No t Available oxybutynin chloride ER 5 mg tablet,exten ded release 24 hr TAKE ONE TABLET BY MOUTH EVERY DAY active Not Available Not Available No t Available omeprazole 20 mg capsule,isela yed release TAKE ONE CAPSULE BY MOUTH EVERY DAY active Not Available Not Available No t Available lisinopril 20 mg-hydrochlo rothiazide 25 mg tablet TAKE ONE TABLET BY MOUTH ONCE DAILY active Not Available Not Available No t Available pyridoxine (vitamin B6) 100 mg tablet TAKE ONE TABLET BY MOUTH TWICE A DAY active Not Available Not Available No t Available polyethylene glycol 3350 17 gram/dose oral powder TAKE 17G DIRECTED TWO TIMES A DAY NEEDED CONSTIPATIO N active Not Available Not Available No t Available topiramate 100 mg tablet TAKE TWO TABLETS BY MOUTH TWICE A DAY active Not Available Not Available No t Available fluticasone propionate 50 mcg/actuatio n nasal spray,suspen amy active Not Available Not Available Not Available metformin ER 500 mg tablet,exten ded release 24 hr TAKE ONE TABLET BY MOUTH EVERY DAY active Not Available Not Available No t Available naproxen 500 mg tablet TAKE ONE TABLET BY MOUTH TWICE A DAY active Not Available Not Available No t Available amoxicillin 875 mg-potassium clavulanate 125 mg tablet TAKE ONE TABLET BY MOUTH EVERY 12 HOURS FOR 7 DAYS active Not Available Not Available N ot Available chlorhexidin e gluconate 0.12 % mouthwash SWISH 20ML BY MOUTH FOR 30 SECONDS THEN SPIT OUT. USE TWICE DAILY IN THE MORNINGS AND EVENINGS AFTER BRUSHING TEETH AND MEALS. AVOID EATING active Not Available Not Available No t Available quetiapine 50 mg tablet TAKE ONE TABLET BY MOUTH THREE TIMES A DAY active Not Available Not Available Not Available melatonin 5 mg tablet TAKE ONE TABLET BY MOUTH AT BEDTIME NEEDED FOR INSOMNIA active Not Available Not Available No t Available cholecalcife rol (vitamin D3) 50 mcg (2,000 unit) tablet TAKE ONE TABLET BY MOUTH EVERY DAY active Not Available Not Available No t Available Vitals Date Recorded Body height Body mass index (BMI) Body weight Body temperature Respiratory rate Heart rate Oxygen saturation Oxygen saturation in Arterial blood by Pulse oximetry Systolic blood pressure Diastolic blood pressure Provider Name and Address Organization Details Last Updated DateTime 3 165.1 cm 31.5 kg/m2 24255.9 6 g 98.1 [degF] 18 /min 85 /min 99 % 99 % 112 mm[Hg] 72 mm[Hg] ROMÁN Sol PA - [facility] 3 11:43:50 Social History Question Answer Notes LastModified by Organizat ion Details LastModified Time Tobacco Smoking Status Never Smoker ROMÁN jain [place] - [facility] 12/10/2022 11:42:36 What Is Your Level Of Alcohol Consumption? None Information not available 12/10/2022 What Is Your Water Source? [facility] Information not available 12/10/2022 What Is Your Heat Source? Other Information not available 12/10/2022 Have You Had Direct Contact, Or Contact During Intimacy, With Monkeypox Rash, Scabs, Or Body Fluids From A Person With Monkeypox? No Information not available 12/10/2022 Do You Use Any Illicit Or Recreational Drugs? No Information not available 12/10/2022 Have You Recently Traveled Abroad? No Information not available 12/10/2022 Do You Or Have You Ever Used Any Other Forms Of Tobacco Or Nicotine? No Information not available 12/10/2022 Sex: Unknown Functional Status None recorded. Mental Status None recorded. Family History Relationship Description Onset Age of this Age Resolved Age Notes LastModified by Organization Details LastModified Time Father No current problems or disability Not available 11:42:25 Mother No current problems or disability Not available 11:42:25 Medical History No medical history recorded. Past Encounters Encounter ID Performer Location Encounter Start Date Encounter Closed Date Diagnosis/Indication Diagnosis SNOMED-CT Code Diagnosis ICD10 Code Diagnosis Note [id number] Edita Gonzales MD [facility] [address] [place] [id number] 12/10/2022 11:18:32 12/10/2022 12:19:51 Acute sinusitis 79503476 J01.90 - Use the medication s prescribed .- Recommend recheck if fever develops or no improvemen t in 5-7 days.- Use saline nasal spray or neti-pot flushes once to twice a day to loosen mucus in sinuses.- I recommend having your ear rechecked in in 2 weeks with your primary provider to verify infection has resolved.- .Use a cool mist humidifier in the room that you sleep to add moisture to the air, which should soothe the airways and help loosen any mucus that may be present.-C all 911 or proceed to nearest Emergency Department if you develop shortness of breath, chest pain, severe headache or other symptoms that concern you. Health Concerns Section Related Observation LastModified by Organization Detai ls LastModified Time None Recorded Concern Status LastModified by Organization Details LastModified Time None Recorded Advance Directives Directive None Recorded Payers Encounter Date Sequence Insurance Name Policy Number Policy Sharp Covered Member ID Sharp Member ID Guarantor Name 12/10/[address] [place] [address] [employer] [facility] (MEDICAID HMO) [id number] Andry Hill [id number] Andry Liang Notes Date Note Type Note Provider Name and Address Organization Details Recorded Time 3 text/html Sinus ComplaintsReported bypatient.Location:sinu s pain;facial pain;sinus pressure Associated Symptoms:nasal discharge from nostrils;cough Duration:10 days Edita Gonzales MD [address] [place], [address], [place] - [facility] 12/10/2022 13:55:34
--- OUTSIDE RECORDS SUMMARY | 2024-09-30 13:24 | XMS_ITS | Clinical Summary ---
Author Organization [facility] Address [address] [address] Phone Care Team Providers Care Integrated Marketing Specialist Name Role Phone Gigi Acuña MD Primary Care Provider [phone] Allergies Active Allergy Reactions Criticality Noted Date Comments Amlodipine 06/19/2021 Escitalopram 12/10/2021 Fluoxetine 06/19/2021 Sertraline Anaphylaxis High 06/19/2021 Olanzapine 06/19/2021 Medications QUEtiapine (SEROquel) 200 MG tablet Take 1 tablet by mouth 1 (one) time each day 50 mg in the morning Active pyridoxine (VITAMIN B-6) 25 MG tablet Take 1 tablet by mouth 2 (two) times a day Active metFORMIN (GLUCOPHAGE) 500 MG tablet Take 1 tablet by mouth 1 (one) time each day Active lisinopril 20 MG tablet Take 1 tablet by mouth 1 (one) time each day Active topiramate (TOPAMAX) 100 MG tablet Take 200 mg by mouth 2 (two) times a day 05/29/2021 Active simvastatin (ZOCOR) 10 MG tablet TAKE ONE TABLET BY MOUTH ONCE DAILY AT BEDTIME 05/29/2021 Active sertraline (ZOLOFT) 100 MG tablet Take 100 mg by mouth every morning 05/29/2021 Active omeprazole (PriLOSEC) [address] capsule Take 20 mg by mouth 1 (one) time each day Do not crush or chew. Active cloNIDine-chlor thalidone (CLORPRES) 0.2-15 MG per tablet Take 1 tablet by mouth 2 (two) times a day Active tamsulosin (FLOMAX) 0.4 MG 24 hr capsule Take 1 capsule (0.4 mg total) by mouth 1 (one) time each day Take when stone attack oucurs 15 capsule 05/26/2023 Active Active Problems Problem Noted Date Diagnosed Date Generalized anxiety disorder 05/26/2023 Attention deficit hyperactivity disorder 023 05/26/2023 Renal stone 12/10/2021 Obese class I 12/10/2021 Major depressive disorder 12/10/2021 Bipolar disorder 12/10/2021 Autistic disorder 12/10/2021 Personal history of kidney stones 09/29/2021 Seizure disorder 09/24/2021 Mitral valve disorder 09/24/2021 H/O: obesity 09/24/2021 Essential hypertension 06/19/2021 Personal history of kidney stones 06/19/2021 Type 2 diabetes mellitus wit h diabetic chronic kidney disease 06/19/2021 Encounters Date Type Department Care Team Description 07/23/2024 Refill [facility] [address] [place] [address] [address] [place] [phone] Christi Cabrera [place] 07/22/2024 3:45 PM EST Office Visit [facility] [address] [place] [address] Matty Joaquin MD Renal stone (Primary Dx); Type 2 diabetes mellitus with diabetic chronic kidney disease (HCC) from Last 3 Months Immunizations Name Administration Dates Next Due Hepatitis B 10/08/2019 Influenza, Unspecified 04/15/2022,2020,03/31/2020,04/28/2019,05/07/20 18,05/19/2017,04/03/2016 Pfizer SARS-COV-2 09/03/2021,11/18/2020,10/28/19 21 SARS-CoV-2, Unspecified 04/15/2022 Tdap 08/03/2022,04/05/2021 Family History Medical History Relation Comments Diabetes Father Hypertension Father Diabetes Mother Hypertension Mother Diabetes Sibling 1 Hypertension Sibling 2 Relation Status Comments Father Unknown Mother Unknown Sibling 1 Sibling 2 Social History Tobacco Use Types Packs/Day Years Used Date Smoking Tobacco: Never Alcohol Use Standard Drinks/Week Comments No 0 (1 standard drink = 0.6 oz pur e alcohol) Sex and Gender Information Value Date Recorded Sex Assigned at Not on file Legal Sex Male 5:08 PM EST Gender Identity Not on file Sexual Orientation Not on file Last Filed Vital Signs Vital Sign Reading Time Taken Comments Blood Pressure 125/65 05/26/2023 3:10 PM EDT Pulse 74 05/26/2023 3:10 PM EDT Temperature - - Respiratory Rate - - Oxygen Saturation 99% 05/26/2023 3:10 PM EDT Inhaled Oxygen Concentration - - Weight 82.4 kg (181 lb 9.6 oz) 04/08/2022 3:04 P M EDT Height - - Body Mass Index - - Plan of Treatment Upcoming Encounters Date Type Department Care Team (Late st Contact Info) Description 11/25/2024 4:15 PM EDT Office Visit [facility] [address] [place] [address] Matty Joaquin MD [address] [facility] [address] [place] [address] Health Maintenance Due Date Last Done Comments Pneumococcal Vaccine: Pediat rics (0 to 5 Years) and At-Risk Patients (6 to 64 Years) (1 of 2 - PCV) 2003 Hepatitis B Vaccine (1 of 3 - 19+ 3-dose series) 2016 10/07/2023, 09/02/2023, 10/08/2019 Diabetes: Ophthalmology Exam 06/19/2021 Diabetes: Pedal Pulse Checked 06/19/2021 Diabetes: Sensory Foot Exam 06/19/2021 Diabetes: Visual Foot Exam 06/19/2021 Diabetes: Hemoglobin A1C 03/22/2022 12/20/2021 Influenza Vaccine (#1) 2024 2, 04/05/2021, 03/31/2020, Additional history exists Procedures Procedure Name Priority Date/Time Associated Diagnosis Comments EXT RESULT ENTRY Routine 12/20/2021 from Last 3 Months or Most Recently Relevant to Health Maintenance Results * (ABNORMAL) EXT RESULT ENTRY (12/20/2021) Sodium 134(A) 137 - 147 Potassium 3.8 3.4 - 5.5 Chloride 99.0 99.0 - 108.0 Anion Gap 11 <=30 MMOL/L Glucose 105 60 - 200 BUN 17 4 - 21 mg/dL Creatinine 0.90 0.60 - 1.30 mg/dL BUN/Creatinine Ratio 17 Albumin 5.2(A) 3.5 - 5.0 g/dL Calcium 9.9 8.7 - 10.7 mg/dL Hemoglobin A1C 5.5 4.0 - 6.0 Triglycerides 61 Cholesterol, Total 147 12/20/2021 Historical Provider LAB BLOOD ORDERABLES Rosa l Result from Last 3 Months or Most Recently Relevant to Health Maintenance Insurance Care Teams Integrated Marketing Specialist Relationship Specialty Start Date End Date Gigi Acuña MD [address] [place] [address] PCP - General Pediatrics 05/14/21
--- OUTSIDE RECORDS SUMMARY | 2024-09-30 13:24 | XMS_ITS | Encounter Summary ---
Author Organization [facility] Address [address] [place] [address] Phone Care Team Providers Care Acute Care Nurse Practitioner Name Role Phone Gigi Acuña MD Primary Care Provider [phone] Encounter Details Date Type Department Care Team (Latest Contact Info) Description 04/29/2022 Office Communication [facility] [address] [place] [address] Delaney Cabrera Renal stone (Primary Dx) Social History Tobacco Use Types Packs/Day Years Used Date Smoking Tobacco: Never Alcohol Use Standard Drinks/Week Comments No 0 (1 standard drink = 0.6 oz pur e alcohol) Sex and Gender Information Value Date Recorded Sex Assigned at Not on file Legal Sex Male 5:08 PM EST Gender Identity Not on file Sexual Orientation Not on file documented as of this encounter Miscellaneous Notes * Telephone Encounter - Matty Joaquin MD - 04/29/2022 1:12 PM EDT Labs inepic--pls fax to [facility] know * Telephone Encounter - Delaney Cabrera - 04/29/2022 10:07 AM EDT Pt called saying when he saw you a couple weeks ago you told him he was due for bloodwork. There are orders in the system for urine but no blood. Please advise He uses [facility], please call to let him know once order has been entered. documented in this encounter Plan of Treatment Upcoming Encounters Date Type Department Care Team (Late st Contact Info) Description 11/25/2024 4:15 PM EDT Office Visit [facility] [address] [place] [place] [address] Matty Joaquin MD [address] [facility] [address] [place] [address] Scheduled Orders Name Type Priority Associated Diagnoses Orde r Schedule Citrate, urine, 24 hour with Creatinine Lab Routine Renal stone Expected: 05/01/2022, Expires: 04/29/2023 Urine Sodium, 24 hour Lab Routine Renal stone Expected: 05/02/2022, Expires: 04/29/2023 Creatinine, 24-Hour Urine Lab Routine Renal stone Expected: 05/01/2022, Expires: 05/30/2023 Urine Uric Acid, 24 hour Lab Routine Renal stone Expected: 05/02/2022, Expires: 04/29/2023 Phosphorus, Urine 24 Hour Lab Routine Renal stone Expected: 05/01/2022, Expires: 05/30/2023 Renal Function Panel Lab Routine Renal stone Expected: 05/01/2022, Expires: 05/30/2023 Urinalysis with microscopic Lab Routine Renal stone Expected: 05/01/2022, Expires: 05/30/2023 Urine Albumin / Creatinine Ratio Lab Routine Renal stone Expected: 05/01/2022, Expires: 05/30/2023 Protein, Total, Random Urine w/Creatinine (Protein/Creat Ratio) Lab Routine Renal stone Expected: 05/01/2022, Expires: 05/30/2023 documented as of this encounter Procedures Procedure Name Priority Date/Time Associated Diagnosis Comments CYSTINE, 24-HOUR URINE Routine 04/29/2022 10:41 AM EDT Renal stone OXALATE, URINE, 24 HOUR Routine 04/29/2022 10:41 AM EDT Renal stone documented in this encounter Results * Cystine, 24-Hour Urine (04/29/2022 10:41 AM EDT) Cystine, 24H Ur 1997 [place] Cystine, 24H Ur 2825 mL [place] Cystine, 24H Ur TNP () umol/24 h [place] Comment: TEST(S) NOT PERFORMED: ?CYSTINE TEST NOT PERFORMED Test not performed pH of urine is <2.0 which interferes with assay. Please resubmit fresh sample collected without preservative. THIS TEST WAS PERFORMED AT: [employer]/[facility] [address] [place], [place] ??[phone] JERONIMO CARABALLO MD,PHD,IVONE 04/29/2022 10:4 1 AM EDT 04/29/2022 10:41 AM EDT Narrative [place] - 05/05/2022 3:46 PM EDT 2825 [id number] 0900 0905 Matty Joaquin MD LAB URINE ORDERABLES Final Re sult Performing Organization Address City/[facility]/ZIP Co de Phone Number [place] * (ABNORMAL) Urine Oxalate, 24 hour (04/29/2022 10:41 AM EDT) Oxalate, 24 Hour Urine 45.2(A) 3.6 - 38.0 mg/24 h [place] Comment: THIS TEST WAS PERFORMED AT: [employer]/[facility] [address] [place] [address] ?? MARANDA PARKS MD,PHD Urine Volume 24 Hr 2825 mL [place] Urine (Urine, Clean Catch) 04/29/2022 10:41 AM EDT 04/29/2022 10:41 AM EDT Narrative [place] - 05/05/2022 3:46 PM EDT 2825 [id number] 0900 0905 Matty Joaquin MD LAB URINE ORDERABLES Final Re sult Performing Organization Address City/[facility]/ZIP Co de Phone Number [place] documented in this encounter Visit Diagnoses Diagnosis Renal stone- Primary documented in this encounter Care Teams Acute Care Nurse Practitioner Relationship Specialty Start Date End Date iGgi Acuña MD [address] [place] [address] PCP - General Pediatrics 05/14/21 documented as of this encounter
--- OUTSIDE RECORDS SUMMARY | 2024-09-30 13:24 | XMS_ITS | Encounter Summary ---
Author Organization [facility] Address [address] [address] Phone Care Team Providers Care Content Publisher Name Role Phone Gigi Acuña MD Primary Care Provider [phone] Encounter Details Date Type Department Care Team (Late st Contact Info) Description 10/11/2021 Telephone [facility] [address] [address] Matty Joaquin MD [address] [phone] Social History Tobacco Use Types Packs/Day Years [...] encounter Miscellaneous Notes * Telephone Encounter - Christen Le MA - 10/11/2021 3:[address] joaquin is this al set ? I can mail him the letter if you do put one in * Telephone Encounter - Dionne Hare - 10/11/2021 1:09 PM EDT Pt called he would like to know if he can get a medical excuse not explaining his condition and howhe is not supposed to hod his urine for long periods of time because a lot businesses are not allowing him to use there restrooms. Thank you documented in this encounter Plan of Treatment Upcoming Encounters Date Type Department Care Team (Late st Contact Info) Description 11/25/2024 4:15 PM EDT Office [facility] [address] [place] [address] Matty Joaquin MD [address] [address] documented as of this encounter Visit Diagnoses Not on filedocumented in this encounter Care Teams Content Publisher Relationship Specialty Start Date End Date Gigi Acuña MD [address] [place] [address] PCP - General Pediatrics 05/14/21 documented as of this encounter
== END 2024-09-30 12:27 | disposition home or self-care (01) ==
PROVIDERS: Visit Provider Nurse Practitioner Family
DX: G40.909 Epilepsy, unspecified, not intractable, without status epilepticus (principal); N20.0 Calculus of kidney; G47.9 Sleep disorder, unspecified
CPT/HCPCS: 99214

== ENCOUNTER 2024-09-30 10:58 | Outpatient (REF) | payer OTHER, SELFPAY ==
--- OUTSIDE RECORDS SUMMARY | 2024-09-30 15:06 | XMS_ITS | Encounter Summary ---
Author Organization [facility] Address [address] [place] [address] Phone Care Team Providers Care Forensics Team Director Name Role Phone Gigi Acuña MD Primary Care Provider [phone] Encounter Details Date Type Department Care Team (Late st Contact Info) Description 10/11/2021 Telephone [facility] [address] [place] [address] Matty Joaquin MD [address] [place] [phone] Social History Tobacco Use Types Packs/Day Years [...] Visit [facility] [address] [place] [address] Matty Joaquin MD [address] [address] documented as of this encounter Visit Diagnoses Not on filedocumented in this encounter Care Teams Forensics Team Director Relationship Specialty Start Date End Date Gigi Acuña MD [address] [place] [address] PCP - General Pediatrics 05/14/21 documented as of this encounter
--- OUTSIDE RECORDS SUMMARY | 2024-09-30 15:06 | XMS_ITS | Encounter Summary ---
Author Organization [facility] Address [address] [place] [address] Phone Care Team Providers Care Welding Machine Operator Gas Metal Arc Name Role Phone Gigi Acuña MD Primary Care Provider [phone] Encounter Details Date Type Department Care Team (Latest Contact Info) Description 04/29/2022 Office Communication [facility] [address] [place] [address] Delaney Cabrera Renal stone (Primary [...] 1:12 PM EDT Labs inepic--pls fax to [facility] know * Telephone Encounter - Delaney Cabrera - 04/29/2022 10:07 AM EDT Pt called saying when he saw you a couple weeks ago you told him he was due for bloodwork. There are orders in the system for urine but no blood. Please advise He uses [facility] [place], please call to let him know once order has been entered. documented in this encounter Plan of Treatment Upcoming Encounters Date Type Department Care Team (Late st Contact Info) Description 11/25/2024 4:15 PM EDT Office Visit [facility] [address] [place] [address] Matty Joaquin MD [address] [facility] [address] [place] [address] Scheduled Orders Name Type Priority Associated Diagnoses [...] without preservative. THIS TEST WAS PERFORMED AT: [employer]/[facility] [address] [place], [place] ??[address] JERONIMO CARABALLO MD,PHD,IVONE 04/29/2022 10:4 1 AM EDT 04/29/2022 10:41 AM EDT Narrative [place] - 05/05/2022 3:46 PM EDT 2825 [id number] 0900 0905 Matty Joaquin MD LAB URINE ORDERABLES Final Re sult Performing Organization Address City/[facility]/ZIP Co de Phone Number [place] * (ABNORMAL) Urine Oxalate, 24 hour (04/29/2022 10:41 AM EDT) Oxalate, 24 Hour Urine 45.2(A) 3.6 - 38.0 mg/24 h [place] Comment: THIS TEST WAS PERFORMED AT: [employer]/[facility] [address] [place] [address] ?? MARANDA PARKS MD,PHD Urine Volume 24 Hr 2825 mL [place] Urine (Urine, Clean Catch) 04/29/2022 10:41 AM EDT 04/29/2022 10:41 AM EDT Narrative [place] - 05/05/2022 3:46 PM EDT 2825 [id number] 0900 0905 Matty Joaquin MD LAB URINE ORDERABLES Final Re sult Performing Organization Address City/[facility]/ZIP Co de Phone Number [place] documented in this encounter Visit Diagnoses Diagnosis Renal stone- Primary documented in this encounter Care Teams Welding Machine Operator Gas Metal Arc Relationship Specialty Start Date End Date Gigi Acuña MD [address] [place] [address] PCP - General Pediatrics 05/14/21 documented as of this encounter
--- OUTSIDE RECORDS SUMMARY | 2024-09-30 15:06 | XMS_ITS | Clinical Summary ---
Author Organization [facility] Address [address] [address] Phone Care Team Providers Care Pipe Straightener Name Role Phone Gigi Acuña MD Primary Care Provider [phone] Allergies Active Allergy Reactions Criticality Noted Date [...] 07/23/2024 Refill [facility] [address] [place] [address] [address] [place] [phone] Christi Cabrera [place] 07/22/2024 3:45 PM EST Office Visit [facility] [address] [place] [address] Matty Joaquin MD Renal stone (Primary Dx); [...] [facility] [address] [place] [address] Matty Joaquin MD [address] [facility] [address] [place] [address] Health Maintenance Due Date Last [...] Relevant to Health Maintenance Insurance Care Teams Pipe Straightener Relationship Specialty Start Date End Date Gigi Acuña MD [address] [place] [address] PCP - General Pediatrics 05/14/21
[2024-09-30 17:53] LABS: MANUAL DIFF FLAG NO
[2024-09-30 18:00] LABS: Basophils Percent Auto 0.5 % (0-2); Eosinophils Absolute Auto 0.2 X10*3/uL (0.0-0.4); Eosinophils Percent Auto 1.9 % (0-4); Hematocrit 42.6 % (42.0-52.0); Hemoglobin 14.8 g/dl (14.0-18.0); Imm Gran Abs Auto 0.04 X10*3/uL (0.00-0.03); Imm Gran Pct Auto 0.5 % (0.0-0.4); Lymphocytes Absolute Auto 3.1 X10*3/uL (1.2-4.9); Lymphocytes Percent Auto 39.4 % (20-40); Mean Corpuscular HGB Conc 34.7 g/dl (31.0-36.0); Mean Corpuscular Hemoglobin 30.3 pg (27.0-33.0); Mean Corpuscular Volume 87.3 fL (80.0-98.0); Mean Platelet Volume 11.2 fL (9.4-12.4); Monocytes Absolute Auto 0.7 X10*3/uL (0.1-1.2); Monocytes Percent Auto 8.5 % (2-11); Neutrophils Absolute Auto 3.8 x10*3/uL (2.0-8.3); Neutrophils Percent Auto 49.2 % (45-73); Platelet Count 209 X10*3/uL (160-400); Red Blood Count 4.88 X10*6/uL (4.60-5.80); Red Cell Distribution Width 13.5 % (11.0-16.0); White Blood Count 7.8 X10*3/uL (4.8-10.8)
[2024-09-30 18:15] LABS: Alanine Aminotransferase 33 U/L (0-40); Albumin Level 4.4 g/dL (3.5-5.0); Alkaline Phosphatase 53 U/L (39-117); Anion Gap 12 (12-20); Aspartate Amino Transferase 23 U/L (5-37); Bilirubin Total 0.6 mg/dL (0.0-1.0); Blood Urea Nitrogen 13 mg/dL (9-16); Calcium 9.3 mg/dL (8.4-10.2); Carbon Dioxide 23 mmol/L (22-29); Chloride 109 mmol/L (96-108); Estimated Glomerular Filt Rate > 60; Glucose Random 99 mg/dL (60-115); Potassium 3.6 mmol/L (3.3-5.1); Sodium 140 mmol/L (135-145); Total Protein 7.4 g/dL (6.5-8.0)
== END 2024-09-30 10:59 | disposition home or self-care (01) ==
LOC: HO.HKASLDS 10:58
PROVIDERS: Visit Provider Nurse Practitioner Family
DX: G40.209 Localization-related (focal) (partial) symptomatic epilepsy and epileptic syndromes with complex partial seizures, not intractable, without status epilepticus (principal); N20.0 Calculus of kidney; G47.9 Sleep disorder, unspecified
CPT/HCPCS: 36415; 80053; 85025; 99212

== ENCOUNTER 2024-10-19 08:23 | Outpatient (REF) | payer OTHER, SELFPAY ==
[2024-10-28 14:19] LABS: Stone Source KIDNEY
== END 2024-10-19 08:24 | disposition home or self-care (01) ==
LOC: HO.LNP 08:23
PROVIDERS: PCP Internal Medicine; Visit Provider Urology
DX: N20.0 Calculus of kidney (principal)
CPT/HCPCS: 51798; 82365; 88300; 99212

== ENCOUNTER 2024-10-19 08:23 | Outpatient (AMB) | payer OTHER, SELFPAY ==
--- NOTE | 2024-10-19 08:44 | A.OFFVIS_ITS ---
Intake Visit Reasons: Ultrasound Follow Up(Set) Intake Note: Patient is present for US F/U Urology Medication:ALLOPURINOL,VITAMIN B6,TAMSULOSIN Antibiotic Allergy:NONE Blood Thinner:NONE TODAY'S PVR:86ML'S Jig Boring Machine Operator For Metal Required: No Allergies amlodipine [AMLODIPINE] Allergy (Intermediate, Verified 10/19/24 08:45) SEIZURE escitalopram [From LEXAPRO] Allergy (Intermediate, Verified 10/19/24 08:45) SEIZURE fluoxetine [Prozac] Allergy (Intermediate, Verified 10/19/24 08:45) Hives olanzapine [From ZYPREXA] Allergy (Intermediate, Verified 10/19/24 08:45) AGITATION levetiracetam [From Keppra] Adverse Reaction (Severe, Verified 10/19/24 08:45) SI HPI Comments Details: Andry is a pleasant male. Background autism. Accompanied by mother. He is a patient of Dr. Grigsby. He is seen for the following urologic conditions - nephrolithiasis - balanitis - background of diabetes on metformin Yearly stone follow-up Recent imaging no evidence of stone Combination of B6 and allopurinol continues to work Brought stone for analysis today Has recurrent stones whilst on topiramate for seizure control. Nephrolithiasis Longstanding Most recent stone passage 2021 Imaging - 08/18 CT scan with distal right ureteric stone - 01/16 renal ultrasound with no evidence of stones - 10/12/23 There is a 5 mm calculus at the left ureterovesicular junction with mild hydroureteronephrosis and slight perinephric stranding. No right hydronephrosis or obstructing calculus - 06/20 renal ultrasound no evidence of stones On topiramate for seizure control Continue with vitamin B6 with allopurinol Continue with fluid intake Balanitis Prior responsiveness topical therapy Lower urinary tract symptoms Feelings of incomplete emptying and question of accidents Has been on longstanding mood stabilizers Current medications trial oxybutynin Prior medications tamsulosin [facility] Medical History (Updated 10/03/24 @ 16:54 by SARINA Huffman) Renal calculi Balanitis Essential hypertension Non-rheumatic mitral regurgitation Bipolar 1 disorder ADHD Seizure OCD (obsessive compulsive disorder) Anxiety Depression Autism Diabetes mellitus Surgical History Hx of cystoscopy Family History Father Diabetes HTN (hypertension) Mother Diabetes HTN (hypertension) Social History Household Members: Family Housing: Apartment Are you a primary career guidance counselor to a significant other at home: No Do you presently have visiting nurse or other home services: Yes (caregiver, vna) Alcohol intake: never Patient Tobacco Use Status: Never used Tobacco Second Hand Smoke Exposure: No service: No Current occupational status: disabled Sexual orientation: Don't Know Review of Systems Const Denies chills and Denies fever(s) Card Reports no additional complaints and Denies syncope Resp Denies cough GI Denies abdominal pain and Denies heartburn Reports as per HPI and Denies change in libido Neuro Denies syncope Psych Denies change in libido Endo Denies change in libido Physical Exam Const General: cooperative, healthy appearing, comfortable and no acute distress Orientation/consciousness: patient oriented x3 HEENT Face and sinus: Yes normal facial exam Mouth: moist mucous membranes Neck Neck: Yes normal visual inspection, Yes full ROM and Yes trachea midline Chest Chest palpation & inspection: normal inspection of the chest Resp Effort & Inspection: normal respiratory effort, able to speak in complete senten robert and no respiratory distress GI Inspection: Yes normal to inspection Back/Spine/Pelvis Cervical Spine: normal cervical lordosis Thoracic/Lumbar Spine: thoracic and lumbar spine normal to inspection Skin General skin exam: no rashes or lesions noted Neuro General: patient oriented x3, gait normal, tone normal and moves all extremities Extrem General: Yes normal to inspection and Yes capillary refill normal Office Procedures Post Void Residual Post Residual Void Post Void Residual (PVR): 86 15026-Nzrz Void Residual by ultrasound Assessment & Plan Assessment & Plan (1) Renal calculi: Code(s): N20.0 - Calculus of kidney Category: Medical Plan 12 month follow-up imaging Orders: Orders AMB Urinalysis Automated Today Z13.9 - Encounter for screening, unspecified Surgical Today N20.0 - Calculus of kidney US renal BI 12 Months N20.0 - Calculus of kidney Medications: Refilled allopurinol 100 mg PO DAILY 90 days 90 tabs 3RF N20.0 - Calculus of kidney Discontinued tamsulosin Discontinued Reason: Patient Completed Course 0.4 mg PO BEDTIME 14 caps 0RF Patient Instructions: This note is constructed using voice recognition software. While every effort has been made to ensure accuracy bariatric surgeon errors may have been included. Imaging studies, laboratory and physical exam results were discussed and reviewed in detail. No major barriers to patient understanding were identified. An opportunity to ask questions regarding the treatment plan was provided. All questions were answered. The patient expressed understanding and agreement with the above treatment plan. The patient is aware they should contact our office by phone for worsening of their current condition or the appearance of new urologic symptoms. Compliance is encouraged with any medications and followup testing that is ordered. It is a privilege to participate in the urologic care of your patient. If you have any questions or concerns regarding treatment for the above conditions, or other urologic issues, please do not hesitate to contact me. The office telephone contact is [phone]. Sincerely, Dr Ruben Gandhi MD, IVONE [facility] - Urology Compassionate Specialist Care for the Genitourinary System Coding Level of Care Code Est Pt Level 4 (14159) Diagnoses Renal calculi N20.0 CPT Codes Post Residual Void - PVR CPT Code: 72633-Fsdf Void Residual by ultrasound ([id number])
--- OUTSIDE RECORDS SUMMARY | 2024-10-19 08:53 | XMS_ITS | Clinical Summary ---
Author Organization [facility] Address [address] [address] Phone Care Team Providers Care Director Of Music Name Role Phone Gigi Acuña MD Primary Care Provider [phone] Allergies Active Allergy Reactions Criticality Noted Date [...] 07/23/2024 Refill [facility] [address] [place] [address] [address] [place] [phone] Christi Cabrera [place] 07/22/2024 3:45 PM EST Office Visit [facility] [address] [place] [address] Matty Joaquin MD Renal stone (Primary Dx); [...] Visit [facility] [address] [place] [address] Matty Joaquin MD [address] [facility] [address] [place] [address] Health Maintenance Due Date Last [...] Relevant to Health Maintenance Insurance Care Teams Director Of Music Relationship Specialty Start Date End Date Gigi Acuña MD [address] [place] [address] PCP - General Pediatrics 05/14/21
--- OUTSIDE RECORDS SUMMARY | 2024-10-19 08:53 | XMS_ITS | Data Portability ---
Author Organization [facility] Address [address] [place] [address] Assessment No assessment recorded. Plan of Treatment Reminders Order Date Submit Date Provider Last Modified By Organization Details Last Modified Time Details Appointments None recorded. Lab None recorded. Referral None recorded. Procedures None recorded. Surgeries None recorded. Imaging None recorded. Medication Orders amoxicillin 875 mg-potassiu m clavulanate 125 mg tablet 2022 023 [facility], [address] [place] [address], [address], 3 12:18:31 benzonatate 100 mg capsule 2022 023 [facility], [address] [place], [address], 3 12:18:31 fexofenadin e 180 mg tablet 2022 023 [facility], [address] [place] [address], [address], 3 12:18:32 Patient TargetsNo targets recorded. Patient Instructions Encounter Date Encounter Id Patient Instructions Last Modified By Organization Details Last Modified Time 12/10/2022 [id number] Acute Sinusitis: Care Instructions [email or web address] Not available 12/10/2022 12:18:29 Reason for Referral None Reported. Problems Name Problem SNOMED Code Status Onset Date Resolution Date Notes Provider Name and Address Organization Details Recorded Time Obsessive- compulsive disorder 483597649 Active 023 [facility] 3 11:42:11 Bipolar disorder 82319599 Active 023 ROMÁN jain, [place] - [facility] 3 11:42:16 Anxiety 04487945 Active 023 ROMÁN BUSTILLOSVERTMARSHA null, [place] - [facility] 3 11:42:21 Problem Notes None recorded. Medical Equipment None Reported. Allergies Allergen ID Allergen Name Allergen Category Reaction Reaction Severity Criticality Documentation Date Start Date Code Code System Note Provider Name and Address Organization Details Recorded Time 547358 amlodipin e medicatio n Not available Not available Not available 12/10/2022 75605 RxNorm IRIS COUVERTIE R null, [place] - [facility] 3 11:40:31 931963 Prozac medicatio n Not available Not available Not available 12/10/2022 95742 RxNorm IRIS COUVERTIE R null, [place] - [facility] 3 11:40:39 859148 Zyprexa medicatio n Not available Not available Not available 12/10/2022 20593 3 RxNorm IRIS COUVERTIE R null, [place] - [facility] 3 11:40:46 092837 Lexapro medicatio n Not available Not available Not available 12/10/2022 02707 1 RxNorm IRIS COUVERTIE R null, PA [...] Updated DateTime 3 165.1 cm 31.5 kg/m2 57188.9 6 g 98.1 [degF] 18 /min 85 [...] available 12/10/2022 What Is Your Water Source? [facility] Information not available 12/10/2022 What Is Your [...] SNOMED-CT Code Diagnosis ICD10 Code Diagnosis Note [id number] Edita Gonzales MD [address] Vidya Huerta [address] [place] [phone] 12/10/2022 11:18:32 12/10/2022 12:19:51 Acute sinusitis 28176893 J01.90 - Use the medication s prescribed [...] ID Sharp Member ID Guarantor Name 12/10/[address] [place] [address] [employer] [facility] (MEDICAID HMO) [id number] Andry Hill [id number] Andry Liang Notes Date Note Type Note Provider Name and Address Organization Details Recorded Time 3 text/html Sinus ComplaintsReported bypatient.Location:sinu s pain;facial pain;sinus pressure Associated Symptoms:nasal discharge from nostrils;cough Duration:10 days Edita Gonzales MD [address] [place], [address], [place] - [facility] 12/10/2022 13:55:34
--- OUTSIDE RECORDS SUMMARY | 2024-10-19 08:53 | XMS_ITS | Encounter Summary ---
Author Organization [facility] Address [address] [place] [address] Phone Care Team Providers Care Foundry Worker Apprentice Name Role Phone Gigi Acuña MD Primary Care Provider [phone] Encounter Details Date Type Department Care Team (Late st Contact Info) Description 10/11/2021 Telephone [facility] [address] [place] [address] Matty Joaquin MD [address] [place] [phone] Social History Tobacco Use Types Packs/Day Years [...] Visit [facility] [address] [place] [address] Matty Joaquin MD [address] [address] documented as of this encounter Visit Diagnoses Not on filedocumented in this encounter Care Teams Foundry Worker Apprentice Relationship Specialty Start Date End Date Gigi Acuña MD [address] [place] [address] PCP - General Pediatrics 05/14/21 documented as of this encounter
--- OUTSIDE RECORDS SUMMARY | 2024-10-19 08:53 | XMS_ITS | Encounter Summary ---
Author Organization [facility] Address [address] [place] [address] Phone Care Team Providers Care Cruise Director Name Role Phone Gigi Acuña MD Primary Care Provider [phone] Encounter Details Date Type Department Care Team (Latest Contact Info) Description 04/29/2022 Office Communication [facility] [address] [place] [address] Delaney Cabrera Renal stone (Primary [...] 1:12 PM EDT Labs inepic--[facility] fax [facility] * Telephone Encounter - Delaney Cabrera - 04/29/2022 10:07 AM EDT Pt called saying when he saw you a couple weeks ago you told him he was due for bloodwork. There are orders in the system for urine but no blood. Please advise He uses [facility] lab, please call to let him know once order has been entered. documented in this encounter Plan of Treatment Upcoming Encounters Date Type Department Care Team (Late st Contact Info) Description 11/25/2024 4:15 PM EDT Office Visit [facility] [address] [place] [address] Matty Joaquin MD [address] [facility] [address] [place] [address] Scheduled Orders Name Type Priority Associated Diagnoses [...] without preservative. THIS TEST WAS PERFORMED AT: [employer]/[facility] [address] [place], [place] ??[address] JERONIMO CARABALLO MD,PHD,IVONE 04/29/2022 10:4 1 AM EDT 04/29/2022 10:41 AM EDT Narrative [place] - 05/05/2022 3:46 PM EDT 2825 [id number] 0900 0905 Matty Joaquin MD LAB URINE ORDERABLES Final Re sult Performing Organization Address City/[facility]/ZIP Co de Phone Number [place] * (ABNORMAL) Urine Oxalate, 24 hour (04/29/2022 10:41 AM EDT) Oxalate, 24 Hour Urine 45.2(A) 3.6 - 38.0 mg/24 h [place] Comment: THIS TEST WAS PERFORMED AT: [employer]/[facility] [id number] [place] [address] ?? MARANDA PARKS MD,PHD Urine Volume 24 Hr 2825 mL [place] Urine (Urine, Clean Catch) 04/29/2022 10:41 AM EDT 04/29/2022 10:41 AM EDT Narrative [place] - 05/05/2022 3:46 PM EDT 2825 [id number] 0900 0905 Matty Joaquin MD LAB URINE ORDERABLES Final Re sult Performing Organization Address City/[facility]/ZIP Co de Phone Number [place] documented in this encounter Visit Diagnoses Diagnosis Renal stone- Primary documented in this encounter Care Teams Cruise Director Relationship Specialty Start Date End Date Gigi Acuña MD [address] [place] [address] PCP - General Pediatrics 05/14/21 documented as of this encounter
== END 2024-10-19 09:11 | disposition home or self-care (01) ==
LOC: HO.HUSH 08:23
PROVIDERS: PCP Internal Medicine; Visit Provider Urology
DX: N20.0 Calculus of kidney (principal)
CPT/HCPCS: 99214

== ENCOUNTER 2025-04-20 14:16 | Outpatient (REF) | payer OTHER, SELFPAY ==
--- NOTE | 2025-04-20 15:54 | EEG_ITS ---
Roomed Performed:?402 Reason: abnormal involuntary movement History:?H/O Renal calculi, Balanitis, Essential hypertension, Non-rheumatic mitral regurgitation, Bipolar 1 disorder, ADHD, Seizure, OCD (obsessive compulsive disorder), Anxiety, Depression, Autism, Diabetes mellitus Medication: allopurinol, cholecalciferol, clonazepam, clonidine, ibuprofen, lamotrigine, levofloxacin, lisinopril, melatonin, metformin, naproxen, omeprazole, ondansetron, oxycodone, phenazopyridine, polyethylene, potassium, pyridoxine, quetiapine, simvastatin, tamsulosin, topiramate - Patient reports left arm/shoulder involuntary movement and slurred speech. Technical description? Photic stimulation: completed Hyperventilation:?omitted Behavioral state: pleasant, sleepy State of Consciousness: awake and sleep Skull defect: none Sedation: none Handedness: right Duration of study:? 32 min ?34 sec Description: This is a 16 channel EEG with an EKG lead. Patient is reported awake and sleep during the tracing. Background EEG rhythm is about 10 hertz 5- 100 microvolt posteriorly and lower amplitude fast anteriorly. Intermittently right central sharp waves were noted. Photic stimulation does not produce any significant driving. Hyperventilation is not performed. Cardiac lead does not reveal any significant abnormality. Impression: Mildly abnormal EEG suggestive of right hemispheric irritability MTDD
--- OUTSIDE RECORDS SUMMARY | 2025-04-20 17:01 | XMS_ITS ---
Author Name [facility] Organization Unknown Care Team Organization Name Specialty Phone Email Start Date End Da te [facility] 06/04/2022 03/15/2024
--- OUTSIDE RECORDS SUMMARY | 2025-04-20 17:01 | XMS_ITS | Encounter Summary ---
Author Organization [facility] Address [address] [place] [address] Phone Care Team Providers Care Ballistics Teacher Name Role Phone Gigi Acuña MD Primary Care Provider [phone] Encounter Details Date Type Department Care Team (Latest Contact Info) Description 04/29/2022 Office Communication [facility] [address] [place] [address] Delaney Cabrera Renal stone (Primary [...] 1:12 PM EDT Labs inepic--pls fax to [facility] and [facility] know * Telephone Encounter - Delaney Cabrera [...] Care Team (Late st Contact Info) Description 12/26/2025 1:45 PM EDT Office Visit [facility] [address] [place] [address] Matty Joaquin MD [address] [facility] [address] [place] [address] Scheduled Orders Name Type Priority Associated Diagnoses [...] umol/24 h [place] Comment: TEST(S) NOT PERFORMED: CYSTINE TEST NOT PERFORMED Test not performed pH of urine is <2.0 which interferes with assay. Please resubmit fresh sample collected without preservative. THIS TEST WAS PERFORMED AT: [facility] [address] [place] [address] JERONIMO CARABALLO MD,PHD,IVONE 04/29/2022 10:4 1 AM EDT 04/29/2022 10:41 AM EDT Narrative [place] - 05/05/2022 3:46 PM EDT 2825 [id number] 0900 0905 Matty Joaquin MD LAB URINE ORDERABLES Final Re sult Performing Organization Address City/[facility]/ZIP Co de Phone Number [place] * (ABNORMAL) Urine Oxalate, 24 hour (04/29/2022 10:41 AM EDT) Oxalate, 24 Hour Urine 45.2(A) 3.6 - 38.0 mg/24 h [place] Comment: THIS TEST WAS PERFORMED AT: [facility] [address] [place] [address] MARANDA PARKS MD,PHD Urine Volume 24 Hr 2825 mL [place] Urine specimen (specimen) Urine specimen obtained by clean catch procedure / Unknown 04/29/2022 10:41 AM EDT 04/29/2022 10:41 AM EDT Narrative [place] - 05/05/2022 3:46 PM EDT 2825 [id number] 09 Matty Joaquin MD LAB URINE ORDERABLES Final Re sult [place] documented in this encounter Visit Diagnoses Diagnosis Renal stone- Primary documented in this encounter Care Teams Ballistics Teacher Relationship Specialty Start Date End Date Gigi Acuña MD [address] [place] [address] PCP - General Pediatrics 05/14/21 documented as of this encounter
--- OUTSIDE RECORDS SUMMARY | 2025-04-20 17:02 | XMS_ITS | Clinical Summary ---
Author Organization [facility] Address [address] [address] Phone Care Team Providers Care Overlock Waistline Joiner Name Role Phone Gigi Acuña MD Primary Care Provider [phone] Allergies Active Allergy Reactions Criticality Noted Date [...] stone attack oucurs 15 capsule 05/26/2023 Active lamoTRIgine (LaMICtal) 100 MG tablet 200 mg in the morning and 200 mg in the evening. 12/17/2024 Active Active Problems Problem Noted Date Diagnosed [...] wit h diabetic chronic kidney disease 06/19/2021 Immunizations Immunization Administration Dates Next Due Hepatitis B 10/08/2019 [...] Sign Reading Time Taken Comments Blood Pressure 116/76 12/23/2024 2:22 PM EDT Pulse 75 12/23/2024 2:22 PM EDT Temperature - - Respiratory Rate - - Oxygen Saturation 99% 05/26/2023 3:10 PM EDT Inhaled Oxygen Concentration - - Weight 88 kg (194 lb) 12/23/2024 2:22 PM EDT Height - - Body Mass Index - - Plan of Treatment Upcoming Encounters Date Type Department Care Team (Late st Contact Info) Description 12/26/2025 1:45 PM EDT Office Visit [facility] [address] [place] [address] Matty Joaquin MD [address] [facility] [address] [place] [address] Health Maintenance Due Date Last Done Comments Hepatitis B Vaccine (1 of 3 - 19+ 3-dose series) 2016 10/07/2023, 09/02/2023, 10/08/2019 Pneumococcal Vaccine: Peds ( 0 to 5 Years) and At-Risk Patients (6 to 49 Years) (1 of 2 - PCV) 2016 Diabetes: Ophthalmology Exam 06/19/2021 Diabetes: Pedal Pulse Checked 06/19/2021 Diabetes: Sensory Foot Exam 06/19/2021 Diabetes: Visual Foot Exam 06/19/2021 Diabetes: Hemoglobin A1C 03/22/2022 12/20/2021 Influenza Vaccine (#1) 2025 2, 04/05/2021, 03/31/2020, Additional history exists Procedures [...] 6.0 Triglycerides 61 Cholesterol, Total 147 12/20/2021 us Historical Provider LAB BLOOD ORDERABLES Rosa l Result from Last 3 Months or Most Recently Relevant to Health Maintenance Insurance [facility] Medicaid [employer] Medicaid Care Teams Overlock Waistline Joiner Relationship Specialty Start Date End Date Gigi Acuña MD [address] [place] [address] PCP - General Pediatrics 05/14/21
--- OUTSIDE RECORDS SUMMARY | 2025-04-20 17:02 | XMS_ITS | Encounter Summary ---
Author Organization [facility] Address [address] [place] [address] Phone Care Team Providers Care Conference Reservationist Name Role Phone Gigi Acuña MD Primary Care Provider [phone] Encounter Details Date Type Department Care Team (Late st Contact Info) Description 10/11/2021 Telephone [facility] [address] [place] [address] Matty Joaquin MD [address] [facility] [address] [place] [phone] Social History Tobacco Use Types Packs/Day Years [...] Visit [facility] [address] [facility] [address] [place] [address] Matty Joaquin MD [address] [address] documented as of this encounter Visit Diagnoses Not on filedocumented in this encounter Care Teams Conference Reservationist Relationship Specialty Start Date End Date Gigi Acuña MD [address] [place] [address] PCP - General Pediatrics 05/14/21 documented as of this encounter
== END 2025-04-20 14:17 | disposition home or self-care (01) ==
LOC: HO.NEURO 14:16
PROVIDERS: Visit Provider Nurse Practitioner Family
DX: R47.81 Slurred speech (principal); R25.8 Other abnormal involuntary movements; G40.909 Epilepsy, unspecified, not intractable, without status epilepticus; R94.01 Abnormal electroencephalogram [EEG]
CPT/HCPCS: 95819

== ENCOUNTER → 2025-04-20 15:54 | Outpatient (BNV) | payer OTHER, SELFPAY | PROVIDERS: Visit Provider Psychiatry & Neurology Neurology | DX: R47.81 Slurred speech (principal) ==

== ENCOUNTER 2025-05-06 09:51 | Outpatient (REF) | payer OTHER, SELFPAY ==
--- NOTE | ~2025-05-06 | MR_ITS ---
CLINICAL HISTORY: R47.81 - Slurred speech MR Brain without gadolinium Comparison: None provided Findings: No restricted diffusion. No intra-axial mass or hemorrhage. No midline shift. No hydrocephalus. Vascular flow voids are intact. The orbits are normal. The sinuses and mastoid air cells are clear. No focal bone lesion. IMPRESSION: No acute findings. This document has been electronically signed by: Angelito Estrella MD on 05/08/2025 08:58:35
[2025-05-06 10:12] LABS: MANUAL DIFF FLAG NO
[2025-05-06 10:26] LABS: Hematocrit 43.6 % (42.0-52.0); Hemoglobin 14.7 g/dl (14.0-18.0); Imm Gran Abs Auto 0.07 X10*3/uL (0.00-0.03); Imm Gran Pct Auto 0.9 % (0.0-0.4); Lymphocytes Absolute Auto 2.8 X10*3/uL (1.2-4.9); Mean Corpuscular HGB Conc 33.7 g/dl (31.0-36.0); Mean Corpuscular Hemoglobin 28.9 pg (27.0-33.0); Mean Corpuscular Volume 85.8 fL (80.0-98.0); NRBC Abs Auto 0.020 X10*3/uL (0.0-0.012); NRBC Pct Auto 0.3 /100WBC (0.0-0.2); Platelet Count 223 X10*3/uL (160-400); Red Blood Count 5.08 X10*6/uL (4.60-5.80); White Blood Count 7.5 X10*3/uL (4.8-10.8)
[2025-05-06 10:32] LABS: Hemoglobin A1C 144.7196 umol/L; Total Hemoglobin (HGBA1C) 3757.5398 umol/L
[2025-05-06 11:20] LABS: Alanine Aminotransferase 48 U/L (0-40); Albumin Level 4.9 g/dL (3.5-5.0); Alkaline Phosphatase 58 U/L (39-117); Anion Gap 12 (12-20); Aspartate Amino Transferase 32 U/L (5-37); Blood Urea Nitrogen 13 mg/dL (9-16); Calcium 9.5 mg/dL (8.4-10.2); Carbon Dioxide 29 mmol/L (22-29); Chloride 105 mmol/L (96-108); Estimated Glomerular Filt Rate > 60; Magnesium 2.1 mg/dL (1.6-2.6); Potassium 4.5 mmol/L (3.3-5.1); Sodium 141 mmol/L (135-145); Total Protein 7.2 g/dL (6.5-8.0)
[2025-05-06 11:33] LABS: Folate 5.6 ng/mL (> or = 4.0); Vitamin B12 290 pg/mL (200-900)
== END 2025-05-06 09:52 | disposition home or self-care (01) ==
LOC: HO.MRI 09:51
PROVIDERS: Visit Provider Nurse Practitioner Family
DX: R25.8 Other abnormal involuntary movements (principal); G40.909 Epilepsy, unspecified, not intractable, without status epilepticus; I34.0 Nonrheumatic mitral (valve) insufficiency; I10 Essential (primary) hypertension; E11.9 Type 2 diabetes mellitus without complications; D64.9 Anemia, unspecified; R47.81 Slurred speech; N20.0 Calculus of kidney
CPT/HCPCS: 36415; 70553; 80053; 82550; 82607; 82746; 83036; 83735; 84207; 84443; 85025; 85652; 86140; A9585

== ENCOUNTER → 2025-05-06 10:16 | Outpatient (BNV) | payer OTHER, SELFPAY | PROVIDERS: Visit Provider Specialist | DX: R47.81 Slurred speech (principal) | CPT/HCPCS: 70553 ==

== ENCOUNTER 2025-07-15 08:02 | Outpatient (REF) | payer OTHER, SELFPAY ==
--- OUTSIDE RECORDS SUMMARY | 2025-07-15 08:07 | XMS_ITS | Clinical Summary ---
Author Organization [facility] Address [address] [address] Phone Care Team Providers Care Chocolate Coater Name Role Phone Gigi Acuña MD Primary Care Provider [phone] Allergies Active Allergy Reactions Criticality Noted Date [...] Visit [facility] [address] [place], [place] [address] Matty Joaquin MD [address] [facility] [address] [place] [address] Health Maintenance Due Date Last [...] Health Medicaid [employer] Medicaid Care Teams Chocolate Coater Relationship Specialty Start Date End Date Gigi Acuña MD [address] [place] [address] PCP - General Pediatrics 05/14/21
--- OUTSIDE RECORDS SUMMARY | 2025-07-15 08:07 | XMS_ITS | Data Portability ---
Author Organization [facility] [address] Address [address] [place] [address] Assessment No assessment recorded. Plan of Treatment Reminders Order Date Submit Date Provider Last Modified By Organization Details Last Modified Time Details Appointments None recorded. Lab None recorded. Referral None recorded. Procedures None recorded. Surgeries None recorded. Imaging None recorded. Medication Orders amoxicillin 875 mg-potassiu m clavulanate 125 mg tablet 2022 023 [facility] [address] [place] [address], [address], 3 12:18:31 benzonatate 100 mg capsule 2022 023 [facility], [address] [place], [address], 3 12:18:31 fexofenadin e 180 mg tablet 2022 023 [facility], [address] [place] [address], [address], 3 12:18:32 Patient TargetsNo targets recorded. Patient Instructions Encounter Date Encounter Id Patient Instructions Last Modified By Organization Details Last Modified Time 12/10/2022 [id number] Acute Sinusitis: Care Instructions [email or web address] Not available 12/10/2022 12:18:29 Reason for Referral None Reported. Problems Name Problem SNOMED Code Status Onset Date Resolution Date Notes Provider Name and Address Organization Details Recorded Time Obsessive- compulsive disorder 850876929 Active 023 [facility] 3 11:42:11 Bipolar disorder 91333172 Active 023 ROMÁN COLE null, [place] - [facility] 3 11:42:16 Anxiety 15986515 Active 023 ROMÁN COLE null, [place] - [facility] 3 11:42:21 Problem Notes None recorded. Medical Equipment None Reported. Allergies Allergen ID Allergen Name Allergen Category Reaction Reaction Severity Criticality Documentation Date Start Date Code Code System Note Provider Name and Address Organization Details Recorded Time 041609 amlodipin e medicatio n Not available Not available Not available 12/10/2022 23734 RxNorm IRIS COUVERTIE R null, PA - [facility] 3 11:40:31 010954 Prozac medicatio n Not available Not available Not available 12/10/2022 19020 RxNorm IRIS COUVERTIE R null, PA - [facility] 3 11:40:39 058898 Zyprexa medicatio n Not available Not available Not available 12/10/2022 59106 3 RxNorm ROMÁN COUVERTIE R null, [place] - [facility] 3 11:40:46 138434 Lexapro medicatio n Not available Not available Not available 12/10/2022 79192 1 RxNorm IRIS TRESSAVERTIE R null, PA - [facility] 3 [...] temperature Respiratory rate Heart rate Oxygen saturation Systolic And Diastolic Provider Name and Address Organization Details Last Updated DateTime 3 165.1 cm 31.5 kg/m2 77322.9 6 g 98.1 [degF] 18 /min 85 /min 99 % 112/72 mm[Hg] ROMÁN NGUYEN Ebenezer PA - [facility] 11:43:50 Social History Question Answer Notes LastModified by shopkick Details LastModified Time Tobacco Smoking Status Never Smoker ROMÁN jain [place] - [facility] 12/10/2022 11:42:36 What Is Your Water Source? City Information not available 12/10/2022 What Is Your Heat Source? Other Information not available 12/10/2022 Have You Had Direct Contact, Or Contact During Intimacy, With Monkeypox Rash, Scabs, Or Body Fluids From A Person With Monkeypox? No Information not available 12/10/2022 Have You Recently Traveled Abroad? No Information not available 12/10/2022 Sex: Unknown Functional Status Question Answer Note LastModified by [employer] Transmission Details LastModified Time Do you use any illicit or recreational drugs? No Information not available 12/10/2022 Do you or have you ever used any other forms of tobacco or nicotine? No Information not available 12/10/2022 What is your level of alcohol consumption? None Information not available 12/10/2022 Mental Status None recorded. Family History Relationship [...] Diagnosis SNOMED-CT Code Diagnosis ICD10 Code Diagnosis IMO Codes Diagnosis Note [id number] Edita Gonzales MD [address] [address] [place] [phone] 12/10/2022 11:18:32 12/10/2022 12:19:51 Acute sinusitis 86636893 J01.90 - Use the medication s prescribed [...] Recorded Advance Directives Directive None Recorded Payers Insurance Date Sequence Insurance Name Policy Number Policy Sharp Covered Member ID Sharp Member ID Guarantor Name 12/10/[address] [place] [address] (MEDICAID HMO) [id number] Andry Hill [id number] Andry Liang Notes Date Note Type Note Provider Name and Address Organization Details Recorded Time 3 text/html Sinus ComplaintsReported by PatientHPIFor location, patient reportssinus pain,facial pain, andsinus pressure. For associated symptoms, patient reportsnasal discharge from __ nostrilsandcough. For duration, (10 days). CoughReported by Patient Edita Gonzales MD [facility] [place], [address], [place] - [facility] 12/10/2022 13:55:34
--- OUTSIDE RECORDS SUMMARY | 2025-07-15 08:07 | XMS_ITS | Encounter Summary ---
Author Organization [facility] Address [address] [place] [address] Phone Care Team Providers Care Picker Packer Name Role Phone Gigi Acuña MD Primary Care Provider [phone] Encounter Details Date Type Department Care Team (Late st Contact Info) Description 10/11/2021 Telephone [facility] [address] [place] [address] Matty Joaquin MD [address] [facility] [address] [place] [phone] Social History Tobacco Use Types Packs/Day Years [...] Visit [facility] [address] [address] [place] [address] Matty Joaquin MD [address] [address] documented as of this encounter Visit Diagnoses Not on filedocumented in this encounter Care Teams Picker Packer Relationship Specialty Start Date End Date Gigi Acuña MD [address] [place] [address] PCP - General Pediatrics 05/14/21 documented as of this encounter
--- NOTE | 2025-07-15 14:20 | EEG_ITS ---
History: ADHD, anxiety, autism, bipolar, depression, diabetic, hypertension, non-rheumatic mitral regurgitation, OCD, renal calculi, seizure Medication: Technical Description Photic Stimulation: Yes Hyperventilation: Yes Behavioral State: Cooperative State of Consciousness: Awake, sleep Skull Defect: None Sedation: None Handedness: Right Duration: 29:15 Car Runner Comments: Last Meal: Time / date of last symptom: Description: This is a 16 channel EEG with an EKG lead. Patient is reported awake and sleep during the tracing. Background EEG rhythm is mixed theta beta with no obvious asymmetry or paroxysmal tendency. Photic stimulation does not produce any significant driving. Hyperventilation is unremarkable. Cardiac lead does not reveal any significant abnormality. No definite sharp wave spikes or paroxysmal tendency noted. Impression: No significant abnormality noted on this EEG. MTDD
== END 2025-07-15 08:03 | disposition home or self-care (01) ==
LOC: HO.NEURO 08:02
PROVIDERS: Visit Provider Nurse Practitioner Family
DX: G40.909 Epilepsy, unspecified, not intractable, without status epilepticus (principal); R25.8 Other abnormal involuntary movements
CPT/HCPCS: 95819

== ENCOUNTER → 2025-07-15 14:20 | Outpatient (BNV) | payer OTHER, SELFPAY | PROVIDERS: Visit Provider Psychiatry & Neurology Neurology | DX: G40.909 Epilepsy, unspecified, not intractable, without status epilepticus (principal) | CPT/HCPCS: 95819 ==